=== PATIENT | female | born 1960 | race Caucasian/White ===

== ENCOUNTER 2017-02-02 09:33 | Inpatient (IN) | payer BC ==
[2017-02-02] MEDS ORDERED: Midazolam 1 MG/ML 2 ML SDV ONE (09:52)
[2017-02-02] MEDS ORDERED: Propofol 200 MG/20 ML SDV ONE ×2 (09:52→12:05)
[2017-02-02] MEDS ORDERED: fentaNYL 250 MCG/5 ML SDV ONE (09:53)
[2017-02-02] MEDS ORDERED: Lidocaine 1% 4 ML ONE (09:53)
[2017-02-02] MEDS ORDERED: Sodium Chloride 0.9% 10 ML Syringe FLUSH PRN (10:03)
[2017-02-02] MEDS ORDERED: Lidocaine 1%/Sod Bicarbonate in NS 8.4% 1 ML Syringe PRN (10:03)
--- NOTE | 2017-02-02 10:09 | PCM.PREANE ---
Preanesthetic Assessment - Anesthesia/Transfusion/Family Hx Anesthesia History: Prior Anesthesia Without Reaction Family History of Anesthesia Reaction: No Transfusion History: Prior Transfusion Without Reaction Intubation History: Unknown - Review of Systems General: Fatigue Pulmonary: No Symptoms, Shortness of Breath Cardiovascular: No Symptoms Gastrointestinal: No Symptoms Neurological: No Symptoms Other: Reports: Easy Bleeding, Easy Bruising - Physical Assessment NPO Status Date: 02/01/17 NPO Status Time: 23:30 Pulse: 77 O2 Sat by Pulse Oximetry: 98 Respiratory Rate: 16 Blood Pressure: 131/68 Temperature: 99.1 F Height: 5 ft 3 in Weight: 58.967 kg ASA Class: 3 Mental Status: Alert & Oriented x3 Airway Class: Mallampati = 2 Dentition: Reports: Dentures Thyro-Mental Finger Breadths: 3 Mouth Opening Finger Breadths: 3 ROM/Head Extension: Full Lungs: Clear to Auscultation Cardiovascular: Regular Rate, Regular Rhythm Other: [facility] valve - Allergies Allergies/Adverse Reactions: Allergies Allergy/AdvReac Type Severity Reaction Status Date / Time No Known Allergies Allergy Verified 05/19/16 11:32 PreAnesthesia Questionnaire Cardiovascular History: Reports: Heart Valve Replacement, Hypertension, SOB on Exertion Respiratory History: Reports: Pneumothorax, SOB Other Respiratory History: Secondary to chest compressions Musculoskeletal History: Reports: Osteoporosis, Other (See Below) Other Musculoskeletal History: left knee fx Psychiatric History: Reports: Anxiety, Depression Endocrine/Metabolic History: Reports: Hypothyroidism Hematologic History: Reports: Blood Transfusion(s) Oncologic (Cancer) History: Reports: Breast, Other (See Below) Other Oncologic History: throat - Past Surgical History Other HEENT Surgeries/Procedures: radical neck Cardiovascular Surgical History: Reports: Valve Replacement Female Surgical History: Reports: Section Endocrine Surgical History: Reports: Thyroidectomy Musculoskeletal Surgical History: Reports: Hip Replacement Oncologic Surgical History: Reports: Mastectomy, Other (See Below) Other Oncologic Surgeries/Procedures: Rad neck - SUBSTANCE USE Smoking Status *Q: Former Smoker Second Hand Smoke Exposure: No Days Per Week of Alcohol Use: 1 Number of Drinks Per Day: 2 Total Drinks Per Week: 2 - HOME MEDS Home Medications: Home Meds Warfarin [Coumadin] 1.5 mg PO ASDIRECTED 12/14/13 [History] Levothyroxine 75 mcg PO DAILY 07/25/14 [History] ALPRAZolam [Xanax] 0.5 mg PO Q12H PRN 08/14/14 [History] Aspirin [Children's Aspirin] 81 mg PO DAILY PRN 08/14/14 [History] Warfarin [Coumadin] 2.5 mg PO ASDIRECTED 05/19/16 [History] Calcium Carbonate/Vitamin D3 [Calcium Carbonate/Vitamin D 1250 MG-200 Unit] 1 tab PO DAILY 01/19/17 [History] HYDROmorphone [Dilaudid 1 MG/ML Soln] 6 mg PO Q2H PRN 01/19/17 [History] Lactulose 30 ml PO BID PRN MDD constipation 01/19/17 [History] Ondansetron [Ondansetron ODT] 8 mg SL Q8H PRN 01/19/17 [History] Prochlorperazine Maleate [Compazine] 10 mg PO Q4H PRN 01/19/17 [History] Tetracycline HCl 5 ml PO DAILY 01/19/17 [History] Zolpidem [Ambien] 0.5 tab PO ASDIRECTED PRN 01/19/17 [History] fentaNYL [Duragesic] 150 mcg TD Q72H 01/19/17 [History] - CURRENT (IN HOUSE) MEDS Current Meds: Current Medications Ampicillin Sodium/Sulbactam (Sodium 3 gm/ Sodium Chloride) 100 mls @ 200 mls/ hr IV ONETIME ONE Stop: 02/02/17 10:44 Lactated Ringer's (Ringers, Lactated) 1,000 mls @ 125 mls/hr IV ASDIRECTED [facility] Discontinued Medications Fentanyl (Sublimaze) Confirm Administered Dose 250 mcg .ROUTE .STK-MED ONE Stop: 02/02/17 09:54 Lidocaine HCl (Xylocaine-Mpf 1%) Confirm Administered Dose 4 mls @ as directed .ROUTE .STK-MED ONE Stop: 02/02/17 09:54 Midazolam HCl (Versed 1 Mg/Ml) Confirm Administered Dose 2 mg .ROUTE .STK-MED ONE Stop: 02/02/17 09:53 Propofol (Diprivan 20 Ml) Confirm Administered Dose 200 mg .ROUTE .STK-MED ONE Stop: 02/02/17 09:53
[2017-02-02] MEDS ORDERED: Ampicillin/Sulbactam Na 3 GM in Sodium Chloride 0.9% 100 ML IV ONE (10:15)
[2017-02-02] MEDS: Lactated Ringers 1,000 ML IV SCH ×3 (10:20→23:17)
[2017-02-02] MEDS ORDERED: fentaNYL 100 MCG/2 ML SDV IVPUSH PRN (11:30)
[2017-02-02] MEDS ORDERED: Lactated Ringers 1,000 ML ONE (12:26)
[2017-02-02] MEDS ORDERED: Ketamine 500 mg/10 ML MDV ONE (12:38)
[2017-02-02] MEDS ORDERED: Ondansetron 4 MG/2 ML SDV ONE (12:42)
[2017-02-02] MEDS ORDERED: fentaNYL 100 MCG/2 ML SDV ONE (12:45)
--- NOTE | 2017-02-02 12:56 | PCM.OPNOTE ---
- General Post-Op/Procedure Note Date of Surgery/Procedure: 02/02/17 Operative Procedure(s): laryngoscopy attempted balloon dilitation and laprotomy placement of gastric tube Pre Op Diagnosis: mass in neck with obstruction of esophagus Post-Op Diagnosis: Same Anesthesia Technique: General ET Tube Primary Surgeon: Renan Sharpe EBL in mLs: 5 Complications: None Condition: Good
[2017-02-02] MEDS ORDERED: HYDROmorphone 2 MG Tab PO PRN (13:02)
[2017-02-02] MEDS ORDERED: ALPRAZolam 0.5 MG Tab PO PRN (13:02)
[2017-02-02] MEDS ORDERED: Aspirin 81 MG Tab.Chew PO PRN (13:02)
[2017-02-02] MEDS ORDERED: Ondansetron 4 MG Tab.DIS PO PRN (13:02)
[2017-02-02] MEDS ORDERED: Ondansetron 4 MG/2 ML SDV IVPUSH PRN (13:05)
--- NOTE | 2017-02-02 13:10 | PCM.POSTAN ---
POST ANESTHESIA ASSESSMENT - MENTAL STATUS Mental Status: Alert - VITAL SIGNS Pulse Rate: 77 SaO2: 100 Resp Rate: 16 Blood Pressure: 173/81 Temperature: 97.2 F - RESPIRATORY Respiratory Status: Respiratory Rate WNL, Airway Patent, O2 Saturation Stable - CARDIOVASCULAR CV Status: Pulse Rate WNL, Elevated Blood Pressure - GASTROINTESTINAL GI Status: No Symptoms - POST OP HYDRATION Hydration Status: Adequate & Stable
[2017-02-02] MEDS: HYDROmorphone 0.5 MG/0.5 ML Syringe IVPUSH PRN ×2 (13:12→13:28)
[2017-02-02] MEDS: fentaNYL 100 MCG/2 ML SDV IVPUSH PRN ×3 (13:15→14:00)
[2017-02-02] MEDS: Acetaminophen/HYDROcodone 325-5 MG Tab GTUBE PRN ×2 (13:46→23:16)
[2017-02-02] MEDS ORDERED: fentaNYL 25 MCG/HR Transdermal Patch TRDERM SCH (15:00)
[2017-02-02] MEDS: Ampicillin/Sulbactam Na 1.5 GM in Sodium Chloride 0.9% 100 ML IV SCH ×2 (17:31→23:17)
[2017-02-02] MEDS: Warfarin 2.5 MG Tab PO SCH (17:50)
[2017-02-02] MEDS ORDERED: fentaNYL 100 MCG/HR Transdermal Patch TRDERM SCH (18:15)
[2017-02-02] MEDS: fentaNYL 25 MCG/HR Transdermal Patch TRDERM SCH (19:02)
[2017-02-02] MEDS: fentaNYL 100 MCG/HR Transdermal Patch TRDERM SCH (19:03)
[2017-02-02] MEDS ORDERED: ALPRAZolam 0.25 MG Tab PO ONE (23:06)
[2017-02-03] MEDS: Acetaminophen/HYDROcodone 325-5 MG Tab GTUBE PRN (06:19)
[2017-02-03] MEDS: Ampicillin/Sulbactam Na 1.5 GM in Sodium Chloride 0.9% 100 ML IV SCH ×4 (06:19→22:34)
[2017-02-03] MEDS ORDERED: Potassium Chloride 10% 20 MEQ/15 ML Soln 15 ML UD Cup PO SCH (08:30)
--- NOTE | 2017-02-03 08:51 | OR ---
DATE OF OPERATION: 02/02/2017 SURGEON: Renan Sharpe MD PREOPERATIVE DIAGNOSIS: Tumor mass. POSTOPERATIVE DIAGNOSIS: Tumor mass. OPERATION PERFORMED: Laryngoscopy, attempted dilatation and open placement of gastrostomy tube through laparotomy. ANESTHESIA: Done under IV sedation and then general anesthetic. ESTIMATED BLOOD LOSS: About 10 mL. FINDINGS: Tumor masses that had completely blocked the esophagus and did not allow passage of the scope beyond the upper larynx. 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 DESCRIPTION OF PROCEDURE: The patient was taken to the operating room, connected monitoring equipment, given IV sedation. SCDs were placed. Antibiotics were given. I placed in left lateral position, where a video Olympus gastroscope was placed in a posterior oropharynx and the tumor mass was encountered. It appeared there may be a channel and a small 32-Frisian balloon dilator was placed through this channel and expanded, but it only came out the previous established cutaneous tract, so this was abandoned. The patient was then given a general anesthetic and placed in a supine position. Incision was made in the upper midline, carried down by sharp dissection through the linea alba to the abdominal cavity. The stomach was identified and brought out through the incision and a 3-0 silk suture was placed as a pursestring. The stomach was opened and 16-Frisian feeding tube was inserted. The balloon was dilated and the pursestring suture of 3-0 silk was placed. Another row of 3-0 silk suture was then placed and then the catheter which had been previously threaded through a separate stab incision in the left lateral wall was secured to the peritoneum with interrupted 2-0 silk sutures. The balloon was then tightened up. The retaining ring placed down to secure the stomach to the abdominal wall. This completed the intraabdominal portion of the procedure. The tube was irrigated and found to function well, gastric contents returned. The fascia was then closed with running #1 PDS starting either in midline. Subcuticular tissue was brought together with 3-0 Vicryl suture and the skin with a running subdermal 4-0 Dexon suture. Dermabond was placed. Retaining ring was then sutured to the skin with 2-0 silk suture. The dressing was placed. The patient tolerated the procedure and sent to recovery room in a stable condition. MMODAL /[id number]
[2017-02-03] MEDS: HYDROmorphone 2 MG Tab GTUBE PRN ×6 (08:59→22:10)
[2017-02-03] MEDS: Potassium Chloride 10% 20 MEQ/15 ML Soln 15 ML UD Cup GTUBE SCH ×4 (09:00→20:09)
[2017-02-03] MEDS ORDERED: Potassium Chloride 10 MEQ Tab.ER GTUBE SCH (09:00)
[2017-02-03] MEDS: Levothyroxine 75 MCG Tab PO SCH (09:00)
[2017-02-03] MEDS: Lactulose Soln 10 GM/15 ML 30 ML UD Cup PO SCH ×2 (09:01→20:08)
[2017-02-03] MEDS: Lactated Ringers 1,000 ML IV SCH (09:30)
[2017-02-03] MEDS ORDERED: HYDROmorphone 2 MG Tab GTUBE ONE (10:00)
[2017-02-03] MEDS: ALPRAZolam 0.5 MG Tab PO SCH ×2 (10:49→11:43)
--- NOTE | 2017-02-03 12:49 | PCM.SURGPN ---
- General Info Date of Service: 02/03/17 POD#: 1 Functional Status: Reports: Pain Controlled - Review of Systems General: Reports: Weakness, Fatigue, Malaise HEENT: Reports: Sore Throat Pulmonary: Reports: No Symptoms Cardiovascular: Reports: No Symptoms Gastrointestinal: Reports: No Symptoms - Patient Data Vitals - Most Recent: Last Vital Signs Temp 99.7 F 02/03/17 09:16 Pulse 83 02/03/17 09:16 Resp 14 02/03/17 09:16 BP 163/80 H 02/03/17 09:16 Pulse Ox 92 L 02/03/17 09:16 Weight - Most Recent: 45.541 kg I&O - Last 24 Hours: Intake & Output 02/02/17 02/03/17 02/03/17 23:59 07:59 15:59 Intake Total 419 1345 Output Total 625 1275 Balance -206 70 Med Orders - Current: Current Medications Hydrocodone Bitart/Acetaminophen ([place] 325-5 Mg) 1 tab GTUBE Q6H PRN PRN Reason: Pain Last Admin: 02/03/17 06:19 Dose: 1 tab Alprazolam (Xanax) 0.5 mg PO TID PRN PRN Reason: Anxiety Aspirin (Aspirin) 81 mg PO DAILY PRN PRN Reason: Headache Fentanyl (Duragesic) 100 mcg TRDERM Q72H [facility] Last Admin: 02/02/17 19:03 Dose: 100 mcg Fentanyl (Duragesic) 25 mcg TRDERM Q72H [facility] Last Admin: 02/02/17 19:02 Dose: 25 mcg Hydromorphone HCl (Dilaudid) 6 mg GTUBE Q2H PRN PRN Reason: Pain Last Admin: 02/03/17 11:11 Dose: 6 mg Ampicillin Sodium/Sulbactam (Sodium 1.5 gm/ Sodium Chloride) 100 mls @ 200 mls/ hr IV Q6H [facility] Last Admin: 02/03/17 10:45 Dose: 200 mls/hr Lactulose (Cephulac) 20 gm PO BID [facility] Last Admin: 02/03/17 09:01 Dose: Not Given Levothyroxine Sodium (Levothyroxine) 75 mcg PO DAILY [facility] Last Admin: 02/03/17 09:00 Dose: 75 mcg Miscellaneous Information (Remove Patch) 1 ea TRDERM Q72H [facility] Ondansetron HCl (Zofran Odt) 8 mg PO Q8H PRN PRN Reason: Nausea/Vomiting Potassium Chloride (Potassium Chloride Solution) 10 meq GTUBE QID [facility] Last Admin: 02/03/17 12:34 Dose: 10 meq Warfarin Sodium (Coumadin) 2.5 mg PO SuMoWeFr@1800 [facility] Warfarin Sodium (Coumadin) 1.25 mg PO TuThSa@1800 [facility] Last Admin: 02/02/17 17:50 Dose: 1.25 mg Discontinued Medications Alprazolam (Xanax) 0.5 mg PO Q12H PRN PRN Reason: Anxiety Last Admin: 02/02/17 17:50 Dose: 0.5 mg Alprazolam (Xanax) 0.5 mg PO ONETIME ONE Stop: 02/02/17 23:07 Last Admin: 02/02/17 23:16 Dose: 0.5 mg Alprazolam (Xanax) 0.5 mg PO TID [facility] Last Admin: 02/03/17 11:43 Dose: Not Given Fentanyl (Sublimaze) Confirm Administered Dose 250 mcg .ROUTE .STK-MED ONE Stop: 02/02/17 09:54 Fentanyl (Sublimaze) 50 mcg IVPUSH Q5M PRN PRN Reason: Pain Stop: 02/02/17 11:31 Last Admin: 02/02/17 10:45 Dose: 50 mcg Fentanyl (Sublimaze) Confirm Administered Dose 100 mcg .ROUTE .STK-MED ONE Stop: 02/02/17 12:46 Fentanyl (Sublimaze) 50 mcg IVPUSH Q5M PRN PRN Reason: Pain Stop: 02/02/17 13:06 Last Admin: 02/02/17 14:00 Dose: 50 mcg Fentanyl (Duragesic) 25 mcg TRDERM Q72H [facility] Last Admin: 02/02/17 20:49 Dose: Not Given Fentanyl (Duragesic) 100 mcg TRDERM Q72H [facility] Hydromorphone HCl (Dilaudid) 0.5 mg IVPUSH Q15M PRN PRN Reason: severe pain Stop: 02/02/17 13:06 Last Admin: 02/02/17 13:28 Dose: 0.5 mg Hydromorphone HCl (Dilaudid) 6 mg PO Q2H PRN PRN Reason: Breakthrough Pain Last Admin: 02/02/17 15:47 Dose: 6 mg Ampicillin Sodium/Sulbactam (Sodium 3 gm/ Sodium Chloride) 100 mls @ 200 mls/ hr IV ONETIME ONE Stop: 02/02/17 10:44 Last Admin: 02/02/17 11:21 Dose: 200 mls/hr Lidocaine HCl (Xylocaine-Mpf 1%) Confirm Administered Dose 4 mls @ as directed .ROUTE .STK-MED ONE Stop: 02/02/17 09:54 Lactated Ringer's (Ringers, Lactated) 1,000 mls @ 125 mls/hr IV ASDIRECTED [facility] Stop: 02/02/17 23:00 Last Admin: 02/02/17 13:32 Dose: 125 mls/hr Lactated Ringer's (Ringers, Lactated) Confirm Administered Dose 1,000 mls @ as directed .ROUTE .STK-MED ONE Stop: 02/02/17 12:27 Lactated Ringer's (Ringers, Lactated) 1,000 mls @ 100 mls/hr IV ASDIRECTED [facility] Last Admin: 02/03/17 09:30 Dose: 100 mls/hr Ketamine HCl (Ketalar) Confirm Administered Dose 500 mg .ROUTE .STK-MED ONE Stop: 02/02/17 12:39 Lidocaine/Sodium Bicarbonate (Buffered Lidocaine 1% In Ns 8.4%) 0.25 ml .XX ONETIME PRN PRN Reason: Prior to IV Start Stop: 02/02/17 18:00 Last Admin: 02/02/17 10:44 Dose: 0.25 ml Midazolam HCl (Versed 1 Mg/Ml) Confirm Administered Dose 2 mg .ROUTE .STK-MED ONE Stop: 02/02/17 09:53 Miscellaneous Information (Remove Patch) 0 ea TRDERM Q72H [facility] Ondansetron HCl (Zofran) Confirm Administered Dose 4 mg .ROUTE .STK-MED ONE Stop: 02/02/17 12:43 Ondansetron HCl (Zofran) 4 mg IVPUSH ONETIME PRN PRN Reason: Nausea/Vomiting Stop: 02/02/17 18:00 Potassium Chloride (Potassium Chloride Solution) 10 meq PO TID [facility] Last Admin: 02/03/17 11:44 Dose: Not Given Potassium Chloride (Klor-Con 10) 10 meq GTUBE QID [facility] Propofol (Diprivan 20 Ml) Confirm Administered Dose 200 mg .ROUTE .STK-MED ONE Stop: 02/02/17 09:53 Propofol (Diprivan 20 Ml) Confirm Administered Dose 200 mg .ROUTE .STK-MED ONE Stop: 02/02/17 12:06 Sodium Chloride (Saline Flush) 10 ml FLUSH ASDIRECTED PRN PRN Reason: Keep Vein Open Stop: 02/02/17 18:00 - Exam Neck: Other (fistulae noted ) Lungs: Clear to Auscultation, Normal Respiratory Effort Cardiovascular: Regular Rate, Regular Rhythm - Problem List Review Problem List Initiated/Reviewed/Updated: Yes - My Orders Last 24 Hours: Active Orders 24 hr Category Date Time Status Patient Status [ADT] Routine ADT 02/02/17 13:01 Active Activity as Tolerated [RC] QSHIFT Care 02/02/17 12:58 Active Antiembolic Devices [RC] DAILY Care 02/02/17 12:59 Active Notify Provider Consults [RC] ASDIRECTED Care 02/02/17 18:47 Active Oxygen Therapy [RC] ASDIRECTED Care 02/02/17 13:05 Active Telemetry Monitoring [Cardiac Monitoring] [RC] . Care 02/02/17 13:15 Active DIRECTED Turn, Cough, Deep Breathe [RC] .PRN Care 02/02/17 12:58 Active Vital Signs [RC] 09,03,15,21 Care 02/02/17 18:50 Active Consult to [employer] [CONS] Routine Cons 02/02/17 12:57 Active Consult to Occupational Therapy [OT Evaluation and Cons 02/03/17 10:55 Active Treatment] [CONS] Routine Consult to Physical Therapy [PT Evaluation and Cons 02/03/17 10:55 Active Treatment] [CONS] Routine Consult to Physician [CONS] Routine Cons 02/02/17 18:47 Active NPO [Nothing Per Oral Diet] [DIET] Diet 02/02/17 Dinner Active Tube Feeding Adult Diet [DIET] Diet 02/03/17 Dinner Active BMP [BASIC METABOLIC PANEL,BMP] [CHEM] Routine Lab 02/04/17 05:11 Ordered CMP [COMPREHENSIVE METABOLIC PN,CMP] [CHEM] Routine Lab 02/03/17 12:36 Ordered INR,PT,PROTHROMBIN TIME [COAG] Routine Lab 02/04/17 06:00 Ordered ALPRAZolam [Xanax] Med 02/03/17 11:06 Active 0.5 mg PO TID PRN Acetaminophen/HYDROcodone [[place] 325-5 MG] Med 02/02/17 13:23 Active 1 tab GTUBE Q6H PRN Ampicillin/Sulbactam Na [Unasyn] 1.5 gm Med 02/02/17 17:30 Active Sodium Chloride 0.9% [Normal Saline] 100 ml IV Q6H Aspirin Med 02/02/17 13:02 Active 81 mg PO DAILY PRN HYDROmorphone [Dilaudid] Med 02/03/17 08:14 Active 6 mg GTUBE Q2H PRN Lactulose [Cephulac] Med 02/03/17 09:00 Active 20 gm PO BID Levothyroxine Med 02/03/17 09:00 Active 75 mcg PO DAILY Ondansetron [Zofran ODT] Med 02/02/17 13:02 Active 8 mg PO Q8H PRN Potassium Chloride [Potassium Chloride Solution] Med 02/03/17 09:00 Active 10 meq GTUBE QID Remove Patch Med 02/05/17 19:00 Active 1 ea TRDERM Q72H Warfarin [Coumadin] Med 02/02/17 18:00 Active 1.25 mg PO TuThSa@1800 Warfarin [Coumadin] Med 02/03/17 18:00 Active 2.5 mg PO SuMoWeFr@1800 fentaNYL [Duragesic] Med 02/02/17 19:00 Active 100 mcg TRDERM Q72H fentaNYL [Duragesic] Med 02/02/17 19:00 Active 25 mcg TRDERM Q72H SCD [Sequential Compression Device] [OM.PC] Routine Oth 02/02/17 12:59 Ordered Resuscitation Status Routine Resus Stat 02/02/17 18:46 Ordered Medication Orders Hydrocodone Bitart/Acetaminophen ([place] 325-5 Mg) 1 tab GTUBE Q6H PRN PRN Reason: Pain Last Admin: 02/03/17 06:19 Dose: 1 tab Admin: 02/02/17 23:16 Dose: 1 tab Admin: 02/02/17 13:46 Dose: 1 tab Alprazolam (Xanax) 0.5 mg PO TID PRN PRN Reason: Anxiety Aspirin (Aspirin) 81 mg PO DAILY PRN PRN Reason: Headache Fentanyl (Duragesic) 100 mcg TRDERM Q72H [facility] Last Admin: 02/02/17 19:03 Dose: 100 mcg Fentanyl (Duragesic) 25 mcg TRDERM Q72H [facility] Last Admin: 02/02/17 19:02 Dose: 25 mcg Hydromorphone HCl (Dilaudid) 6 mg GTUBE Q2H PRN PRN Reason: Pain Last Admin: 02/03/17 11:11 Dose: 6 mg Admin: 02/03/17 08:59 Dose: 6 mg Ampicillin Sodium/Sulbactam (Sodium 1.5 gm/ Sodium Chloride) 100 mls @ 200 mls/ hr IV Q6H [facility] Last Admin: 02/03/17 10:45 Dose: 200 mls/hr Infusion: 02/03/17 06:49 Dose: 200 mls/hr Admin: 02/03/17 06:19 Dose: 200 mls/hr Infusion: 02/02/17 23:47 Dose: 200 mls/hr Admin: 02/02/17 23:17 Dose: 200 mls/hr Infusion: 02/02/17 18:01 Dose: 200 mls/hr Admin: 02/02/17 17:31 Dose: 200 mls/hr Lactulose (Cephulac) 20 gm PO BID [facility] Last Admin: 02/03/17 09:01 Dose: Not Given Levothyroxine Sodium (Levothyroxine) 75 mcg PO DAILY [facility] Last Admin: 02/03/17 09:00 Dose: 75 mcg Miscellaneous Information (Remove Patch) 1 ea TRDERM Q72H [facility] Ondansetron HCl (Zofran Odt) 8 mg PO Q8H PRN PRN Reason: Nausea/Vomiting Potassium Chloride (Potassium Chloride Solution) 10 meq GTUBE QID [facility] Last Admin: 02/03/17 12:34 Dose: 10 meq Admin: 02/03/17 09:00 Dose: 10 meq Warfarin Sodium (Coumadin) 2.5 mg PO SuMoWeFr@1800 [facility] Warfarin Sodium (Coumadin) 1.25 mg PO TuThSa@1800 [facility] Last Admin: 02/02/17 17:50 Dose: 1.25 mg - Plan Plan (Free Text/Narrative):: pt alert but no yet willing to get up and into chair exame abdomen is somft lab K is low plan begin tube feeding per hogshead weigher, give K and start anticoagulation complete continue antibiotic , placed in Hospice PT to see
[2017-02-03] MEDS: Warfarin 2.5 MG Tab PO SCH (17:31)
[2017-02-03] MEDS: Enoxaparin 40 MG/0.4 ML Syringe SUBCUT SCH (18:52)
[2017-02-03] MEDS ORDERED: Ampicillin/Sulbactam Na 1.5 GM Vial ONE (21:56)
[2017-02-04] MEDS: HYDROmorphone 2 MG Tab GTUBE PRN ×7 (01:08→23:55)
[2017-02-04] MEDS: Ampicillin/Sulbactam Na 1.5 GM in Sodium Chloride 0.9% 100 ML IV SCH (05:40)
[2017-02-04] MEDS: ALPRAZolam 0.5 MG Tab PO PRN ×2 (05:53→15:48)
[2017-02-04] MEDS: Enoxaparin 40 MG/0.4 ML Syringe SUBCUT SCH ×2 (06:01→19:00)
--- NOTE | 2017-02-04 09:44 | PCM.SN ---
- Free Text/Narrative Note: Nursing questioned to give pain medications early this morning as patient requesting pain medications. She rec'd dose of dilaudid at 0800 and could next have dose at 1000. I ok'd dose to be given 10 minutes early. Briefly visited with patient this morning, states pain is "a little better than yesterday". She is resting comfortably in bed at this time. Nursing students and primary nurse in room doing assessments.
--- NOTE | 2017-02-04 10:14 | PCM.SURGPN ---
- General Info Date of Service: 02/04/17 POD#: 2 - Review of Systems General: Reports: No Symptoms Pulmonary: Reports: No Symptoms Gastrointestinal: Reports: Other (some cramps but having flatus ) - Patient Data Vitals - Most Recent: Last Vital Signs Temp 98.4 F 02/04/17 09:39 Pulse 94 02/04/17 09:39 Resp 12 02/04/17 09:39 BP 121/71 02/04/17 09:39 Pulse Ox 88 L 02/04/17 09:39 Weight - Most Recent: 46.992 kg I&O - Last 24 Hours: Intake & Output 02/03/17 02/04/17 02/04/17 23:59 07:59 15:59 Intake Total 765 100 Output Total 650 500 Balance 115 -400 Lab Results Last 24 Hrs: Laboratory Results - last 24 hr 02/03/17 02/04/17 02/04/17 Range/Units 13:00 05:40 05:40 PT 21.0 H (8.0-13.0) SECONDS INR 1.85 Sodium 143 142 (136-145) mEq/L Potassium 2.6 L 2.9 L (3.5-5.1) mEq/L Chloride 101 103 (98-107) mEq/L Carbon Dioxide 29 31 (21-32) mEq/L Anion Gap 15.6 H 10.9 (5-15) BUN 3 L 6 L (7-18) mg/dL Creatinine 0.6 0.6 (0.55-1.02) mg/dL Est Cr Clr Drug Dosing 74.37 76.74 mL/min Estimated GFR (MDRD) > 60 > 60 (>60) mL/min BUN/Creatinine Ratio 5.0 L 10.0 L (14-18) Glucose 71 L 120 H (74-106) mg/dL Calcium 8.7 8.3 L (8.5-10.1) mg/dL Total Bilirubin 1.0 (0.2-1.0) mg/dL AST 79 H (15-37) U/L ALT 22 (14-59) U/L Alkaline Phosphatase 238 H (46-116) U/L Total Protein 5.8 L (6.4-8.2) g/dl Albumin 2.2 L (3.4-5.0) g/dl Globulin 3.6 gm/dL Albumin/Globulin Ratio 0.6 L (1-2) Med Orders - Current: Current Medications Hydrocodone Bitart/Acetaminophen ([place] 325-5 Mg) 1 tab GTUBE Q6H PRN PRN Reason: Pain Last Admin: 02/03/17 06:19 Dose: 1 tab Alprazolam (Xanax) 0.5 mg PO TID PRN PRN Reason: Anxiety Last Admin: 02/04/17 05:53 Dose: 0.5 mg Aspirin (Aspirin) 81 mg PO DAILY PRN PRN Reason: Headache Enoxaparin Sodium (Lovenox) 40 mg SUBCUT Q12H [facility] Last Admin: 02/04/17 06:01 Dose: 40 mg Fentanyl (Duragesic) 100 mcg TRDERM Q72H [facility] Last Admin: 02/02/17 19:03 Dose: 100 mcg Fentanyl (Duragesic) 25 mcg TRDERM Q72H [facility] Last Admin: 02/02/17 19:02 Dose: 25 mcg Lactulose (Cephulac) 20 gm PO BID [facility] Last Admin: 02/03/17 20:08 Dose: 20 gm Levothyroxine Sodium (Levothyroxine) 75 mcg PO DAILY [facility] Last Admin: 02/03/17 09:00 Dose: 75 mcg Miscellaneous Information (Remove Patch) 1 ea TRDERM Q72H [facility] Ondansetron HCl (Zofran Odt) 8 mg PO Q8H PRN PRN Reason: Nausea/Vomiting Potassium Chloride (Potassium Chloride Solution) 10 meq GTUBE QID [facility] Last Admin: 02/03/17 20:09 Dose: 10 meq Senna (Senna) 8.6 mg PO BID [facility] Warfarin Sodium (Coumadin) 2.5 mg PO SuMoWeFr@1800 [facility] Last Admin: 02/03/17 17:31 Dose: 2.5 mg Warfarin Sodium (Coumadin) 1.25 mg PO TuThSa@1800 [facility] Last Admin: 02/02/17 17:50 Dose: 1.25 mg Discontinued Medications Alprazolam (Xanax) 0.5 mg PO Q12H PRN PRN Reason: Anxiety Last Admin: 02/02/17 17:50 Dose: 0.5 mg Alprazolam (Xanax) 0.5 mg PO ONETIME ONE Stop: 02/02/17 23:07 Last Admin: 02/02/17 23:16 Dose: 0.5 mg Alprazolam (Xanax) 0.5 mg PO TID [facility] Last Admin: 02/03/17 11:43 Dose: Not Given Ampicillin Sodium/Sulbactam Sodium (Unasyn) Confirm Administered Dose 1.5 gm .ROUTE .STK-MED ONE Stop: 02/03/17 21:57 Last Admin: 02/03/17 23:00 Dose: Not Given Fentanyl (Sublimaze) Confirm Administered Dose 250 mcg .ROUTE .STK-MED ONE Stop: 02/02/17 09:54 Fentanyl (Sublimaze) 50 mcg IVPUSH Q5M PRN PRN Reason: Pain Stop: 02/02/17 11:31 Last Admin: 02/02/17 10:45 Dose: 50 mcg Fentanyl (Sublimaze) Confirm Administered Dose 100 mcg .ROUTE .STK-MED ONE Stop: 02/02/17 12:46 Fentanyl (Sublimaze) 50 mcg IVPUSH Q5M PRN PRN Reason: Pain Stop: 02/02/17 13:06 Last Admin: 02/02/17 14:00 Dose: 50 mcg Fentanyl (Duragesic) 25 mcg TRDERM Q72H [facility] Last Admin: 02/02/17 20:49 Dose: Not Given Fentanyl (Duragesic) 100 mcg TRDERM Q72H [facility] Hydromorphone HCl (Dilaudid) 0.5 mg IVPUSH Q15M PRN PRN Reason: severe pain Stop: 02/02/17 13:06 Last Admin: 02/02/17 13:28 Dose: 0.5 mg Hydromorphone HCl (Dilaudid) 6 mg PO Q2H PRN PRN Reason: Breakthrough Pain Last Admin: 02/02/17 15:47 Dose: 6 mg Hydromorphone HCl (Dilaudid) 6 mg GTUBE Q2H PRN PRN Reason: Pain Last Admin: 02/04/17 07:58 Dose: 6 mg Hydromorphone HCl (Dilaudid) 8 mg GTUBE STAT ONE Stop: 02/03/17 10:01 Ampicillin Sodium/Sulbactam (Sodium 3 gm/ Sodium Chloride) 100 mls @ 200 mls/ hr IV ONETIME ONE Stop: 02/02/17 10:44 Last Admin: 02/02/17 11:21 Dose: 200 mls/hr Lidocaine HCl (Xylocaine-Mpf 1%) Confirm Administered Dose 4 mls @ as directed .ROUTE .STK-MED ONE Stop: 02/02/17 09:54 Lactated Ringer's (Ringers, Lactated) 1,000 mls @ 125 mls/hr IV ASDIRECTED [facility] Stop: 02/02/17 23:00 Last Admin: 02/02/17 13:32 Dose: 125 mls/hr Lactated Ringer's (Ringers, Lactated) Confirm Administered Dose 1,000 mls @ as directed .ROUTE .STK-MED ONE Stop: 02/02/17 12:27 Lactated Ringer's (Ringers, Lactated) 1,000 mls @ 100 mls/hr IV ASDIRECTED [facility] Last Admin: 02/03/17 09:30 Dose: 100 mls/hr Ampicillin Sodium/Sulbactam (Sodium 1.5 gm/ Sodium Chloride) 100 mls @ 200 mls/ hr IV Q6H [facility] Last Admin: 02/04/17 05:40 Dose: 200 mls/hr Ketamine HCl (Ketalar) Confirm Administered Dose 500 mg .ROUTE .STK-MED ONE Stop: 02/02/17 12:39 Lidocaine/Sodium Bicarbonate (Buffered Lidocaine 1% In Ns 8.4%) 0.25 ml .XX ONETIME PRN PRN Reason: Prior to IV Start Stop: 02/02/17 18:00 Last Admin: 02/02/17 10:44 Dose: 0.25 ml Midazolam HCl (Versed 1 Mg/Ml) Confirm Administered Dose 2 mg .ROUTE .STK-MED ONE Stop: 02/02/17 09:53 Miscellaneous Information (Remove Patch) 0 ea TRDERM Q72H [facility] Ondansetron HCl (Zofran) Confirm Administered Dose 4 mg .ROUTE .STK-MED ONE Stop: 02/02/17 12:43 Ondansetron HCl (Zofran) 4 mg IVPUSH ONETIME PRN PRN Reason: Nausea/Vomiting Stop: 02/02/17 18:00 Potassium Chloride (Potassium Chloride Solution) 10 meq PO TID [facility] Last Admin: 02/03/17 11:44 Dose: Not Given Potassium Chloride (Klor-Con 10) 10 meq GTUBE QID [facility] Propofol (Diprivan 20 Ml) Confirm Administered Dose 200 mg .ROUTE .STK-MED ONE Stop: 02/02/17 09:53 Propofol (Diprivan 20 Ml) Confirm Administered Dose 200 mg .ROUTE .STK-MED ONE Stop: 02/02/17 12:06 Sodium Chloride (Saline Flush) 10 ml FLUSH ASDIRECTED PRN PRN Reason: Keep Vein Open Stop: 02/02/17 18:00 - Exam Lungs: Clear to Auscultation, Normal Respiratory Effort GI/Abdominal Exam: Soft, Non-Tender, Distended - Problem List Review Problem List Initiated/Reviewed/Updated: Yes - My Orders Last 24 Hours: Active Orders 24 hr Category Date Time Status Consult to Occupational Therapy [OT Evaluation and Cons 02/03/17 10:55 Active Treatment] [CONS] Routine Consult to Physical Therapy [PT Evaluation and Cons 02/03/17 10:55 Active Treatment] [CONS] Routine Tube Feeding Adult Diet [DIET] Diet 02/03/17 Dinner Active INR,PT,PROTHROMBIN TIME [COAG] Routine Lab 02/05/17 07:00 Ordered ALPRAZolam [Xanax] Med 02/03/17 11:06 Active 0.5 mg PO TID PRN Enoxaparin [Lovenox] Med 02/03/17 19:00 Active 40 mg SUBCUT Q12H Remove Patch Med 02/05/17 19:00 Active 1 ea TRDERM Q72H Sennosides [Senna] Med 02/04/17 21:00 Active 8.6 mg PO BID Warfarin [Coumadin] Med 02/03/17 18:00 Active 2.5 mg PO SuMoWeFr@1800 Medication Orders Hydrocodone Bitart/Acetaminophen ([place] 325-5 Mg) 1 tab GTUBE Q6H PRN PRN Reason: Pain Last Admin: 02/03/17 06:19 Dose: 1 tab Admin: 02/02/17 23:16 Dose: 1 tab Admin: 02/02/17 13:46 Dose: 1 tab Alprazolam (Xanax) 0.5 mg PO TID PRN PRN Reason: Anxiety Last Admin: 02/04/17 05:53 Dose: 0.5 mg Aspirin (Aspirin) 81 mg PO DAILY PRN PRN Reason: Headache Enoxaparin Sodium (Lovenox) 40 mg SUBCUT Q12H [facility] Last Admin: 02/04/17 06:01 Dose: 40 mg Admin: 02/03/17 18:52 Dose: 40 mg Fentanyl (Duragesic) 100 mcg TRDERM Q72H [facility] Last Admin: 02/02/17 19:03 Dose: 100 mcg Fentanyl (Duragesic) 25 mcg TRDERM Q72H [facility] Last Admin: 02/02/17 19:02 Dose: 25 mcg Lactulose (Cephulac) 20 gm PO BID [facility] Last Admin: 02/03/17 20:08 Dose: 20 gm Admin: 02/03/17 09:01 Dose: Not Given Levothyroxine Sodium (Levothyroxine) 75 mcg PO DAILY [facility] Last Admin: 02/03/17 09:00 Dose: 75 mcg Miscellaneous Information (Remove Patch) 1 ea TRDERM Q72H [facility] Ondansetron HCl (Zofran Odt) 8 mg PO Q8H PRN PRN Reason: Nausea/Vomiting Potassium Chloride (Potassium Chloride Solution) 10 meq GTUBE QID [facility] Last Admin: 02/03/17 20:09 Dose: 10 meq Admin: 02/03/17 17:30 Dose: 10 meq Admin: 02/03/17 12:34 Dose: 10 meq Admin: 02/03/17 09:00 Dose: 10 meq Senna (Senna) 8.6 mg PO BID [facility] Warfarin Sodium (Coumadin) 2.5 mg PO SuMoWeFr@1800 [facility] Last Admin: 02/03/17 17:31 Dose: 2.5 mg Warfarin Sodium (Coumadin) 1.25 mg PO TuThSa@1800 [facility] Last Admin: 02/02/17 17:50 Dose: 1.25 mg - Plan Plan (Free Text/Narrative):: tolerating tube feeding continued antibiotics beyond post op period 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
[2017-02-04] MEDS ORDERED: HYDROmorphone 2 MG Tab GTUBE ONE (10:25)
[2017-02-04] MEDS ORDERED: Potassium Chloride 10 MEQ in Premix Bag 1 BAG IV ONE (10:30)
[2017-02-04] MEDS ORDERED: Sodium Chloride 0.9% 250 ML IV SCH (10:30)
[2017-02-04] MEDS: Sennosides 8.6 MG Tab PO SCH (10:39)
[2017-02-04] MEDS: Levothyroxine 75 MCG Tab PO SCH (10:40)
[2017-02-04] MEDS: Potassium Chloride 10% 20 MEQ/15 ML Soln 15 ML UD Cup GTUBE SCH ×3 (10:41→17:31)
[2017-02-04] MEDS: Lactulose Soln 10 GM/15 ML 30 ML UD Cup PO SCH (10:56)
--- NOTE | 2017-02-04 17:26 | PCM.SURGPN ---
- General Info Date of Service: 02/04/17 - Patient Data Vitals - Most Recent: Last Vital Signs Temp 99.3 F 02/04/17 15:01 Pulse 85 02/04/17 15:01 Resp 16 02/04/17 15:01 BP 152/89 H 02/04/17 15:01 Pulse Ox 96 02/04/17 15:01 Weight - Most Recent: 46.992 kg I&O - Last 24 Hours: Intake & Output 02/04/17 02/04/17 02/04/17 07:59 15:59 23:59 Intake Total 100 100 Output Total 500 500 Balance -400 -500 100 Lab Results Last 24 Hrs: Laboratory Results - last 24 hr 02/04/17 02/04/17 02/04/17 Range/Units 05:40 05:40 10:50 PT 21.0 H (8.0-13.0) SECONDS INR 1.85 Sodium 142 (136-145) mEq/L Potassium 2.9 L 2.9 L (3.5-5.1) mEq/L Chloride 103 (98-107) mEq/L Carbon Dioxide 31 (21-32) mEq/L Anion Gap 10.9 (5-15) BUN 6 L (7-18) mg/dL Creatinine 0.6 (0.55-1.02) mg/dL Est Cr Clr Drug Dosing 76.74 mL/min Estimated GFR (MDRD) > 60 (>60) mL/min BUN/Creatinine Ratio 10.0 L (14-18) Glucose 120 H (74-106) mg/dL Calcium 8.3 L (8.5-10.1) mg/dL Med Orders - Current: Current Medications Hydrocodone Bitart/Acetaminophen ([place] 325-5 Mg) 1 tab GTUBE Q6H PRN PRN Reason: Pain Last Admin: 02/03/17 06:19 Dose: 1 tab Alprazolam (Xanax) 0.5 mg PO TID PRN PRN Reason: Anxiety Last Admin: 02/04/17 15:48 Dose: 0.5 mg Aspirin (Aspirin) 81 mg PO DAILY PRN PRN Reason: Headache Enoxaparin Sodium (Lovenox) 40 mg SUBCUT Q12H [facility] Last Admin: 02/04/17 06:01 Dose: 40 mg Fentanyl (Duragesic) 100 mcg TRDERM Q72H [facility] Last Admin: 02/02/17 19:03 Dose: 100 mcg Fentanyl (Duragesic) 25 mcg TRDERM Q72H [facility] Last Admin: 02/02/17 19:02 Dose: 25 mcg Hydromorphone HCl (Dilaudid) 6 mg GTUBE Q2H PRN PRN Reason: Pain Last Admin: 02/04/17 14:10 Dose: 6 mg Lactulose (Cephulac) 20 gm PO BID [facility] Last Admin: 02/04/17 10:56 Dose: 20 gm Levothyroxine Sodium (Levothyroxine) 75 mcg PO DAILY [facility] Last Admin: 02/04/17 10:40 Dose: 75 mcg Miscellaneous Information (Remove Patch) 1 ea TRDERM Q72H [facility] Ondansetron HCl (Zofran Odt) 8 mg PO Q8H PRN PRN Reason: Nausea/Vomiting Potassium Chloride (Potassium Chloride Solution) 10 meq GTUBE QID [facility] Last Admin: 02/04/17 14:10 Dose: 10 meq Senna (Senna) 8.6 mg PO BID [facility] Last Admin: 02/04/17 10:39 Dose: 8.6 mg Warfarin Sodium (Coumadin) 2.5 mg PO SuMoWeFr@1800 [facility] Last Admin: 02/03/17 17:31 Dose: 2.5 mg Warfarin Sodium (Coumadin) 1.25 mg PO TuThSa@1800 [facility] Last Admin: 02/02/17 17:50 Dose: 1.25 mg Discontinued Medications Alprazolam (Xanax) 0.5 mg PO Q12H PRN PRN Reason: Anxiety Last Admin: 02/02/17 17:50 Dose: 0.5 mg Alprazolam (Xanax) 0.5 mg PO ONETIME ONE Stop: 02/02/17 23:07 Last Admin: 02/02/17 23:16 Dose: 0.5 mg Alprazolam (Xanax) 0.5 mg PO TID [facility] Last Admin: 02/03/17 11:43 Dose: Not Given Ampicillin Sodium/Sulbactam Sodium (Unasyn) Confirm Administered Dose 1.5 gm .ROUTE .STK-MED ONE Stop: 02/03/17 21:57 Last Admin: 02/03/17 23:00 Dose: Not Given Fentanyl (Sublimaze) Confirm Administered Dose 250 mcg .ROUTE .STK-MED ONE Stop: 02/02/17 09:54 Fentanyl (Sublimaze) 50 mcg IVPUSH Q5M PRN PRN Reason: Pain Stop: 02/02/17 11:31 Last Admin: 02/02/17 10:45 Dose: 50 mcg Fentanyl (Sublimaze) Confirm Administered Dose 100 mcg .ROUTE .STK-MED ONE Stop: 02/02/17 12:46 Fentanyl (Sublimaze) 50 mcg IVPUSH Q5M PRN PRN Reason: Pain Stop: 02/02/17 13:06 Last Admin: 02/02/17 14:00 Dose: 50 mcg Fentanyl (Duragesic) 25 mcg TRDERM Q72H [facility] Last Admin: 02/02/17 20:49 Dose: Not Given Fentanyl (Duragesic) 100 mcg TRDERM Q72H [facility] Hydromorphone HCl (Dilaudid) 0.5 mg IVPUSH Q15M PRN PRN Reason: severe pain Stop: 02/02/17 13:06 Last Admin: 02/02/17 13:28 Dose: 0.5 mg Hydromorphone HCl (Dilaudid) 6 mg PO Q2H PRN PRN Reason: Breakthrough Pain Last Admin: 02/02/17 15:47 Dose: 6 mg Hydromorphone HCl (Dilaudid) 6 mg GTUBE Q2H PRN PRN Reason: Pain Last Admin: 02/04/17 07:58 Dose: 6 mg Hydromorphone HCl (Dilaudid) 8 mg GTUBE STAT ONE Stop: 02/03/17 10:01 Last Admin: 02/04/17 10:36 Dose: Not Given Hydromorphone HCl (Dilaudid) 8 mg GTUBE STAT ONE Stop: 02/04/17 10:26 Last Admin: 02/04/17 10:39 Dose: 8 mg Ampicillin Sodium/Sulbactam (Sodium 3 gm/ Sodium Chloride) 100 mls @ 200 mls/ hr IV ONETIME ONE Stop: 02/02/17 10:44 Last Admin: 02/02/17 11:21 Dose: 200 mls/hr Lidocaine HCl (Xylocaine-Mpf 1%) Confirm Administered Dose 4 mls @ as directed .ROUTE .STK-MED ONE Stop: 02/02/17 09:54 Lactated Ringer's (Ringers, Lactated) 1,000 mls @ 125 mls/hr IV ASDIRECTED [facility] Stop: 02/02/17 23:00 Last Admin: 02/02/17 13:32 Dose: 125 mls/hr Lactated Ringer's (Ringers, Lactated) Confirm Administered Dose 1,000 mls @ as directed .ROUTE .STK-MED ONE Stop: 02/02/17 12:27 Lactated Ringer's (Ringers, Lactated) 1,000 mls @ 100 mls/hr IV ASDIRECTED [facility] Last Admin: 02/03/17 09:30 Dose: 100 mls/hr Ampicillin Sodium/Sulbactam (Sodium 1.5 gm/ Sodium Chloride) 100 mls @ 200 mls/ hr IV Q6H [facility] Last Admin: 02/04/17 05:40 Dose: 200 mls/hr Sodium Chloride (Normal Saline) 250 mls @ 50 mls/hr IV ASDIRECTED [facility] Stop: 02/04/17 15:00 Potassium Chloride 10 meq/ (Premix) 100 mls @ 50 mls/hr IV ONETIME ONE Stop: 02/04/17 12:29 Last Admin: 02/04/17 11:11 Dose: 50 mls/hr Ketamine HCl (Ketalar) Confirm Administered Dose 500 mg .ROUTE .STK-MED ONE Stop: 02/02/17 12:39 Lidocaine/Sodium Bicarbonate (Buffered Lidocaine 1% In Ns 8.4%) 0.25 ml .XX ONETIME PRN PRN Reason: Prior to IV Start Stop: 02/02/17 18:00 Last Admin: 02/02/17 10:44 Dose: 0.25 ml Midazolam HCl (Versed 1 Mg/Ml) Confirm Administered Dose 2 mg .ROUTE .STK-MED ONE Stop: 02/02/17 09:53 Miscellaneous Information (Remove Patch) 0 ea TRDERM Q72H [facility] Ondansetron HCl (Zofran) Confirm Administered Dose 4 mg .ROUTE .STK-MED ONE Stop: 02/02/17 12:43 Ondansetron HCl (Zofran) 4 mg IVPUSH ONETIME PRN PRN Reason: Nausea/Vomiting Stop: 02/02/17 18:00 Potassium Chloride (Potassium Chloride Solution) 10 meq PO TID [facility] Last Admin: 02/03/17 11:44 Dose: Not Given Potassium Chloride (Klor-Con 10) 10 meq GTUBE QID [facility] Propofol (Diprivan 20 Ml) Confirm Administered Dose 200 mg .ROUTE .STK-MED ONE Stop: 02/02/17 09:53 Propofol (Diprivan 20 Ml) Confirm Administered Dose 200 mg .ROUTE .STK-MED ONE Stop: 02/02/17 12:06 Senna (Senna) 8.6 mg PO BID [facility] Sodium Chloride (Saline Flush) 10 ml FLUSH ASDIRECTED PRN PRN Reason: Keep Vein Open Stop: 02/02/17 18:00 - Problem List Review Problem List Initiated/Reviewed/Updated: Yes - My Orders Last 24 Hours: Active Orders 24 hr Category Date Time Status INR,PT,PROTHROMBIN TIME [COAG] Routine Lab 02/05/17 07:00 Ordered POTASSIUM,K [CHEM] Routine Lab 02/05/17 07:00 Ordered Enoxaparin [Lovenox] Med 02/03/17 19:00 Active 40 mg SUBCUT Q12H HYDROmorphone [Dilaudid] Med 02/04/17 13:30 Active 6 mg GTUBE Q2H PRN Remove Patch Med 02/05/17 19:00 Active 1 ea TRDERM Q72H Sennosides [Senna] Med 02/04/17 10:30 Active 8.6 mg PO BID Warfarin [Coumadin] Med 02/03/17 18:00 Active 2.5 mg PO SuMoWeFr@1800 Medication Orders Hydrocodone Bitart/Acetaminophen ([place] 325-5 Mg) 1 tab GTUBE Q6H PRN PRN Reason: Pain Last Admin: 02/03/17 06:19 Dose: 1 tab Admin: 02/02/17 23:16 Dose: 1 tab Admin: 02/02/17 13:46 Dose: 1 tab Alprazolam (Xanax) 0.5 mg PO TID PRN PRN Reason: Anxiety Last Admin: 02/04/17 15:48 Dose: 0.5 mg Admin: 02/04/17 05:53 Dose: 0.5 mg Aspirin (Aspirin) 81 mg PO DAILY PRN PRN Reason: Headache Enoxaparin Sodium (Lovenox) 40 mg SUBCUT Q12H [facility] Last Admin: 02/04/17 06:01 Dose: 40 mg Admin: 02/03/17 18:52 Dose: 40 mg Fentanyl (Duragesic) 100 mcg TRDERM Q72H [facility] Last Admin: 02/02/17 19:03 Dose: 100 mcg Fentanyl (Duragesic) 25 mcg TRDERM Q72H [facility] Last Admin: 02/02/17 19:02 Dose: 25 mcg Hydromorphone HCl (Dilaudid) 6 mg GTUBE Q2H PRN PRN Reason: Pain Last Admin: 02/04/17 14:10 Dose: 6 mg Lactulose (Cephulac) 20 gm PO BID [facility] Last Admin: 02/04/17 10:56 Dose: 20 gm Admin: 02/03/17 20:08 Dose: 20 gm Admin: 02/03/17 09:01 Dose: Not Given Levothyroxine Sodium (Levothyroxine) 75 mcg PO DAILY [facility] Last Admin: 02/04/17 10:40 Dose: 75 mcg Admin: 02/03/17 09:00 Dose: 75 mcg Miscellaneous Information (Remove Patch) 1 ea TRDERM Q72H [facility] Ondansetron HCl (Zofran Odt) 8 mg PO Q8H PRN PRN Reason: Nausea/Vomiting Potassium Chloride (Potassium Chloride Solution) 10 meq GTUBE QID [facility] Last Admin: 02/04/17 14:10 Dose: 10 meq Admin: 02/04/17 10:41 Dose: 10 meq Admin: 02/03/17 20:09 Dose: 10 meq Admin: 02/03/17 17:30 Dose: 10 meq Admin: 02/03/17 12:34 Dose: 10 meq Admin: 02/03/17 09:00 Dose: 10 meq Senna (Senna) 8.6 mg PO BID [facility] Last Admin: 02/04/17 10:39 Dose: 8.6 mg Warfarin Sodium (Coumadin) 2.5 mg PO SuMoWeFr@1800 [facility] Last Admin: 02/03/17 17:31 Dose: 2.5 mg Warfarin Sodium (Coumadin) 1.25 mg PO TuThSa@1800 [facility] Last Admin: 02/02/17 17:50 Dose: 1.25 mg - Plan Plan (Free Text/Narrative):: pt will be covered on Wednesday by Dr. Rema CAVANAUGH
[2017-02-04] MEDS: Warfarin 2.5 MG Tab PO SCH (17:34)
[2017-02-04] MEDS ORDERED: Sennosides 8.6 MG Tab PO SCH (21:00)
[2017-02-05] MEDS: Lactulose Soln 10 GM/15 ML 30 ML UD Cup PO SCH ×3 (00:38→23:32)
[2017-02-05] MEDS: Potassium Chloride 10% 20 MEQ/15 ML Soln 15 ML UD Cup GTUBE SCH ×5 (00:38→20:03)
[2017-02-05] MEDS: Sennosides 8.6 MG Tab PO SCH ×4 (00:38→23:32)
[2017-02-05] MEDS: HYDROmorphone 2 MG Tab GTUBE PRN ×8 (03:25→23:42)
[2017-02-05] MEDS: Enoxaparin 40 MG/0.4 ML Syringe SUBCUT SCH ×2 (06:31→18:11)
[2017-02-05] MEDS ORDERED: Warfarin 2 MG Tab PO ONE (09:05)
[2017-02-05] MEDS: Levothyroxine 75 MCG Tab PO SCH (09:05)
--- NOTE | 2017-02-05 09:11 | PCM.SURGPN ---
- General Info Date of Service: 02/05/17 Functional Status: Reports: Pain Controlled (With active patient input regarding dosing.) - Review of Systems Gastrointestinal: Reports: Abdominal Pain (Incisional pain from the open gastrostomy much improved), Nausea (Occasionally with bolus can feeds.) - Patient Data Vitals - Most Recent: Last Vital Signs Temp 37.1 C 02/04/17 21:06 Pulse 119 H 02/04/17 22:27 Resp 20 02/04/17 21:06 BP 158/80 H 02/05/17 03:30 Pulse Ox 100 02/04/17 22:27 Weight - Most Recent: 44.588 kg I&O - Last 24 Hours: Intake & Output 02/04/17 02/05/17 02/05/17 22:59 06:59 14:59 Intake Total 1114 860 Output Total 30 Balance 1114 830 Lab Results Last 24 Hrs: Laboratory Results - last 24 hr 02/04/17 02/05/17 02/05/17 Range/Units 10:50 06:30 06:30 PT 14.0 H (8.0-13.0) SECONDS INR 1.27 Potassium 2.9 L 3.1 L (3.5-5.1) mEq/L Med Orders - Current: Current Medications Hydrocodone Bitart/Acetaminophen ([place] 325-5 Mg) 1 tab GTUBE Q6H PRN PRN Reason: Pain Last Admin: 02/03/17 06:19 Dose: 1 tab Alprazolam (Xanax) 0.5 mg PO TID PRN PRN Reason: Anxiety Last Admin: 02/04/17 15:48 Dose: 0.5 mg Aspirin (Aspirin) 81 mg PO DAILY PRN PRN Reason: Headache Enoxaparin Sodium (Lovenox) 40 mg SUBCUT Q12H [facility] Last Admin: 02/05/17 06:31 Dose: 40 mg Fentanyl (Duragesic) 100 mcg TRDERM Q72H [facility] Last Admin: 02/02/17 19:03 Dose: 100 mcg Fentanyl (Duragesic) 25 mcg TRDERM Q72H [facility] Last Admin: 02/02/17 19:02 Dose: 25 mcg Hydromorphone HCl (Dilaudid) 2 - 6 mg GTUBE Q2H PRN PRN Reason: Pain Last Admin: 02/05/17 07:09 Dose: 4 mg Lactulose (Cephulac) 20 gm PO BID [facility] Last Admin: 02/05/17 00:38 Dose: Not Given Levothyroxine Sodium (Levothyroxine) 75 mcg PO DAILY [facility] Last Admin: 02/04/17 10:40 Dose: 75 mcg Miscellaneous Information (Remove Patch) 1 ea TRDERM Q72H [facility] Ondansetron HCl (Zofran Odt) 8 mg PO Q8H PRN PRN Reason: Nausea/Vomiting Potassium Chloride (Potassium Chloride Solution) 10 meq GTUBE QID [facility] Last Admin: 02/05/17 00:38 Dose: Not Given Senna (Senna) 8.6 mg PO BID [facility] Last Admin: 02/05/17 00:38 Dose: Not Given Warfarin Sodium (Coumadin) 2.5 mg PO SuMoWeFr@1800 [facility] Last Admin: 02/03/17 17:31 Dose: 2.5 mg Warfarin Sodium (Coumadin) 1.25 mg PO TuThSa@1800 [facility] Last Admin: 02/04/17 17:34 Dose: 1.25 mg Discontinued Medications Alprazolam (Xanax) 0.5 mg PO Q12H PRN PRN Reason: Anxiety Last Admin: 02/02/17 17:50 Dose: 0.5 mg Alprazolam (Xanax) 0.5 mg PO ONETIME ONE Stop: 02/02/17 23:07 Last Admin: 02/02/17 23:16 Dose: 0.5 mg Alprazolam (Xanax) 0.5 mg PO TID [facility] Last Admin: 02/03/17 11:43 Dose: Not Given Ampicillin Sodium/Sulbactam Sodium (Unasyn) Confirm Administered Dose 1.5 gm .ROUTE .STK-MED ONE Stop: 02/03/17 21:57 Last Admin: 02/03/17 23:00 Dose: Not Given Fentanyl (Sublimaze) Confirm Administered Dose 250 mcg .ROUTE .STK-MED ONE Stop: 02/02/17 09:54 Fentanyl (Sublimaze) 50 mcg IVPUSH Q5M PRN PRN Reason: Pain Stop: 02/02/17 11:31 Last Admin: 02/02/17 10:45 Dose: 50 mcg Fentanyl (Sublimaze) Confirm Administered Dose 100 mcg .ROUTE .STK-MED ONE Stop: 02/02/17 12:46 Fentanyl (Sublimaze) 50 mcg IVPUSH Q5M PRN PRN Reason: Pain Stop: 02/02/17 13:06 Last Admin: 02/02/17 14:00 Dose: 50 mcg Fentanyl (Duragesic) 25 mcg TRDERM Q72H [facility] Last Admin: 02/02/17 20:49 Dose: Not Given Fentanyl (Duragesic) 100 mcg TRDERM Q72H [facility] Hydromorphone HCl (Dilaudid) 0.5 mg IVPUSH Q15M PRN PRN Reason: severe pain Stop: 02/02/17 13:06 Last Admin: 02/02/17 13:28 Dose: 0.5 mg Hydromorphone HCl (Dilaudid) 6 mg PO Q2H PRN PRN Reason: Breakthrough Pain Last Admin: 02/02/17 15:47 Dose: 6 mg Hydromorphone HCl (Dilaudid) 6 mg GTUBE Q2H PRN PRN Reason: Pain Last Admin: 02/04/17 07:58 Dose: 6 mg Hydromorphone HCl (Dilaudid) 8 mg GTUBE STAT ONE Stop: 02/03/17 10:01 Last Admin: 02/04/17 10:36 Dose: Not Given Hydromorphone HCl (Dilaudid) 8 mg GTUBE STAT ONE Stop: 02/04/17 10:26 Last Admin: 02/04/17 10:39 Dose: 8 mg Hydromorphone HCl (Dilaudid) 6 mg GTUBE Q2H PRN PRN Reason: Pain Last Admin: 02/04/17 17:31 Dose: 6 mg Ampicillin Sodium/Sulbactam (Sodium 3 gm/ Sodium Chloride) 100 mls @ 200 mls/ hr IV ONETIME ONE Stop: 02/02/17 10:44 Last Admin: 02/02/17 11:21 Dose: 200 mls/hr Lidocaine HCl (Xylocaine-Mpf 1%) Confirm Administered Dose 4 mls @ as directed .ROUTE .STK-MED ONE Stop: 02/02/17 09:54 Lactated Ringer's (Ringers, Lactated) 1,000 mls @ 125 mls/hr IV ASDIRECTED [facility] Stop: 02/02/17 23:00 Last Admin: 02/02/17 13:32 Dose: 125 mls/hr Lactated Ringer's (Ringers, Lactated) Confirm Administered Dose 1,000 mls @ as directed .ROUTE .STK-MED ONE Stop: 02/02/17 12:27 Lactated Ringer's (Ringers, Lactated) 1,000 mls @ 100 mls/hr IV ASDIRECTED [facility] Last Admin: 02/03/17 09:30 Dose: 100 mls/hr Ampicillin Sodium/Sulbactam (Sodium 1.5 gm/ Sodium Chloride) 100 mls @ 200 mls/ hr IV Q6H [facility] Last Admin: 02/04/17 05:40 Dose: 200 mls/hr Sodium Chloride (Normal Saline) 250 mls @ 50 mls/hr IV ASDIRECTED [facility] Stop: 02/04/17 15:00 Potassium Chloride 10 meq/ (Premix) 100 mls @ 50 mls/hr IV ONETIME ONE Stop: 02/04/17 12:29 Last Admin: 02/04/17 11:11 Dose: 50 mls/hr Ketamine HCl (Ketalar) Confirm Administered Dose 500 mg .ROUTE .STK-MED ONE Stop: 02/02/17 12:39 Lidocaine/Sodium Bicarbonate (Buffered Lidocaine 1% In Ns 8.4%) 0.25 ml .XX ONETIME PRN PRN Reason: Prior to IV Start Stop: 02/02/17 18:00 Last Admin: 02/02/17 10:44 Dose: 0.25 ml Midazolam HCl (Versed 1 Mg/Ml) Confirm Administered Dose 2 mg .ROUTE .STK-MED ONE Stop: 02/02/17 09:53 Miscellaneous Information (Remove Patch) 0 ea TRDERM Q72H [facility] Ondansetron HCl (Zofran) Confirm Administered Dose 4 mg .ROUTE .STK-MED ONE Stop: 02/02/17 12:43 Ondansetron HCl (Zofran) 4 mg IVPUSH ONETIME PRN PRN Reason: Nausea/Vomiting Stop: 02/02/17 18:00 Potassium Chloride (Potassium Chloride Solution) 10 meq PO TID [facility] Last Admin: 02/03/17 11:44 Dose: Not Given Potassium Chloride (Klor-Con 10) 10 meq GTUBE QID [facility] Propofol (Diprivan 20 Ml) Confirm Administered Dose 200 mg .ROUTE .STK-MED ONE Stop: 02/02/17 09:53 Propofol (Diprivan 20 Ml) Confirm Administered Dose 200 mg .ROUTE .STK-MED ONE Stop: 02/02/17 12:06 Senna (Senna) 8.6 mg PO BID [facility] Sodium Chloride (Saline Flush) 10 ml FLUSH ASDIRECTED PRN PRN Reason: Keep Vein Open Stop: 02/02/17 18:00 - Exam Wound/Incisions: Dressing Dry and Intact GI/Abdominal Exam: Soft, Non-Tender - Problem List Review Problem List Initiated/Reviewed/Updated: Yes - My Orders Last 24 Hours: Active Orders 24 hr Category Date Time Status MAGNESIUM [CHEM] Routine Lab 02/05/17 09:07 Ordered HYDROmorphone [Dilaudid] Med 02/04/17 23:43 Active 2 - 6 mg GTUBE Q2H PRN Remove Patch Med 02/05/17 19:00 Active 1 ea TRDERM Q72H [facility] [Senna] Med 02/04/17 10:30 Active 8.6 mg PO BID Warfarin [Coumadin] Med 02/05/17 09:05 Once 2 mg PO ONETIME ONE Medication Orders Hydrocodone Bitart/Acetaminophen ([place] 325-5 Mg) 1 tab GTUBE Q6H PRN PRN Reason: Pain Last Admin: 02/03/17 06:19 Dose: 1 tab Admin: 02/02/17 23:16 Dose: 1 tab Admin: 02/02/17 13:46 Dose: 1 tab Alprazolam (Xanax) 0.5 mg PO TID PRN PRN Reason: Anxiety Last Admin: 02/04/17 15:48 Dose: 0.5 mg Admin: 02/04/17 05:53 Dose: 0.5 mg Aspirin (Aspirin) 81 mg PO DAILY PRN PRN Reason: Headache Enoxaparin Sodium (Lovenox) 40 mg SUBCUT Q12H [facility] Last Admin: 02/05/17 06:31 Dose: 40 mg Admin: 02/04/17 19:00 Dose: 40 mg Admin: 02/04/17 06:01 Dose: 40 mg Admin: 02/03/17 18:52 Dose: 40 mg Fentanyl (Duragesic) 100 mcg TRDERM Q72H [facility] Last Admin: 02/02/17 19:03 Dose: 100 mcg Fentanyl (Duragesic) 25 mcg TRDERM Q72H [facility] Last Admin: 02/02/17 19:02 Dose: 25 mcg Hydromorphone HCl (Dilaudid) 2 - 6 mg GTUBE Q2H PRN PRN Reason: Pain Last Admin: 02/05/17 07:09 Dose: 4 mg Admin: 02/05/17 03:25 Dose: 4 mg Admin: 02/04/17 23:55 Dose: 2 mg Lactulose (Cephulac) 20 gm PO BID [facility] Last Admin: 02/05/17 00:38 Dose: Not Given Admin: 02/04/17 10:56 Dose: 20 gm Admin: 02/03/17 20:08 Dose: 20 gm Admin: 02/03/17 09:01 Dose: Not Given Levothyroxine Sodium (Levothyroxine) 75 mcg PO DAILY [facility] Last Admin: 02/04/17 10:40 Dose: 75 mcg Admin: 02/03/17 09:00 Dose: 75 mcg Miscellaneous Information (Remove Patch) 1 ea TRDERM Q72H [facility] Ondansetron HCl (Zofran Odt) 8 mg PO Q8H PRN PRN Reason: Nausea/Vomiting Potassium Chloride (Potassium Chloride Solution) 10 meq GTUBE QID [facility] Last Admin: 02/05/17 00:38 Dose: Not Given Admin: 02/04/17 17:31 Dose: 10 meq Admin: 02/04/17 14:10 Dose: 10 meq Admin: 02/04/17 10:41 Dose: 10 meq Admin: 02/03/17 20:09 Dose: 10 meq Admin: 02/03/17 17:30 Dose: 10 meq Admin: 02/03/17 12:34 Dose: 10 meq Admin: 02/03/17 09:00 Dose: 10 meq Senna (Senna) 8.6 mg PO BID [facility] Last Admin: 02/05/17 00:38 Dose: Not Given Admin: 02/04/17 10:39 Dose: 8.6 mg Warfarin Sodium (Coumadin) 2.5 mg PO SuMoWeFr@1800 [facility] Last Admin: 02/03/17 17:31 Dose: 2.5 mg Warfarin Sodium (Coumadin) 1.25 mg PO TuThSa@1800 [facility] Last Admin: 02/04/17 17:34 Dose: 1.25 mg Admin: 02/02/17 17:50 Dose: 1.25 mg - Assessment Assessment (Free Text/Narrative):: imp: Low potassium. Subtherapeutic INR. Nausea may be related to either the tonicity of the feeds, or the speed of infusion. The plan is to give her 250 mL over an hour. plan: Continue to replace potassium. I will give her an extra dose of Coumadin today. Aiming for an INR of 2. Plan on discharge with potassium of 4 and an INR of 2.
[2017-02-05] MEDS: Warfarin 2.5 MG Tab PO SCH (18:11)
[2017-02-05] MEDS: [UNRECOGNIZED DRUG - REMARK] TRDERM SCH (18:12)
[2017-02-05] MEDS: fentaNYL 25 MCG/HR Transdermal Patch TRDERM SCH (18:12)
[2017-02-05] MEDS: fentaNYL 100 MCG/HR Transdermal Patch TRDERM SCH (18:12)
[2017-02-05] MEDS: ALPRAZolam 0.5 MG Tab PO PRN (20:05)
[2017-02-05] MEDS ORDERED: Temazepam 15 MG Cap PO STA (23:33)
[2017-02-06] MEDS: HYDROmorphone 2 MG Tab GTUBE PRN ×10 (02:53→23:48)
[2017-02-06] MEDS: Enoxaparin 40 MG/0.4 ML Syringe SUBCUT SCH ×3 (05:55→19:17)
[2017-02-06] MEDS: Levothyroxine 75 MCG Tab PO SCH (08:06)
[2017-02-06] MEDS: Sennosides 8.6 MG Tab PO SCH ×2 (08:06→21:34)
[2017-02-06] MEDS: Lactulose Soln 10 GM/15 ML 30 ML UD Cup PO SCH ×2 (08:06→21:37)
[2017-02-06] MEDS: Potassium Chloride 10% 20 MEQ/15 ML Soln 15 ML UD Cup GTUBE SCH (08:06)
--- NOTE | 2017-02-06 09:11 | PCM.CONSN ---
- General Info Date of Service: 02/06/17 Subjective Update: Happy to hear that her K was normal. Functional Status: Reports: Pain Controlled, Tolerating Diet (tolerating feeds) - Patient Data Vitals - Most Recent: Last Vital Signs Temp 38.1 C 02/06/17 08:24 Pulse 99 02/06/17 08:24 Resp 16 02/06/17 08:24 BP 123/65 02/06/17 08:24 Pulse Ox 90 L 02/06/17 08:24 Weight - Most Recent: 44.588 kg I&O - Last 24 Hours: Intake & Output 02/05/17 02/06/17 02/06/17 22:59 06:59 14:59 Intake Total 1290 950 Balance 1290 950 Lab Results Last 24 Hours: Laboratory Results - last 24 hr 02/05/17 02/06/17 02/06/17 Range/Units 10:05 07:54 07:54 PT 12.4 (8.0-13.0) SECONDS INR 1.13 Sodium 136 (136-145) mEq/L Potassium 4.2 (3.5-5.1) mEq/L Chloride 102 (98-107) mEq/L Carbon Dioxide 26 (21-32) mEq/L Anion Gap 12.2 (5-15) BUN 11 (7-18) mg/dL Creatinine 0.6 (0.55-1.02) mg/dL Est Cr Clr Drug Dosing 72.82 mL/min Estimated GFR (MDRD) > 60 (>60) mL/min BUN/Creatinine Ratio 18.3 H (14-18) Glucose 115 H (74-106) mg/dL Calcium 9.4 (8.5-10.1) mg/dL Magnesium 1.4 L (1.8-2.4) mg/dl Med Orders - Current: Current Medications Acetaminophen (Tylenol) 650 mg GTUBE Q4H PRN PRN Reason: Fever Hydrocodone Bitart/Acetaminophen ([place] 325-5 Mg) 1 tab GTUBE Q6H PRN PRN Reason: Pain Last Admin: 02/03/17 06:19 Dose: 1 tab Alprazolam (Xanax) 0.5 mg PO TID PRN PRN Reason: Anxiety Last Admin: 02/05/17 20:05 Dose: 0.5 mg Aspirin (Aspirin) 81 mg PO DAILY PRN PRN Reason: Headache Enoxaparin Sodium (Lovenox) 40 mg SUBCUT Q12H [facility] Last Admin: 02/06/17 08:05 Dose: Not Given Fentanyl (Duragesic) 100 mcg TRDERM Q72H [facility] Last Admin: 02/05/17 18:12 Dose: 100 mcg Fentanyl (Duragesic) 25 mcg TRDERM Q72H [facility] Last Admin: 02/05/17 18:12 Dose: 25 mcg Hydromorphone HCl (Dilaudid) 2 - 6 mg GTUBE Q2H PRN PRN Reason: Pain Last Admin: 02/06/17 08:05 Dose: 5 mg Lactulose (Cephulac) 20 gm PO BID [facility] Last Admin: 02/06/17 08:06 Dose: Not Given Levothyroxine Sodium (Levothyroxine) 75 mcg PO DAILY [facility] Last Admin: 02/06/17 08:06 Dose: 75 mcg Magnesium Oxide (Magnesium Oxide) 400 mg PO BID [facility] Miscellaneous Information (Remove Patch) 1 ea TRDERM Q72H [facility] Last Admin: 02/05/17 18:12 Dose: 1 ea Ondansetron HCl (Zofran Odt) 8 mg PO Q8H PRN PRN Reason: Nausea/Vomiting Potassium Chloride (Klor-Con 10) 20 meq PO DAILY [facility] Senna (Senna) 8.6 mg PO BID [facility] Last Admin: 02/06/17 08:06 Dose: Not Given Temazepam (Restoril) 15 mg PO BEDTIME [facility] Warfarin Sodium (Coumadin) 2.5 mg PO SuMoWeFr@1800 [facility] Last Admin: 02/05/17 18:11 Dose: 2.5 mg Warfarin Sodium (Coumadin) 1.25 mg PO TuThSa@1800 [facility] Last Admin: 02/04/17 17:34 Dose: 1.25 mg Warfarin Sodium (Coumadin) 5 mg PO ONETIME ONE Stop: 02/06/17 09:02 Discontinued Medications Alprazolam (Xanax) 0.5 mg PO Q12H PRN PRN Reason: Anxiety Last Admin: 02/02/17 17:50 Dose: 0.5 mg Alprazolam (Xanax) 0.5 mg PO ONETIME ONE Stop: 02/02/17 23:07 Last Admin: 02/02/17 23:16 Dose: 0.5 mg Alprazolam (Xanax) 0.5 mg PO TID [facility] Last Admin: 02/03/17 11:43 Dose: Not Given Ampicillin Sodium/Sulbactam Sodium (Unasyn) Confirm Administered Dose 1.5 gm .ROUTE .STK-MED ONE Stop: 02/03/17 21:57 Last Admin: 02/03/17 23:00 Dose: Not Given Fentanyl (Sublimaze) Confirm Administered Dose 250 mcg .ROUTE .STK-MED ONE Stop: 02/02/17 09:54 Fentanyl (Sublimaze) 50 mcg IVPUSH Q5M PRN PRN Reason: Pain Stop: 02/02/17 11:31 Last Admin: 02/02/17 10:45 Dose: 50 mcg Fentanyl (Sublimaze) Confirm Administered Dose 100 mcg .ROUTE .STK-MED ONE Stop: 02/02/17 12:46 Fentanyl (Sublimaze) 50 mcg IVPUSH Q5M PRN PRN Reason: Pain Stop: 02/02/17 13:06 Last Admin: 02/02/17 14:00 Dose: 50 mcg Fentanyl (Duragesic) 25 mcg TRDERM Q72H [facility] Last Admin: 02/02/17 20:49 Dose: Not Given Fentanyl (Duragesic) 100 mcg TRDERM Q72H [facility] Hydromorphone HCl (Dilaudid) 0.5 mg IVPUSH Q15M PRN PRN Reason: severe pain Stop: 02/02/17 13:06 Last Admin: 02/02/17 13:28 Dose: 0.5 mg Hydromorphone HCl (Dilaudid) 6 mg PO Q2H PRN PRN Reason: Breakthrough Pain Last Admin: 02/02/17 15:47 Dose: 6 mg Hydromorphone HCl (Dilaudid) 6 mg GTUBE Q2H PRN PRN Reason: Pain Last Admin: 02/04/17 07:58 Dose: 6 mg Hydromorphone HCl (Dilaudid) 8 mg GTUBE STAT ONE Stop: 02/03/17 10:01 Last Admin: 02/04/17 10:36 Dose: Not Given Hydromorphone HCl (Dilaudid) 8 mg GTUBE STAT ONE Stop: 02/04/17 10:26 Last Admin: 02/04/17 10:39 Dose: 8 mg Hydromorphone HCl (Dilaudid) 6 mg GTUBE Q2H PRN PRN Reason: Pain Last Admin: 02/04/17 17:31 Dose: 6 mg Ampicillin Sodium/Sulbactam (Sodium 3 gm/ Sodium Chloride) 100 mls @ 200 mls/ hr IV ONETIME ONE Stop: 02/02/17 10:44 Last Admin: 02/02/17 11:21 Dose: 200 mls/hr Lidocaine HCl (Xylocaine-Mpf 1%) Confirm Administered Dose 4 mls @ as directed .ROUTE .STK-MED ONE Stop: 02/02/17 09:54 Lactated Ringer's (Ringers, Lactated) 1,000 mls @ 125 mls/hr IV ASDIRECTED [facility] Stop: 02/02/17 23:00 Last Admin: 02/02/17 13:32 Dose: 125 mls/hr Lactated Ringer's (Ringers, Lactated) Confirm Administered Dose 1,000 mls @ as directed .ROUTE .STK-MED ONE Stop: 02/02/17 12:27 Lactated Ringer's (Ringers, Lactated) 1,000 mls @ 100 mls/hr IV ASDIRECTED [facility] Last Admin: 02/03/17 09:30 Dose: 100 mls/hr Ampicillin Sodium/Sulbactam (Sodium 1.5 gm/ Sodium Chloride) 100 mls @ 200 mls/ hr IV Q6H [facility] Last Admin: 02/04/17 05:40 Dose: 200 mls/hr Sodium Chloride (Normal Saline) 250 mls @ 50 mls/hr IV ASDIRECTED [facility] Stop: 02/04/17 15:00 Potassium Chloride 10 meq/ (Premix) 100 mls @ 50 mls/hr IV ONETIME ONE Stop: 02/04/17 12:29 Last Admin: 02/04/17 11:11 Dose: 50 mls/hr Ketamine HCl (Ketalar) Confirm Administered Dose 500 mg .ROUTE .STK-MED ONE Stop: 02/02/17 12:39 Lidocaine/Sodium Bicarbonate (Buffered Lidocaine 1% In Ns 8.4%) 0.25 ml .XX ONETIME PRN PRN Reason: Prior to IV Start Stop: 02/02/17 18:00 Last Admin: 02/02/17 10:44 Dose: 0.25 ml Midazolam HCl (Versed 1 Mg/Ml) Confirm Administered Dose 2 mg .ROUTE .STK-MED ONE Stop: 02/02/17 09:53 Miscellaneous Information (Remove Patch) 0 ea TRDERM Q72H [facility] Ondansetron HCl (Zofran) Confirm Administered Dose 4 mg .ROUTE .STK-MED ONE Stop: 02/02/17 12:43 Ondansetron HCl (Zofran) 4 mg IVPUSH ONETIME PRN PRN Reason: Nausea/Vomiting Stop: 02/02/17 18:00 Potassium Chloride (Potassium Chloride Solution) 10 meq PO TID [facility] Last Admin: 02/03/17 11:44 Dose: Not Given Potassium Chloride (Klor-Con 10) 10 meq GTUBE QID [facility] Potassium Chloride (Potassium Chloride Solution) 10 meq GTUBE QID [facility] Last Admin: 02/05/17 09:13 Dose: 20 meq Potassium Chloride (Potassium Chloride Solution) 20 meq GTUBE QID [facility] Last Admin: 02/06/17 08:06 Dose: 20 meq Propofol (Diprivan 20 Ml) Confirm Administered Dose 200 mg .ROUTE .STK-MED ONE Stop: 02/02/17 09:53 Propofol (Diprivan 20 Ml) Confirm Administered Dose 200 mg .ROUTE .STK-MED ONE Stop: 02/02/17 12:06 Senna (Senna) 8.6 mg PO BID [facility] Sodium Chloride (Saline Flush) 10 ml FLUSH ASDIRECTED PRN PRN Reason: Keep Vein Open Stop: 02/02/17 18:00 Temazepam (Restoril) 15 mg PO ONETIME [facility] Stop: 02/05/17 23:34 Last Admin: 02/05/17 23:42 Dose: 15 mg Warfarin Sodium (Coumadin) 2 mg PO ONETIME ONE Stop: 02/05/17 09:06 Last Admin: 02/05/17 09:15 Dose: 2 mg - Exam General: Other (sleeping until I awakend her.) GI/Abdominal Exam: Other (dressing dry) Consult PN Assessment/Plan Procedures: Procedures ASSAY OF TROPONIN QUANT (05/19/16) BLOOD TRANSFUSION SERVICE (01/19/17) BLOOD TYPING SEROLOGIC ABO (01/19/17) BLOOD TYPING SEROLOGIC RH(D) (01/19/17) C-REACTIVE PROTEIN (07/25/14) CARDIOVASCULAR STRESS TEST (03/04/15) COMPATIBILITY TEST ANTIGLOB (01/19/17) COMPLETE CBC W/AUTO DIFF WBC (05/19/16) COMPREHEN METABOLIC PANEL (05/19/16) ELECTROCARDIOGRAM TRACING (05/19/16) EMERGENCY DEPT VISIT (05/19/16) EMERGENCY DEPT VISIT (07/25/14) EMERGENCY DEPT VISIT (12/14/13) HT MUSCLE IMAGE SPECT MULT (03/04/15) HYDRATE IV INFUSION ADD-ON (05/19/16) PROTHROMBIN TIME (05/19/16) RBC ANTIBODY SCREEN (01/19/17) ROUTINE VENIPUNCTURE (01/19/17) THER/PROPH/DIAG INJ IV PUSH (05/19/16) THER/PROPH/DIAG IV INF ADDON (07/25/14) THER/PROPH/DIAG IV INF INIT (07/25/14) TX/PRO/DX INJ NEW DRUG ADDON (07/25/14) TX/PRO/DX INJ SAME DRUG WOODS OVERSEER (05/19/16) URINALYSIS AUTO W/SCOPE (05/19/16) X-RAY EXAM HIP UNI 2-3 VIEWS (05/19/16) X-RAY EXAM OF SPINE 1 VIEW (05/19/16) Problem List Initiated/Reviewed/Updated: Yes My Orders Last 24 Hours: My Active Orders 02/05/17 Lunch Tube Feeding Adult Diet [DIET] 02/06/17 08:34 Acetaminophen [Tylenol] 650 mg GTUBE Q4H PRN 02/06/17 09:01 INR,PT,PROTHROMBIN TIME [COAG] Routine Warfarin [Coumadin] 5 mg PO ONETIME ONE 02/06/17 09:03 May Shower [RC] ASDIRECTED 02/06/17 09:15 Magnesium Oxide 400 mg PO BID 02/06/17 21:00 Temazepam [Restoril] 15 mg PO BEDTIME 02/07/17 09:00 Potassium Chloride [Klor-Con 10] 20 meq PO DAILY imp: INR still sub-therapeutic. Tmax 100.5 (? atelectasis). plan: 5 mg Coumadin supplement. OOB to chair. Shower today.
[2017-02-06] MEDS: Acetaminophen Soln 650 MG/20.3 ML UD Cup GTUBE PRN ×2 (09:24→21:34)
[2017-02-06] MEDS: Magnesium Oxide 400 MG Tab PO SCH ×2 (10:00→21:34)
[2017-02-06] MEDS ORDERED: Warfarin 5 MG Tab PO ONE (18:00)
[2017-02-06] MEDS: ALPRAZolam 0.5 MG Tab PO PRN (19:17)
[2017-02-06] MEDS: Temazepam 15 MG Cap PO SCH (21:33)
[2017-02-07] MEDS: HYDROmorphone 2 MG Tab GTUBE PRN ×9 (02:39→23:22)
[2017-02-07] MEDS: Enoxaparin 40 MG/0.4 ML Syringe SUBCUT SCH ×2 (06:25→18:01)
[2017-02-07] MEDS: Lactulose Soln 10 GM/15 ML 30 ML UD Cup PO SCH ×2 (09:07→20:13)
[2017-02-07] MEDS: Sennosides 8.6 MG Tab PO SCH ×2 (09:08→20:11)
[2017-02-07] MEDS: Levothyroxine 75 MCG Tab PO SCH (09:08)
[2017-02-07] MEDS: Magnesium Oxide 400 MG Tab PO SCH ×2 (09:08→20:11)
[2017-02-07] MEDS: Potassium Chloride 10 MEQ Tab.ER PO SCH (09:08)
--- NOTE | 2017-02-07 10:18 | PCM.SURGPN ---
- General Info Date of Service: 02/07/17 Functional Status: Reports: Pain Controlled, Tolerating Diet - Patient Data Vitals - Most Recent: Last Vital Signs Temp 36.9 C 02/07/17 05:16 Pulse 86 02/07/17 05:16 Resp 18 02/07/17 05:16 BP 98/62 02/07/17 05:16 Pulse Ox 93 L 02/07/17 05:16 Weight - Most Recent: 44.815 kg I&O - Last 24 Hours: Intake & Output 02/06/17 02/07/17 02/07/17 22:59 06:59 14:59 Intake Total 50 576 Balance 50 576 Lab Results Last 24 Hrs: Laboratory Results - last 24 hr 02/07/17 Range/Units 05:00 PT 15.1 H (8.0-13.0) SECONDS INR 1.36 Med Orders - Current: Current Medications Acetaminophen (Tylenol) 650 mg GTUBE Q4H PRN PRN Reason: Fever Last Admin: 02/06/17 21:34 Dose: 650 mg Hydrocodone Bitart/Acetaminophen (Bend 325-5 Mg) 1 tab GTUBE Q6H PRN PRN Reason: Pain Last Admin: 02/03/17 06:19 Dose: 1 tab Alprazolam (Xanax) 0.5 mg PO TID PRN PRN Reason: Anxiety Last Admin: 02/06/17 19:17 Dose: 0.5 mg Aspirin (Aspirin) 81 mg PO DAILY PRN PRN Reason: Headache Enoxaparin Sodium (Lovenox) 40 mg SUBCUT Q12H [facility] Last Admin: 02/07/17 06:25 Dose: 40 mg Fentanyl (Duragesic) 100 mcg TRDERM Q72H [facility] Last Admin: 02/05/17 18:12 Dose: 100 mcg Fentanyl (Duragesic) 25 mcg TRDERM Q72H [facility] Last Admin: 02/05/17 18:12 Dose: 25 mcg Hydromorphone HCl (Dilaudid) 2 - 6 mg GTUBE Q2H PRN PRN Reason: Pain Last Admin: 02/07/17 09:06 Dose: 4 mg Lactulose (Cephulac) 20 gm PO BID [facility] Last Admin: 02/07/17 09:07 Dose: Not Given Levothyroxine Sodium (Levothyroxine) 75 mcg PO DAILY [facility] Last Admin: 02/07/17 09:08 Dose: 75 mcg Magnesium Oxide (Magnesium Oxide) 400 mg PO BID [facility] Last Admin: 02/07/17 09:08 Dose: 400 mg Miscellaneous Information (Remove Patch) 1 ea TRDERM Q72H [facility] Last Admin: 02/05/17 18:12 Dose: 1 ea Ondansetron HCl (Zofran Odt) 8 mg PO Q8H PRN PRN Reason: Nausea/Vomiting Potassium Chloride (Klor-Con 10) 20 meq PO DAILY [facility] Last Admin: 02/07/17 09:08 Dose: 20 meq Senna (Senna) 8.6 mg PO BID [facility] Last Admin: 02/07/17 09:08 Dose: 8.6 mg Temazepam (Restoril) 15 mg PO BEDTIME [facility] Last Admin: 02/06/17 21:33 Dose: 15 mg Warfarin Sodium (Coumadin) 1.25 mg PO TuThSa@1800 [facility] Warfarin Sodium (Coumadin) 7.5 mg PO DAILY@1800 [facility] Stop: 02/07/17 18:01 Warfarin Sodium (Coumadin) 2.5 mg PO SuMoWeFr@1800 [facility] Discontinued Medications Alprazolam (Xanax) 0.5 mg PO Q12H PRN PRN Reason: Anxiety Last Admin: 02/02/17 17:50 Dose: 0.5 mg Alprazolam (Xanax) 0.5 mg PO ONETIME ONE Stop: 02/02/17 23:07 Last Admin: 02/02/17 23:16 Dose: 0.5 mg Alprazolam (Xanax) 0.5 mg PO TID [facility] Last Admin: 02/03/17 11:43 Dose: Not Given Ampicillin Sodium/Sulbactam Sodium (Unasyn) Confirm Administered Dose 1.5 gm .ROUTE .STK-MED ONE Stop: 02/03/17 21:57 Last Admin: 02/03/17 23:00 Dose: Not Given Fentanyl (Sublimaze) Confirm Administered Dose 250 mcg .ROUTE .STK-MED ONE Stop: 02/02/17 09:54 Fentanyl (Sublimaze) 50 mcg IVPUSH Q5M PRN PRN Reason: Pain Stop: 02/02/17 11:31 Last Admin: 02/02/17 10:45 Dose: 50 mcg Fentanyl (Sublimaze) Confirm Administered Dose 100 mcg .ROUTE .STK-MED ONE Stop: 02/02/17 12:46 Fentanyl (Sublimaze) 50 mcg IVPUSH Q5M PRN PRN Reason: Pain Stop: 02/02/17 13:06 Last Admin: 02/02/17 14:00 Dose: 50 mcg Fentanyl (Duragesic) 25 mcg TRDERM Q72H [facility] Last Admin: 02/02/17 20:49 Dose: Not Given Fentanyl (Duragesic) 100 mcg TRDERM Q72H [facility] Hydromorphone HCl (Dilaudid) 0.5 mg IVPUSH Q15M PRN PRN Reason: severe pain Stop: 02/02/17 13:06 Last Admin: 02/02/17 13:28 Dose: 0.5 mg Hydromorphone HCl (Dilaudid) 6 mg PO Q2H PRN PRN Reason: Breakthrough Pain Last Admin: 02/02/17 15:47 Dose: 6 mg Hydromorphone HCl (Dilaudid) 6 mg GTUBE Q2H PRN PRN Reason: Pain Last Admin: 02/04/17 07:58 Dose: 6 mg Hydromorphone HCl (Dilaudid) 8 mg GTUBE STAT ONE Stop: 02/03/17 10:01 Last Admin: 02/04/17 10:36 Dose: Not Given Hydromorphone HCl (Dilaudid) 8 mg GTUBE STAT ONE Stop: 02/04/17 10:26 Last Admin: 02/04/17 10:39 Dose: 8 mg Hydromorphone HCl (Dilaudid) 6 mg GTUBE Q2H PRN PRN Reason: Pain Last Admin: 02/04/17 17:31 Dose: 6 mg Ampicillin Sodium/Sulbactam (Sodium 3 gm/ Sodium Chloride) 100 mls @ 200 mls/ hr IV ONETIME ONE Stop: 02/02/17 10:44 Last Admin: 02/02/17 11:21 Dose: 200 mls/hr Lidocaine HCl (Xylocaine-Mpf 1%) Confirm Administered Dose 4 mls @ as directed .ROUTE .STK-MED ONE Stop: 02/02/17 09:54 Lactated Ringer's (Ringers, Lactated) 1,000 mls @ 125 mls/hr IV ASDIRECTED [facility] Stop: 02/02/17 23:00 Last Admin: 02/02/17 13:32 Dose: 125 mls/hr Lactated Ringer's (Ringers, Lactated) Confirm Administered Dose 1,000 mls @ as directed .ROUTE .STK-MED ONE Stop: 02/02/17 12:27 Lactated Ringer's (Ringers, Lactated) 1,000 mls @ 100 mls/hr IV ASDIRECTED [facility] Last Admin: 02/03/17 09:30 Dose: 100 mls/hr Ampicillin Sodium/Sulbactam (Sodium 1.5 gm/ Sodium Chloride) 100 mls @ 200 mls/ hr IV Q6H [facility] Last Admin: 02/04/17 05:40 Dose: 200 mls/hr Sodium Chloride (Normal Saline) 250 mls @ 50 mls/hr IV ASDIRECTED [facility] Stop: 02/04/17 15:00 Potassium Chloride 10 meq/ (Premix) 100 mls @ 50 mls/hr IV ONETIME ONE Stop: 02/04/17 12:29 Last Admin: 02/04/17 11:11 Dose: 50 mls/hr Ketamine HCl (Ketalar) Confirm Administered Dose 500 mg .ROUTE .STK-MED ONE Stop: 02/02/17 12:39 Lidocaine/Sodium Bicarbonate (Buffered Lidocaine 1% In Ns 8.4%) 0.25 ml .XX ONETIME PRN PRN Reason: Prior to IV Start Stop: 02/02/17 18:00 Last Admin: 02/02/17 10:44 Dose: 0.25 ml Midazolam HCl (Versed 1 Mg/Ml) Confirm Administered Dose 2 mg .ROUTE .STK-MED ONE Stop: 02/02/17 09:53 Miscellaneous Information (Remove Patch) 0 ea TRDERM Q72H [facility] Ondansetron HCl (Zofran) Confirm Administered Dose 4 mg .ROUTE .STK-MED ONE Stop: 02/02/17 12:43 Ondansetron HCl (Zofran) 4 mg IVPUSH ONETIME PRN PRN Reason: Nausea/Vomiting Stop: 02/02/17 18:00 Potassium Chloride (Potassium Chloride Solution) 10 meq PO TID [facility] Last Admin: 02/03/17 11:44 Dose: Not Given Potassium Chloride (Klor-Con 10) 10 meq GTUBE QID [facility] Potassium Chloride (Potassium Chloride Solution) 10 meq GTUBE QID [facility] Last Admin: 02/05/17 09:13 Dose: 20 meq Potassium Chloride (Potassium Chloride Solution) 20 meq GTUBE QID [facility] Last Admin: 02/06/17 08:06 Dose: 20 meq Propofol (Diprivan 20 Ml) Confirm Administered Dose 200 mg .ROUTE .STK-MED ONE Stop: 02/02/17 09:53 Propofol (Diprivan 20 Ml) Confirm Administered Dose 200 mg .ROUTE .STK-MED ONE Stop: 02/02/17 12:06 Senna (Senna) 8.6 mg PO BID [facility] Sodium Chloride (Saline Flush) 10 ml FLUSH ASDIRECTED PRN PRN Reason: Keep Vein Open Stop: 02/02/17 18:00 Temazepam (Restoril) 15 mg PO ONETIME STA Stop: 02/05/17 23:34 Last Admin: 02/05/17 23:42 Dose: 15 mg Warfarin Sodium (Coumadin) 2.5 mg PO SuMoWeFr@1800 [facility] Last Admin: 02/05/17 18:11 Dose: 2.5 mg Warfarin Sodium (Coumadin) 1.25 mg PO TuThSa@1800 [facility] Last Admin: 02/04/17 17:34 Dose: 1.25 mg Warfarin Sodium (Coumadin) 2 mg PO ONETIME ONE Stop: 02/05/17 09:06 Last Admin: 02/05/17 09:15 Dose: 2 mg Warfarin Sodium (Coumadin) 5 mg PO DAILY@1800 [facility] Stop: 02/06/17 18:01 Last Admin: 02/06/17 17:01 Dose: 5 mg - Exam Wound/Incisions: Dressing Dry and Intact - Problem List Review Problem List Initiated/Reviewed/Updated: Yes - My Orders Last 24 Hours: Active Orders 24 hr Category Date Time Status INR,PT,PROTHROMBIN TIME [COAG] Routine Lab 02/07/17 10:07 Ordered Potassium Chloride [Klor-Con 10] Med 02/07/17 09:00 Active 20 meq PO DAILY Temazepam [Restoril] Med 02/06/17 21:00 Active 15 mg PO BEDTIME Warfarin [Coumadin] Med 02/09/17 18:00 Active 1.25 mg PO TuThSa@1800 Warfarin [Coumadin] Med 02/08/17 18:00 Active 2.5 mg PO SuMoWeFr@1800 Warfarin [Coumadin] Med 02/07/17 18:00 Once 7.5 mg PO DAILY@1800 [facility] Medication Orders Acetaminophen (Tylenol) 650 mg GTUBE Q4H PRN PRN Reason: Fever Last Admin: 02/06/17 21:34 Dose: 650 mg Admin: 02/06/17 09:24 Dose: 650 mg Hydrocodone Bitart/Acetaminophen (Bend 325-5 Mg) 1 tab GTUBE Q6H PRN PRN Reason: Pain Last Admin: 02/03/17 06:19 Dose: 1 tab Admin: 02/02/17 23:16 Dose: 1 tab Admin: 02/02/17 13:46 Dose: 1 tab Alprazolam (Xanax) 0.5 mg PO TID PRN PRN Reason: Anxiety Last Admin: 02/06/17 19:17 Dose: 0.5 mg Admin: 02/05/17 20:05 Dose: 0.5 mg Admin: 02/04/17 15:48 Dose: 0.5 mg Admin: 02/04/17 05:53 Dose: 0.5 mg Aspirin (Aspirin) 81 mg PO DAILY PRN PRN Reason: Headache Enoxaparin Sodium (Lovenox) 40 mg SUBCUT Q12H [facility] Last Admin: 02/07/17 06:25 Dose: 40 mg Admin: 02/06/17 19:17 Dose: 40 mg Admin: 02/06/17 08:05 Dose: Admin: 02/06/17 05:55 Dose: 40 mg Admin: 02/05/17 18:11 Dose: 40 mg Admin: 02/05/17 06:31 Dose: 40 mg Admin: 02/04/17 19:00 Dose: 40 mg Admin: 02/04/17 06:01 Dose: 40 mg Admin: 02/03/17 18:52 Dose: 40 mg Fentanyl (Duragesic) 100 mcg TRDERM Q72H [facility] Last Admin: 02/05/17 18:12 Dose: 100 mcg Admin: 02/02/17 19:03 Dose: 100 mcg Fentanyl (Duragesic) 25 mcg TRDERM Q72H [facility] Last Admin: 02/05/17 18:12 Dose: 25 mcg Admin: 02/02/17 19:02 Dose: 25 mcg Hydromorphone HCl (Dilaudid) 2 - 6 mg GTUBE Q2H PRN PRN Reason: Pain Last Admin: 02/07/17 09:06 Dose: 4 mg Admin: 02/07/17 07:33 Dose: 4 mg Admin: 02/07/17 05:07 Dose: 4 mg Admin: 02/07/17 02:39 Dose: 4 mg Admin: 02/06/17 23:48 Dose: 4 mg Admin: 02/06/17 21:35 Dose: 4 mg Admin: 02/06/17 19:17 Dose: 4 mg Admin: 02/06/17 17:01 Dose: 4 mg Admin: 02/06/17 14:05 Dose: 4 mg Admin: 02/06/17 12:17 Dose: 4 mg Admin: 02/06/17 10:00 Dose: 4 mg Admin: 02/06/17 08:05 Dose: 5 mg Admin: 02/06/17 05:54 Dose: 5 mg Admin: 02/06/17 02:53 Dose: 4 mg Admin: 02/05/17 23:42 Dose: 4 mg Admin: 02/05/17 20:00 Dose: 3 mg Admin: 02/05/17 18:11 Dose: 4 mg Admin: 02/05/17 14:50 Dose: 4 mg Admin: 02/05/17 12:28 Dose: 4 mg Admin: 02/05/17 09:12 Dose: 4 mg Admin: 02/05/17 07:09 Dose: 4 mg Admin: 02/05/17 03:25 Dose: 4 mg Admin: 02/04/17 23:55 Dose: 2 mg Lactulose (Cephulac) 20 gm PO BID [facility] Last Admin: 02/07/17 09:07 Dose: Not Given Admin: 02/06/17 21:37 Dose: 20 gm Admin: 02/06/17 08:06 Dose: Not Given Admin: 02/05/17 23:32 Dose: Not Given Admin: 02/05/17 09:05 Dose: 20 gm Admin: 02/05/17 00:38 Dose: Not Given Admin: 02/04/17 10:56 Dose: 20 gm Admin: 02/03/17 20:08 Dose: 20 gm Admin: 02/03/17 09:01 Dose: Not Given Levothyroxine Sodium (Levothyroxine) 75 mcg PO DAILY [facility] Last Admin: 02/07/17 09:08 Dose: 75 mcg Admin: 02/06/17 08:06 Dose: 75 mcg Admin: 02/05/17 09:05 Dose: 75 mcg Admin: 02/04/17 10:40 Dose: 75 mcg Admin: 02/03/17 09:00 Dose: 75 mcg Magnesium Oxide (Magnesium Oxide) 400 mg PO BID [facility] Last Admin: 02/07/17 09:08 Dose: 400 mg Admin: 02/06/17 21:34 Dose: 400 mg Admin: 02/06/17 10:00 Dose: 400 mg Miscellaneous Information (Remove Patch) 1 ea TRDERM Q72H [facility] Last Admin: 02/05/17 18:12 Dose: 1 ea Ondansetron HCl (Zofran Odt) 8 mg PO Q8H PRN PRN Reason: Nausea/Vomiting Potassium Chloride (Klor-Con 10) 20 meq PO DAILY [facility] Last Admin: 02/07/17 09:08 Dose: 20 meq Senna (Senna) 8.6 mg PO BID [facility] Last Admin: 02/07/17 09:08 Dose: 8.6 mg Admin: 02/06/17 21:34 Dose: 8.6 mg Admin: 02/06/17 08:06 Dose: Not Given Admin: 02/05/17 23:32 Dose: Not Given Admin: 02/05/17 11:23 Dose: Not Given Admin: 02/05/17 00:38 Dose: Not Given Admin: 02/04/17 10:39 Dose: 8.6 mg Temazepam (Restoril) 15 mg PO BEDTIME [facility] Last Admin: 02/06/17 21:33 Dose: 15 mg Warfarin Sodium (Coumadin) 1.25 mg PO TuThSa@1800 [facility] Warfarin Sodium (Coumadin) 7.5 mg PO DAILY@1800 [facility] Stop: 02/07/17 18:01 Warfarin Sodium (Coumadin) 2.5 mg PO SuMoWeFr@1800 [facility] - Assessment Assessment (Free Text/Narrative):: INR increased from yesterday. Potassium is normal. - Plan Plan (Free Text/Narrative):: I'll give an additional dose of Coumadin and check magnesium and potassium level in the morning.
[2017-02-07] MEDS: ALPRAZolam 0.5 MG Tab PO PRN ×2 (12:36→21:32)
[2017-02-07] MEDS: Acetaminophen/HYDROcodone 325-5 MG Tab GTUBE PRN ×2 (12:37→19:47)
[2017-02-07] MEDS ORDERED: Warfarin 7.5 MG Tab PO ONE (18:00)
[2017-02-07] MEDS: Temazepam 15 MG Cap PO SCH (20:11)
[2017-02-08] MEDS: HYDROmorphone 2 MG Tab GTUBE PRN ×6 (02:39→18:27)
[2017-02-08] MEDS: Acetaminophen Soln 650 MG/20.3 ML UD Cup GTUBE PRN (02:40)
[2017-02-08] MEDS: Acetaminophen/HYDROcodone 325-5 MG Tab GTUBE PRN ×3 (06:41→18:30)
[2017-02-08] MEDS: Enoxaparin 40 MG/0.4 ML Syringe SUBCUT SCH ×2 (06:41→19:03)
[2017-02-08] MEDS: Potassium Chloride 10 MEQ Tab.ER PO SCH (08:00)
[2017-02-08] MEDS: Levothyroxine 75 MCG Tab PO SCH (08:00)
[2017-02-08] MEDS: Magnesium Oxide 400 MG Tab PO SCH ×2 (08:00→21:37)
[2017-02-08] MEDS: Sennosides 8.6 MG Tab PO SCH ×2 (08:00→21:37)
[2017-02-08] MEDS: Lactulose Soln 10 GM/15 ML 30 ML UD Cup PO SCH ×2 (08:00→22:42)
[2017-02-08] MEDS ORDERED: Warfarin 2.5 MG Tab PO ONE (08:38)
--- NOTE | 2017-02-08 08:43 | PCM.SURGPN ---
- General Info Date of Service: 02/08/17 Functional Status: Reports: Pain Controlled, Tolerating Diet, Ambulating (Short distances, fatigues early) - Patient Data Vitals - Most Recent: Last Vital Signs Temp 37.2 C 02/08/17 05:00 Pulse 99 02/08/17 02:32 Resp 18 02/08/17 02:32 BP 117/58 L 02/08/17 02:32 Pulse Ox 93 L 02/08/17 02:32 Weight - Most Recent: 44.225 kg I&O - Last 24 Hours: Intake & Output 02/07/17 02/08/17 02/08/17 22:59 06:59 14:59 Intake Total 1070 680 Balance 1070 680 Lab Results Last 24 Hrs: Laboratory Results - last 24 hr 02/07/17 02/08/17 02/08/17 Range/Units 10:20 05:38 05:38 PT 17.3 H 18.5 H (8.0-13.0) SECONDS INR 1.54 1.64 Sodium 133 L (136-145) mEq/L Potassium 4.1 (3.5-5.1) mEq/L Chloride 97 L (98-107) mEq/L Carbon Dioxide 25 (21-32) mEq/L Anion Gap 15.1 H (5-15) BUN 14 (7-18) mg/dL Creatinine 0.8 (0.55-1.02) mg/dL Est Cr Clr Drug Dosing 54.89 mL/min Estimated GFR (MDRD) > 60 (>60) mL/min BUN/Creatinine Ratio 17.5 (14-18) Glucose 117 H (74-106) mg/dL Calcium 9.3 (8.5-10.1) mg/dL Magnesium 1.8 (1.8-2.4) mg/dl Med Orders - Current: Current Medications Acetaminophen (Tylenol) 650 mg GTUBE Q4H PRN PRN Reason: Fever Last Admin: 02/08/17 02:40 Dose: 650 mg Hydrocodone Bitart/Acetaminophen (Downing 325-5 Mg) 1 tab GTUBE Q6H PRN PRN Reason: Pain Last Admin: 02/08/17 06:41 Dose: 1 tab Alprazolam (Xanax) 0.5 mg PO TID PRN PRN Reason: Anxiety Last Admin: 02/07/17 21:32 Dose: 0.5 mg Aspirin (Aspirin) 81 mg PO DAILY PRN PRN Reason: Headache Enoxaparin Sodium (Lovenox) 40 mg SUBCUT Q12H [facility] Last Admin: 02/08/17 06:41 Dose: 40 mg Fentanyl (Duragesic) 100 mcg TRDERM Q72H [facility] Last Admin: 02/05/17 18:12 Dose: 100 mcg Fentanyl (Duragesic) 25 mcg TRDERM Q72H [facility] Last Admin: 02/05/17 18:12 Dose: 25 mcg Hydromorphone HCl (Dilaudid) 2 - 6 mg GTUBE Q2H PRN PRN Reason: Pain Last Admin: 02/08/17 07:53 Dose: 3 mg Lactulose (Cephulac) 20 gm PO BID [facility] Last Admin: 02/08/17 08:00 Dose: Not Given Levothyroxine Sodium (Levothyroxine) 75 mcg PO DAILY [facility] Last Admin: 02/08/17 08:00 Dose: 75 mcg Magnesium Oxide (Magnesium Oxide) 400 mg PO BID [facility] Last Admin: 02/08/17 08:00 Dose: 400 mg Miscellaneous Information (Remove Patch) 1 ea TRDERM Q72H [facility] Last Admin: 02/05/17 18:12 Dose: 1 ea Ondansetron HCl (Zofran Odt) 8 mg PO Q8H PRN PRN Reason: Nausea/Vomiting Potassium Chloride (Klor-Con 10) 20 meq PO DAILY [facility] Last Admin: 02/08/17 08:00 Dose: 20 meq Senna (Senna) 8.6 mg PO BID [facility] Last Admin: 02/08/17 08:00 Dose: Not Given Temazepam (Restoril) 15 mg PO BEDTIME [facility] Last Admin: 02/07/17 20:11 Dose: 15 mg Warfarin Sodium (Coumadin) 1.25 mg PO TuThSa@1800 [facility] Warfarin Sodium (Coumadin) 2.5 mg PO SuMoWeFr@1800 [facility] Discontinued Medications Alprazolam (Xanax) 0.5 mg PO Q12H PRN PRN Reason: Anxiety Last Admin: 02/02/17 17:50 Dose: 0.5 mg Alprazolam (Xanax) 0.5 mg PO ONETIME ONE Stop: 02/02/17 23:07 Last Admin: 02/02/17 23:16 Dose: 0.5 mg Alprazolam (Xanax) 0.5 mg PO TID [facility] Last Admin: 02/03/17 11:43 Dose: Not Given Ampicillin Sodium/Sulbactam Sodium (Unasyn) Confirm Administered Dose 1.5 gm .ROUTE .STK-MED ONE Stop: 02/03/17 21:57 Last Admin: 02/03/17 23:00 Dose: Not Given Fentanyl (Sublimaze) Confirm Administered Dose 250 mcg .ROUTE .STK-MED ONE Stop: 02/02/17 09:54 Fentanyl (Sublimaze) 50 mcg IVPUSH Q5M PRN PRN Reason: Pain Stop: 02/02/17 11:31 Last Admin: 02/02/17 10:45 Dose: 50 mcg Fentanyl (Sublimaze) Confirm Administered Dose 100 mcg .ROUTE .STK-MED ONE Stop: 02/02/17 12:46 Fentanyl (Sublimaze) 50 mcg IVPUSH Q5M PRN PRN Reason: Pain Stop: 02/02/17 13:06 Last Admin: 02/02/17 14:00 Dose: 50 mcg Fentanyl (Duragesic) 25 mcg TRDERM Q72H [facility] Last Admin: 02/02/17 20:49 Dose: Not Given Fentanyl (Duragesic) 100 mcg TRDERM Q72H [facility] Hydromorphone HCl (Dilaudid) 0.5 mg IVPUSH Q15M PRN PRN Reason: severe pain Stop: 02/02/17 13:06 Last Admin: 02/02/17 13:28 Dose: 0.5 mg Hydromorphone HCl (Dilaudid) 6 mg PO Q2H PRN PRN Reason: Breakthrough Pain Last Admin: 02/02/17 15:47 Dose: 6 mg Hydromorphone HCl (Dilaudid) 6 mg GTUBE Q2H PRN PRN Reason: Pain Last Admin: 02/04/17 07:58 Dose: 6 mg Hydromorphone HCl (Dilaudid) 8 mg GTUBE STAT ONE Stop: 02/03/17 10:01 Last Admin: 02/04/17 10:36 Dose: Not Given Hydromorphone HCl (Dilaudid) 8 mg GTUBE STAT ONE Stop: 02/04/17 10:26 Last Admin: 02/04/17 10:39 Dose: 8 mg Hydromorphone HCl (Dilaudid) 6 mg GTUBE Q2H PRN PRN Reason: Pain Last Admin: 02/04/17 17:31 Dose: 6 mg Ampicillin Sodium/Sulbactam (Sodium 3 gm/ Sodium Chloride) 100 mls @ 200 mls/ hr IV ONETIME ONE Stop: 02/02/17 10:44 Last Admin: 02/02/17 11:21 Dose: 200 mls/hr Lidocaine HCl (Xylocaine-Mpf 1%) Confirm Administered Dose 4 mls @ as directed .ROUTE .STK-MED ONE Stop: 02/02/17 09:54 Lactated Ringer's (Ringers, Lactated) 1,000 mls @ 125 mls/hr IV ASDIRECTED [facility] Stop: 02/02/17 23:00 Last Admin: 02/02/17 13:32 Dose: 125 mls/hr Lactated Ringer's (Ringers, Lactated) Confirm Administered Dose 1,000 mls @ as directed .ROUTE .STK-MED ONE Stop: 02/02/17 12:27 Lactated Ringer's (Ringers, Lactated) 1,000 mls @ 100 mls/hr IV ASDIRECTED [facility] Last Admin: 02/03/17 09:30 Dose: 100 mls/hr Ampicillin Sodium/Sulbactam (Sodium 1.5 gm/ Sodium Chloride) 100 mls @ 200 mls/ hr IV Q6H [facility] Last Admin: 02/04/17 05:40 Dose: 200 mls/hr Sodium Chloride (Normal Saline) 250 mls @ 50 mls/hr IV ASDIRECTED [facility] Stop: 02/04/17 15:00 Potassium Chloride 10 meq/ (Premix) 100 mls @ 50 mls/hr IV ONETIME ONE Stop: 02/04/17 12:29 Last Admin: 02/04/17 11:11 Dose: 50 mls/hr Ketamine HCl (Ketalar) Confirm Administered Dose 500 mg .ROUTE .STK-MED ONE Stop: 02/02/17 12:39 Lidocaine/Sodium Bicarbonate (Buffered Lidocaine 1% In Ns 8.4%) 0.25 ml .XX ONETIME PRN PRN Reason: Prior to IV Start Stop: 02/02/17 18:00 Last Admin: 02/02/17 10:44 Dose: 0.25 ml Midazolam HCl (Versed 1 Mg/Ml) Confirm Administered Dose 2 mg .ROUTE .STK-MED ONE Stop: 02/02/17 09:53 Miscellaneous Information (Remove Patch) 0 ea TRDERM Q72H [facility] Ondansetron HCl (Zofran) Confirm Administered Dose 4 mg .ROUTE .STK-MED ONE Stop: 02/02/17 12:43 Ondansetron HCl (Zofran) 4 mg IVPUSH ONETIME PRN PRN Reason: Nausea/Vomiting Stop: 02/02/17 18:00 Potassium Chloride (Potassium Chloride Solution) 10 meq PO TID [facility] Last Admin: 02/03/17 11:44 Dose: Not Given Potassium Chloride (Klor-Con 10) 10 meq GTUBE QID [facility] Potassium Chloride (Potassium Chloride Solution) 10 meq GTUBE QID [facility] Last Admin: 02/05/17 09:13 Dose: 20 meq Potassium Chloride (Potassium Chloride Solution) 20 meq GTUBE QID [facility] Last Admin: 02/06/17 08:06 Dose: 20 meq Propofol (Diprivan 20 Ml) Confirm Administered Dose 200 mg .ROUTE .STK-MED ONE Stop: 02/02/17 09:53 Propofol (Diprivan 20 Ml) Confirm Administered Dose 200 mg .ROUTE .STK-MED ONE Stop: 02/02/17 12:06 Senna (Senna) 8.6 mg PO BID [facility] Sodium Chloride (Saline Flush) 10 ml FLUSH ASDIRECTED PRN PRN Reason: Keep Vein Open Stop: 02/02/17 18:00 Temazepam (Restoril) 15 mg PO ONETIME STA Stop: 02/05/17 23:34 Last Admin: 02/05/17 23:42 Dose: 15 mg Warfarin Sodium (Coumadin) 2.5 mg PO SuMoWeFr@1800 [facility] Last Admin: 02/05/17 18:11 Dose: 2.5 mg Warfarin Sodium (Coumadin) 1.25 mg PO TuThSa@1800 [facility] Last Admin: 02/04/17 17:34 Dose: 1.25 mg Warfarin Sodium (Coumadin) 2 mg PO ONETIME ONE Stop: 02/05/17 09:06 Last Admin: 02/05/17 09:15 Dose: 2 mg Warfarin Sodium (Coumadin) 5 mg PO DAILY@1800 ONE Stop: 02/06/17 18:01 Last Admin: 02/06/17 17:01 Dose: 5 mg Warfarin Sodium (Coumadin) 7.5 mg PO DAILY@1800 ONE Stop: 02/07/17 18:01 Last Admin: 02/07/17 17:54 Dose: 7.5 mg - Exam Wound/Incisions: Healing Well, Other (No erythema or tenderness or ecchymosis at the incision site and staple lines) GI/Abdominal Exam: Soft, Non-Tender - Problem List Review Problem List Initiated/Reviewed/Updated: Yes - My Orders Last 24 Hours: Active Orders 24 hr Category Date Time Status Chest 2V [CR] Routine Exams 02/08/17 08:37 Ordered INR,PT,PROTHROMBIN TIME [COAG] Routine Lab 02/08/17 12:00 Ordered Potassium Chloride [Klor-Con 10] Med 02/07/17 09:00 Active 20 meq PO DAILY Warfarin [Coumadin] Med 02/09/17 18:00 Active 1.25 mg PO TuThSa@1800 Warfarin [Coumadin] Med 02/08/17 08:38 Once 2.5 mg PO ONETIME ONE Warfarin [Coumadin] Med 02/08/17 18:00 Active 2.5 mg PO SuMoWeFr@1800 Medication Orders Acetaminophen (Tylenol) 650 mg GTUBE Q4H PRN PRN Reason: Fever Last Admin: 02/08/17 02:40 Dose: 650 mg Admin: 02/06/17 21:34 Dose: 650 mg Admin: 02/06/17 09:24 Dose: 650 mg Hydrocodone Bitart/Acetaminophen ([place]ing 325-5 Mg) 1 tab GTUBE Q6H PRN PRN Reason: Pain Last Admin: 02/08/17 06:41 Dose: 1 tab Admin: 02/07/17 19:47 Dose: 1 tab Admin: 02/07/17 12:37 Dose: 1 tab Admin: 02/03/17 06:19 Dose: 1 tab Admin: 02/02/17 23:16 Dose: 1 tab Admin: 02/02/17 13:46 Dose: 1 tab Alprazolam (Xanax) 0.5 mg PO TID PRN PRN Reason: Anxiety Last Admin: 02/07/17 21:32 Dose: 0.5 mg Admin: 02/07/17 12:36 Dose: 0.5 mg Admin: 02/06/17 19:17 Dose: 0.5 mg Admin: 02/05/17 20:05 Dose: 0.5 mg Admin: 02/04/17 15:48 Dose: 0.5 mg Admin: 02/04/17 05:53 Dose: 0.5 mg Aspirin (Aspirin) 81 mg PO DAILY PRN PRN Reason: Headache Enoxaparin Sodium (Lovenox) 40 mg SUBCUT Q12H [facility] Last Admin: 02/08/17 06:41 Dose: 40 mg Admin: 02/07/17 18:01 Dose: 40 mg Admin: 02/07/17 06:25 Dose: 40 mg Admin: 02/06/17 19:17 Dose: 40 mg Admin: 02/06/17 08:05 Dose: Admin: 02/06/17 05:55 Dose: 40 mg Admin: 02/05/17 18:11 Dose: 40 mg Admin: 02/05/17 06:31 Dose: 40 mg Admin: 02/04/17 19:00 Dose: 40 mg Admin: 02/04/17 06:01 Dose: 40 mg Admin: 02/03/17 18:52 Dose: 40 mg Fentanyl (Duragesic) 100 mcg TRDERM Q72H [facility] Last Admin: 02/05/17 18:12 Dose: 100 mcg Admin: 02/02/17 19:03 Dose: 100 mcg Fentanyl (Duragesic) 25 mcg TRDERM Q72H [facility] Last Admin: 02/05/17 18:12 Dose: 25 mcg Admin: 02/02/17 19:02 Dose: 25 mcg Hydromorphone HCl (Dilaudid) 2 - 6 mg GTUBE Q2H PRN PRN Reason: Pain Last Admin: 02/08/17 07:53 Dose: 3 mg Admin: 02/08/17 05:15 Dose: 1 mg Admin: 02/08/17 05:08 Dose: 4 mg Admin: 02/08/17 02:39 Dose: 4 mg Admin: 02/07/17 23:22 Dose: 4 mg Admin: 02/07/17 20:17 Dose: 3 mg Admin: 02/07/17 17:53 Dose: 4 mg Admin: 02/07/17 15:05 Dose: 4 mg Admin: 02/07/17 11:13 Dose: 4 mg Admin: 02/07/17 09:06 Dose: 4 mg Admin: 02/07/17 07:33 Dose: 4 mg Admin: 02/07/17 05:07 Dose: 4 mg Admin: 02/07/17 02:39 Dose: 4 mg Admin: 02/06/17 23:48 Dose: 4 mg Admin: 02/06/17 21:35 Dose: 4 mg Admin: 02/06/17 19:17 Dose: 4 mg Admin: 02/06/17 17:01 Dose: 4 mg Admin: 02/06/17 14:05 Dose: 4 mg Admin: 02/06/17 12:17 Dose: 4 mg Admin: 02/06/17 10:00 Dose: 4 mg Admin: 02/06/17 08:05 Dose: 5 mg Admin: 02/06/17 05:54 Dose: 5 mg Admin: 02/06/17 02:53 Dose: 4 mg Admin: 02/05/17 23:42 Dose: 4 mg Admin: 02/05/17 20:00 Dose: 3 mg Admin: 02/05/17 18:11 Dose: 4 mg Admin: 02/05/17 14:50 Dose: 4 mg Admin: 02/05/17 12:28 Dose: 4 mg Admin: 02/05/17 09:12 Dose: 4 mg Admin: 02/05/17 07:09 Dose: 4 mg Admin: 02/05/17 03:25 Dose: 4 mg Admin: 02/04/17 23:55 Dose: 2 mg Lactulose (Cephulac) 20 gm PO BID [facility] Last Admin: 02/08/17 08:00 Dose: Not Given Admin: 02/07/17 20:13 Dose: Not Given Admin: 02/07/17 09:07 Dose: Not Given Admin: 02/06/17 21:37 Dose: 20 gm Admin: 02/06/17 08:06 Dose: Not Given Admin: 02/05/17 23:32 Dose: Not Given Admin: 02/05/17 09:05 Dose: 20 gm Admin: 02/05/17 00:38 Dose: Not Given Admin: 02/04/17 10:56 Dose: 20 gm Admin: 02/03/17 20:08 Dose: 20 gm Admin: 02/03/17 09:01 Dose: Not Given Levothyroxine Sodium (Levothyroxine) 75 mcg PO DAILY [facility] Last Admin: 02/08/17 08:00 Dose: 75 mcg Admin: 02/07/17 09:08 Dose: 75 mcg Admin: 02/06/17 08:06 Dose: 75 mcg Admin: 02/05/17 09:05 Dose: 75 mcg Admin: 02/04/17 10:40 Dose: 75 mcg Admin: 02/03/17 09:00 Dose: 75 mcg Magnesium Oxide (Magnesium Oxide) 400 mg PO BID [facility] Last Admin: 02/08/17 08:00 Dose: 400 mg Admin: 02/07/17 20:11 Dose: 400 mg Admin: 02/07/17 09:08 Dose: 400 mg Admin: 02/06/17 21:34 Dose: 400 mg Admin: 02/06/17 10:00 Dose: 400 mg Miscellaneous Information (Remove Patch) 1 ea TRDERM Q72H [facility] Last Admin: 02/05/17 18:12 Dose: 1 ea Ondansetron HCl (Zofran Odt) 8 mg PO Q8H PRN PRN Reason: Nausea/Vomiting Potassium Chloride (Klor-Con 10) 20 meq PO DAILY [facility] Last Admin: 02/08/17 08:00 Dose: 20 meq Admin: 02/07/17 09:08 Dose: 20 meq Senna (Senna) 8.6 mg PO BID [facility] Last Admin: 02/08/17 08:00 Dose: Not Given Admin: 02/07/17 20:11 Dose: Not Given Admin: 02/07/17 09:08 Dose: 8.6 mg Admin: 02/06/17 21:34 Dose: 8.6 mg Admin: 02/06/17 08:06 Dose: Not Given Admin: 02/05/17 23:32 Dose: Not Given Admin: 02/05/17 11:23 Dose: Not Given Admin: 02/05/17 00:38 Dose: Not Given Admin: 02/04/17 10:39 Dose: 8.6 mg Temazepam (Restoril) 15 mg PO BEDTIME [facility] Last Admin: 02/07/17 20:11 Dose: 15 mg Admin: 02/06/17 21:33 Dose: 15 mg Warfarin Sodium (Coumadin) 1.25 mg PO TuThSa@1800 [facility] Warfarin Sodium (Coumadin) 2.5 mg PO SuMoWeFr@1800 [facility] - Assessment Assessment (Free Text/Narrative):: imp. Potassium is normal. INR is greater than 1.5 which is a minimal acceptable therapeutic level for a mechanical aortic valve. MAXIMUM TEMPERATURE of 102. I suspect this is related to atelectasis in combination with Dilaudid and pain. She doesn't have course rhonchi on auscultation. She doesn't have productive sputum through the trach site. The temperature goes up quickly and then subsides. Probable atelectatic temperature elevations. She certainly has the clinical set up for a pneumonia. The surgery site and abdomen are benign. plan: Extra dose of Coumadin. Chest x-ray. Respiratory for pulmonary toilet. Discharge placement in progress.
--- NOTE | 2017-02-08 09:05 | CR ---
Chest: 2 views of the chest are obtained. Comparison: Previous chest x-ray of 08/14/14. Heart size and mediastinum are within normal limits. 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 Previous vertebroplasty is noted within the upper lumbar spine. Mild scoliosis is noted. Lungs are clear with no acute infiltrates. 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 Surgical clips are seen within the left axillary region. Impression: 1. Incidental findings as described above. Nothing acute is appreciated on 2 view chest x-ray. Diagnostic code #2
[2017-02-08] MEDS ORDERED: Warfarin 2.5 MG Tab PO SCH (18:00)
[2017-02-08] MEDS: fentaNYL 100 MCG/HR Transdermal Patch TRDERM SCH (18:28)
[2017-02-08] MEDS: fentaNYL 25 MCG/HR Transdermal Patch TRDERM SCH (18:28)
[2017-02-08] MEDS: [UNRECOGNIZED DRUG - REMARK] TRDERM SCH ×2 (18:30→19:30)
[2017-02-08] MEDS: Temazepam 15 MG Cap PO SCH (21:37)
[2017-02-08] MEDS: ALPRAZolam 0.5 MG Tab PO PRN (21:37)
[2017-02-09] MEDS: HYDROmorphone 2 MG Tab GTUBE PRN ×7 (00:24→23:39)
--- NOTE | 2017-02-09 08:03 | PCM.SURGPN ---
- General Info Functional Status: Reports: Pain Controlled, Tolerating Diet - Patient Data Vitals - Most Recent: Last Vital Signs Temp 38.1 C 02/09/17 04:11 Pulse 105 H 02/09/17 04:12 Resp 14 02/09/17 04:11 BP 96/57 L 02/09/17 04:11 Pulse Ox 93 L 02/09/17 04:12 Weight - Most Recent: 43.998 kg I&O - Last 24 Hours: Intake & Output 02/08/17 02/09/17 02/09/17 22:59 06:59 14:59 Intake Total 300 Output Total 650 575 Balance -350 -575 Lab Results Last 24 Hrs: Laboratory Results - last 24 hr 02/08/17 02/08/17 02/08/17 Range/Units 12:00 14:00 15:35 WBC 6.53 (3.98-10.04) K/mm3 RBC 2.72 L (3.98-5.22) M/mm3 Hgb 7.6 L (11.2-15.7) gm/L Hct 23.3 L (34.1-44.9) % MCV 85.7 (79.4-94.8) fl MCH 27.9 (25.6-32.2) pg MCHC 32.6 (32.2-35.5) g/dl RDW Std Deviation 47.7 H (36.4-46.3) fL Plt Count 106 L (182-369) K/mm3 MPV 10.7 (9.4-12.3) fl Neut % (Auto) 68.5 (34.0-71.1) % Lymph % (Auto) 10.1 L (19.3-51.7) % [place] % (Auto) 11.6 (4.7-12.5) % Eos % (Auto) 0.9 (0.7-5.8) Baso % (Auto) 0.6 (0.1-1.2) % Neut # (Auto) 4.47 (1.56-6.13) K/mm3 Lymph # (Auto) 0.66 L (1.18-3.74) K/mm3 [place] # (Auto) 0.76 H (0.24-0.36) K/mm3 Eos # (Auto) 0.06 (0.04-0.36) K/mm3 Baso # (Auto) 0.04 (0.01-0.08) K/mm3 Manual Slide Review Abnormal smear PT 24.8 H (8.0-13.0) SECONDS INR 2.17 Urine Color Yellow (Yellow) Urine Appearance Slt cloudy H (Clear) Urine pH 7.5 (5.0-8.0) Ur Specific Call 1.020 (1.005-1.030) Urine Protein 2+ H (Negative) Urine Glucose (UA) Negative (Negative) Urine Ketones Negative (Negative) Urine Occult Blood Negative (Negative) Urine Nitrite Positive H (Negative) Urine Bilirubin Negative (Negative) Urine Urobilinogen 1.0 (0.2-1.0) Ur Leukocyte Esterase Trace H (Negative) Urine RBC 0-5 (0-5) /hpf Urine WBC 10-20 H (0-5) /hpf Ur Epithelial Cells 0-5 (0-5) /hpf Urine Bacteria Many H (FEW) /hpf Urine Mucus Few (FEW) /hpf Kartik Results Last 24 Hrs: Microbiology 02/08/17 15:35 Urine Culture - Preliminary Urine, Clean Catch Gram Negative Rods Med Orders - Current: Current Medications Acetaminophen (Tylenol) 650 mg GTUBE Q4H PRN PRN Reason: Fever Last Admin: 02/08/17 02:40 Dose: 650 mg Hydrocodone Bitart/Acetaminophen (Harleigh 325-5 Mg) 1 tab GTUBE Q6H PRN PRN Reason: Pain Last Admin: 02/08/17 18:30 Dose: 1 tab Alprazolam (Xanax) 0.5 mg PO TID PRN PRN Reason: Anxiety Last Admin: 02/08/17 21:37 Dose: 0.5 mg Aspirin (Aspirin) 81 mg PO DAILY PRN PRN Reason: Headache Enoxaparin Sodium (Lovenox) 40 mg SUBCUT Q12H [facility] Last Admin: 02/08/17 19:03 Dose: Not Given Fentanyl (Duragesic) 100 mcg TRDERM Q72H [facility] Last Admin: 02/08/17 18:28 Dose: 100 mcg Fentanyl (Duragesic) 25 mcg TRDERM Q72H [facility] Last Admin: 02/08/17 18:28 Dose: 25 mcg Hydromorphone HCl (Dilaudid) 2 - 6 mg GTUBE Q2H PRN PRN Reason: Pain Last Admin: 02/09/17 06:16 Dose: 4 mg Lactulose (Cephulac) 20 gm PO BID [facility] Last Admin: 02/08/17 22:42 Dose: Not Given Levothyroxine Sodium (Levothyroxine) 75 mcg PO DAILY [facility] Last Admin: 02/08/17 08:00 Dose: 75 mcg Magnesium Oxide (Magnesium Oxide) 400 mg PO BID [facility] Last Admin: 02/08/17 21:37 Dose: 400 mg Miscellaneous Information (Remove Patch) 1 ea TRDERM Q72H [facility] Last Admin: 02/08/17 19:30 Dose: 1 ea Ondansetron HCl (Zofran Odt) 8 mg PO Q8H PRN PRN Reason: Nausea/Vomiting Potassium Chloride (Klor-Con 10) 20 meq PO DAILY [facility] Last Admin: 02/08/17 08:00 Dose: 20 meq Senna (Senna) 8.6 mg PO BID [facility] Last Admin: 02/08/17 21:37 Dose: 8.6 mg Temazepam (Restoril) 15 mg PO BEDTIME [facility] Last Admin: 02/08/17 21:37 Dose: 15 mg Warfarin Sodium (Coumadin) 1.25 mg PO TuThSa@1800 [facility] Warfarin Sodium (Coumadin) 2.5 mg PO SuMoWeFr@1800 [facility] Last Admin: 02/08/17 19:02 Dose: Not Given Discontinued Medications Alprazolam (Xanax) 0.5 mg PO Q12H PRN PRN Reason: Anxiety Last Admin: 02/02/17 17:50 Dose: 0.5 mg Alprazolam (Xanax) 0.5 mg PO ONETIME ONE Stop: 02/02/17 23:07 Last Admin: 02/02/17 23:16 Dose: 0.5 mg Alprazolam (Xanax) 0.5 mg PO TID [facility] Last Admin: 02/03/17 11:43 Dose: Not Given Ampicillin Sodium/Sulbactam Sodium (Unasyn) Confirm Administered Dose 1.5 gm .ROUTE .STK-MED ONE Stop: 02/03/17 21:57 Last Admin: 02/03/17 23:00 Dose: Not Given Fentanyl (Sublimaze) Confirm Administered Dose 250 mcg .ROUTE .STK-MED ONE Stop: 02/02/17 09:54 Fentanyl (Sublimaze) 50 mcg IVPUSH Q5M PRN PRN Reason: Pain Stop: 02/02/17 11:31 Last Admin: 02/02/17 10:45 Dose: 50 mcg Fentanyl (Sublimaze) Confirm Administered Dose 100 mcg .ROUTE .STK-MED ONE Stop: 02/02/17 12:46 Fentanyl (Sublimaze) 50 mcg IVPUSH Q5M PRN PRN Reason: Pain Stop: 02/02/17 13:06 Last Admin: 02/02/17 14:00 Dose: 50 mcg Fentanyl (Duragesic) 25 mcg TRDERM Q72H [facility] Last Admin: 02/02/17 20:49 Dose: Not Given Fentanyl (Duragesic) 100 mcg TRDERM Q72H [facility] Hydromorphone HCl (Dilaudid) 0.5 mg IVPUSH Q15M PRN PRN Reason: severe pain Stop: 02/02/17 13:06 Last Admin: 02/02/17 13:28 Dose: 0.5 mg Hydromorphone HCl (Dilaudid) 6 mg PO Q2H PRN PRN Reason: Breakthrough Pain Last Admin: 02/02/17 15:47 Dose: 6 mg Hydromorphone HCl (Dilaudid) 6 mg GTUBE Q2H PRN PRN Reason: Pain Last Admin: 02/04/17 07:58 Dose: 6 mg Hydromorphone HCl (Dilaudid) 8 mg GTUBE STAT ONE Stop: 02/03/17 10:01 Last Admin: 02/04/17 10:36 Dose: Not Given Hydromorphone HCl (Dilaudid) 8 mg GTUBE STAT ONE Stop: 02/04/17 10:26 Last Admin: 02/04/17 10:39 Dose: 8 mg Hydromorphone HCl (Dilaudid) 6 mg GTUBE Q2H PRN PRN Reason: Pain Last Admin: 02/04/17 17:31 Dose: 6 mg Ampicillin Sodium/Sulbactam (Sodium 3 gm/ Sodium Chloride) 100 mls @ 200 mls/ hr IV ONETIME ONE Stop: 02/02/17 10:44 Last Admin: 02/02/17 11:21 Dose: 200 mls/hr Lidocaine HCl (Xylocaine-Mpf 1%) Confirm Administered Dose 4 mls @ as directed .ROUTE .STK-MED ONE Stop: 02/02/17 09:54 Lactated Ringer's (Ringers, Lactated) 1,000 mls @ 125 mls/hr IV ASDIRECTED [facility] Stop: 02/02/17 23:00 Last Admin: 02/02/17 13:32 Dose: 125 mls/hr Lactated Ringer's (Ringers, Lactated) Confirm Administered Dose 1,000 mls @ as directed .ROUTE .STK-MED ONE Stop: 02/02/17 12:27 Lactated Ringer's (Ringers, Lactated) 1,000 mls @ 100 mls/hr IV ASDIRECTED [facility] Last Admin: 02/03/17 09:30 Dose: 100 mls/hr Ampicillin Sodium/Sulbactam (Sodium 1.5 gm/ Sodium Chloride) 100 mls @ 200 mls/ hr IV Q6H [facility] Last Admin: 02/04/17 05:40 Dose: 200 mls/hr Sodium Chloride (Normal Saline) 250 mls @ 50 mls/hr IV ASDIRECTED [facility] Stop: 02/04/17 15:00 Potassium Chloride 10 meq/ (Premix) 100 mls @ 50 mls/hr IV ONETIME ONE Stop: 02/04/17 12:29 Last Admin: 02/04/17 11:11 Dose: 50 mls/hr Ketamine HCl (Ketalar) Confirm Administered Dose 500 mg .ROUTE .STK-MED ONE Stop: 02/02/17 12:39 Lidocaine/Sodium Bicarbonate (Buffered Lidocaine 1% In Ns 8.4%) 0.25 ml .XX ONETIME PRN PRN Reason: Prior to IV Start Stop: 02/02/17 18:00 Last Admin: 02/02/17 10:44 Dose: 0.25 ml Midazolam HCl (Versed 1 Mg/Ml) Confirm Administered Dose 2 mg .ROUTE .STK-MED ONE Stop: 02/02/17 09:53 Miscellaneous Information (Remove Patch) 0 ea TRDERM Q72H [facility] Ondansetron HCl (Zofran) Confirm Administered Dose 4 mg .ROUTE .STK-MED ONE Stop: 02/02/17 12:43 Ondansetron HCl (Zofran) 4 mg IVPUSH ONETIME PRN PRN Reason: Nausea/Vomiting Stop: 02/02/17 18:00 Potassium Chloride (Potassium Chloride Solution) 10 meq PO TID [facility] Last Admin: 02/03/17 11:44 Dose: Not Given Potassium Chloride (Klor-Con 10) 10 meq GTUBE QID [facility] Potassium Chloride (Potassium Chloride Solution) 10 meq GTUBE QID [facility] Last Admin: 02/05/17 09:13 Dose: 20 meq Potassium Chloride (Potassium Chloride Solution) 20 meq GTUBE QID [facility] Last Admin: 02/06/17 08:06 Dose: 20 meq Propofol (Diprivan 20 Ml) Confirm Administered Dose 200 mg .ROUTE .STK-MED ONE Stop: 02/02/17 09:53 Propofol (Diprivan 20 Ml) Confirm Administered Dose 200 mg .ROUTE .STK-MED ONE Stop: 02/02/17 12:06 Senna (Senna) 8.6 mg PO BID [facility] Sodium Chloride (Saline Flush) 10 ml FLUSH ASDIRECTED PRN PRN Reason: Keep Vein Open Stop: 02/02/17 18:00 Temazepam (Restoril) 15 mg PO ONETIME [facility] Stop: 02/05/17 23:34 Last Admin: 02/05/17 23:42 Dose: 15 mg Warfarin Sodium (Coumadin) 2.5 mg PO SuMoWeFr@1800 [facility] Last Admin: 02/05/17 18:11 Dose: 2.5 mg Warfarin Sodium (Coumadin) 1.25 mg PO TuThSa@1800 [facility] Last Admin: 02/04/17 17:34 Dose: 1.25 mg Warfarin Sodium (Coumadin) 2 mg PO ONETIME ONE Stop: 02/05/17 09:06 Last Admin: 02/05/17 09:15 Dose: 2 mg Warfarin Sodium (Coumadin) 5 mg PO DAILY@1800 [facility] Stop: 02/06/17 18:01 Last Admin: 02/06/17 17:01 Dose: 5 mg Warfarin Sodium (Coumadin) 7.5 mg PO DAILY@1800 [facility] Stop: 02/07/17 18:01 Last Admin: 02/07/17 17:54 Dose: 7.5 mg Warfarin Sodium (Coumadin) 2.5 mg PO ONETIME ONE Stop: 02/08/17 08:39 Last Admin: 02/08/17 10:09 Dose: 2.5 mg - Problem List Review Problem List Initiated/Reviewed/Updated: Yes - My Orders Last 24 Hours: Active Orders 24 hr Category Date Time Status Enteral Feedings [RC] 08,12,16,20 Care 02/09/17 02:57 Active CULTURE BLOOD [BC] Stat Lab 02/08/17 14:00 Received CULTURE BLOOD [BC] Stat Lab 02/08/17 14:20 Received CULTURE URINE [RM] Routine Lab 02/08/17 15:35 Results Warfarin [Coumadin] Med 02/09/17 18:00 Active 1.25 mg PO TuThSa@1800 Warfarin [Coumadin] Med 02/08/17 18:00 Active 2.5 mg PO SuMoWeFr@1800 Blood Culture x2 Reflex Set [OM.PC] Stat Oth 02/08/17 13:38 Ordered Medication Orders Acetaminophen (Tylenol) 650 mg GTUBE Q4H PRN PRN Reason: Fever Last Admin: 02/08/17 02:40 Dose: 650 mg Admin: 02/06/17 21:34 Dose: 650 mg Admin: 02/06/17 09:24 Dose: 650 mg Hydrocodone Bitart/Acetaminophen ([place] 325-5 Mg) 1 tab GTUBE Q6H PRN PRN Reason: Pain Last Admin: 02/08/17 18:30 Dose: 1 tab Admin: 02/08/17 12:45 Dose: 1 tab Admin: 02/08/17 06:41 Dose: 1 tab Admin: 02/07/17 19:47 Dose: 1 tab Admin: 02/07/17 12:37 Dose: 1 tab Admin: 02/03/17 06:19 Dose: 1 tab Admin: 02/02/17 23:16 Dose: 1 tab Admin: 02/02/17 13:46 Dose: 1 tab Alprazolam (Xanax) 0.5 mg PO TID PRN PRN Reason: Anxiety Last Admin: 02/08/17 21:37 Dose: 0.5 mg Admin: 02/07/17 21:32 Dose: 0.5 mg Admin: 02/07/17 12:36 Dose: 0.5 mg Admin: 02/06/17 19:17 Dose: 0.5 mg Admin: 02/05/17 20:05 Dose: 0.5 mg Admin: 02/04/17 15:48 Dose: 0.5 mg Admin: 02/04/17 05:53 Dose: 0.5 mg Aspirin (Aspirin) 81 mg PO DAILY PRN PRN Reason: Headache Enoxaparin Sodium (Lovenox) 40 mg SUBCUT Q12H [facility] Last Admin: 02/08/17 19:03 Dose: Admin: 02/08/17 06:41 Dose: 40 mg Admin: 02/07/17 18:01 Dose: 40 mg Admin: 02/07/17 06:25 Dose: 40 mg Admin: 02/06/17 19:17 Dose: 40 mg Admin: 02/06/17 08:05 Dose: Admin: 02/06/17 05:55 Dose: 40 mg Admin: 02/05/17 18:11 Dose: 40 mg Admin: 02/05/17 06:31 Dose: 40 mg Admin: 02/04/17 19:00 Dose: 40 mg Admin: 02/04/17 06:01 Dose: 40 mg Admin: 02/03/17 18:52 Dose: 40 mg Fentanyl (Duragesic) 100 mcg TRDERM Q72H [facility] Last Admin: 02/08/17 18:28 Dose: 100 mcg Admin: 02/05/17 18:12 Dose: 100 mcg Admin: 02/02/17 19:03 Dose: 100 mcg Fentanyl (Duragesic) 25 mcg TRDERM Q72H [facility] Last Admin: 02/08/17 18:28 Dose: 25 mcg Admin: 02/05/17 18:12 Dose: 25 mcg Admin: 02/02/17 19:02 Dose: 25 mcg Hydromorphone HCl (Dilaudid) 2 - 6 mg GTUBE Q2H PRN PRN Reason: Pain Last Admin: 02/09/17 06:16 Dose: 4 mg Admin: 02/09/17 00:24 Dose: 6 mg Admin: 02/08/17 18:27 Dose: 2 mg Admin: 02/08/17 15:21 Dose: 2 mg Admin: 02/08/17 07:53 Dose: 3 mg Admin: 02/08/17 05:15 Dose: 1 mg Admin: 02/08/17 05:08 Dose: 4 mg Admin: 02/08/17 02:39 Dose: 4 mg Admin: 02/07/17 23:22 Dose: 4 mg Admin: 02/07/17 20:17 Dose: 3 mg Admin: 02/07/17 17:53 Dose: 4 mg Admin: 02/07/17 15:05 Dose: 4 mg Admin: 02/07/17 11:13 Dose: 4 mg Admin: 02/07/17 09:06 Dose: 4 mg Admin: 02/07/17 07:33 Dose: 4 mg Admin: 02/07/17 05:07 Dose: 4 mg Admin: 02/07/17 02:39 Dose: 4 mg Admin: 02/06/17 23:48 Dose: 4 mg Admin: 02/06/17 21:35 Dose: 4 mg Admin: 02/06/17 19:17 Dose: 4 mg Admin: 02/06/17 17:01 Dose: 4 mg Admin: 02/06/17 14:05 Dose: 4 mg Admin: 02/06/17 12:17 Dose: 4 mg Admin: 02/06/17 10:00 Dose: 4 mg Admin: 02/06/17 08:05 Dose: 5 mg Admin: 02/06/17 05:54 Dose: 5 mg Admin: 02/06/17 02:53 Dose: 4 mg Admin: 02/05/17 23:42 Dose: 4 mg Admin: 02/05/17 20:00 Dose: 3 mg Admin: 02/05/17 18:11 Dose: 4 mg Admin: 02/05/17 14:50 Dose: 4 mg Admin: 02/05/17 12:28 Dose: 4 mg Admin: 02/05/17 09:12 Dose: 4 mg Admin: 02/05/17 07:09 Dose: 4 mg Admin: 02/05/17 03:25 Dose: 4 mg Admin: 02/04/17 23:55 Dose: 2 mg Lactulose (Cephulac) 20 gm PO BID [facility] Last Admin: 02/08/17 22:42 Dose: Not Given Admin: 02/08/17 08:00 Dose: Not Given Admin: 02/07/17 20:13 Dose: Not Given Admin: 02/07/17 09:07 Dose: Not Given Admin: 02/06/17 21:37 Dose: 20 gm Admin: 02/06/17 08:06 Dose: Not Given Admin: 02/05/17 23:32 Dose: Not Given Admin: 02/05/17 09:05 Dose: 20 gm Admin: 02/05/17 00:38 Dose: Not Given Admin: 02/04/17 10:56 Dose: 20 gm Admin: 02/03/17 20:08 Dose: 20 gm Admin: 02/03/17 09:01 Dose: Not Given Levothyroxine Sodium (Levothyroxine) 75 mcg PO DAILY [facility] Last Admin: 02/08/17 08:00 Dose: 75 mcg Admin: 02/07/17 09:08 Dose: 75 mcg Admin: 02/06/17 08:06 Dose: 75 mcg Admin: 02/05/17 09:05 Dose: 75 mcg Admin: 02/04/17 10:40 Dose: 75 mcg Admin: 02/03/17 09:00 Dose: 75 mcg Magnesium Oxide (Magnesium Oxide) 400 mg PO BID [facility] Last Admin: 02/08/17 21:37 Dose: 400 mg Admin: 02/08/17 08:00 Dose: 400 mg Admin: 02/07/17 20:11 Dose: 400 mg Admin: 02/07/17 09:08 Dose: 400 mg Admin: 02/06/17 21:34 Dose: 400 mg Admin: 02/06/17 10:00 Dose: 400 mg Miscellaneous Information (Remove Patch) 1 ea TRDERM Q72H [facility] Last Admin: 02/08/17 19:30 Dose: 1 ea Admin: 02/08/17 18:30 Dose: 1 ea Admin: 02/05/17 18:12 Dose: 1 ea Ondansetron HCl (Zofran Odt) 8 mg PO Q8H PRN PRN Reason: Nausea/Vomiting Potassium Chloride (Klor-Con 10) 20 meq PO DAILY [facility] Last Admin: 02/08/17 08:00 Dose: 20 meq Admin: 02/07/17 09:08 Dose: 20 meq Senna (Senna) 8.6 mg PO BID [facility] Last Admin: 02/08/17 21:37 Dose: 8.6 mg Admin: 02/08/17 08:00 Dose: Not Given Admin: 02/07/17 20:11 Dose: Not Given Admin: 02/07/17 09:08 Dose: 8.6 mg Admin: 02/06/17 21:34 Dose: 8.6 mg Admin: 02/06/17 08:06 Dose: Not Given Admin: 02/05/17 23:32 Dose: Not Given Admin: 02/05/17 11:23 Dose: Not Given Admin: 02/05/17 00:38 Dose: Not Given Admin: 02/04/17 10:39 Dose: 8.6 mg Temazepam (Restoril) 15 mg PO BEDTIME [facility] Last Admin: 02/08/17 21:37 Dose: 15 mg Admin: 02/07/17 20:11 Dose: 15 mg Admin: 02/06/17 21:33 Dose: 15 mg Warfarin Sodium (Coumadin) 1.25 mg PO TuThSa@1800 [facility] Warfarin Sodium (Coumadin) 2.5 mg PO SuMoWeFr@1800 [facility] Last Admin: 02/08/17 19:02 Dose: - Assessment Assessment (Free Text/Narrative):: Awaiting discharge. - Plan Plan (Free Text/Narrative):: Signing off. Discussed with Dr. Sharpe.
[2017-02-09] MEDS: Potassium Chloride 10 MEQ Tab.ER PO SCH (09:19)
[2017-02-09] MEDS: Levothyroxine 75 MCG Tab PO SCH (09:19)
[2017-02-09] MEDS: ALPRAZolam 0.5 MG Tab PO PRN ×2 (09:19→17:25)
[2017-02-09] MEDS: Magnesium Oxide 400 MG Tab PO SCH ×2 (09:19→20:49)
[2017-02-09] MEDS: Lactulose Soln 10 GM/15 ML 30 ML UD Cup PO SCH ×2 (09:20→20:48)
[2017-02-09] MEDS: Sennosides 8.6 MG Tab PO SCH ×2 (09:20→20:49)
[2017-02-09] MEDS ORDERED: Amoxicillin 400 MG/5 ML Susp 100 ML Bottle NGTUBE SCH (14:30)
[2017-02-09] MEDS: Enoxaparin 40 MG/0.4 ML Syringe SUBCUT SCH (14:55)
--- NOTE | 2017-02-09 15:00 | PCM.SURGPN ---
- General Info Date of Service: 02/09/17 Functional Status: Reports: Pain Controlled - Review of Systems General: Reports: Weakness, Fatigue, Malaise HEENT: Reports: Other (fistule in the note in the neck no change) Pulmonary: Reports: No Symptoms Cardiovascular: Reports: No Symptoms Gastrointestinal: Reports: No Symptoms Genitourinary: Reports: No Symptoms - Patient Data Vitals - Most Recent: Last Vital Signs Temp 100.2 F 02/09/17 11:51 Pulse 90 02/09/17 11:51 Resp 18 02/09/17 11:51 BP 117/54 L 02/09/17 11:51 Pulse Ox 90 L 02/09/17 11:51 Weight - Most Recent: 43.998 kg I&O - Last 24 Hours: Intake & Output 02/08/17 02/09/17 02/09/17 23:59 07:59 15:59 Intake Total 300 900 Output Total 650 575 Balance -350 -575 900 Lab Results Last 24 Hrs: Laboratory Results - last 24 hr 02/08/17 02/09/17 02/09/17 Range/Units 15:35 11:34 12:37 PT 23.6 H (8.0-13.0) SECONDS INR 2.07 Urine Color Yellow (Yellow) Urine Appearance Slt cloudy H (Clear) Urine pH 7.5 (5.0-8.0) Ur Specific [place] 1.020 (1.005-1.030) Urine Protein 2+ H (Negative) Urine Glucose (UA) Negative (Negative) Urine Ketones Negative (Negative) Urine Occult Blood Negative (Negative) Urine Nitrite Positive H (Negative) Urine Bilirubin Negative (Negative) Urine Urobilinogen 1.0 (0.2-1.0) Ur Leukocyte Esterase Trace H (Negative) Urine RBC 0-5 (0-5) /hpf Urine WBC 10-20 H (0-5) /hpf Ur Epithelial Cells 0-5 (0-5) /hpf Urine Bacteria Many H (FEW) /hpf Urine Mucus Few (FEW) /hpf Blood Type O NEGATIVE Gel Antibody Screen Negative Crossmatch See Detail Kartik Results Last 24 Hrs: Microbiology 02/08/17 14:20 Aerobic Blood Culture - Preliminary Blood - Venous - Lab Draw NO GROWTH AFTER 1 DAY Anaerobic Blood Culture - Preliminary NO GROWTH AFTER 1 DAY 02/08/17 14:00 Aerobic Blood Culture - Preliminary Blood - Venous NO GROWTH AFTER 1 DAY Anaerobic Blood Culture - Preliminary NO GROWTH AFTER 1 DAY 02/08/17 15:35 Urine Culture - Preliminary Urine, Clean Catch Gram Negative Rods Med Orders - Current: Current Medications Acetaminophen (Tylenol) 650 mg GTUBE Q4H PRN PRN Reason: Fever Last Admin: 02/08/17 02:40 Dose: 650 mg Hydrocodone Bitart/Acetaminophen (Babcock 325-5 Mg) 1 tab GTUBE Q6H PRN PRN Reason: Pain Last Admin: 02/08/17 18:30 Dose: 1 tab Alprazolam (Xanax) 0.5 mg PO TID PRN PRN Reason: Anxiety Last Admin: 02/09/17 09:19 Dose: 0.5 mg Amoxicillin (Amoxil 400 Mg/5 Ml Susp) 250 mg NGTUBE Q8H [facility] Aspirin (Aspirin) 81 mg PO DAILY PRN PRN Reason: Headache Fentanyl (Duragesic) 100 mcg TRDERM Q72H [facility] Last Admin: 02/08/17 18:28 Dose: 100 mcg Fentanyl (Duragesic) 25 mcg TRDERM Q72H [facility] Last Admin: 02/08/17 18:28 Dose: 25 mcg Hydromorphone HCl (Dilaudid) 2 - 6 mg GTUBE Q2H PRN PRN Reason: Pain Last Admin: 02/09/17 09:19 Dose: 4 mg Lactulose (Cephulac) 20 gm PO BID [facility] Last Admin: 02/09/17 09:20 Dose: Not Given Levothyroxine Sodium (Levothyroxine) 75 mcg PO DAILY [facility] Last Admin: 02/09/17 09:19 Dose: 75 mcg Magnesium Oxide (Magnesium Oxide) 400 mg PO BID [facility] Last Admin: 02/09/17 09:19 Dose: 400 mg Miscellaneous Information (Remove Patch) 1 ea TRDERM Q72H [facility] Last Admin: 02/08/17 19:30 Dose: 1 ea Ondansetron HCl (Zofran Odt) 8 mg PO Q8H PRN PRN Reason: Nausea/Vomiting Potassium Chloride (Klor-Con 10) 20 meq PO DAILY [facility] Last Admin: 02/09/17 09:19 Dose: 20 meq Senna (Senna) 8.6 mg PO BID [facility] Last Admin: 02/09/17 09:20 Dose: Not Given Warfarin Sodium (Coumadin) 2.5 mg PO DAILY@1800 [facility] Discontinued Medications Alprazolam (Xanax) 0.5 mg PO Q12H PRN PRN Reason: Anxiety Last Admin: 02/02/17 17:50 Dose: 0.5 mg Alprazolam (Xanax) 0.5 mg PO ONETIME ONE Stop: 02/02/17 23:07 Last Admin: 02/02/17 23:16 Dose: 0.5 mg Alprazolam (Xanax) 0.5 mg PO TID [facility] Last Admin: 02/03/17 11:43 Dose: Not Given Amoxicillin (Amoxil 400 Mg/5 Ml Susp) 0 mg NGTUBE Q8H [facility] Ampicillin Sodium/Sulbactam Sodium (Unasyn) Confirm Administered Dose 1.5 gm .ROUTE .STK-MED ONE Stop: 02/03/17 21:57 Last Admin: 02/03/17 23:00 Dose: Not Given Enoxaparin Sodium (Lovenox) 40 mg SUBCUT Q12H [facility] Last Admin: 02/08/17 19:03 Dose: Not Given Fentanyl (Sublimaze) Confirm Administered Dose 250 mcg .ROUTE .STK-MED ONE Stop: 02/02/17 09:54 Fentanyl (Sublimaze) 50 mcg IVPUSH Q5M PRN PRN Reason: Pain Stop: 02/02/17 11:31 Last Admin: 02/02/17 10:45 Dose: 50 mcg Fentanyl (Sublimaze) Confirm Administered Dose 100 mcg .ROUTE .STK-MED ONE Stop: 02/02/17 12:46 Fentanyl (Sublimaze) 50 mcg IVPUSH Q5M PRN PRN Reason: Pain Stop: 02/02/17 13:06 Last Admin: 02/02/17 14:00 Dose: 50 mcg Fentanyl (Duragesic) 25 mcg TRDERM Q72H [facility] Last Admin: 02/02/17 20:49 Dose: Not Given Fentanyl (Duragesic) 100 mcg TRDERM Q72H [place] Hydromorphone HCl (Dilaudid) 0.5 mg IVPUSH Q15M PRN PRN Reason: severe pain Stop: 02/02/17 13:06 Last Admin: 02/02/17 13:28 Dose: 0.5 mg Hydromorphone HCl (Dilaudid) 6 mg PO Q2H PRN PRN Reason: Breakthrough Pain Last Admin: 02/02/17 15:47 Dose: 6 mg Hydromorphone HCl (Dilaudid) 6 mg GTUBE Q2H PRN PRN Reason: Pain Last Admin: 02/04/17 07:58 Dose: 6 mg Hydromorphone HCl (Dilaudid) 8 mg GTUBE STAT ONE Stop: 02/03/17 10:01 Last Admin: 02/04/17 10:36 Dose: Not Given Hydromorphone HCl (Dilaudid) 8 mg GTUBE STAT ONE Stop: 02/04/17 10:26 Last Admin: 02/04/17 10:39 Dose: 8 mg Hydromorphone HCl (Dilaudid) 6 mg GTUBE Q2H PRN PRN Reason: Pain Last Admin: 02/04/17 17:31 Dose: 6 mg Ampicillin Sodium/Sulbactam (Sodium 3 gm/ Sodium Chloride) 100 mls @ 200 mls/ hr IV ONETIME ONE Stop: 02/02/17 10:44 Last Admin: 02/02/17 11:21 Dose: 200 mls/hr Lidocaine HCl (Xylocaine-Mpf 1%) Confirm Administered Dose 4 mls @ as directed .ROUTE .[facility] ONE Stop: 02/02/17 09:54 Lactated Ringer's (Ringers, Lactated) 1,000 mls @ 125 mls/hr IV ASDIRECTED [facility] Stop: 02/02/17 23:00 Last Admin: 02/02/17 13:32 Dose: 125 mls/hr Lactated Ringer's (Ringers, Lactated) Confirm Administered Dose 1,000 mls @ as directed .ROUTE .STK-MED ONE Stop: 02/02/17 12:27 Lactated Ringer's (Ringers, Lactated) 1,000 mls @ 100 mls/hr IV ASDIRECTED [facility] Last Admin: 02/03/17 09:30 Dose: 100 mls/hr Ampicillin Sodium/Sulbactam (Sodium 1.5 gm/ Sodium Chloride) 100 mls @ 200 mls/ hr IV Q6H [facility] Last Admin: 02/04/17 05:40 Dose: 200 mls/hr Sodium Chloride (Normal Saline) 250 mls @ 50 mls/hr IV ASDIRECTED [facility] Stop: 02/04/17 15:00 Potassium Chloride 10 meq/ (Premix) 100 mls @ 50 mls/hr IV ONETIME ONE Stop: 02/04/17 12:29 Last Admin: 02/04/17 11:11 Dose: 50 mls/hr Ketamine HCl (Ketalar) Confirm Administered Dose 500 mg .ROUTE .STK-MED ONE Stop: 02/02/17 12:39 Lidocaine/Sodium Bicarbonate (Buffered Lidocaine 1% In Ns 8.4%) 0.25 ml .XX ONETIME PRN PRN Reason: Prior to IV Start Stop: 02/02/17 18:00 Last Admin: 02/02/17 10:44 Dose: 0.25 ml Midazolam HCl (Versed 1 Mg/Ml) Confirm Administered Dose 2 mg .ROUTE .STK-MED ONE Stop: 02/02/17 09:53 Miscellaneous Information (Remove Patch) 0 ea TRDERM Q72H [facility] Ondansetron HCl (Zofran) Confirm Administered Dose 4 mg .ROUTE .STK-MED ONE Stop: 02/02/17 12:43 Ondansetron HCl (Zofran) 4 mg IVPUSH ONETIME PRN PRN Reason: Nausea/Vomiting Stop: 02/02/17 18:00 Potassium Chloride (Potassium Chloride Solution) 10 meq PO TID [facility] Last Admin: 02/03/17 11:44 Dose: Not Given Potassium Chloride (Klor-Con 10) 10 meq GTUBE QID [facility] Potassium Chloride (Potassium Chloride Solution) 10 meq GTUBE QID [facility] Last Admin: 02/05/17 09:13 Dose: 20 meq Potassium Chloride (Potassium Chloride Solution) 20 meq GTUBE QID [facility] Last Admin: 02/06/17 08:06 Dose: 20 meq Propofol (Diprivan 20 Ml) Confirm Administered Dose 200 mg .ROUTE .STK-MED ONE Stop: 02/02/17 09:53 Propofol (Diprivan 20 Ml) Confirm Administered Dose 200 mg .ROUTE .STK-MED ONE Stop: 02/02/17 12:06 Senna (Senna) 8.6 mg PO BID [facility] Sodium Chloride (Saline Flush) 10 ml FLUSH ASDIRECTED PRN PRN Reason: Keep Vein Open Stop: 02/02/17 18:00 Temazepam (Restoril) 15 mg PO BEDTIME [facility] Last Admin: 02/08/17 21:37 Dose: 15 mg Temazepam (Restoril) 15 mg PO ONETIME STA Stop: 02/05/17 23:34 Last Admin: 02/05/17 23:42 Dose: 15 mg Warfarin Sodium (Coumadin) 2.5 mg PO SuMoWeFr@1800 [place] Last Admin: 02/05/17 18:11 Dose: 2.5 mg Warfarin Sodium (Coumadin) 1.25 mg PO TuThSa@1800 [place] Last Admin: 02/04/17 17:34 Dose: 1.25 mg Warfarin Sodium (Coumadin) 2 mg PO ONETIME ONE Stop: 02/05/17 09:06 Last Admin: 02/05/17 09:15 Dose: 2 mg Warfarin Sodium (Coumadin) 5 mg PO DAILY@1800 ONE Stop: 02/06/17 18:01 Last Admin: 02/06/17 17:01 Dose: 5 mg Warfarin Sodium (Coumadin) 1.25 mg PO TuThSa@1800 [place] Warfarin Sodium (Coumadin) 7.5 mg PO DAILY@1800 ONE Stop: 02/07/17 18:01 Last Admin: 02/07/17 17:54 Dose: 7.5 mg Warfarin Sodium (Coumadin) 2.5 mg PO SuMoWeFr@1800 [place] Last Admin: 02/08/17 19:02 Dose: Not Given Warfarin Sodium (Coumadin) 2.5 mg PO ONETIME ONE Stop: 02/08/17 08:39 Last Admin: 02/08/17 10:09 Dose: 2.5 mg - Exam Wound/Incisions: Healing Well Lungs: Clear to Auscultation, Normal Respiratory Effort Cardiovascular: Regular Rate, Regular Rhythm GI/Abdominal Exam: Soft, Non-Tender - Problem List Review Problem List Initiated/Reviewed/Updated: Yes - My Orders Last 24 Hours: Active Orders 24 hr Category Date Time Status Enteral Feedings [RC] 08,12,16,20 Care 02/09/17 02:57 Active CBC WITH AUTO DIFF [HEME] Routine Lab 02/10/17 07:00 Ordered CULTURE BLOOD [BC] Stat Lab 02/08/17 14:00 Results CULTURE BLOOD [BC] Stat Lab 02/08/17 14:20 Results CULTURE URINE [RM] Routine Lab 02/08/17 15:35 Results INR,PT,PROTHROMBIN TIME [COAG] Routine Lab 02/10/17 07:00 Ordered PACKED CELLS [RED BLOOD CELLS LP] [BBK] Routine Lab 02/09/17 12:37 Results TYPE AND SCREEN [BBK] Routine Lab 02/09/17 12:37 Results Amoxicillin [Amoxil 400 MG/5 ML Susp] Med 02/09/17 15:30 Active 250 mg NGTUBE Q8H Warfarin [Coumadin] Med 02/09/17 18:00 Active 2.5 mg PO DAILY@1800 Blood Transfusion Reflex Orders [OM.PC] Routine Oth 02/09/17 12:10 Ordered Transfuse RBC [Transfuse Red Blood Cells] [COMM] Stat Oth 02/09/17 12:08 Ordered Medication Orders Acetaminophen (Tylenol) 650 mg GTUBE Q4H PRN PRN Reason: Fever Last Admin: 02/08/17 02:40 Dose: 650 mg Admin: 02/06/17 21:34 Dose: 650 mg Admin: 02/06/17 09:24 Dose: 650 mg Hydrocodone Bitart/Acetaminophen ([place]abc[place] 325-5 Mg) 1 tab GTUBE Q6H PRN PRN Reason: Pain Last Admin: 02/08/17 18:30 Dose: 1 tab Admin: 02/08/17 12:45 Dose: 1 tab Admin: 02/08/17 06:41 Dose: 1 tab Admin: 02/07/17 19:47 Dose: 1 tab Admin: 02/07/17 12:37 Dose: 1 tab Admin: 02/03/17 06:19 Dose: 1 tab Admin: 02/02/17 23:16 Dose: 1 tab Admin: 02/02/17 13:46 Dose: 1 tab Alprazolam (Xanax) 0.5 mg PO TID PRN PRN Reason: Anxiety Last Admin: 02/09/17 09:19 Dose: 0.5 mg Admin: 02/08/17 21:37 Dose: 0.5 mg Admin: 02/07/17 21:32 Dose: 0.5 mg Admin: 02/07/17 12:36 Dose: 0.5 mg Admin: 02/06/17 19:17 Dose: 0.5 mg Admin: 02/05/17 20:05 Dose: 0.5 mg Admin: 02/04/17 15:48 Dose: 0.5 mg Admin: 02/04/17 05:53 Dose: 0.5 mg Amoxicillin (Amoxil 400 Mg/5 Ml Susp) 250 mg NGTUBE Q8H [facility] Aspirin (Aspirin) 81 mg PO DAILY PRN PRN Reason: Headache Fentanyl (Duragesic) 100 mcg TRDERM Q72H [facility] Last Admin: 02/08/17 18:28 Dose: 100 mcg Admin: 02/05/17 18:12 Dose: 100 mcg Admin: 02/02/17 19:03 Dose: 100 mcg Fentanyl (Duragesic) 25 mcg TRDERM Q72H [facility] Last Admin: 02/08/17 18:28 Dose: 25 mcg Admin: 02/05/17 18:12 Dose: 25 mcg Admin: 02/02/17 19:02 Dose: 25 mcg Hydromorphone HCl (Dilaudid) 2 - 6 mg GTUBE Q2H PRN PRN Reason: Pain Last Admin: 02/09/17 09:19 Dose: 4 mg Admin: 02/09/17 06:16 Dose: 4 mg Admin: 02/09/17 00:24 Dose: 6 mg Admin: 02/08/17 18:27 Dose: 2 mg Admin: 02/08/17 15:21 Dose: 2 mg Admin: 02/08/17 07:53 Dose: 3 mg Admin: 02/08/17 05:15 Dose: 1 mg Admin: 02/08/17 05:08 Dose: 4 mg Admin: 02/08/17 02:39 Dose: 4 mg Admin: 02/07/17 23:22 Dose: 4 mg Admin: 02/07/17 20:17 Dose: 3 mg Admin: 02/07/17 17:53 Dose: 4 mg Admin: 02/07/17 15:05 Dose: 4 mg Admin: 02/07/17 11:13 Dose: 4 mg Admin: 02/07/17 09:06 Dose: 4 mg Admin: 02/07/17 07:33 Dose: 4 mg Admin: 02/07/17 05:07 Dose: 4 mg Admin: 02/07/17 02:39 Dose: 4 mg Admin: 02/06/17 23:48 Dose: 4 mg Admin: 02/06/17 21:35 Dose: 4 mg Admin: 02/06/17 19:17 Dose: 4 mg Admin: 02/06/17 17:01 Dose: 4 mg Admin: 02/06/17 14:05 Dose: 4 mg Admin: 02/06/17 12:17 Dose: 4 mg Admin: 02/06/17 10:00 Dose: 4 mg Admin: 02/06/17 08:05 Dose: 5 mg Admin: 02/06/17 05:54 Dose: 5 mg Admin: 02/06/17 02:53 Dose: 4 mg Admin: 02/05/17 23:42 Dose: 4 mg Admin: 02/05/17 20:00 Dose: 3 mg Admin: 02/05/17 18:11 Dose: 4 mg Admin: 02/05/17 14:50 Dose: 4 mg Admin: 02/05/17 12:28 Dose: 4 mg Admin: 02/05/17 09:12 Dose: 4 mg Admin: 02/05/17 07:09 Dose: 4 mg Admin: 02/05/17 03:25 Dose: 4 mg Admin: 02/04/17 23:55 Dose: 2 mg Lactulose (Cephulac) 20 gm PO BID [facility] Last Admin: 02/09/17 09:20 Dose: Not Given Admin: 02/08/17 22:42 Dose: Not Given Admin: 02/08/17 08:00 Dose: Not Given Admin: 02/07/17 20:13 Dose: Not Given Admin: 02/07/17 09:07 Dose: Not Given Admin: 02/06/17 21:37 Dose: 20 gm Admin: 02/06/17 08:06 Dose: Not Given Admin: 02/05/17 23:32 Dose: Not Given Admin: 02/05/17 09:05 Dose: 20 gm Admin: 02/05/17 00:38 Dose: Not Given Admin: 02/04/17 10:56 Dose: 20 gm Admin: 02/03/17 20:08 Dose: 20 gm Admin: 02/03/17 09:01 Dose: Not Given Levothyroxine Sodium (Levothyroxine) 75 mcg PO DAILY [facility] Last Admin: 02/09/17 09:19 Dose: 75 mcg Admin: 02/08/17 08:00 Dose: 75 mcg Admin: 02/07/17 09:08 Dose: 75 mcg Admin: 02/06/17 08:06 Dose: 75 mcg Admin: 02/05/17 09:05 Dose: 75 mcg Admin: 02/04/17 10:40 Dose: 75 mcg Admin: 02/03/17 09:00 Dose: 75 mcg Magnesium Oxide (Magnesium Oxide) 400 mg PO BID [facility] Last Admin: 02/09/17 09:19 Dose: 400 mg Admin: 02/08/17 21:37 Dose: 400 mg Admin: 02/08/17 08:00 Dose: 400 mg Admin: 02/07/17 20:11 Dose: 400 mg Admin: 02/07/17 09:08 Dose: 400 mg Admin: 02/06/17 21:34 Dose: 400 mg Admin: 02/06/17 10:00 Dose: 400 mg Miscellaneous Information (Remove Patch) 1 ea TRDERM Q72H [facility] Last Admin: 02/08/17 19:30 Dose: 1 ea Admin: 02/08/17 18:30 Dose: 1 ea Admin: 02/05/17 18:12 Dose: 1 ea Ondansetron HCl (Zofran Odt) 8 mg PO Q8H PRN PRN Reason: Nausea/Vomiting Potassium Chloride (Klor-Con 10) 20 meq PO DAILY [facility] Last Admin: 02/09/17 09:19 Dose: 20 meq Admin: 02/08/17 08:00 Dose: 20 meq Admin: 02/07/17 09:08 Dose: 20 meq Senna (Senna) 8.6 mg PO BID [facility] Last Admin: 02/09/17 09:20 Dose: Not Given Admin: 02/08/17 21:37 Dose: 8.6 mg Admin: 02/08/17 08:00 Dose: Not Given Admin: 02/07/17 20:11 Dose: Not Given Admin: 02/07/17 09:08 Dose: 8.6 mg Admin: 02/06/17 21:34 Dose: 8.6 mg Admin: 02/06/17 08:06 Dose: Not Given Admin: 02/05/17 23:32 Dose: Not Given Admin: 02/05/17 11:23 Dose: Not Given Admin: 02/05/17 00:38 Dose: Not Given Admin: 02/04/17 10:39 Dose: 8.6 mg Warfarin Sodium (Coumadin) 2.5 mg PO DAILY@1800 [facility] - Plan Plan (Free Text/Narrative):: lab noted INR is 2.1, WBC is normal HB is 7.6 UA shows E. Coli greater than 100,000 Ass UTI likely a manifestation of her her poor immune system due to metastaic breast cancer and Head and neck cancer. discussed case with Oncology and pt is consider terminal. Her performance status is too poor to receive any radiation of chemotherapy and is is consider candidate for hospice. However the pt has resisted this. I am with nursing staff have had a long discussion with in the room with the and patient about her terminal condition and have advised a no code status. The patient has accepted this recommendation. We have ask that they allow a visit with a ssis architect as a first step in preparation for her and she has accepted this. Will proceed to treat her low Hb with blood transfusion to improve her well being and her UTI with antibiotics and stop the lovenox seen that her INR is above 2 JMB
[2017-02-09] MEDS: Sodium Chloride 0.9% 250 ML IV SCH (15:41)
[2017-02-09] MEDS: Acetaminophen Soln 650 MG/20.3 ML UD Cup GTUBE PRN (15:59)
[2017-02-09] MEDS: Amoxicillin 400 MG/5 ML Susp 100 ML Bottle NGTUBE SCH ×2 (16:04→23:14)
[2017-02-09] MEDS ORDERED: Warfarin 2.5 MG Tab PO SCH ×2 (18:00)
[2017-02-10] MEDS: ALPRAZolam 0.5 MG Tab PO PRN ×3 (00:01→16:58)
--- NOTE | 2017-02-10 00:03 | PCM.SN ---
- Free Text/Narrative Note: Nursing approach me to assist with an IV start. Attempted two separate 20 gauge catheters in right AC and arm utilizing standard aseptic technique with no success. HARVESTER OPERATOR attempted 3 starts prior with no success. Advised nursing to contact anesthesiology, as the blood they are attempting to start is time sensitive and anesthesiology may be required to start IV utilizing ultrasound.
--- NOTE | 2017-02-10 00:25 | PCM.SN ---
- Free Text/Narrative Note: 02/10/17 [id number] IV started 20 guage right hand times 2 attempts. Secured. Flushes easily. [place]
[2017-02-10] MEDS: Acetaminophen Soln 650 MG/20.3 ML UD Cup GTUBE PRN (01:21)
[2017-02-10] MEDS: Sodium Chloride 0.9% 250 ML IV SCH (01:29)
[2017-02-10] MEDS: HYDROmorphone 2 MG Tab GTUBE PRN ×8 (04:13→21:26)
[2017-02-10] MEDS: Amoxicillin 400 MG/5 ML Susp 100 ML Bottle NGTUBE SCH (06:41)
[2017-02-10] MEDS: Magnesium Oxide 400 MG Tab PO SCH ×2 (08:51→21:06)
[2017-02-10] MEDS: Potassium Chloride 10 MEQ Tab.ER PO SCH (08:51)
[2017-02-10] MEDS: Levothyroxine 75 MCG Tab PO SCH (08:52)
[2017-02-10] MEDS: Lactulose Soln 10 GM/15 ML 30 ML UD Cup PO SCH ×2 (10:28→21:06)
[2017-02-10] MEDS: Sennosides 8.6 MG Tab PO SCH ×2 (10:28→21:07)
--- NOTE | 2017-02-10 14:26 | PCM.SURGPN ---
- General Info Date of Service: 02/10/17 - Review of Systems General: Reports: No Symptoms HEENT: Reports: Other (fistulae stable ) Cardiovascular: Reports: No Symptoms Gastrointestinal: Reports: No Symptoms - Patient Data Vitals - Most Recent: Last Vital Signs Temp 98.4 F 02/10/17 08:13 Pulse 86 02/10/17 08:13 Resp 19 02/10/17 08:13 BP 110/60 02/10/17 08:13 Pulse Ox 92 L 02/10/17 08:13 Weight - Most Recent: 43.998 kg I&O - Last 24 Hours: Intake & Output 02/09/17 02/10/17 02/10/17 23:59 07:59 15:59 Intake Total 1070 510 820 Output Total 100 700 Balance 970 -190 820 Lab Results Last 24 Hrs: Laboratory Results - last 24 hr 02/09/17 02/10/17 02/10/17 Range/Units 12:37 06:30 06:30 WBC 8.55 (3.98-10.04) K/mm3 RBC 3.35 L (3.98-5.22) M/mm3 Hgb 9.6 L (11.2-15.7) gm/L Hct 28.6 L (34.1-44.9) % MCV 85.4 (79.4-94.8) fl MCH 28.7 (25.6-32.2) pg MCHC 33.6 (32.2-35.5) g/dl RDW Std Deviation 48.1 H (36.4-46.3) fL Plt Count 96 L (182-369) K/mm3 MPV 10.3 (9.4-12.3) fl Neut % (Auto) 61.8 (34.0-71.1) % Lymph % (Auto) 9.0 L (19.3-51.7) % [place] % (Auto) 13.5 H (4.7-12.5) % Eos % (Auto) 1.4 (0.7-5.8) Baso % (Auto) 0.6 (0.1-1.2) % Neut # (Auto) 5.29 (1.56-6.13) K/mm3 Lymph # (Auto) 0.77 L (1.18-3.74) K/mm3 [place] # (Auto) 1.15 H (0.24-0.36) K/mm3 Eos # (Auto) 0.12 (0.04-0.36) K/mm3 Baso # (Auto) 0.05 (0.01-0.08) K/mm3 Manual Slide Review Abnormal smear PT 42.3 H (8.0-13.0) SECONDS INR 3.58 Blood Type O NEGATIVE Gel Antibody Screen Negative Crossmatch See Detail Kartik Results Last 24 Hrs: Microbiology 02/08/17 14:00 Aerobic Blood Culture - Preliminary Blood - Venous NO GROWTH AFTER 2 DAYS Anaerobic Blood Culture - Preliminary NO GROWTH AFTER 2 DAYS 02/08/17 15:35 Urine Culture - Final Urine, Clean Catch Escherichia Coli 02/08/17 14:20 Aerobic Blood Culture - Preliminary Blood - Venous - Lab Draw NO GROWTH AFTER 1 DAY Anaerobic Blood Culture - Preliminary NO GROWTH AFTER 1 DAY Med Orders - Current: Current Medications Acetaminophen (Tylenol) 650 mg GTUBE Q4H PRN PRN Reason: Fever Last Admin: 02/10/17 01:21 Dose: 650 mg Hydrocodone Bitart/Acetaminophen ([place] 325-5 Mg) 1 tab GTUBE Q6H PRN PRN Reason: Pain Last Admin: 02/08/17 18:30 Dose: 1 tab Alprazolam (Xanax) 0.5 mg PO TID PRN PRN Reason: Anxiety Last Admin: 02/10/17 08:52 Dose: 0.5 mg Aspirin (Aspirin) 81 mg PO DAILY PRN PRN Reason: Headache Cephalexin (Keflex 250 Mg/5 Ml Susp) 250 mg PO Q6H [facility] Fentanyl (Duragesic) 100 mcg TRDERM Q72H [facility] Last Admin: 02/08/17 18:28 Dose: 100 mcg Fentanyl (Duragesic) 25 mcg TRDERM Q72H [facility] Last Admin: 02/08/17 18:28 Dose: 25 mcg Hydromorphone HCl (Dilaudid) 2 - 6 mg GTUBE Q2H PRN PRN Reason: Pain Last Admin: 02/10/17 12:29 Dose: 4 mg Sodium Chloride (Normal Saline) 250 mls @ 50 mls/hr IV ASDIRECTED [facility] Last Admin: 02/10/17 01:29 Dose: 50 mls/hr Lactulose (Cephulac) 20 gm PO BID [facility] Last Admin: 02/10/17 10:28 Dose: Not Given Levothyroxine Sodium (Levothyroxine) 75 mcg PO DAILY [facility] Last Admin: 02/10/17 08:52 Dose: 75 mcg Magnesium Oxide (Magnesium Oxide) 400 mg PO BID [facility] Last Admin: 02/10/17 08:51 Dose: 400 mg Miscellaneous Information (Remove Patch) 1 ea TRDERM Q72H [facility] Last Admin: 02/08/17 19:30 Dose: 1 ea Ondansetron HCl (Zofran Odt) 8 mg PO Q8H PRN PRN Reason: Nausea/Vomiting Potassium Chloride (Klor-Con 10) 20 meq PO DAILY [facility] Last Admin: 02/10/17 08:51 Dose: 20 meq Senna (Senna) 8.6 mg PO BID [facility] Last Admin: 02/10/17 10:28 Dose: Not Given Discontinued Medications Alprazolam (Xanax) 0.5 mg PO Q12H PRN PRN Reason: Anxiety Last Admin: 02/02/17 17:50 Dose: 0.5 mg Alprazolam (Xanax) 0.5 mg PO ONETIME ONE Stop: 02/02/17 23:07 Last Admin: 02/02/17 23:16 Dose: 0.5 mg Alprazolam (Xanax) 0.5 mg PO TID [facility] Last Admin: 02/03/17 11:43 Dose: Not Given Amoxicillin (Amoxil 400 Mg/5 Ml Susp) 0 mg NGTUBE Q8H [facility] Last Admin: 02/09/17 14:58 Dose: Not Given Amoxicillin (Amoxil 400 Mg/5 Ml Susp) 250 mg NGTUBE Q8H [facility] Last Admin: 02/10/17 06:41 Dose: 3.125 ml Ampicillin Sodium/Sulbactam Sodium (Unasyn) Confirm Administered Dose 1.5 gm .ROUTE .STK-MED ONE Stop: 02/03/17 21:57 Last Admin: 02/03/17 23:00 Dose: Not Given Enoxaparin Sodium (Lovenox) 40 mg SUBCUT Q12H [facility] Last Admin: 02/09/17 14:55 Dose: Not Given Fentanyl (Sublimaze) Confirm Administered Dose 250 mcg .ROUTE .STK-MED ONE Stop: 02/02/17 09:54 Fentanyl (Sublimaze) 50 mcg IVPUSH Q5M PRN PRN Reason: Pain Stop: 02/02/17 11:31 Last Admin: 02/02/17 10:45 Dose: 50 mcg Fentanyl (Sublimaze) Confirm Administered Dose 100 mcg .ROUTE .STK-MED ONE Stop: 02/02/17 12:46 Fentanyl (Sublimaze) 50 mcg IVPUSH Q5M PRN PRN Reason: Pain Stop: 02/02/17 13:06 Last Admin: 02/02/17 14:00 Dose: 50 mcg Fentanyl (Duragesic) 25 mcg TRDERM Q72H [place] Last Admin: 02/02/17 20:49 Dose: Not Given Fentanyl (Duragesic) 100 mcg TRDERM Q72H [place] Hydromorphone HCl (Dilaudid) 0.5 mg IVPUSH Q15M PRN PRN Reason: severe pain Stop: 02/02/17 13:06 Last Admin: 02/02/17 13:28 Dose: 0.5 mg Hydromorphone HCl (Dilaudid) 6 mg PO Q2H PRN PRN Reason: Breakthrough Pain Last Admin: 02/02/17 15:47 Dose: 6 mg Hydromorphone HCl (Dilaudid) 6 mg GTUBE Q2H PRN PRN Reason: Pain Last Admin: 02/04/17 07:58 Dose: 6 mg Hydromorphone HCl (Dilaudid) 8 mg GTUBE STAT ONE Stop: 02/03/17 10:01 Last Admin: 02/04/17 10:36 Dose: Not Given Hydromorphone HCl (Dilaudid) 8 mg GTUBE STAT ONE Stop: 02/04/17 10:26 Last Admin: 02/04/17 10:39 Dose: 8 mg Hydromorphone HCl (Dilaudid) 6 mg GTUBE Q2H PRN PRN Reason: Pain Last Admin: 02/04/17 17:31 Dose: 6 mg Ampicillin Sodium/Sulbactam (Sodium 3 gm/ Sodium Chloride) 100 mls @ 200 mls/ hr IV ONETIME ONE Stop: 02/02/17 10:44 Last Admin: 02/02/17 11:21 Dose: 200 mls/hr Lidocaine HCl (Xylocaine-Mpf 1%) Confirm Administered Dose 4 mls @ as directed .ROUTE .STK-MED ONE Stop: 02/02/17 09:54 Lactated Ringer's (Ringers, Lactated) 1,000 mls @ 125 mls/hr IV ASDIRECTED [facility] Stop: 02/02/17 23:00 Last Admin: 02/02/17 13:32 Dose: 125 mls/hr Lactated Ringer's (Ringers, Lactated) Confirm Administered Dose 1,000 mls @ as directed .ROUTE .[facility] ONE Stop: 02/02/17 12:27 Lactated Ringer's (Ringers, Lactated) 1,000 mls @ 100 mls/hr IV ASDIRECTED [facility] Last Admin: 02/03/17 09:30 Dose: 100 mls/hr Ampicillin Sodium/Sulbactam (Sodium 1.5 gm/ Sodium Chloride) 100 mls @ 200 mls/ hr IV Q6H [facility] Last Admin: 02/04/17 05:40 Dose: 200 mls/hr Sodium Chloride (Normal Saline) 250 mls @ 50 mls/hr IV ASDIRECTED [facility] Stop: 02/04/17 15:00 Potassium Chloride 10 meq/ (Premix) 100 mls @ 50 mls/hr IV ONETIME ONE Stop: 02/04/17 12:29 Last Admin: 02/04/17 11:11 Dose: 50 mls/hr Ketamine HCl (Ketalar) Confirm Administered Dose 500 mg .ROUTE .[facility] ONE Stop: 02/02/17 12:39 Lidocaine/Sodium Bicarbonate (Buffered Lidocaine 1% In Ns 8.4%) 0.25 ml .XX ONETIME PRN PRN Reason: Prior to IV Start Stop: 02/02/17 18:00 Last Admin: 02/02/17 10:44 Dose: 0.25 ml Midazolam HCl (Versed 1 Mg/Ml) Confirm Administered Dose 2 mg .ROUTE .[facility] ONE Stop: 02/02/17 09:53 Miscellaneous Information (Remove Patch) 0 ea TRDERM Q72H [facility] Ondansetron HCl (Zofran) Confirm Administered Dose 4 mg .ROUTE .STK-MED ONE Stop: 02/02/17 12:43 Ondansetron HCl (Zofran) 4 mg IVPUSH ONETIME PRN PRN Reason: Nausea/Vomiting Stop: 02/02/17 18:00 Potassium Chloride (Potassium Chloride Solution) 10 meq PO TID [facility] Last Admin: 02/03/17 11:44 Dose: Not Given Potassium Chloride (Klor-Con 10) 10 meq GTUBE QID [facility] Potassium Chloride (Potassium Chloride Solution) 10 meq GTUBE QID [facility] Last Admin: 02/05/17 09:13 Dose: 20 meq Potassium Chloride (Potassium Chloride Solution) 20 meq GTUBE QID [facility] Last Admin: 02/06/17 08:06 Dose: 20 meq Propofol (Diprivan 20 Ml) Confirm Administered Dose 200 mg .ROUTE .STK-MED ONE Stop: 02/02/17 09:53 Propofol (Diprivan 20 Ml) Confirm Administered Dose 200 mg .ROUTE .STK-MED ONE Stop: 02/02/17 12:06 Senna (Senna) 8.6 mg PO BID [facility] Sodium Chloride (Saline Flush) 10 ml FLUSH ASDIRECTED PRN PRN Reason: Keep Vein Open Stop: 02/02/17 18:00 Temazepam (Restoril) 15 mg PO BEDTIME [facility] Last Admin: 02/08/17 21:37 Dose: 15 mg Temazepam (Restoril) 15 mg PO ONETIME STA Stop: 02/05/17 23:34 Last Admin: 02/05/17 23:42 Dose: 15 mg Warfarin Sodium (Coumadin) 2.5 mg PO SuMoWeFr@1800 [facility] Last Admin: 02/05/17 18:11 Dose: 2.5 mg Warfarin Sodium (Coumadin) 1.25 mg PO TuThSa@1800 [facility] Last Admin: 02/04/17 17:34 Dose: 1.25 mg Warfarin Sodium (Coumadin) 2 mg PO ONETIME ONE Stop: 02/05/17 09:06 Last Admin: 02/05/17 09:15 Dose: 2 mg Warfarin Sodium (Coumadin) 5 mg PO DAILY@1800 ONE Stop: 02/06/17 18:01 Last Admin: 02/06/17 17:01 Dose: 5 mg Warfarin Sodium (Coumadin) 1.25 mg PO TuThSa@1800 [facility] Warfarin Sodium (Coumadin) 7.5 mg PO DAILY@1800 ONE Stop: 02/07/17 18:01 Last Admin: 02/07/17 17:54 Dose: 7.5 mg Warfarin Sodium (Coumadin) 2.5 mg PO SuMoWeFr@1800 [facility] Last Admin: 02/08/17 19:02 Dose: Not Given Warfarin Sodium (Coumadin) 2.5 mg PO ONETIME ONE Stop: 02/08/17 08:39 Last Admin: 02/08/17 10:09 Dose: 2.5 mg Warfarin Sodium (Coumadin) 2.5 mg PO DAILY@1800 [place] Last Admin: 02/09/17 17:25 Dose: 2.5 mg - Exam Wound/Incisions: Healing Well General: Mild Distress, Lethargic Lungs: Clear to Auscultation, Normal Respiratory Effort Cardiovascular: Regular Rate, Regular Rhythm GI/Abdominal Exam: Normal Bowel Sounds, Soft, Non-Tender, No Organomegaly, No Distention, No Abnormal Bruit, No Mass, Pelvis Stable - Problem List Review Problem List Initiated/Reviewed/Updated: Yes - My Orders Last 24 Hours: Active Orders 24 hr Category Date Time Status INR,PT,PROTHROMBIN TIME [COAG] Routine Lab 02/11/17 07:00 Ordered Cephalexin [Keflex 250 MG/5 ML Susp] Med 02/10/17 14:00 Active 250 mg PO Q6H Sodium Chloride 0.9% [Normal Saline] 250 ml Med 02/09/17 15:00 Active IV ASDIRECTED Resuscitation Status Routine Resus Stat 02/09/17 16:55 Ordered Medication Orders Acetaminophen (Tylenol) 650 mg GTUBE Q4H PRN PRN Reason: Fever Last Admin: 02/10/17 01:21 Dose: 650 mg Admin: 02/09/17 15:59 Dose: 650 mg Admin: 02/08/17 02:40 Dose: 650 mg Admin: 02/06/17 21:34 Dose: 650 mg Admin: 02/06/17 09:24 Dose: 650 mg Hydrocodone Bitart/Acetaminophen ([place] 325-5 Mg) 1 tab GTUBE Q6H PRN PRN Reason: Pain Last Admin: 02/08/17 18:30 Dose: 1 tab Admin: 02/08/17 12:45 Dose: 1 tab Admin: 02/08/17 06:41 Dose: 1 tab Admin: 02/07/17 19:47 Dose: 1 tab Admin: 02/07/17 12:37 Dose: 1 tab Admin: 02/03/17 06:19 Dose: 1 tab Admin: 02/02/17 23:16 Dose: 1 tab Admin: 02/02/17 13:46 Dose: 1 tab Alprazolam (Xanax) 0.5 mg PO TID PRN PRN Reason: Anxiety Last Admin: 02/10/17 08:52 Dose: 0.5 mg Admin: 02/10/17 00:01 Dose: 0.5 mg Admin: 02/09/17 17:25 Dose: 0.5 mg Admin: 02/09/17 09:19 Dose: 0.5 mg Admin: 02/08/17 21:37 Dose: 0.5 mg Admin: 02/07/17 21:32 Dose: 0.5 mg Admin: 02/07/17 12:36 Dose: 0.5 mg Admin: 02/06/17 19:17 Dose: 0.5 mg Admin: 02/05/17 20:05 Dose: 0.5 mg Admin: 02/04/17 15:48 Dose: 0.5 mg Admin: 02/04/17 05:53 Dose: 0.5 mg Aspirin (Aspirin) 81 mg PO DAILY PRN PRN Reason: Headache Cephalexin (Keflex 250 Mg/5 Ml Susp) 250 mg PO Q6H [facility] Fentanyl (Duragesic) 100 mcg TRDERM Q72H [facility] Last Admin: 02/08/17 18:28 Dose: 100 mcg Admin: 02/05/17 18:12 Dose: 100 mcg Admin: 02/02/17 19:03 Dose: 100 mcg Fentanyl (Duragesic) 25 mcg TRDERM Q72H [facility] Last Admin: 02/08/17 18:28 Dose: 25 mcg Admin: 02/05/17 18:12 Dose: 25 mcg Admin: 02/02/17 19:02 Dose: 25 mcg Hydromorphone HCl (Dilaudid) 2 - 6 mg GTUBE Q2H PRN PRN Reason: Pain Last Admin: 02/10/17 12:29 Dose: 4 mg Admin: 02/10/17 10:27 Dose: 2 mg Admin: 02/10/17 08:52 Dose: 4 mg Admin: 02/10/17 04:13 Dose: 4 mg Admin: 02/09/17 23:39 Dose: 4 mg Admin: 02/09/17 20:49 Dose: 4 mg Admin: 02/09/17 17:24 Dose: 4 mg Admin: 02/09/17 15:11 Dose: 4 mg Admin: 02/09/17 09:19 Dose: 4 mg Admin: 02/09/17 06:16 Dose: 4 mg Admin: 02/09/17 00:24 Dose: 6 mg Admin: 02/08/17 18:27 Dose: 2 mg Admin: 02/08/17 15:21 Dose: 2 mg Admin: 02/08/17 07:53 Dose: 3 mg Admin: 02/08/17 05:15 Dose: 1 mg Admin: 02/08/17 05:08 Dose: 4 mg Admin: 02/08/17 02:39 Dose: 4 mg Admin: 02/07/17 23:22 Dose: 4 mg Admin: 02/07/17 20:17 Dose: 3 mg Admin: 02/07/17 17:53 Dose: 4 mg Admin: 02/07/17 15:05 Dose: 4 mg Admin: 02/07/17 11:13 Dose: 4 mg Admin: 02/07/17 09:06 Dose: 4 mg Admin: 02/07/17 07:33 Dose: 4 mg Admin: 02/07/17 05:07 Dose: 4 mg Admin: 02/07/17 02:39 Dose: 4 mg Admin: 02/06/17 23:48 Dose: 4 mg Admin: 02/06/17 21:35 Dose: 4 mg Admin: 02/06/17 19:17 Dose: 4 mg Admin: 02/06/17 17:01 Dose: 4 mg Admin: 02/06/17 14:05 Dose: 4 mg Admin: 02/06/17 12:17 Dose: 4 mg Admin: 02/06/17 10:00 Dose: 4 mg Admin: 02/06/17 08:05 Dose: 5 mg Admin: 02/06/17 05:54 Dose: 5 mg Admin: 02/06/17 02:53 Dose: 4 mg Admin: 02/05/17 23:42 Dose: 4 mg Admin: 02/05/17 20:00 Dose: 3 mg Admin: 02/05/17 18:11 Dose: 4 mg Admin: 02/05/17 14:50 Dose: 4 mg Admin: 02/05/17 12:28 Dose: 4 mg Admin: 02/05/17 09:12 Dose: 4 mg Admin: 02/05/17 07:09 Dose: 4 mg Admin: 02/05/17 03:25 Dose: 4 mg Admin: 02/04/17 23:55 Dose: 2 mg Sodium Chloride (Normal Saline) 250 mls @ 50 mls/hr IV ASDIRECTED [facility] Last Admin: 02/10/17 01:29 Dose: 50 mls/hr Infusion: 02/09/17 20:41 Dose: 50 mls/hr Admin: 02/09/17 15:41 Dose: 50 mls/hr Lactulose (Cephulac) 20 gm PO BID [facility] Last Admin: 02/10/17 10:28 Dose: Not Given Admin: 02/09/17 20:48 Dose: Not Given Admin: 02/09/17 09:20 Dose: Not Given Admin: 02/08/17 22:42 Dose: Not Given Admin: 02/08/17 08:00 Dose: Not Given Admin: 02/07/17 20:13 Dose: Not Given Admin: 02/07/17 09:07 Dose: Not Given Admin: 02/06/17 21:37 Dose: 20 gm Admin: 02/06/17 08:06 Dose: Not Given Admin: 02/05/17 23:32 Dose: Not Given Admin: 02/05/17 09:05 Dose: 20 gm Admin: 02/05/17 00:38 Dose: Not Given Admin: 02/04/17 10:56 Dose: 20 gm Admin: 02/03/17 20:08 Dose: 20 gm Admin: 02/03/17 09:01 Dose: Not Given Levothyroxine Sodium (Levothyroxine) 75 mcg PO DAILY [facility] Last Admin: 02/10/17 08:52 Dose: 75 mcg Admin: 02/09/17 09:19 Dose: 75 mcg Admin: 02/08/17 08:00 Dose: 75 mcg Admin: 02/07/17 09:08 Dose: 75 mcg Admin: 02/06/17 08:06 Dose: 75 mcg Admin: 02/05/17 09:05 Dose: 75 mcg Admin: 02/04/17 10:40 Dose: 75 mcg Admin: 02/03/17 09:00 Dose: 75 mcg Magnesium Oxide (Magnesium Oxide) 400 mg PO BID [facility] Last Admin: 02/10/17 08:51 Dose: 400 mg Admin: 02/09/17 20:49 Dose: 400 mg Admin: 02/09/17 09:19 Dose: 400 mg Admin: 02/08/17 21:37 Dose: 400 mg Admin: 02/08/17 08:00 Dose: 400 mg Admin: 02/07/17 20:11 Dose: 400 mg Admin: 02/07/17 09:08 Dose: 400 mg Admin: 02/06/17 21:34 Dose: 400 mg Admin: 02/06/17 10:00 Dose: 400 mg Miscellaneous Information (Remove Patch) 1 ea TRDERM Q72H [facility] Last Admin: 02/08/17 19:30 Dose: 1 ea Admin: 02/08/17 18:30 Dose: 1 ea Admin: 02/05/17 18:12 Dose: 1 ea Ondansetron HCl (Zofran Odt) 8 mg PO Q8H PRN PRN Reason: Nausea/Vomiting Potassium Chloride (Klor-Con 10) 20 meq PO DAILY [facility] Last Admin: 02/10/17 08:51 Dose: 20 meq Admin: 02/09/17 09:19 Dose: 20 meq Admin: 02/08/17 08:00 Dose: 20 meq Admin: 02/07/17 09:08 Dose: 20 meq Senna (Senna) 8.6 mg PO BID [facility] Last Admin: 02/10/17 10:28 Dose: Not Given Admin: 02/09/17 20:49 Dose: 8.6 mg Admin: 02/09/17 09:20 Dose: Not Given Admin: 02/08/17 21:37 Dose: 8.6 mg Admin: 02/08/17 08:00 Dose: Not Given Admin: 02/07/17 20:11 Dose: Not Given Admin: 02/07/17 09:08 Dose: 8.6 mg Admin: 02/06/17 21:34 Dose: 8.6 mg Admin: 02/06/17 08:06 Dose: Not Given Admin: 02/05/17 23:32 Dose: Not Given Admin: 02/05/17 11:23 Dose: Not Given Admin: 02/05/17 00:38 Dose: Not Given Admin: 02/04/17 10:39 Dose: 8.6 mg - Plan Plan (Free Text/Narrative):: pt stable UTI sensitivities noted and changed the antibiotics, her INR is up and the Coumadin stopped Family will be here tomorrow to help with care, at present [place] has not wanted to take the pt plan continue with care with the noted changes in medications
[2017-02-10] MEDS: Cephalexin 250 MG/5 ML Susp 100 ML Bottle PO SCH ×2 (14:28→21:06)
[2017-02-10] MEDS: Acetaminophen/HYDROcodone 325-5 MG Tab GTUBE PRN (15:57)
[2017-02-11] MEDS: HYDROmorphone 2 MG Tab GTUBE PRN ×9 (01:43→22:34)
[2017-02-11] MEDS: Cephalexin 250 MG/5 ML Susp 100 ML Bottle PO SCH ×4 (01:44→20:14)
[2017-02-11] MEDS: Acetaminophen/HYDROcodone 325-5 MG Tab GTUBE PRN ×2 (03:20→14:57)
[2017-02-11] MEDS: ALPRAZolam 0.5 MG Tab PO PRN (03:20)
[2017-02-11] MEDS: Magnesium Oxide 400 MG Tab PO SCH ×2 (08:01→20:15)
[2017-02-11] MEDS: Sennosides 8.6 MG Tab PO SCH ×3 (08:01→20:16)
[2017-02-11] MEDS: Potassium Chloride 10 MEQ Tab.ER PO SCH (08:01)
[2017-02-11] MEDS: Lactulose Soln 10 GM/15 ML 30 ML UD Cup PO SCH ×3 (08:01→20:15)
[2017-02-11] MEDS: Levothyroxine 75 MCG Tab PO SCH (08:01)
--- NOTE | 2017-02-11 10:28 | PCM.SURGPN ---
- General Info Date of Service: 02/11/17 Functional Status: Reports: Pain Controlled - Review of Systems General: Reports: Weakness, Fatigue, Malaise Pulmonary: Reports: No Symptoms Cardiovascular: Reports: No Symptoms - Patient Data Vitals - Most Recent: Last Vital Signs Temp 100.9 F H 02/11/17 03:19 Pulse 94 02/11/17 03:19 Resp 18 02/11/17 03:19 BP 122/63 02/11/17 03:19 Pulse Ox 90 L 02/11/17 03:19 Weight - Most Recent: 44.77 kg I&O - Last 24 Hours: Intake & Output 02/10/17 02/11/17 02/11/17 23:59 07:59 15:59 Intake Total 950 0 Output Total 450 600 Balance 500 -600 Lab Results Last 24 Hrs: Laboratory Results - last 24 hr 02/11/17 02/11/17 Range/Units 05:50 05:50 PT 23.8 H (8.0-13.0) SECONDS INR 2.08 Sodium 137 (136-145) mEq/L Potassium 4.2 (3.5-5.1) mEq/L Chloride 100 (98-107) mEq/L Carbon Dioxide 24 (21-32) mEq/L Anion Gap 17.2 H (5-15) Kartik Results Last 24 Hrs: Microbiology 02/08/17 14:20 Aerobic Blood Culture - Preliminary Blood - Venous - Lab Draw NO GROWTH AFTER 2 DAYS Anaerobic Blood Culture - Preliminary NO GROWTH AFTER 2 DAYS 02/08/17 14:00 Aerobic Blood Culture - Preliminary Blood - Venous NO GROWTH AFTER 2 DAYS Anaerobic Blood Culture - Preliminary NO GROWTH AFTER 2 DAYS 02/08/17 15:35 Urine Culture - Final Urine, Clean Catch Escherichia Coli Med Orders - Current: Current Medications Hydrocodone Bitart/Acetaminophen ([place] 325-5 Mg) 1 tab GTUBE Q6H PRN PRN Reason: Pain Last Admin: 02/11/17 03:20 Dose: 1 tab Alprazolam (Xanax) 0.5 mg PO TID PRN PRN Reason: Anxiety Last Admin: 02/11/17 03:20 Dose: 0.5 mg Cephalexin (Keflex 250 Mg/5 Ml Susp) 250 mg PO Q6H [facility] Last Admin: 02/11/17 08:02 Dose: 250 mg Fentanyl (Duragesic) 100 mcg TRDERM Q72H [facility] Last Admin: 02/08/17 18:28 Dose: 100 mcg Fentanyl (Duragesic) 25 mcg TRDERM Q72H [facility] Last Admin: 02/08/17 18:28 Dose: 25 mcg Hydromorphone HCl (Dilaudid) 2 - 6 mg GTUBE Q2H PRN PRN Reason: Pain Last Admin: 02/11/17 08:02 Dose: 6 mg Sodium Chloride (Normal Saline) 250 mls @ 50 mls/hr IV ASDIRECTED [facility] Last Admin: 02/10/17 01:29 Dose: 50 mls/hr Lactulose (Cephulac) 20 gm PO BID [facility] Last Admin: 02/11/17 10:02 Dose: Not Given Levothyroxine Sodium (Levothyroxine) 75 mcg PO DAILY [facility] Last Admin: 02/11/17 08:01 Dose: 75 mcg Lorazepam (Ativan) 0.25 mg IVPUSH ONETIME ONE Stop: 02/11/17 09:56 Magnesium Oxide (Magnesium Oxide) 400 mg PO BID [facility] Last Admin: 02/11/17 08:01 Dose: 400 mg Miscellaneous Information (Remove Patch) 1 ea TRDERM Q72H [facility] Last Admin: 02/08/17 19:30 Dose: 1 ea Potassium Chloride (Klor-Con 10) 20 meq PO DAILY [facility] Last Admin: 02/11/17 08:01 Dose: 20 meq Senna (Senna) 8.6 mg PO BID [facility] Last Admin: 02/11/17 10:03 Dose: Not Given Warfarin Sodium (Coumadin) 1.25 mg PO DAILY@1800 [facility] Discontinued Medications Acetaminophen (Tylenol) 650 mg GTUBE Q4H PRN PRN Reason: Fever Last Admin: 02/10/17 01:21 Dose: 650 mg Alprazolam (Xanax) 0.5 mg PO Q12H PRN PRN Reason: Anxiety Last Admin: 02/02/17 17:50 Dose: 0.5 mg Alprazolam (Xanax) 0.5 mg PO ONETIME ONE Stop: 02/02/17 23:07 Last Admin: 02/02/17 23:16 Dose: 0.5 mg Alprazolam (Xanax) 0.5 mg PO TID [facility] Last Admin: 02/03/17 11:43 Dose: Not Given Amoxicillin (Amoxil 400 Mg/5 Ml Susp) 0 mg NGTUBE Q8H [facility] Last Admin: 02/09/17 14:58 Dose: Not Given Amoxicillin (Amoxil 400 Mg/5 Ml Susp) 250 mg NGTUBE Q8H [facility] Last Admin: 02/10/17 06:41 Dose: 3.125 ml Ampicillin Sodium/Sulbactam Sodium (Unasyn) Confirm Administered Dose 1.5 gm .ROUTE .STK-MED ONE Stop: 02/03/17 21:57 Last Admin: 02/03/17 23:00 Dose: Not Given Aspirin (Aspirin) 81 mg PO DAILY PRN PRN Reason: Headache Enoxaparin Sodium (Lovenox) 40 mg SUBCUT Q12H [facility] Last Admin: 02/09/17 14:55 Dose: Not Given Fentanyl (Sublimaze) Confirm Administered Dose 250 mcg .ROUTE .STK-MED ONE Stop: 02/02/17 09:54 Fentanyl (Sublimaze) 50 mcg IVPUSH Q5M PRN PRN Reason: Pain Stop: 02/02/17 11:31 Last Admin: 02/02/17 10:45 Dose: 50 mcg Fentanyl (Sublimaze) Confirm Administered Dose 100 mcg .ROUTE .STK-MED ONE Stop: 02/02/17 12:46 Fentanyl (Sublimaze) 50 mcg IVPUSH Q5M PRN PRN Reason: Pain Stop: 02/02/17 13:06 Last Admin: 02/02/17 14:00 Dose: 50 mcg Fentanyl (Duragesic) 25 mcg TRDERM Q72H [facility] Last Admin: 02/02/17 20:49 Dose: Not Given Fentanyl (Duragesic) 100 mcg TRDERM Q72H [facility] Hydromorphone HCl (Dilaudid) 0.5 mg IVPUSH Q15M PRN PRN Reason: severe pain Stop: 02/02/17 13:06 Last Admin: 02/02/17 13:28 Dose: 0.5 mg Hydromorphone HCl (Dilaudid) 6 mg PO Q2H PRN PRN Reason: Breakthrough Pain Last Admin: 02/02/17 15:47 Dose: 6 mg Hydromorphone HCl (Dilaudid) 6 mg GTUBE Q2H PRN PRN Reason: Pain Last Admin: 02/04/17 07:58 Dose: 6 mg Hydromorphone HCl (Dilaudid) 8 mg GTUBE STAT ONE Stop: 02/03/17 10:01 Last Admin: 02/04/17 10:36 Dose: Not Given Hydromorphone HCl (Dilaudid) 8 mg GTUBE STAT ONE Stop: 02/04/17 10:26 Last Admin: 02/04/17 10:39 Dose: 8 mg Hydromorphone HCl (Dilaudid) 6 mg GTUBE Q2H PRN PRN Reason: Pain Last Admin: 02/04/17 17:31 Dose: 6 mg Ampicillin Sodium/Sulbactam (Sodium 3 gm/ Sodium Chloride) 100 mls @ 200 mls/ hr IV ONETIME ONE Stop: 02/02/17 10:44 Last Admin: 02/02/17 11:21 Dose: 200 mls/hr Lidocaine HCl (Xylocaine-Mpf 1%) Confirm Administered Dose 4 mls @ as directed .ROUTE .[facility] ONE Stop: 02/02/17 09:54 Lactated Ringer's (Ringers, Lactated) 1,000 mls @ 125 mls/hr IV ASDIRECTED [facility] Stop: 02/02/17 23:00 Last Admin: 02/02/17 13:32 Dose: 125 mls/hr Lactated Ringer's (Ringers, Lactated) Confirm Administered Dose 1,000 mls @ as directed .ROUTE .[facility] ONE Stop: 02/02/17 12:27 Lactated Ringer's (Ringers, Lactated) 1,000 mls @ 100 mls/hr IV ASDIRECTED [facility] Last Admin: 02/03/17 09:30 Dose: 100 mls/hr Ampicillin Sodium/Sulbactam (Sodium 1.5 gm/ Sodium Chloride) 100 mls @ 200 mls/ hr IV Q6H [facility] Last Admin: 02/04/17 05:40 Dose: 200 mls/hr Sodium Chloride (Normal Saline) 250 mls @ 50 mls/hr IV ASDIRECTED [facility] Stop: 02/04/17 15:00 Potassium Chloride 10 meq/ (Premix) 100 mls @ 50 mls/hr IV ONETIME ONE Stop: 02/04/17 12:29 Last Admin: 02/04/17 11:11 Dose: 50 mls/hr Ketamine HCl (Ketalar) Confirm Administered Dose 500 mg .ROUTE .STK-MED ONE Stop: 02/02/17 12:39 Lidocaine/Sodium Bicarbonate (Buffered Lidocaine 1% In Ns 8.4%) 0.25 ml .XX ONETIME PRN PRN Reason: Prior to IV Start Stop: 02/02/17 18:00 Last Admin: 02/02/17 10:44 Dose: 0.25 ml Midazolam HCl (Versed 1 Mg/Ml) Confirm Administered Dose 2 mg .ROUTE .STK-MED ONE Stop: 02/02/17 09:53 Miscellaneous Information (Remove Patch) 0 ea TRDERM Q72H [facility] Ondansetron HCl (Zofran) Confirm Administered Dose 4 mg .ROUTE .STK-MED ONE Stop: 02/02/17 12:43 Ondansetron HCl (Zofran) 4 mg IVPUSH ONETIME PRN PRN Reason: Nausea/Vomiting Stop: 02/02/17 18:00 Ondansetron HCl (Zofran Odt) 8 mg PO Q8H PRN PRN Reason: Nausea/Vomiting Potassium Chloride (Potassium Chloride Solution) 10 meq PO TID [facility] Last Admin: 02/03/17 11:44 Dose: Not Given Potassium Chloride (Klor-Con 10) 10 meq GTUBE QID [facility] Potassium Chloride (Potassium Chloride Solution) 10 meq GTUBE QID [facility] Last Admin: 02/05/17 09:13 Dose: 20 meq Potassium Chloride (Potassium Chloride Solution) 20 meq GTUBE QID [facility] Last Admin: 02/06/17 08:06 Dose: 20 meq Propofol (Diprivan 20 Ml) Confirm Administered Dose 200 mg .ROUTE .STK-MED ONE Stop: 02/02/17 09:53 Propofol (Diprivan 20 Ml) Confirm Administered Dose 200 mg .ROUTE .STK-MED ONE Stop: 02/02/17 12:06 Senna (Senna) 8.6 mg PO BID [facility] Sodium Chloride (Saline Flush) 10 ml FLUSH ASDIRECTED PRN PRN Reason: Keep Vein Open Stop: 02/02/17 18:00 Temazepam (Restoril) 15 mg PO BEDTIME [facility] Last Admin: 02/08/17 21:37 Dose: 15 mg Temazepam (Restoril) 15 mg PO ONETIME STA Stop: 02/05/17 23:34 Last Admin: 02/05/17 23:42 Dose: 15 mg Warfarin Sodium (Coumadin) 2.5 mg PO SuMoWeFr@1800 [facility] Last Admin: 02/05/17 18:11 Dose: 2.5 mg Warfarin Sodium (Coumadin) 1.25 mg PO TuThSa@1800 [facility] Last Admin: 02/04/17 17:34 Dose: 1.25 mg Warfarin Sodium (Coumadin) 2 mg PO ONETIME ONE Stop: 02/05/17 09:06 Last Admin: 02/05/17 09:15 Dose: 2 mg Warfarin Sodium (Coumadin) 5 mg PO DAILY@1800 ONE Stop: 02/06/17 18:01 Last Admin: 02/06/17 17:01 Dose: 5 mg Warfarin Sodium (Coumadin) 1.25 mg PO TuThSa@1800 [facility] Warfarin Sodium (Coumadin) 7.5 mg PO DAILY@1800 ONE Stop: 02/07/17 18:01 Last Admin: 02/07/17 17:54 Dose: 7.5 mg Warfarin Sodium (Coumadin) 2.5 mg PO SuMoWeFr@1800 [facility] Last Admin: 02/08/17 19:02 Dose: Not Given Warfarin Sodium (Coumadin) 2.5 mg PO ONETIME ONE Stop: 02/08/17 08:39 Last Admin: 02/08/17 10:09 Dose: 2.5 mg Warfarin Sodium (Coumadin) 2.5 mg PO DAILY@1800 [facility] Last Admin: 02/09/17 17:25 Dose: 2.5 mg - Exam GI/Abdominal Exam: Other (gastric tube pluged ) - Problem List Review Problem List Initiated/Reviewed/Updated: Yes - My Orders Last 24 Hours: Active Orders 24 hr Category Date Time Status INR,PT,PROTHROMBIN TIME [COAG] Routine Lab 02/11/17 10:25 Ordered Cephalexin [Keflex 250 MG/5 ML Susp] Med 02/10/17 14:00 Active 250 mg PO Q6H LORazepam [Ativan] Med 02/11/17 09:55 Once 0.25 mg IVPUSH ONETIME ONE Warfarin [Coumadin] Med 02/11/17 10:30 Ordered 1.25 mg PO DAILY@1800 Medication Orders Hydrocodone Bitart/Acetaminophen ([place] 325-5 Mg) 1 tab GTUBE Q6H PRN PRN Reason: Pain Last Admin: 02/11/17 03:20 Dose: 1 tab Admin: 02/10/17 15:57 Dose: 1 tab Admin: 02/08/17 18:30 Dose: 1 tab Admin: 02/08/17 12:45 Dose: 1 tab Admin: 02/08/17 06:41 Dose: 1 tab Admin: 02/07/17 19:47 Dose: 1 tab Admin: 02/07/17 12:37 Dose: 1 tab Admin: 02/03/17 06:19 Dose: 1 tab Admin: 02/02/17 23:16 Dose: 1 tab Admin: 02/02/17 13:46 Dose: 1 tab Alprazolam (Xanax) 0.5 mg PO TID PRN PRN Reason: Anxiety Last Admin: 02/11/17 03:20 Dose: 0.5 mg Admin: 02/10/17 16:58 Dose: 0.5 mg Admin: 02/10/17 08:52 Dose: 0.5 mg Admin: 02/10/17 00:01 Dose: 0.5 mg Admin: 02/09/17 17:25 Dose: 0.5 mg Admin: 02/09/17 09:19 Dose: 0.5 mg Admin: 02/08/17 21:37 Dose: 0.5 mg Admin: 02/07/17 21:32 Dose: 0.5 mg Admin: 02/07/17 12:36 Dose: 0.5 mg Admin: 02/06/17 19:17 Dose: 0.5 mg Admin: 02/05/17 20:05 Dose: 0.5 mg Admin: 02/04/17 15:48 Dose: 0.5 mg Admin: 02/04/17 05:53 Dose: 0.5 mg Cephalexin (Keflex 250 Mg/5 Ml Susp) 250 mg PO Q6H [facility] Last Admin: 02/11/17 08:02 Dose: 250 mg Admin: 02/11/17 01:44 Dose: 250 mg Admin: 02/10/17 21:06 Dose: 250 mg Admin: 02/10/17 14:28 Dose: 250 mg Fentanyl (Duragesic) 100 mcg TRDERM Q72H [facility] Last Admin: 02/08/17 18:28 Dose: 100 mcg Admin: 02/05/17 18:12 Dose: 100 mcg Admin: 02/02/17 19:03 Dose: 100 mcg Fentanyl (Duragesic) 25 mcg TRDERM Q72H [facility] Last Admin: 02/08/17 18:28 Dose: 25 mcg Admin: 02/05/17 18:12 Dose: 25 mcg Admin: 02/02/17 19:02 Dose: 25 mcg Hydromorphone HCl (Dilaudid) 2 - 6 mg GTUBE Q2H PRN PRN Reason: Pain Last Admin: 02/11/17 08:02 Dose: 6 mg Admin: 02/11/17 06:01 Dose: 2 mg Admin: 02/11/17 04:56 Dose: 4 mg Admin: 02/11/17 01:43 Dose: 4 mg Admin: 02/10/17 21:26 Dose: 4 mg Admin: 02/10/17 19:01 Dose: 6 mg Admin: 02/10/17 16:58 Dose: 6 mg Admin: 02/10/17 14:27 Dose: 4 mg Admin: 02/10/17 12:29 Dose: 4 mg Admin: 02/10/17 10:27 Dose: 2 mg Admin: 02/10/17 08:52 Dose: 4 mg Admin: 02/10/17 04:13 Dose: 4 mg Admin: 02/09/17 23:39 Dose: 4 mg Admin: 02/09/17 20:49 Dose: 4 mg Admin: 02/09/17 17:24 Dose: 4 mg Admin: 02/09/17 15:11 Dose: 4 mg Admin: 02/09/17 09:19 Dose: 4 mg Admin: 02/09/17 06:16 Dose: 4 mg Admin: 02/09/17 00:24 Dose: 6 mg Admin: 02/08/17 18:27 Dose: 2 mg Admin: 02/08/17 15:21 Dose: 2 mg Admin: 02/08/17 07:53 Dose: 3 mg Admin: 02/08/17 05:15 Dose: 1 mg Admin: 02/08/17 05:08 Dose: 4 mg Admin: 02/08/17 02:39 Dose: 4 mg Admin: 02/07/17 23:22 Dose: 4 mg Admin: 02/07/17 20:17 Dose: 3 mg Admin: 02/07/17 17:53 Dose: 4 mg Admin: 02/07/17 15:05 Dose: 4 mg Admin: 02/07/17 11:13 Dose: 4 mg Admin: 02/07/17 09:06 Dose: 4 mg Admin: 02/07/17 07:33 Dose: 4 mg Admin: 02/07/17 05:07 Dose: 4 mg Admin: 02/07/17 02:39 Dose: 4 mg Admin: 02/06/17 23:48 Dose: 4 mg Admin: 02/06/17 21:35 Dose: 4 mg Admin: 02/06/17 19:17 Dose: 4 mg Admin: 02/06/17 17:01 Dose: 4 mg Admin: 02/06/17 14:05 Dose: 4 mg Admin: 02/06/17 12:17 Dose: 4 mg Admin: 02/06/17 10:00 Dose: 4 mg Admin: 02/06/17 08:05 Dose: 5 mg Admin: 02/06/17 05:54 Dose: 5 mg Admin: 02/06/17 02:53 Dose: 4 mg Admin: 02/05/17 23:42 Dose: 4 mg Admin: 02/05/17 20:00 Dose: 3 mg Admin: 02/05/17 18:11 Dose: 4 mg Admin: 02/05/17 14:50 Dose: 4 mg Admin: 02/05/17 12:28 Dose: 4 mg Admin: 02/05/17 09:12 Dose: 4 mg Admin: 02/05/17 07:09 Dose: 4 mg Admin: 02/05/17 03:25 Dose: 4 mg Admin: 02/04/17 23:55 Dose: 2 mg Sodium Chloride (Normal Saline) 250 mls @ 50 mls/hr IV ASDIRECTED [facility] Last Admin: 02/10/17 01:29 Dose: 50 mls/hr Infusion: 02/09/17 20:41 Dose: 50 mls/hr Admin: 02/09/17 15:41 Dose: 50 mls/hr Lactulose (Cephulac) 20 gm PO BID [facility] Last Admin: 02/11/17 10:02 Dose: Not Given Admin: 02/10/17 21:06 Dose: Not Given Admin: 02/10/17 10:28 Dose: Not Given Admin: 02/09/17 20:48 Dose: Not Given Admin: 02/09/17 09:20 Dose: Not Given Admin: 02/08/17 22:42 Dose: Not Given Admin: 02/08/17 08:00 Dose: Not Given Admin: 02/07/17 20:13 Dose: Not Given Admin: 02/07/17 09:07 Dose: Not Given Admin: 02/06/17 21:37 Dose: 20 gm Admin: 02/06/17 08:06 Dose: Not Given Admin: 02/05/17 23:32 Dose: Not Given Admin: 02/05/17 09:05 Dose: 20 gm Admin: 02/05/17 00:38 Dose: Not Given Admin: 02/04/17 10:56 Dose: 20 gm Admin: 02/03/17 20:08 Dose: 20 gm Admin: 02/03/17 09:01 Dose: Not Given Levothyroxine Sodium (Levothyroxine) 75 mcg PO DAILY [facility] Last Admin: 02/11/17 08:01 Dose: 75 mcg Admin: 02/10/17 08:52 Dose: 75 mcg Admin: 02/09/17 09:19 Dose: 75 mcg Admin: 02/08/17 08:00 Dose: 75 mcg Admin: 02/07/17 09:08 Dose: 75 mcg Admin: 02/06/17 08:06 Dose: 75 mcg Admin: 02/05/17 09:05 Dose: 75 mcg Admin: 02/04/17 10:40 Dose: 75 mcg Admin: 02/03/17 09:00 Dose: 75 mcg Lorazepam (Ativan) 0.25 mg IVPUSH ONETIME ONE Stop: 02/11/17 09:56 Magnesium Oxide (Magnesium Oxide) 400 mg PO BID [facility] Last Admin: 02/11/17 08:01 Dose: 400 mg Admin: 02/10/17 21:06 Dose: 400 mg Admin: 02/10/17 08:51 Dose: 400 mg Admin: 02/09/17 20:49 Dose: 400 mg Admin: 02/09/17 09:19 Dose: 400 mg Admin: 02/08/17 21:37 Dose: 400 mg Admin: 02/08/17 08:00 Dose: 400 mg Admin: 02/07/17 20:11 Dose: 400 mg Admin: 02/07/17 09:08 Dose: 400 mg Admin: 02/06/17 21:34 Dose: 400 mg Admin: 02/06/17 10:00 Dose: 400 mg Miscellaneous Information (Remove Patch) 1 ea TRDERM Q72H [facility] Last Admin: 02/08/17 19:30 Dose: 1 ea Admin: 02/08/17 18:30 Dose: 1 ea Admin: 02/05/17 18:12 Dose: 1 ea Potassium Chloride (Klor-Con 10) 20 meq PO DAILY [facility] Last Admin: 02/11/17 08:01 Dose: 20 meq Admin: 02/10/17 08:51 Dose: 20 meq Admin: 02/09/17 09:19 Dose: 20 meq Admin: 02/08/17 08:00 Dose: 20 meq Admin: 02/07/17 09:08 Dose: 20 meq Senna (Senna) 8.6 mg PO BID [facility] Last Admin: 02/11/17 10:03 Dose: Not Given Admin: 02/10/17 21:07 Dose: 8.6 mg Admin: 02/10/17 10:28 Dose: Not Given Admin: 02/09/17 20:49 Dose: 8.6 mg Admin: 02/09/17 09:20 Dose: Not Given Admin: 02/08/17 21:37 Dose: 8.6 mg Admin: 02/08/17 08:00 Dose: Not Given Admin: 02/07/17 20:11 Dose: Not Given Admin: 02/07/17 09:08 Dose: 8.6 mg Admin: 02/06/17 21:34 Dose: 8.6 mg Admin: 02/06/17 08:06 Dose: Not Given Admin: 02/05/17 23:32 Dose: Not Given Admin: 02/05/17 11:23 Dose: Not Given Admin: 02/05/17 00:38 Dose: Not Given Admin: 02/04/17 10:39 Dose: 8.6 mg Warfarin Sodium (Coumadin) 1.25 mg PO DAILY@1800 [facility] - Plan Plan (Free Text/Narrative):: G. tube plugged replace with similar G tube INR noted and Coumadin restarted pt stable . wt increasing slowly
[2017-02-11] MEDS ORDERED: LORazepam 2 MG/ML MDV IVPUSH ONE (10:30)
[2017-02-11] MEDS ORDERED: Warfarin 2.5 MG Tab PO SCH (18:00)
[2017-02-11] MEDS: fentaNYL 25 MCG/HR Transdermal Patch TRDERM SCH (20:46)
[2017-02-11] MEDS: fentaNYL 100 MCG/HR Transdermal Patch TRDERM SCH (20:47)
[2017-02-11] MEDS: [UNRECOGNIZED DRUG - REMARK] TRDERM SCH (20:47)
[2017-02-12] MEDS: HYDROmorphone 2 MG Tab GTUBE PRN ×5 (00:43→15:49)
[2017-02-12] MEDS: Cephalexin 250 MG/5 ML Susp 100 ML Bottle PO SCH ×3 (01:52→13:29)
[2017-02-12] MEDS: Lactulose Soln 10 GM/15 ML 30 ML UD Cup PO SCH (08:55)
[2017-02-12] MEDS: Levothyroxine 75 MCG Tab PO SCH (08:57)
[2017-02-12] MEDS: Potassium Chloride 10 MEQ Tab.ER PO SCH (08:57)
[2017-02-12] MEDS: Magnesium Oxide 400 MG Tab PO SCH (08:57)
[2017-02-12] MEDS: Sennosides 8.6 MG Tab PO SCH (08:57)
[2017-02-12 09:27] VITALS: BP 100/55
--- NOTE | 2017-02-12 14:38 | PCM.SURGPN ---
- General Info Date of Service: 02/12/17 - Patient Data Vitals - Most Recent: Last Vital Signs Temp 98.4 F 02/12/17 09:25 Pulse 79 02/12/17 09:25 Resp 16 02/12/17 09:25 BP 100/55 L 02/12/17 09:25 Pulse Ox 92 L 02/12/17 09:25 Weight - Most Recent: 44.77 kg I&O - Last 24 Hours: Intake & Output 02/11/17 02/12/17 02/12/17 23:59 07:59 15:59 Intake Total 950 0 510 Output Total 300 650 Balance 650 -650 510 Kartik Results Last 24 Hrs: Microbiology 02/08/17 14:20 Aerobic Blood Culture - Preliminary Blood - Venous - Lab Draw NO GROWTH AFTER 4 DAYS Anaerobic Blood Culture - Preliminary NO GROWTH AFTER 4 DAYS 02/08/17 14:00 Aerobic Blood Culture - Preliminary Blood - Venous NO GROWTH AFTER 4 DAYS Anaerobic Blood Culture - Preliminary NO GROWTH AFTER 4 DAYS Med Orders - Current: Current Medications Hydrocodone Bitart/Acetaminophen ([place] 325-5 Mg) 1 tab GTUBE Q6H PRN PRN Reason: Pain Last Admin: 02/11/17 14:57 Dose: 1 tab Alprazolam (Xanax) 0.5 mg PO TID PRN PRN Reason: Anxiety Last Admin: 02/11/17 03:20 Dose: 0.5 mg Cephalexin (Keflex 250 Mg/5 Ml Susp) 250 mg PO Q6H [facility] Last Admin: 02/12/17 13:29 Dose: 250 mg Fentanyl (Duragesic) 100 mcg TRDERM Q72H [facility] Last Admin: 02/11/17 20:47 Dose: 100 mcg Fentanyl (Duragesic) 25 mcg TRDERM Q72H [facility] Last Admin: 02/11/17 20:46 Dose: 25 mcg Hydromorphone HCl (Dilaudid) 2 - 6 mg GTUBE Q2H PRN PRN Reason: Pain Last Admin: 02/12/17 12:13 Dose: 2 mg Sodium Chloride (Normal Saline) 250 mls @ 50 mls/hr IV ASDIRECTED [facility] Last Admin: 02/10/17 01:29 Dose: 50 mls/hr Lactulose (Cephulac) 20 gm PO BID [facility] Last Admin: 02/12/17 08:55 Dose: Not Given Levothyroxine Sodium (Levothyroxine) 75 mcg PO DAILY [facility] Last Admin: 02/12/17 08:57 Dose: 75 mcg Magnesium Oxide (Magnesium Oxide) 400 mg PO BID [facility] Last Admin: 02/12/17 08:57 Dose: 400 mg Miscellaneous Information (Remove Patch) 1 ea TRDERM Q72H [facility] Last Admin: 02/11/17 20:47 Dose: 1 ea Potassium Chloride (Klor-Con 10) 20 meq PO DAILY [facility] Last Admin: 02/12/17 08:57 Dose: 20 meq Senna (Senna) 8.6 mg PO BID [facility] Last Admin: 02/12/17 08:57 Dose: 8.6 mg Warfarin Sodium (Coumadin) 1.25 mg PO DAILY@1800 [facility] Last Admin: 02/11/17 17:20 Dose: 1.25 mg Discontinued Medications Acetaminophen (Tylenol) 650 mg GTUBE Q4H PRN PRN Reason: Fever Last Admin: 02/10/17 01:21 Dose: 650 mg Alprazolam (Xanax) 0.5 mg PO Q12H PRN PRN Reason: Anxiety Last Admin: 02/02/17 17:50 Dose: 0.5 mg Alprazolam (Xanax) 0.5 mg PO ONETIME ONE Stop: 02/02/17 23:07 Last Admin: 02/02/17 23:16 Dose: 0.5 mg Alprazolam (Xanax) 0.5 mg PO TID [facility] Last Admin: 02/03/17 11:43 Dose: Not Given Amoxicillin (Amoxil 400 Mg/5 Ml Susp) 0 mg NGTUBE Q8H [facility] Last Admin: 02/09/17 14:58 Dose: Not Given Amoxicillin (Amoxil 400 Mg/5 Ml Susp) 250 mg NGTUBE Q8H [facility] Last Admin: 02/10/17 06:41 Dose: 3.125 ml Ampicillin Sodium/Sulbactam Sodium (Unasyn) Confirm Administered Dose 1.5 gm .ROUTE .STK-MED ONE Stop: 02/03/17 21:57 Last Admin: 02/03/17 23:00 Dose: Not Given Aspirin (Aspirin) 81 mg PO DAILY PRN PRN Reason: Headache Enoxaparin Sodium (Lovenox) 40 mg SUBCUT Q12H [facility] Last Admin: 02/09/17 14:55 Dose: Not Given Fentanyl (Sublimaze) Confirm Administered Dose 250 mcg .ROUTE .STK-MED ONE Stop: 02/02/17 09:54 Fentanyl (Sublimaze) 50 mcg IVPUSH Q5M PRN PRN Reason: Pain Stop: 02/02/17 11:31 Last Admin: 02/02/17 10:45 Dose: 50 mcg Fentanyl (Sublimaze) Confirm Administered Dose 100 mcg .ROUTE .STK-MED ONE Stop: 02/02/17 12:46 Fentanyl (Sublimaze) 50 mcg IVPUSH Q5M PRN PRN Reason: Pain Stop: 02/02/17 13:06 Last Admin: 02/02/17 14:00 Dose: 50 mcg Fentanyl (Duragesic) 25 mcg TRDERM Q72H [facility] Last Admin: 02/02/17 20:49 Dose: Not Given Fentanyl (Duragesic) 100 mcg TRDERM Q72H [facility] Hydromorphone HCl (Dilaudid) 0.5 mg IVPUSH Q15M PRN PRN Reason: severe pain Stop: 02/02/17 13:06 Last Admin: 02/02/17 13:28 Dose: 0.5 mg Hydromorphone HCl (Dilaudid) 6 mg PO Q2H PRN PRN Reason: Breakthrough Pain Last Admin: 02/02/17 15:47 Dose: 6 mg Hydromorphone HCl (Dilaudid) 6 mg GTUBE Q2H PRN PRN Reason: Pain Last Admin: 02/04/17 07:58 Dose: 6 mg Hydromorphone HCl (Dilaudid) 8 mg GTUBE STAT ONE Stop: 02/03/17 10:01 Last Admin: 02/04/17 10:36 Dose: Not Given Hydromorphone HCl (Dilaudid) 8 mg GTUBE STAT ONE Stop: 02/04/17 10:26 Last Admin: 02/04/17 10:39 Dose: 8 mg Hydromorphone HCl (Dilaudid) 6 mg GTUBE Q2H PRN PRN Reason: Pain Last Admin: 02/04/17 17:31 Dose: 6 mg Ampicillin Sodium/Sulbactam (Sodium 3 gm/ Sodium Chloride) 100 mls @ 200 mls/ hr IV ONETIME ONE Stop: 02/02/17 10:44 Last Admin: 02/02/17 11:21 Dose: 200 mls/hr Lidocaine HCl (Xylocaine-Mpf 1%) Confirm Administered Dose 4 mls @ as directed .ROUTE .STK-MED ONE Stop: 02/02/17 09:54 Lactated Ringer's (Ringers, Lactated) 1,000 mls @ 125 mls/hr IV ASDIRECTED [facility] Stop: 02/02/17 23:00 Last Admin: 02/02/17 13:32 Dose: 125 mls/hr Lactated Ringer's (Ringers, Lactated) Confirm Administered Dose 1,000 mls @ as directed .ROUTE .STK-MED ONE Stop: 02/02/17 12:27 Lactated Ringer's (Ringers, Lactated) 1,000 mls @ 100 mls/hr IV ASDIRECTED [facility] Last Admin: 02/03/17 09:30 Dose: 100 mls/hr Ampicillin Sodium/Sulbactam (Sodium 1.5 gm/ Sodium Chloride) 100 mls @ 200 mls/ hr IV Q6H [facility] Last Admin: 02/04/17 05:40 Dose: 200 mls/hr Sodium Chloride (Normal Saline) 250 mls @ 50 mls/hr IV ASDIRECTED [facility] Stop: 02/04/17 15:00 Potassium Chloride 10 meq/ (Premix) 100 mls @ 50 mls/hr IV ONETIME ONE Stop: 02/04/17 12:29 Last Admin: 02/04/17 11:11 Dose: 50 mls/hr Ketamine HCl (Ketalar) Confirm Administered Dose 500 mg .ROUTE .STK-[facility] ONE Stop: 02/02/17 12:39 Lidocaine/Sodium Bicarbonate (Buffered Lidocaine 1% In Ns 8.4%) 0.25 ml .XX ONETIME PRN PRN Reason: Prior to IV Start Stop: 02/02/17 18:00 Last Admin: 02/02/17 10:44 Dose: 0.25 ml Lorazepam (Ativan) 0.25 mg IVPUSH ONETIME ONE Stop: 02/11/17 10:31 Last Admin: 02/11/17 10:03 Dose: 0.25 mg Midazolam HCl (Versed 1 Mg/Ml) Confirm Administered Dose 2 mg .ROUTE .STK-MED ONE Stop: 02/02/17 09:53 Miscellaneous Information (Remove Patch) 0 ea TRDERM Q72H [facility] Ondansetron HCl (Zofran) Confirm Administered Dose 4 mg .ROUTE .STK-MED ONE Stop: 02/02/17 12:43 Ondansetron HCl (Zofran) 4 mg IVPUSH ONETIME PRN PRN Reason: Nausea/Vomiting Stop: 02/02/17 18:00 Ondansetron HCl (Zofran Odt) 8 mg PO Q8H PRN PRN Reason: Nausea/Vomiting Potassium Chloride (Potassium Chloride Solution) 10 meq PO TID [facility] Last Admin: 02/03/17 11:44 Dose: Not Given Potassium Chloride (Klor-Con 10) 10 meq GTUBE QID [facility] Potassium Chloride (Potassium Chloride Solution) 10 meq GTUBE QID [facility] Last Admin: 02/05/17 09:13 Dose: 20 meq Potassium Chloride (Potassium Chloride Solution) 20 meq GTUBE QID [facility] Last Admin: 02/06/17 08:06 Dose: 20 meq Propofol (Diprivan 20 Ml) Confirm Administered Dose 200 mg .ROUTE .STK-MED ONE Stop: 02/02/17 09:53 Propofol (Diprivan 20 Ml) Confirm Administered Dose 200 mg .ROUTE .STK-MED ONE Stop: 02/02/17 12:06 Senna (Senna) 8.6 mg PO BID [facility] Sodium Chloride (Saline Flush) 10 ml FLUSH ASDIRECTED PRN PRN Reason: Keep Vein Open Stop: 02/02/17 18:00 Temazepam (Restoril) 15 mg PO BEDTIME [facility] Last Admin: 02/08/17 21:37 Dose: 15 mg Temazepam (Restoril) 15 mg PO ONETIME STA Stop: 02/05/17 23:34 Last Admin: 02/05/17 23:42 Dose: 15 mg Warfarin Sodium (Coumadin) 2.5 mg PO SuMoWeFr@1800 [facility] Last Admin: 02/05/17 18:11 Dose: 2.5 mg Warfarin Sodium (Coumadin) 1.25 mg PO TuThSa@1800 [facility] Last Admin: 02/04/17 17:34 Dose: 1.25 mg Warfarin Sodium (Coumadin) 2 mg PO ONETIME ONE Stop: 02/05/17 09:06 Last Admin: 02/05/17 09:15 Dose: 2 mg Warfarin Sodium (Coumadin) 5 mg PO DAILY@1800 ONE Stop: 02/06/17 18:01 Last Admin: 02/06/17 17:01 Dose: 5 mg Warfarin Sodium (Coumadin) 1.25 mg PO TuThSa@1800 [facility] Warfarin Sodium (Coumadin) 7.5 mg PO DAILY@1800 ONE Stop: 02/07/17 18:01 Last Admin: 02/07/17 17:54 Dose: 7.5 mg Warfarin Sodium (Coumadin) 2.5 mg PO SuMoWeFr@1800 [facility] Last Admin: 02/08/17 19:02 Dose: Not Given Warfarin Sodium (Coumadin) 2.5 mg PO ONETIME ONE Stop: 02/08/17 08:39 Last Admin: 02/08/17 10:09 Dose: 2.5 mg Warfarin Sodium (Coumadin) 2.5 mg PO DAILY@1800 [facility] Last Admin: 02/09/17 17:25 Dose: 2.5 mg - Problem List Review Problem List Initiated/Reviewed/Updated: Yes - My Orders Last 24 Hours: Active Orders 24 hr Category Date Time Status Admission Status [Patient Status] [ADT] Routine ADT 02/11/17 18:36 Active Warfarin [Coumadin] Med 02/11/17 18:00 Active 1.25 mg PO DAILY@1800 Medication Orders Hydrocodone Bitart/Acetaminophen ([place] 325-5 Mg) 1 tab GTUBE Q6H PRN PRN Reason: Pain Last Admin: 02/11/17 14:57 Dose: 1 tab Admin: 02/11/17 03:20 Dose: 1 tab Admin: 02/10/17 15:57 Dose: 1 tab Admin: 02/08/17 18:30 Dose: 1 tab Admin: 02/08/17 12:45 Dose: 1 tab Admin: 02/08/17 06:41 Dose: 1 tab Admin: 02/07/17 19:47 Dose: 1 tab Admin: 02/07/17 12:37 Dose: 1 tab Admin: 02/03/17 06:19 Dose: 1 tab Admin: 02/02/17 23:16 Dose: 1 tab Admin: 02/02/17 13:46 Dose: 1 tab Alprazolam (Xanax) 0.5 mg PO TID PRN PRN Reason: Anxiety Last Admin: 02/11/17 03:20 Dose: 0.5 mg Admin: 02/10/17 16:58 Dose: 0.5 mg Admin: 02/10/17 08:52 Dose: 0.5 mg Admin: 02/10/17 00:01 Dose: 0.5 mg Admin: 02/09/17 17:25 Dose: 0.5 mg Admin: 02/09/17 09:19 Dose: 0.5 mg Admin: 02/08/17 21:37 Dose: 0.5 mg Admin: 02/07/17 21:32 Dose: 0.5 mg Admin: 02/07/17 12:36 Dose: 0.5 mg Admin: 02/06/17 19:17 Dose: 0.5 mg Admin: 02/05/17 20:05 Dose: 0.5 mg Admin: 02/04/17 15:48 Dose: 0.5 mg Admin: 02/04/17 05:53 Dose: 0.5 mg Cephalexin (Keflex 250 Mg/5 Ml Susp) 250 mg PO Q6H [facility] Last Admin: 02/12/17 13:29 Dose: 250 mg Admin: 02/12/17 08:57 Dose: 250 mg Admin: 02/12/17 01:52 Dose: 250 mg Admin: 02/11/17 20:14 Dose: 250 mg Admin: 02/11/17 14:59 Dose: 250 mg Admin: 02/11/17 08:02 Dose: 250 mg Admin: 02/11/17 01:44 Dose: 250 mg Admin: 02/10/17 21:06 Dose: 250 mg Admin: 02/10/17 14:28 Dose: 250 mg Fentanyl (Duragesic) 100 mcg TRDERM Q72H [facility] Last Admin: 02/11/17 20:47 Dose: 100 mcg Admin: 02/08/17 18:28 Dose: 100 mcg Admin: 02/05/17 18:12 Dose: 100 mcg Admin: 02/02/17 19:03 Dose: 100 mcg Fentanyl (Duragesic) 25 mcg TRDERM Q72H [facility] Last Admin: 02/11/17 20:46 Dose: 25 mcg Admin: 02/08/17 18:28 Dose: 25 mcg Admin: 02/05/17 18:12 Dose: 25 mcg Admin: 02/02/17 19:02 Dose: 25 mcg Hydromorphone HCl (Dilaudid) 2 - 6 mg GTUBE Q2H PRN PRN Reason: Pain Last Admin: 02/12/17 12:13 Dose: 2 mg Admin: 02/12/17 08:56 Dose: 4 mg Admin: 02/12/17 05:55 Dose: 6 mg Admin: 02/12/17 00:43 Dose: 6 mg Admin: 02/11/17 22:34 Dose: 6 mg Admin: 02/11/17 20:16 Dose: 4 mg Admin: 02/11/17 17:19 Dose: 4 mg Admin: 02/11/17 14:58 Dose: 4 mg Admin: 02/11/17 12:43 Dose: 6 mg Admin: 02/11/17 08:02 Dose: 6 mg Admin: 02/11/17 06:01 Dose: 2 mg Admin: 02/11/17 04:56 Dose: 4 mg Admin: 02/11/17 01:43 Dose: 4 mg Admin: 02/10/17 21:26 Dose: 4 mg Admin: 02/10/17 19:01 Dose: 6 mg Admin: 02/10/17 16:58 Dose: 6 mg Admin: 02/10/17 14:27 Dose: 4 mg Admin: 02/10/17 12:29 Dose: 4 mg Admin: 02/10/17 10:27 Dose: 2 mg Admin: 02/10/17 08:52 Dose: 4 mg Admin: 02/10/17 04:13 Dose: 4 mg Admin: 02/09/17 23:39 Dose: 4 mg Admin: 02/09/17 20:49 Dose: 4 mg Admin: 02/09/17 17:24 Dose: 4 mg Admin: 02/09/17 15:11 Dose: 4 mg Admin: 02/09/17 09:19 Dose: 4 mg Admin: 02/09/17 06:16 Dose: 4 mg Admin: 02/09/17 00:24 Dose: 6 mg Admin: 02/08/17 18:27 Dose: 2 mg Admin: 02/08/17 15:21 Dose: 2 mg Admin: 02/08/17 07:53 Dose: 3 mg Admin: 02/08/17 05:15 Dose: 1 mg Admin: 02/08/17 05:08 Dose: 4 mg Admin: 02/08/17 02:39 Dose: 4 mg Admin: 02/07/17 23:22 Dose: 4 mg Admin: 02/07/17 20:17 Dose: 3 mg Admin: 02/07/17 17:53 Dose: 4 mg Admin: 02/07/17 15:05 Dose: 4 mg Admin: 02/07/17 11:13 Dose: 4 mg Admin: 02/07/17 09:06 Dose: 4 mg Admin: 02/07/17 07:33 Dose: 4 mg Admin: 02/07/17 05:07 Dose: 4 mg Admin: 02/07/17 02:39 Dose: 4 mg Admin: 02/06/17 23:48 Dose: 4 mg Admin: 02/06/17 21:35 Dose: 4 mg Admin: 02/06/17 19:17 Dose: 4 mg Admin: 02/06/17 17:01 Dose: 4 mg Admin: 02/06/17 14:05 Dose: 4 mg Admin: 02/06/17 12:17 Dose: 4 mg Admin: 02/06/17 10:00 Dose: 4 mg Admin: 02/06/17 08:05 Dose: 5 mg Admin: 02/06/17 05:54 Dose: 5 mg Admin: 02/06/17 02:53 Dose: 4 mg Admin: 02/05/17 23:42 Dose: 4 mg Admin: 02/05/17 20:00 Dose: 3 mg Admin: 02/05/17 18:11 Dose: 4 mg Admin: 02/05/17 14:50 Dose: 4 mg Admin: 02/05/17 12:28 Dose: 4 mg Admin: 02/05/17 09:12 Dose: 4 mg Admin: 02/05/17 07:09 Dose: 4 mg Admin: 02/05/17 03:25 Dose: 4 mg Admin: 02/04/17 23:55 Dose: 2 mg Sodium Chloride (Normal Saline) 250 mls @ 50 mls/hr IV ASDIRECTED [facility] Last Admin: 02/10/17 01:29 Dose: 50 mls/hr Infusion: 02/09/17 20:41 Dose: 50 mls/hr Admin: 02/09/17 15:41 Dose: 50 mls/hr Lactulose (Cephulac) 20 gm PO BID [facility] Last Admin: 02/12/17 08:55 Dose: Not Given Admin: 02/11/17 20:15 Dose: Not Given Admin: 02/11/17 10:02 Dose: Not Given Admin: 02/10/17 21:06 Dose: Not Given Admin: 02/10/17 10:28 Dose: Not Given Admin: 02/09/17 20:48 Dose: Not Given Admin: 02/09/17 09:20 Dose: Not Given Admin: 02/08/17 22:42 Dose: Not Given Admin: 02/08/17 08:00 Dose: Not Given Admin: 02/07/17 20:13 Dose: Not Given Admin: 02/07/17 09:07 Dose: Not Given Admin: 02/06/17 21:37 Dose: 20 gm Admin: 02/06/17 08:06 Dose: Not Given Admin: 02/05/17 23:32 Dose: Not Given Admin: 02/05/17 09:05 Dose: 20 gm Admin: 02/05/17 00:38 Dose: Not Given Admin: 02/04/17 10:56 Dose: 20 gm Admin: 02/03/17 20:08 Dose: 20 gm Admin: 02/03/17 09:01 Dose: Not Given Levothyroxine Sodium (Levothyroxine) 75 mcg PO DAILY [facility] Last Admin: 02/12/17 08:57 Dose: 75 mcg Admin: 02/11/17 08:01 Dose: 75 mcg Admin: 02/10/17 08:52 Dose: 75 mcg Admin: 02/09/17 09:19 Dose: 75 mcg Admin: 02/08/17 08:00 Dose: 75 mcg Admin: 02/07/17 09:08 Dose: 75 mcg Admin: 02/06/17 08:06 Dose: 75 mcg Admin: 02/05/17 09:05 Dose: 75 mcg Admin: 02/04/17 10:40 Dose: 75 mcg Admin: 02/03/17 09:00 Dose: 75 mcg Magnesium Oxide (Magnesium Oxide) 400 mg PO BID [facility] Last Admin: 02/12/17 08:57 Dose: 400 mg Admin: 02/11/17 20:15 Dose: 400 mg Admin: 02/11/17 08:01 Dose: 400 mg Admin: 02/10/17 21:06 Dose: 400 mg Admin: 02/10/17 08:51 Dose: 400 mg Admin: 02/09/17 20:49 Dose: 400 mg Admin: 02/09/17 09:19 Dose: 400 mg Admin: 02/08/17 21:37 Dose: 400 mg Admin: 02/08/17 08:00 Dose: 400 mg Admin: 02/07/17 20:11 Dose: 400 mg Admin: 02/07/17 09:08 Dose: 400 mg Admin: 02/06/17 21:34 Dose: 400 mg Admin: 02/06/17 10:00 Dose: 400 mg Miscellaneous Information (Remove Patch) 1 ea TRDERM Q72H [facility] Last Admin: 02/11/17 20:47 Dose: 1 ea Admin: 02/08/17 19:30 Dose: 1 ea Admin: 02/08/17 18:30 Dose: 1 ea Admin: 02/05/17 18:12 Dose: 1 ea Potassium Chloride (Klor-Con 10) 20 meq PO DAILY [facility] Last Admin: 02/12/17 08:57 Dose: 20 meq Admin: 02/11/17 08:01 Dose: 20 meq Admin: 02/10/17 08:51 Dose: 20 meq Admin: 02/09/17 09:19 Dose: 20 meq Admin: 02/08/17 08:00 Dose: 20 meq Admin: 02/07/17 09:08 Dose: 20 meq Senna (Senna) 8.6 mg PO BID [facility] Last Admin: 02/12/17 08:57 Dose: 8.6 mg Admin: 02/11/17 20:16 Dose: Not Given Admin: 02/11/17 10:03 Dose: Not Given Admin: 02/10/17 21:07 Dose: 8.6 mg Admin: 02/10/17 10:28 Dose: Not Given Admin: 02/09/17 20:49 Dose: 8.6 mg Admin: 02/09/17 09:20 Dose: Not Given Admin: 02/08/17 21:37 Dose: 8.6 mg Admin: 02/08/17 08:00 Dose: Not Given Admin: 02/07/17 20:11 Dose: Not Given Admin: 02/07/17 09:08 Dose: 8.6 mg Admin: 02/06/17 21:34 Dose: 8.6 mg Admin: 02/06/17 08:06 Dose: Not Given Admin: 02/05/17 23:32 Dose: Not Given Admin: 02/05/17 11:23 Dose: Not Given Admin: 02/05/17 00:38 Dose: Not Given Admin: 02/04/17 10:39 Dose: 8.6 mg Warfarin Sodium (Coumadin) 1.25 mg PO DAILY@1800 [facility] Last Admin: 02/11/17 17:20 Dose: 1.25 mg - Plan Plan (Free Text/Narrative):: discharge dictated l;MAO
--- NOTE | 2017-02-15 08:25 | DISCH ---
ADMISSION DATE: 02/02/2017 DISCHARGE DATE: 02/12/2017 HISTORY OF PRESENT ILLNESS: This is a 56-year-old who was referred to me from Oncology for placement of a feeding tube. 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 She has also had a diagnosis of left breast cancer with bilateral mastectomies with recurrence and evidence of disease in the spine leading to chronic pain. She also had an aortic valve done 9 years ago, a [employer] mechanical valve, is on anticoagulation. The patient's particular problem is inability to manage her pain because of being unable to swallow. PHYSICAL EXAMINATION: GENERAL: Examination on the time of admission showed the patient in some chronic pain. EYES: Unremarkable. NECK: Stiff and tender and indurated. There was a fistulous tract from spit coming out just under the floor of the mouth. Tracheostomy was in place and verbalization was done with the help of her . LUNGS: Clear. HEART: Heart tones regular rate. Heart valve was functioning well. ABDOMEN: Soft. EXTREMITIES: Upper and lower extremity shows evidence of weight loss, but she moved all 4, and no sensorineural deficit. HOSPITAL COURSE: The patient was brought to the outpatient setting where upper GI endoscopy was performed, but unable to find a passageway into the stomach. General anesthetic was given and laparotomy was performed and a feeding gastrostomy tube was placed. The patient's postoperative course was that of significant pain, which was understandable. She was treated with IV pain medication. Her potassium did fall in the low range of 2.6 and she was treated with potassium. Tube feedings were started immediately postop and 24 hours later, she was started on Coumadin and was given full anticoagulation with Lovenox for bridging until her INR came up to the 2 range, which was well until she was anticoagulated and the Lovenox was stopped though. She was started on Jevity tube feeding of Jevity 1.5, 250 mL, 4 times a day with a 60 mL flush before and after and a 200 mL flush b.i.d. of water. Family was instructed in this. The patient's regular medications were thus continued and physical therapy was given now and able to walk. Arrangements were made for placement in a usp, but the nursing homes were either full or resistant to the idea and family was instructed for taking home and management in home. The patient was discussed hospice, but declined. Her prognosis was considered poor during this hospitalization. During this time, she did spike a fever, was worked up with a chest x-ray and blood cultures and urine cultures. Urine was positive and she was started on treatment and her temperature came down. She had E. coli sensitive to Keflex. The fistulous tract did have an odor and she was able to maintain her oral secretions in this way. Tracheostomy functioned properly and she maintained her sats in the 92 range on room air. Vital signs remained stable. She reached maximal hospital benefit. 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 She had low potassium which was corrected. A heart valve with anticoagulation and bridging was performed and a fistulous tract from her tumor in the neck area and chronic pain from her back. Feeding is via Jevity as described above. Appointments will be with me. Followup medications per medication slip and this was going on. She is on chronic Dilaudid and anticoagulation and potassium, Keflex for her urinary tract, Xanax for anxiety, and Synthroid for her hypothyroid state. CONDITION ON DISCHARGE: Stable FOLLOW-UP: I will see her back and check her INR, CBC, her potassium, and CMP in 1 week. OTHER DIAGNOSES: Consist of obstructed esophagus secondary to recurrent head and neck cancer, permanent tracheostomy tube in place, gastrostomy tube, inability to work and only ambulates with difficulty. FINAL DIAGNOSIS: 1. 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 DISCHARGE MEDICATIONS: DIET: ACTIVITY: MMODAL /[id number]
== END 2017-02-12 16:35 | disposition home or self-care (01) | DRG 222 ==
LOC: JD.MS 09:33
PROVIDERS: ADMIT Surgery; ATTEND Surgery
PROC: 0D717ZZ Dilation of Upper Esophagus, Via Natural or Artificial Opening (ICD-10-PCS; principal; 2017-02-02)
PROC: 0DH60UZ Insertion of Feeding Device into Stomach, Open Approach (ICD-10-PCS; 2017-02-02)
PROC: 3E0G76Z Introduction of Nutritional Substance into Upper GI, Via Natural or Artificial Opening (ICD-10-PCS; 2017-02-02)
DX: K22.2 Esophageal obstruction (principal); R13.10 Dysphagia, unspecified; C32.9 Malignant neoplasm of larynx, unspecified; Z85.3 Personal history of malignant neoplasm of breast; C79.51 Secondary malignant neoplasm of bone; G89.3 Neoplasm related pain (acute) (chronic); Z95.2 Presence of prosthetic heart valve; I10 Essential (primary) hypertension; Z86.73 Personal history of transient ischemic attack (TIA), and cerebral infarction without residual deficits; Z96.641 Presence of right artificial hip joint; Z79.01 Long term (current) use of anticoagulants; Z79.82 Long term (current) use of aspirin; Z79.899 Other long term (current) drug therapy; Z87.891 Personal history of nicotine dependence
CPT/HCPCS: 00840; 36415; 36430; 71020; 71020-26; 80048; 80051; 80053; 81001; 83735; 84132; 85025; 85610; 86850; 86900; 86901; 86922; 87040; 87086; 87088; 87186; 97110-GO; 97110-GP; 97116-GP; 97162-GP; 97167-GO; 97530-GP; A9270-GY; J0295; J1170; J1650; J2060; J2250; J2405; J2704; J3010; J3480; J7030; J7050; J7120; P9016

== ENCOUNTER 2017-02-15 21:59 | Inpatient (IN) | payer BC ==
[2017-02-15] MEDS ORDERED: Sodium Chloride 0.9% 10 ML Syringe FLUSH PRN (22:35)
[2017-02-15] MEDS ORDERED: Sodium Chloride 0.9% 1,000 ML IV SCH (22:45)
[2017-02-15] MEDS ORDERED: HYDROmorphone 0.5 MG/0.5 ML Syringe IVPUSH ONE (23:01)
[2017-02-16] MEDS ORDERED: Piperacillin/Tazobactam 4.5 GM in Sodium Chloride 0.9% 100 ML IV ONE (00:13)
--- NOTE | 2017-02-16 00:14 | EDM.PDOC ---
ED HPI GENERAL MEDICAL PROBLEM - General Chief Complaint: Fever Stated Complaint: FEVER, PAIN ASSOCIATED WITH CANCER Time Seen by Provider: 02/15/17 22:22 Source of Information: Reports: Patient, Family, Old Records, RN Notes Reviewed - History of Present Illness INITIAL COMMENTS - FREE TEXT/NARRATIVE: 56-year-old female has been brought by family for evaluation of fever that first began 2 days ago. She spiked up to 102 range last evening that did improve somewhat after Tylenol and then did spike recurrent fever again this evening up into the 101-102 range. Her history is complicated in that she does have known history of metastatic breast cancer to her spineand R hip. She did have bilateral mastectomy about 2 years ago. She also does have history of throat cancer first diagnosed about 10 years ago. She was found to have recurrent throat cancer about 6 months ago treated with radiation. She also does have history of a [place] mechanical heart valve on anticoagulation. She had been developing increasing throat discomfort and difficulty swallowing leading to hospital admission about 2 weeks ago to have a feeding tube placed. With endoscopy there was inability to find a passageway into the stomach, with laparotomy gastrostomy tube was placed, tube feedings were started. She was just discharged home from the hospital about 4 days ago. She had developed a UTI while in the hospital was discharged home on oral cephalexin antibiotic. She does have occasional cough. She does have chronic neck and throat discomfort. 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 She does have a lot of continued back discomfort. Family has been giving some oral liquid Dilaud through the feeding tube for pain but having some difficulty keeping up with her level of discomfort. She's had some nausea but no recent vomiting. She denies chest pain or feeling short of breath at this time. Treatments GAMING DEPARTMENT HEAD: Reports: Other (see below) Other Treatments GAMING DEPARTMENT HEAD: Dilaudid Generalized Pain Score (Numeric/FACES): 8 - Related Data Allergies Allergy/AdvReac Type Severity Reaction Status Date / Time No Known Allergies Allergy Verified 02/15/17 23:20 Home Meds: Home Meds Levothyroxine 75 mcg PO DAILY 07/25/14 [History] ALPRAZolam [Xanax] 0.5 mg PO Q12H PRN 08/14/14 [History] Aspirin [Children's Aspirin] 81 mg PO DAILY PRN 08/14/14 [History] Warfarin [Coumadin] 2.5 mg PO SUMOWEFR 05/19/16 [History] HYDROmorphone [Dilaudid 1 MG/ML Soln] 6 mg PO Q2H PRN 01/19/17 [History] Zolpidem [Ambien] 0.5 tab PO ASDIRECTED PRN 01/19/17 [History] fentaNYL [Duragesic] 125 mcg TD Q72H 01/19/17 [History] Warfarin [Coumadin] 1.25 mg PO TUTHSA 02/02/17 [History] Cephalexin [Keflex 250 MG/5 ML Susp] 5 ml PO Q6H 02/15/17 [History] Past Medical History Cardiovascular History: Reports: Heart Valve Replacement, Hypertension, SOB on Exertion Respiratory History: Reports: Pneumothorax, SOB Other Respiratory History: Secondary to chest compressions Gastrointestinal History: Reports: Other (See Below) Other Gastrointestinal History: Feeding tube placed 13 days ago NURSE FIRST AID History: Reports: Musculoskeletal History: Reports: Osteoporosis, Other (See Below) Other Musculoskeletal History: left knee fx Psychiatric History: Reports: Anxiety, Depression Endocrine/Metabolic History: Reports: Hypothyroidism Hematologic History: Reports: Blood Transfusion(s) Oncologic (Cancer) History: Reports: Breast, Other (See Below) Other Oncologic History: throat Bones - Past Surgical History Other HEENT Surgeries/Procedures: radical neck Cardiovascular Surgical History: Reports: Valve Replacement Female Surgical History: Reports: Section, Mastectomy Endocrine Surgical History: Reports: Thyroidectomy Musculoskeletal Surgical History: Reports: Hip Replacement Oncologic Surgical History: Reports: Mastectomy, Other (See Below) Other Oncologic Surgeries/Procedures: Rad neck Social & Family History - Family History Family Medical History: Noncontributory - Tobacco Use Smoking Status *Q: Never Smoker Years of Tobacco use: 30 Used Tobacco, but Quit: Yes Month Tobacco Last Used: 05/2006 Second Hand Smoke Exposure: No - Caffeine Use Caffeine Use: Reports: None Other Caffeine Use: 1 per/day - Alcohol Use Days Per Week of Alcohol Use: 1 Number of Drinks Per Day: 2 Total Drinks Per Week: 2 - Recreational Drug Use Recreational Drug Use: No ED ROS GENERAL - Review of Systems Review Of Systems: See Below Constitutional: Reports: Fever, Chills Respiratory: Reports: Cough. Denies: Shortness of Breath, Pleuritic Chest Pain Cardiovascular: Reports: Lightheadedness. Denies: Chest Pain GI/Abdominal: Reports: Abdominal Pain (There has been some localized abdominal discomfort around the feeding tube area), Nausea. Denies: Diarrhea, Vomiting Musculoskeletal: Reports: Back Pain (Severe, chronic) Skin: Denies: Rash Neurological: Reports: Dizziness, Weakness (Generalized) ED EXAM, SEPSIS - Physical Exam Exam: See Below General Appearance: Alert, Moderate Distress Eye Exam: Bilateral Eye: PERRL Throat/Mouth: Normal Inspection Neck: Other (There is a lot of erythema inflammation and scarring of her anterior neck. There is a small fistula anterior neck with purulent drainage) Respiratory/Chest: No Respiratory Distress, Lungs Clear. No: Rales, Rhonchi, Wheezing Cardiovascular: Regular Rate, Rhythm GI/Abdominal Exam: Soft, Tender (Mild mid abdominal tenderness, feeding tube present left abdomen, no drainage at this time) Back: No: CVA Tenderness (L), CVA Tenderness (R) Extremities: No: Pedal Edema, Leg Pain, Increased Warmth, Redness Neurological: Alert, No Motor/Sensory Deficits, Other (Patient does respond to questions, communicates with her mouth, unable to verbalize) Skin: Warm, Dry, Normal Color Course - Vital Signs Last Recorded V/S: Last Vital Signs Temp 101 F H 02/15/17 22:11 Pulse 99 02/15/17 22:11 Resp 16 02/15/17 22:11 BP 138/71 02/15/17 22:11 Pulse Ox 96 02/15/17 22:11 - Orders/Labs/Meds Orders: Active Orders 24 hr Category Date Time Status Chest 1V Frontal [CR] Stat Exams 02/15/17 22:36 Taken CULTURE BLOOD [BC] Stat Lab 02/15/17 22:50 Received CULTURE BLOOD [BC] Stat Lab 02/15/17 23:10 Received CULTURE URINE [RM] Stat Lab 02/16/17 01:38 Ordered CULTURE WOUND [RM] Stat Lab 02/15/17 23:15 Received Levofloxacin/Dextrose 5%-Water [Levaquin in D5W 750 MG/ Med 02/16/17 01:20 Active 150 ML] 750 mg Premix Bag 1 bag IV ONETIME Sodium Chloride 0.9% [Normal Saline] 1,000 ml Med 02/16/17 01:30 Active IV ASDIRECTED Sodium Chloride 0.9% [Normal Saline] 1,000 ml Med 02/15/17 22:45 Active IV ONETIME Sodium Chloride 0.9% [Saline Flush] Med 02/15/17 22:35 Active 10 ml FLUSH ASDIRECTED PRN Peripheral IV Insertion Adult [OM.PC] Stat Oth 02/15/17 22:36 Ordered Medication Orders Sodium Chloride (Normal Saline) 1,000 mls @ 999 mls/hr IV ONETIME MINERVA Last Admin: 02/15/17 23:13 Dose: 999 mls/hr Levofloxacin/Dextrose 750 mg/ (Premix) 150 mls @ 100 mls/hr IV ONETIME ONE Stop: 02/16/17 02:49 Last Admin: 02/16/17 01:29 Dose: 100 mls/hr Sodium Chloride (Normal Saline) 1,000 mls @ 50 mls/hr IV ASDIRECTED MINERVA Last Admin: 02/16/17 01:29 Dose: 50 mls/hr Sodium Chloride (Saline Flush) 10 ml FLUSH ASDIRECTED PRN PRN Reason: Keep Vein Open Last Admin: 02/15/17 23:14 Dose: 10 ml Labs: Laboratory Tests 02/15/17 02/15/17 02/15/17 Range/Units 23:10 23:10 23:10 WBC 13.63 H (3.98-10.04) K/mm3 RBC 3.43 L (3.98-5.22) M/mm3 Hgb 9.9 L (11.2-15.7) gm/L Hct 30.1 L (34.1-44.9) % MCV 87.8 (79.4-94.8) fl MCH 28.9 (25.6-32.2) pg MCHC 32.9 (32.2-35.5) g/dl RDW Std Deviation 51.4 H (36.4-46.3) fL Plt Count 110 L (182-369) K/mm3 MPV 10.1 (9.4-12.3) fl Neut % (Auto) 61.1 (34.0-71.1) % Lymph % (Auto) 12.6 L (19.3-51.7) % [place] % (Auto) 9.6 (4.7-12.5) % Eos % (Auto) 1.3 (0.7-5.8) Baso % (Auto) 0.9 (0.1-1.2) % Neut # (Auto) 8.32 H (1.56-6.13) K/mm3 Lymph # (Auto) 1.72 (1.18-3.74) K/mm3 [place] # (Auto) 1.31 H (0.24-0.36) K/mm3 Eos # (Auto) 0.18 (0.04-0.36) K/mm3 Baso # (Auto) 0.12 H (0.01-0.08) K/mm3 Manual Slide Review Abnormal smear PT (8.0-13.0) SECONDS INR Sodium 137 (136-145) mEq/L Potassium 3.9 (3.5-5.1) mEq/L Chloride 97 L (98-107) mEq/L Carbon Dioxide 28 (21-32) mEq/L Anion Gap 15.9 H (5-15) BUN 18 (7-18) mg/dL Creatinine 0.7 (0.55-1.02) mg/dL Est Cr Clr Drug Dosing 62.22 mL/min Estimated GFR (MDRD) > 60 (>60) mL/min BUN/Creatinine Ratio 25.7 H (14-18) Glucose 97 (74-106) mg/dL Lactic Acid (0.4-2.0) mmol/L Calcium 10.4 H (8.5-10.1) mg/dL Total Bilirubin 0.7 (0.2-1.0) mg/dL AST 110 H (15-37) U/L ALT 54 (14-59) U/L Alkaline Phosphatase 304 H (46-116) U/L C-Reactive Protein 18.3 H* (<1.0) mg/dL Total Protein 7.4 (6.4-8.2) g/dl Albumin 2.1 L (3.4-5.0) g/dl Globulin 5.3 gm/dL Albumin/Globulin Ratio 0.4 L (1-2) Urine Color (Yellow) Urine Appearance (Clear) Urine pH (5.0-8.0) Ur Specific [place] (1.005-1.030) Urine Protein (Negative) Urine Glucose (UA) (Negative) Urine Ketones (Negative) Urine Occult Blood (Negative) Urine Nitrite (Negative) Urine Bilirubin (Negative) Urine Urobilinogen (0.2-1.0) Ur Leukocyte Esterase (Negative) Urine RBC (0-5) /hpf Urine WBC (0-5) /hpf Ur Epithelial Cells (0-5) /hpf Amorphous Sediment (NOT SEEN) /hpf Urine Bacteria (FEW) /hpf Urine Mucus (FEW) /hpf 02/15/17 02/15/17 02/16/17 Range/Units 23:10 23:10 00:23 WBC (3.98-10.04) K/mm3 RBC (3.98-5.22) M/mm3 Hgb (11.2-15.7) gm/L Hct (34.1-44.9) % MCV (79.4-94.8) fl MCH (25.6-32.2) pg MCHC (32.2-35.5) g/dl RDW Std Deviation (36.4-46.3) fL Plt Count (182-369) K/mm3 MPV (9.4-12.3) fl Neut % (Auto) (34.0-71.1) % Lymph % (Auto) (19.3-51.7) % [place] % (Auto) (4.7-12.5) % Eos % (Auto) (0.7-5.8) Baso % (Auto) (0.1-1.2) % Neut # (Auto) (1.56-6.13) K/mm3 Lymph # (Auto) (1.18-3.74) K/mm3 [place] # (Auto) (0.24-0.36) K/mm3 Eos # (Auto) (0.04-0.36) K/mm3 Baso # (Auto) (0.01-0.08) K/mm3 Manual Slide Review PT 12.6 (8.0-13.0) SECONDS INR 1.15 Sodium (136-145) mEq/L Potassium (3.5-5.1) mEq/L Chloride (98-107) mEq/L Carbon Dioxide (21-32) mEq/L Anion Gap (5-15) BUN (7-18) mg/dL Creatinine (0.55-1.02) mg/dL Est Cr Clr Drug Dosing mL/min Estimated GFR (MDRD) (>60) mL/min BUN/Creatinine Ratio (14-18) Glucose (74-106) mg/dL Lactic Acid 2.4 H (0.4-2.0) mmol/L Calcium (8.5-10.1) mg/dL Total Bilirubin (0.2-1.0) mg/dL AST (15-37) U/L ALT (14-59) U/L Alkaline Phosphatase (46-116) U/L C-Reactive Protein (<1.0) mg/dL Total Protein (6.4-8.2) g/dl Albumin (3.4-5.0) g/dl Globulin gm/dL Albumin/Globulin Ratio (1-2) Urine Color Yellow (Yellow) Urine Appearance Clear (Clear) Urine pH 7.0 (5.0-8.0) Ur Specific [place] 1.020 (1.005-1.030) Urine Protein 1+ H (Negative) Urine Glucose (UA) Negative (Negative) Urine Ketones Negative (Negative) Urine Occult Blood Negative (Negative) Urine Nitrite Negative (Negative) Urine Bilirubin Negative (Negative) Urine Urobilinogen 2.0 H (0.2-1.0) Ur Leukocyte Esterase 1+ H (Negative) Urine RBC 0-5 (0-5) /hpf Urine WBC 5-10 H (0-5) /hpf Ur Epithelial Cells 0-5 (0-5) /hpf Amorphous Sediment Moderate H (NOT SEEN) /hpf Urine Bacteria Few (FEW) /hpf Urine Mucus Not seen (FEW) /hpf Meds: Medications Generic Name Dose Route Start Last Admin Trade Name Freq PRN Reason Stop Dose Admin Sodium Chloride 1,000 mls @ 999 mls/hr 02/15/17 22:45 02/15/17 23:13 Normal Saline IV 999 mls/hr ONETIME MINERVA Administration Levofloxacin/Dextrose 750 mg/ 150 mls @ 100 mls/hr 02/16/17 01:20 02/16/17 01 :29 Premix IV 02/16/17 02:49 100 mls/hr ONETIME ONE Administration Sodium Chloride 1,000 mls @ 50 mls/hr 02/16/17 01:30 02/16/17 01:29 Normal Saline IV 50 mls/hr ASDIRECTED MINERVA Administration Sodium Chloride 10 ml 02/15/17 22:35 02/15/17 23:14 Saline Flush FLUSH 10 ml ASDIRECTED PRN Administration Keep Vein Open Discontinued Medications Generic Name Dose Route Start Last Admin Trade Name Sandi PRN Reason Stop Dose Admin Hydromorphone HCl 0.5 mg 02/15/17 23:01 02/15/17 23:15 Dilaudid IVPUSH 02/15/17 23:02 0.5 mg ONETIME ONE Administration Hydromorphone HCl 0.5 mg 02/16/17 00:29 02/16/17 00:35 Dilaudid IVPUSH 02/16/17 00:30 0.5 mg ONETIME ONE Administration Hydromorphone HCl 0.5 mg 02/16/17 01:31 02/16/17 01:34 Dilaudid IVPUSH 02/16/17 01:32 0.5 mg ONETIME ONE Administration Piperacillin Sod/Tazobactam 100 mls @ 200 mls/hr 02/16/17 00:13 02/16/17 00: 25 Sod 4.5 gm/ Sodium Chloride IV 02/16/17 00:42 200 mls/hr ONETIME ONE Administration - Re-Assessments/Exams Free Text/Narrative Re-Assessment/Exam: 02/16/17 00:05. I was notified that patient did meet criteria for septic alert based on fever, recent surgical procedure. Blood cultures 2 were obtained with initial labwork. Lactic acid has come back at 2.4. She has received a 1 L normal saline bolus. UA still pending at this time. She has been hydrated we are going to go ahead and do a catheter urine. Zosyn 4.5 g has been ordered to get an initial antibiotic going. I do not see obvious infiltrate on her chest x- ray. We have given Dilaudid IV for pain and that did give her good relief initially although now her pain is coming back. Will continue to titrate IV dilaudid for pain. 02/16/17 00:33. Cath Ua does show evidence for continued UTI, will add IV Levaquin. Departure - Departure Time of Disposition: 00:45 Disposition: Admitted As Inpatient 65 Clinical Impression: Metastatic breast cancer Sepsis Qualifiers: Sepsis type: sepsis due to unspecified organism Qualified Code(s): A41.9 - Sepsis, unspecified organism UTI (urinary tract infection) Qualifiers: Urinary tract infection type: site unspecified Hematuria presence: without hematuria Qualified Code(s): N39.0 - Urinary tract infection, site not specified - Discharge Information ED Communication - Discussed Case With (1) Discussed Case With (1): Admitting Provider (Dr Diaz, decision to admit at about 00:45.) - My Orders Last 24 Hours: My Active Orders 02/15/17 22:35 Sodium Chloride 0.9% [Saline Flush] 10 ml FLUSH ASDIRECTED PRN 02/15/17 22:36 Chest 1V Frontal [CR] Stat Peripheral IV Insertion Adult [OM.PC] Stat 02/15/17 22:45 Sodium Chloride 0.9% [Normal Saline] 1,000 ml IV ONETIME 02/15/17 22:50 CULTURE BLOOD [BC] Stat 02/15/17 23:10 CULTURE BLOOD [BC] Stat 02/15/17 23:15 CULTURE WOUND [RM] Stat 02/16/17 01:20 Levofloxacin/Dextrose 5%-Water [Levaquin in D5W 750 MG/150 ML] 750 mg Premix Bag 1 bag IV ONETIME 02/16/17 01:30 Sodium Chloride 0.9% [Normal Saline] 1,000 ml IV ASDIRECTED 02/16/17 01:38 CULTURE URINE [RM] Stat - Assessment/Plan Last 24 Hours: My Active Orders 02/15/17 22:35 Sodium Chloride 0.9% [Saline Flush] 10 ml FLUSH ASDIRECTED PRN 02/15/17 22:36 Chest 1V Frontal [CR] Stat Peripheral IV Insertion Adult [OM.PC] Stat 02/15/17 22:45 Sodium Chloride 0.9% [Normal Saline] 1,000 ml IV ONETIME 02/15/17 22:50 CULTURE BLOOD [BC] Stat 02/15/17 23:10 CULTURE BLOOD [BC] Stat 02/15/17 23:15 CULTURE WOUND [RM] Stat 02/16/17 01:20 Levofloxacin/Dextrose 5%-Water [Levaquin in D5W 750 MG/150 ML] 750 mg Premix Bag 1 bag IV ONETIME 02/16/17 01:30 Sodium Chloride 0.9% [Normal Saline] 1,000 ml IV ASDIRECTED 02/16/17 01:38 CULTURE URINE [RM] Stat
[2017-02-16] MEDS ORDERED: HYDROmorphone 0.5 MG/0.5 ML Syringe IVPUSH ONE ×2 (00:29→01:31)
[2017-02-16] MEDS ORDERED: Levofloxacin/Dextrose 5%-Water 750 MG in Premix Bag 1 BAG IV ONE (01:20)
[2017-02-16] MEDS: Sodium Chloride 0.9% 1,000 ML IV SCH ×2 (01:29→22:50)
[2017-02-16] MEDS ORDERED: Ondansetron 4 MG/2 ML SDV IVPUSH PRN (02:51)
[2017-02-16] MEDS ORDERED: traZODone 50 MG Tab GTUBE ONE (03:00)
[2017-02-16] MEDS: HYDROmorphone 0.5 MG/0.5 ML Syringe IVPUSH PRN ×6 (03:02→15:45)
[2017-02-16] MEDS ORDERED: Temazepam 15 MG Cap PO ONE (03:25)
--- NOTE | 2017-02-16 07:06 | CR ---
Chest: Frontal view of the chest was obtained. Comparison: Previous chest x-ray of 02/08/17. Heart size is normal. Mild tortuosity of the thoracic aorta is seen. Surgical clips are seen within the left axillary region. Previous vertebroplasty is noted within the upper lumbar spine. Lungs are clear with no acute infiltrates. Central lung markings are slightly increased which appear to be chronic. Impression: 1. Stable findings as described above. Nothing acute is appreciated. Diagnostic code #2
[2017-02-16] MEDS ORDERED: Zolpidem 10 MG Tab PO PRN (09:25)
[2017-02-16] MEDS ORDERED: Aspirin 81 MG Tab.Chew PO PRN (09:25)
[2017-02-16] MEDS ORDERED: Piperacillin/Tazobactam 4.5 GM in Sodium Chloride 0.9% 100 ML IV SCH (09:30)
[2017-02-16] MEDS: fentaNYL 100 MCG/HR Transdermal Patch TRDERM SCH (10:18)
[2017-02-16] MEDS: fentaNYL 25 MCG/HR Transdermal Patch TRDERM SCH (10:19)
[2017-02-16] MEDS: Piperacillin/Tazobactam 4.5 GM in Sodium Chloride 0.9% 100 ML IV SCH ×2 (11:16→20:51)
--- NOTE | 2017-02-16 12:21 | PCM.HP ---
H&P History of Present Illness - General Date of Service: 02/16/17 Admit Problem/Dx: Admission Diagnosis/Problem Admission Diagnosis/Problem Sepsis Source of Information: Patient, Provider History Limitations: Reports: No Limitations - History of Present Illness Initial Comments - Free Text/Narative: 56 year old male with a recent hospitalization, the patient has a history of a necrotic tumor mass. A gastrotomy tube was placed, a 10 day hospitalization occurred. Drainage was noted on presentation to the ED of purulent material from the fistula located in her anterior neck region. She was discharged on Keflex, the family had frequent contact with the hospital staff on how to care for her feeding tube. It is reported by her family that she was febrile, and did not respond to antipyretic therapy. In the ED, she has received Levoquin, and Zosyn; cultures are pending. The code status has been changed to DNR/DNI. Onset of Symptoms: Reports: Gradual Symptom Onset Date: 02/13/17 Duration of Symptoms: Reports: Day(s):, Getting Worse Location: Reports: Other (febrile) Improves with: Reports: Medication Worsens with: Reports: None Associated Symptoms: Reports: Cough, Fever/Chills, Loss of Appetite, Weakness Generalized Pain Score (Numeric/FACES): 8 - Related Data Allergies/Adverse Reactions: Allergies Allergy/AdvReac Type Severity Reaction Status Date / Time No Known Allergies Allergy Verified 02/15/17 23:20 Home Medications: Home Meds Levothyroxine 75 mcg PO DAILY 07/25/14 [History] ALPRAZolam [Xanax] 0.5 mg PO Q12H PRN 08/14/14 [History] Aspirin [Children's Aspirin] 81 mg PO DAILY PRN 08/14/14 [History] Warfarin [Coumadin] 2.5 mg PO SUMOWEFR 05/19/16 [History] HYDROmorphone [Dilaudid 1 MG/ML Soln] 6 mg PO Q2H PRN 01/19/17 [History] Zolpidem [Ambien] 0.5 tab PO ASDIRECTED PRN 01/19/17 [History] fentaNYL [Duragesic] 125 mcg TD Q72H 01/19/17 [History] Warfarin [Coumadin] 1.25 mg PO TUTHSA 02/02/17 [History] Cephalexin [Keflex 250 MG/5 ML Susp] 5 ml PO Q6H 02/15/17 [History] Past Medical History Cardiovascular History: Reports: Heart Valve Replacement, Hypertension, SOB on Exertion Respiratory History: Reports: Pneumothorax, SOB Other Respiratory History: Secondary to chest compressions Gastrointestinal History: Reports: Other (See Below) Other Gastrointestinal History: Feeding tube placed 13 days ago [employer]MENT [employer]ING [employer]IAN History: Reports: Musculoskeletal History: Reports: Osteoporosis, Other (See Below) Other Musculoskeletal History: left knee fx Psychiatric History: Reports: Anxiety, Depression Endocrine/Metabolic History: Reports: Hypothyroidism Hematologic History: Reports: Blood Transfusion(s) Oncologic (Cancer) History: Reports: Breast, Other (See Below) Other Oncologic History: throat Bones - Past Surgical History Other HEENT Surgeries/Procedures: radical neck Cardiovascular Surgical History: Reports: Valve Replacement Female Surgical History: Reports: Section, Mastectomy Endocrine Surgical History: Reports: Thyroidectomy Musculoskeletal Surgical History: Reports: Hip Replacement Oncologic Surgical History: Reports: Mastectomy, Other (See Below) Other Oncologic Surgeries/Procedures: Rad neck Social & Family History - Family History Family Medical History: Noncontributory - Tobacco Use Smoking Status *Q: Never Smoker Years of Tobacco use: 30 Used Tobacco, but Quit: Yes Month Tobacco Last Used: 05/2006 Second Hand Smoke Exposure: No - Caffeine Use Caffeine Use: Reports: None Other Caffeine Use: 1 per/day - Alcohol Use Days Per Week of Alcohol Use: 1 Number of Drinks Per Day: 2 Total Drinks Per Week: 2 - Recreational Drug Use Recreational Drug Use: No H&P Review of Systems - Review of Systems: Review Of Systems: See Below General: Reports: Malaise, Weakness, Fatigue HEENT: Reports: No Symptoms Pulmonary: Reports: No Symptoms Cardiovascular: Reports: Lightheadedness Gastrointestinal: Reports: Abdominal Pain, Nausea Musculoskeletal: Reports: Neck Pain Skin: Reports: No Symptoms Psychiatric: Reports: No Symptoms Neurological: Reports: No Symptoms Hematologic/Lymphatic: Reports: No Symptoms Immunologic: Reports: No Symptoms Exam - Exam Exam: See Below - Vital Signs Vital Signs: Last Vital Signs Temp 36.7 C 02/16/17 07:21 Pulse 79 02/16/17 07:21 Resp 19 02/16/17 07:21 BP 106/71 02/16/17 07:21 Pulse Ox 95 02/16/17 07:21 Weight: 44.815 kg - Exam Quality Assessment: DVT Prophylaxis General: Alert, Oriented HEENT: EOMI, Nares Patent, Normal Nasal Septum, Pupils Equal, Pupils Reactive Neck: Supple, Trachea Midline Lungs: Clear to Auscultation Cardiovascular: Regular Rate, Regular Rhythm GI/Abdominal Exam: Normal Bowel Sounds, Soft, Non-Tender, No Organomegaly, No Distention (Female) Exam: Deferred Rectal (Female) Exam: Deferred Back Exam: Normal Inspection Extremities: Normal Inspection Skin: Warm, Dry, Other (no current drainage from fistula) Neurological: Cranial Nerves Intact Neuro Extensive - Mental Status: Alert, Oriented x3 Neuro Extensive - Motor, Sensory, Reflexes: CN II-XII Intact Psychiatric: Alert, Normal Affect, Normal Mood - Patient Data Result Diagrams: 02/16/17 15:00 02/15/17 23:10 *Q Meaningful Use (ADM) - VTE *Q VTE Criteria *Q: - Stroke *Q Stroke Criteria *Q: - AMI *Q AMI Criteria *Q: - Problem List (1) Metastatic breast cancer SNOMED Code(s): 700624170 ICD Code: C50.919 - MALIGNANT NEOPLASM OF UNSP SITE OF UNSPECIFIED FEMALE BREAST Status: Acute Current Visit: Yes (2) Hypothyroid SNOMED Code(s): 87356643 ICD Code: E03.9 - HYPOTHYROIDISM, UNSPECIFIED Status: Acute Current Visit : Yes (3) Neck irradiation SNOMED Code(s): 034153494 ICD Code: BTL7953 - Status: Acute Current Visit: Yes (4) Metastatic breast cancer SNOMED Code(s): 446808783 ICD Code: C50.919 - MALIGNANT NEOPLASM OF UNSP SITE OF UNSPECIFIED FEMALE BREAST Status: Acute Current Visit: Yes (5) UTI (urinary tract infection) SNOMED Code(s): 08614258 ICD Code: N39.0 - URINARY TRACT INFECTION, SITE NOT SPECIFIED Status: Acute Current Visit: Yes Qualifiers: Urinary tract infection type: site unspecified Hematuria presence: without hematuria Qualified Code(s): N39.0 - Urinary tract infection, site not specified (6) Anxiety SNOMED Code(s): 82543876 ICD Code: F41.9 - ANXIETY DISORDER, UNSPECIFIED Status: Acute Current Visit: No (7) Volume depletion SNOMED Code(s): 06521314 ICD Code: E86.9 - VOLUME DEPLETION, UNSPECIFIED Status: Acute Current Visit: No Problem List Initiated/Reviewed/Updated: Yes Orders Last 24hrs: Active Orders 24 hr Category Date Time Status Patient Status [ADT] Routine ADT 02/16/17 01:39 Active Up With Assistance [RC] ASDIRECTED Care 02/16/17 02:50 Active Consult to Floor And Wall Applier Liquid [CONS] Routine Cons 02/16/17 09:36 Active Tube Feeding Adult Diet [DIET] Diet 02/16/17 Breakfast Active CBC WITH AUTO DIFF [HEME] Routine Lab 02/16/17 13:00 Ordered CRP [C-REACTIVE PROTEIN] [CHEM] Routine Lab 02/16/17 13:00 Ordered LACTIC ACID [CHEM] Routine Lab 02/16/17 13:00 Ordered MG [MAGNESIUM] [CHEM] Routine Lab 02/16/17 13:00 Ordered VANCOMYCIN TROUGH [CHEM] Timed Lab 02/18/17 10:00 Ordered ALPRAZolam [Xanax] Med 02/16/17 09:25 Active 0.5 mg PO Q12H PRN Acetaminophen [Tylenol Solution] Med 02/16/17 09:32 Active 650 mg PO Q6H PRN Aspirin Med 02/16/17 09:25 Active 81 mg PO DAILY PRN HYDROmorphone [Dilaudid] Med 02/16/17 02:43 Active 0.5 mg IVPUSH Q1H PRN HYDROmorphone [Dilaudid] Med 02/16/17 09:25 Active 6 mg PO Q2H PRN Levothyroxine Med 02/17/17 09:00 Active 75 mcg PO DAILY Ondansetron [Zofran] Med 02/16/17 02:51 Active 4 mg IVPUSH Q8H PRN Piperacillin/Tazobactam [Zosyn] 4.5 gm Med 02/16/17 11:00 Active Sodium Chloride 0.9% [Normal Saline] 100 ml IV Q8H Remove Patch Med 02/19/17 09:30 Active 0 ea TRDERM Q72H Vancomycin Pharmacy to Dose [Pharmacy to Dose - Med 02/16/17 09:30 Active Vancomycin] 1 dose .XX ASDIRECTED Vancomycin [Vancocin] 1 gm Med 02/16/17 10:30 Active Sodium Chloride 0.9% [Normal Saline] 250 ml IV Q24H Zolpidem [Ambien] Med 02/16/17 09:25 Active 5 mg PO BEDTIME PRN fentaNYL [Duragesic] Med 02/16/17 09:30 Active 100 mcg TRDERM Q72H fentaNYL [Duragesic] Med 02/16/17 09:30 Active 25 mcg TRDERM Q72H Code Status [Resuscitation Status] Routine Resus Stat 02/16/17 02:45 Ordered Medication Orders Acetaminophen (Tylenol Solution) 650 mg PO Q6H PRN PRN Reason: Fever Alprazolam (Xanax) 0.5 mg PO Q12H PRN PRN Reason: Anxiety Aspirin (Aspirin) 81 mg PO DAILY PRN PRN Reason: Headache Fentanyl (Duragesic) 100 mcg TRDERM Q72H [facility] Last Admin: 02/16/17 10:18 Dose: 100 mcg Fentanyl (Duragesic) 25 mcg TRDERM Q72H [facility] Last Admin: 02/16/17 10:19 Dose: 25 mcg Hydromorphone HCl (Dilaudid) 0.5 mg IVPUSH Q1H PRN PRN Reason: Pain Last Admin: 02/16/17 09:52 Dose: 0.5 mg Admin: 02/16/17 08:14 Dose: 0.5 mg Admin: 02/16/17 06:50 Dose: 0.5 mg Admin: 02/16/17 05:03 Dose: 0.5 mg Admin: 02/16/17 03:02 Dose: 0.5 mg Hydromorphone HCl (Dilaudid) 6 mg PO Q2H PRN PRN Reason: Breakthrough Pain Sodium Chloride (Normal Saline) 1,000 mls @ 50 mls/hr IV ASDIRECTED [facility] Last Admin: 02/16/17 01:29 Dose: 50 mls/hr Vancomycin HCl 1 gm/ Sodium (Chloride) 250 mls @ 250 mls/hr IV Q24H [facility] Last Admin: 02/16/17 09:56 Dose: 250 mls/hr Piperacillin Sod/Tazobactam (Sod 4.5 gm/ Sodium Chloride) 100 mls @ 25 mls/hr IV Q8H [facility] Last Admin: 02/16/17 11:16 Dose: 25 mls/hr Levothyroxine Sodium (Levothyroxine) 75 mcg PO DAILY [facility] Miscellaneous Information (Remove Patch) 0 ea TRDERM Q72H [facility] Ondansetron HCl (Zofran) 4 mg IVPUSH Q8H PRN PRN Reason: Nausea Sodium Chloride (Saline Flush) 10 ml FLUSH ASDIRECTED PRN PRN Reason: Keep Vein Open Last Admin: 02/15/17 23:14 Dose: 10 ml Vancomycin HCl (Pharmacy To Dose - Vancomycin) 1 dose .XX ASDIRECTED [facility] Zolpidem Tartrate (Ambien) 5 mg PO BEDTIME PRN PRN Reason: Sleep Assessment/Plan Comment:: Impression: History of metastatic breast cancer Soft tissue infection, recent prolong hospitalization s/p gastrostomy tube Necrotic tumor mass, documented fistula; S/P radiation History of mechanical valve on coumadin Plan: BC, pending Continue IV ATB, will start Vancomycin Adjust pain meds, would benefit from a long acting narcotic; requires a extraordinary amount of short acting narcotic. Keep INR therapeutic Code status changed to DNR/DNI DVT/GI prophylaxis
[2017-02-16] MEDS ORDERED: Acetaminophen 325 MG Tab PO PRN (12:33)
[2017-02-16] MEDS: Acetaminophen Soln 650 MG/20.3 ML UD Cup PO PRN ×2 (13:14→22:51)
[2017-02-16] MEDS: HYDROmorphone 2 MG Tab PO PRN ×2 (13:15→17:15)
[2017-02-16] MEDS: ALPRAZolam 0.5 MG Tab PO PRN (22:51)
[2017-02-17] MEDS: Piperacillin/Tazobactam 4.5 GM in Sodium Chloride 0.9% 100 ML IV SCH ×3 (04:03→18:01)
[2017-02-17] MEDS: HYDROmorphone 0.5 MG/0.5 ML Syringe IVPUSH PRN ×4 (04:28→16:03)
[2017-02-17] MEDS: Acetaminophen Soln 650 MG/20.3 ML UD Cup PO PRN (08:26)
[2017-02-17] MEDS: Levothyroxine 75 MCG Tab PO SCH (08:27)
[2017-02-17] MEDS: Sennosides 8.6 MG Tab PO SCH (08:27)
[2017-02-17] MEDS ORDERED: Magnesium Sulfate/Water 2 GM in Premix Bag 1 BAG IV ONE (10:00)
--- NOTE | 2017-02-17 11:52 | PCM.PN ---
- General Info Date of Service: 02/17/17 Functional Status: Reports: Pain Controlled, Tolerating Diet (decreased TF to q8H) - Review of Systems General: Reports: No Symptoms HEENT: Reports: No Symptoms Pulmonary: Reports: No Symptoms Cardiovascular: Reports: No Symptoms Gastrointestinal: Reports: No Symptoms Genitourinary: Reports: No Symptoms Musculoskeletal: Reports: No Symptoms Skin: Reports: No Symptoms Neurological: Reports: No Symptoms Psychiatric: Reports: No Symptoms - Patient Data Vitals - Most Recent: Last Vital Signs Temp 36.7 C 02/17/17 09:52 Pulse 90 02/17/17 08:14 Resp 18 02/17/17 08:14 BP 117/52 L 02/17/17 08:14 Pulse Ox 93 L 02/17/17 08:14 Weight - Most Recent: 45.087 kg I&O - Last 24 Hours: Intake & Output 02/16/17 02/17/17 02/17/17 22:59 06:59 14:59 Intake Total 2235 Output Total 700 950 Balance -700 1285 Lab Results Last 24 Hours: Laboratory Results - last 24 hr 02/16/17 02/16/17 02/16/17 Range/Units 15:00 15:00 15:00 WBC 13.38 H (3.98-10.04) K/mm3 RBC 3.13 L (3.98-5.22) M/mm3 Hgb 9.0 L (11.2-15.7) gm/L Hct 27.5 L (34.1-44.9) % MCV 87.9 (79.4-94.8) fl MCH 28.8 (25.6-32.2) pg MCHC 32.7 (32.2-35.5) g/dl RDW Std Deviation 50.4 H (36.4-46.3) fL Plt Count 102 L (182-369) K/mm3 MPV 10.4 (9.4-12.3) fl Neut % (Auto) 63.8 (34.0-71.1) % Lymph % (Auto) 7.5 L (19.3-51.7) % [place] % (Auto) 11.2 (4.7-12.5) % Eos % (Auto) 1.5 (0.7-5.8) Baso % (Auto) 0.6 (0.1-1.2) % Neut # (Auto) 8.54 H (1.56-6.13) K/mm3 Lymph # (Auto) 1.00 L (1.18-3.74) K/mm3 [place] # (Auto) 1.50 H (0.24-0.36) K/mm3 Eos # (Auto) 0.20 (0.04-0.36) K/mm3 Baso # (Auto) 0.08 (0.01-0.08) K/mm3 Manual Slide Review Abnormal smear Lactic Acid 2.6 H (0.4-2.0) mmol/L Magnesium 1.8 (1.8-2.4) mg/dl C-Reactive Protein 16.3 H* (<1.0) mg/dL Med Orders - Current: Current Medications Acetaminophen (Tylenol Solution) 650 mg PO Q6H PRN PRN Reason: Fever Acetaminophen (Tylenol) 650 mg PO Q4H PRN PRN Reason: Headache/Pain Last Admin: 02/17/17 08:26 Dose: 650 mg Alprazolam (Xanax) 0.5 mg PO Q12H PRN PRN Reason: Anxiety Last Admin: 02/16/17 22:51 Dose: 0.5 mg Aspirin (Aspirin) 81 mg PO DAILY PRN PRN Reason: Headache Fentanyl (Duragesic) 100 mcg TRDERM Q72H [facility] Last Admin: 02/16/17 10:18 Dose: 100 mcg Fentanyl (Duragesic) 25 mcg TRDERM Q72H [facility] Last Admin: 02/16/17 10:19 Dose: 25 mcg Hydromorphone HCl (Dilaudid) 0.5 mg IVPUSH Q1H PRN PRN Reason: Pain Last Admin: 02/17/17 08:38 Dose: 0.5 mg Hydromorphone HCl (Dilaudid) 6 mg PO Q2H PRN PRN Reason: Breakthrough Pain Last Admin: 02/16/17 17:15 Dose: 4 mg Sodium Chloride (Normal Saline) 1,000 mls @ 50 mls/hr IV ASDIRECTED [facility] Last Admin: 02/16/17 22:50 Dose: 50 mls/hr Vancomycin HCl 1 gm/ Sodium (Chloride) 250 mls @ 250 mls/hr IV Q24H [facility] Last Admin: 02/17/17 09:47 Dose: 250 mls/hr Piperacillin Sod/Tazobactam (Sod 4.5 gm/ Sodium Chloride) 100 mls @ 25 mls/hr IV Q8H [facility] Last Admin: 02/17/17 04:03 Dose: 25 mls/hr Magnesium Sulfate 2 gm/ Premix 50 mls @ 25 mls/hr IV ONETIME ONE Stop: 02/17/17 11:59 Last Admin: 02/17/17 10:47 Dose: 25 mls/hr Levothyroxine Sodium (Levothyroxine) 75 mcg PO DAILY [facility] Last Admin: 02/17/17 08:27 Dose: 75 mcg Miscellaneous Information (Remove Patch) 0 ea TRDERM Q72H [facility] Ondansetron HCl (Zofran) 4 mg IVPUSH Q8H PRN PRN Reason: Nausea Last Admin: 02/17/17 09:49 Dose: 4 mg Senna (Senna) 8.6 mg PO DAILY [facility] Last Admin: 02/17/17 08:27 Dose: 8.6 mg Sodium Chloride (Saline Flush) 10 ml FLUSH ASDIRECTED PRN PRN Reason: Keep Vein Open Last Admin: 02/15/17 23:14 Dose: 10 ml Vancomycin HCl (Pharmacy To Dose - Vancomycin) 1 dose .XX ASDIRECTED [facility] Zolpidem Tartrate (Ambien) 5 mg PO BEDTIME PRN PRN Reason: Sleep Discontinued Medications Acetaminophen (Tylenol) 650 mg PO Q4H PRN PRN Reason: Headache/Pain Hydromorphone HCl (Dilaudid) 0.5 mg IVPUSH ONETIME ONE Stop: 02/15/17 23:02 Last Admin: 02/15/17 23:15 Dose: 0.5 mg Hydromorphone HCl (Dilaudid) 0.5 mg IVPUSH ONETIME ONE Stop: 02/16/17 00:30 Last Admin: 02/16/17 00:35 Dose: 0.5 mg Hydromorphone HCl (Dilaudid) 0.5 mg IVPUSH ONETIME ONE Stop: 02/16/17 01:32 Last Admin: 02/16/17 01:34 Dose: 0.5 mg Sodium Chloride (Normal Saline) 1,000 mls @ 999 mls/hr IV ONETIME [facility] Last Admin: 02/15/17 23:13 Dose: 999 mls/hr Piperacillin Sod/Tazobactam (Sod 4.5 gm/ Sodium Chloride) 100 mls @ 200 mls/hr IV ONETIME ONE Stop: 02/16/17 00:42 Last Admin: 02/16/17 00:25 Dose: 200 mls/hr Levofloxacin/Dextrose 750 mg/ (Premix) 150 mls @ 100 mls/hr IV ONETIME ONE Stop: 02/16/17 02:49 Last Admin: 02/16/17 01:29 Dose: 100 mls/hr Piperacillin Sod/Tazobactam (Sod 4.5 gm/ Sodium Chloride) 100 mls @ 25 mls/hr IV Q8H [facility] Last Admin: 02/16/17 20:05 Dose: Not Given Temazepam (Restoril) 15 mg PO ONETIME ONE Stop: 02/16/17 03:26 Last Admin: 02/16/17 03:45 Dose: 15 mg Trazodone HCl (Trazodone) 50 mg GTUBE ONETIME ONE Stop: 02/16/17 03:01 Last Admin: 02/16/17 03:36 Dose: Not Given Zolpidem Tartrate (Ambien) 5 mg PO BEDTIME PRN PRN Reason: Sleep Last Admin: 02/16/17 20:50 Dose: 5 mg - Exam Quality Assessment: DVT Prophylaxis General: Alert, Oriented, Cooperative, No Acute Distress HEENT: Pupils Equal, Pupils Reactive, EOMI Neck: Supple, Trachea Midline Lungs: Normal Respiratory Effort Cardiovascular: Regular Rate, Regular Rhythm GI/Abdominal Exam: Normal Bowel Sounds, Soft, Non-Tender, No Organomegaly, No Distention (Female) Exam: Deferred Back Exam: Normal Inspection Extremities: Normal Inspection Skin: Warm Neurological: No New Focal Deficit Psy/Mental Status: Alert, Normal Affect, Normal Mood - Problem List & Annotations (1) Metastatic breast cancer SNOMED Code(s): 588243009 Code(s): C50.919 - MALIGNANT NEOPLASM OF UNSP SITE OF UNSPECIFIED FEMALE BREAST Status: Acute Current Visit: Yes (2) Hypothyroid SNOMED Code(s): 13067812 Code(s): E03.9 - HYPOTHYROIDISM, UNSPECIFIED Status: Acute Current Visit : Yes (3) Neck irradiation SNOMED Code(s): 050993067 Code(s): DNA8903 - Status: Acute Current Visit: Yes (4) Metastatic breast cancer SNOMED Code(s): 076330535 Code(s): C50.919 - MALIGNANT NEOPLASM OF UNSP SITE OF UNSPECIFIED FEMALE BREAST Status: Acute Current Visit: Yes (5) UTI (urinary tract infection) SNOMED Code(s): 15041048 Code(s): N39.0 - URINARY TRACT INFECTION, SITE NOT SPECIFIED Status: Acute Current Visit: Yes Qualifiers: Urinary tract infection type: site unspecified Hematuria presence: without hematuria Qualified Code(s): N39.0 - Urinary tract infection, site not specified (6) Anxiety SNOMED Code(s): 58535673 Code(s): F41.9 - ANXIETY DISORDER, UNSPECIFIED Status: Acute Current Visit: No (7) Volume depletion SNOMED Code(s): 04827739 Code(s): E86.9 - VOLUME DEPLETION, UNSPECIFIED Status: Acute Current Visit: No - Problem List Review Problem List Initiated/Reviewed/Updated: Yes - My Orders Last 24 Hours: My Active Orders 02/16/17 11:00 Piperacillin/Tazobactam [Zosyn] 4.5 gm Sodium Chloride 0.9% [Normal Saline] 100 ml IV Q8H 02/16/17 12:34 Consult to Spiritual Care [CONS] Routine 02/16/17 12:46 Acetaminophen [Tylenol] 650 mg PO Q4H PRN 02/16/17 13:23 PT Evaluation and Treatment [CONS] Routine 02/17/17 09:00 Levothyroxine 75 mcg PO DAILY Sennosides [Senna] 8.6 mg PO DAILY 02/17/17 09:59 Zolpidem [Ambien] 5 mg PO BEDTIME PRN 02/17/17 10:00 Magnesium Sulfate/Water [Magnesium Sulfate 2 GM in Water 50 ML] 2 gm Premix Bag 1 bag IV ONETIME 02/17/17 11:48 Patient Status [ADT] Routine 02/18/17 10:00 VANCOMYCIN TROUGH [CHEM] Timed 02/19/17 09:30 Remove Patch 0 ea TRDERM Q72H - Plan Plan:: Impression: History of metastatic breast cancer Soft tissue infection, recent prolong hospitalization s/p gastrostomy tube Necrotic tumor mass, documented fistula; S/P radiation; wound Cx pending History of mechanical valve on coumadin AUTI, Ur Cx pending. Plan: Continue IV ATB, will start Vancomycin Adjust ATB after sensitivity Decrease TF Q 8H Flavored ice chips Code status changed to hospice Adjust pain meds, would benefit from a long acting narcotic; requires a extraordinary amount of short acting narcotic. Keep INR therapeutic Code status changed to DNR/DNI DVT/GI prophylaxis
[2017-02-17] MEDS: Sodium Chloride 0.9% 1,000 ML IV SCH (17:32)
[2017-02-17] MEDS ORDERED: Warfarin 2.5 MG Tab PO SCH (18:00)
[2017-02-17] MEDS: ALPRAZolam 0.5 MG Tab PO PRN (18:01)
[2017-02-17] MEDS: Acetaminophen Susp 325 MG/10.15 ML UD Cup PO PRN (18:39)
[2017-02-17] MEDS: Zolpidem 5 MG Tab PO PRN (21:56)
[2017-02-18] MEDS: HYDROmorphone 0.5 MG/0.5 ML Syringe IVPUSH PRN ×5 (00:27→23:07)
[2017-02-18] MEDS: Piperacillin/Tazobactam 4.5 GM in Sodium Chloride 0.9% 100 ML IV SCH ×2 (03:01→12:19)
[2017-02-18] MEDS: Acetaminophen Soln 650 MG/20.3 ML UD Cup PO PRN (04:45)
[2017-02-18] MEDS: Levothyroxine 75 MCG Tab PO SCH (08:06)
[2017-02-18] MEDS: Sennosides 8.6 MG Tab PO SCH (08:06)
[2017-02-18] MEDS: Acetaminophen Susp 325 MG/10.15 ML UD Cup PO PRN (12:00)
[2017-02-18] MEDS ORDERED: Piperacillin/Tazobactam 4.5 GM in Sodium Chloride 0.9% 100 ML IV SCH (13:00)
[2017-02-18] MEDS: Potassium Chloride 10% 20 MEQ/15 ML Soln 30 ML UD Cup PEGTUBE SCH ×2 (13:51→23:10)
[2017-02-18] MEDS ORDERED: Sodium Chloride 0.9% 250 ML IV SCH (15:00)
[2017-02-18] MEDS: ALPRAZolam 0.5 MG Tab PO PRN (15:54)
--- NOTE | 2017-02-18 17:17 | PCM.PN ---
- General Info Date of Service: 02/18/17 Functional Status: Reports: Pain Controlled, Tolerating Diet - Review of Systems General: Reports: Weakness HEENT: Reports: No Symptoms Pulmonary: Reports: No Symptoms Cardiovascular: Reports: No Symptoms Gastrointestinal: Reports: No Symptoms Genitourinary: Reports: No Symptoms Musculoskeletal: Reports: No Symptoms Skin: Reports: No Symptoms Neurological: Reports: No Symptoms Psychiatric: Reports: No Symptoms - Patient Data Vitals - Most Recent: Last Vital Signs Temp 37.1 C 02/18/17 15:49 Pulse 77 02/18/17 15:49 Resp 20 02/18/17 15:49 BP 155/96 H 02/18/17 15:49 Pulse Ox 97 02/17/17 21:16 Weight - Most Recent: 45.087 kg I&O - Last 24 Hours: Intake & Output 02/18/17 02/18/17 02/18/17 06:59 14:59 22:59 Intake Total 2176 0 Balance 2176 0 Lab Results Last 24 Hours: Laboratory Results - last 24 hr 02/18/17 02/18/17 02/18/17 Range/Units 05:15 05:15 10:11 WBC 11.59 H (3.98-10.04) K/mm3 RBC 2.83 L (3.98-5.22) M/mm3 Hgb 8.2 L (11.2-15.7) gm/L Hct 25.1 L (34.1-44.9) % MCV 88.7 (79.4-94.8) fl MCH 29.0 (25.6-32.2) pg MCHC 32.7 (32.2-35.5) g/dl RDW Std Deviation 50.4 H (36.4-46.3) fL Plt Count 103 L (182-369) K/mm3 MPV 10.5 (9.4-12.3) fl Neut % (Auto) 78.7 H (34.0-71.1) % Lymph % (Auto) 9.8 L (19.3-51.7) % [place] % (Auto) 9.2 (4.7-12.5) % Eos % (Auto) 1.7 (0.7-5.8) Baso % (Auto) 0.6 (0.1-1.2) % Neut # (Auto) 9.11 H (1.56-6.13) K/mm3 Lymph # (Auto) 1.14 L (1.18-3.74) K/mm3 [place] # (Auto) 1.07 H (0.24-0.36) K/mm3 Eos # (Auto) 0.20 (0.04-0.36) K/mm3 Baso # (Auto) 0.07 (0.01-0.08) K/mm3 Manual Slide Review Abnormal smear Sodium 146 H (136-145) mEq/L Potassium 2.6 L (3.5-5.1) mEq/L Chloride 110 H (98-107) mEq/L Carbon Dioxide 25 (21-32) mEq/L Anion Gap 13.6 (5-15) BUN 11 (7-18) mg/dL Creatinine 0.7 (0.55-1.02) mg/dL Est Cr Clr Drug Dosing 63.11 mL/min Estimated GFR (MDRD) > 60 (>60) mL/min BUN/Creatinine Ratio 15.7 (14-18) Glucose 113 H (74-106) mg/dL Calcium 9.2 (8.5-10.1) mg/dL Magnesium 2.0 (1.8-2.4) mg/dl C-Reactive Protein 16.1 H* (<1.0) mg/dL Vancomycin Trough 7.2 L (10.0-20.0) Blood Type Gel Antibody Screen Crossmatch 02/18/17 Range/Units 10:11 WBC (3.98-10.04) K/mm3 RBC (3.98-5.22) M/mm3 Hgb (11.2-15.7) gm/L Hct (34.1-44.9) % MCV (79.4-94.8) fl MCH (25.6-32.2) pg MCHC (32.2-35.5) g/dl RDW Std Deviation (36.4-46.3) fL Plt Count (182-369) K/mm3 MPV (9.4-12.3) fl Neut % (Auto) (34.0-71.1) % Lymph % (Auto) (19.3-51.7) % [place] % (Auto) (4.7-12.5) % Eos % (Auto) (0.7-5.8) Baso % (Auto) (0.1-1.2) % Neut # (Auto) (1.56-6.13) K/mm3 Lymph # (Auto) (1.18-3.74) K/mm3 [place] # (Auto) (0.24-0.36) K/mm3 Eos # (Auto) (0.04-0.36) K/mm3 Baso # (Auto) (0.01-0.08) K/mm3 Manual Slide Review Sodium (136-145) mEq/L Potassium (3.5-5.1) mEq/L Chloride (98-107) mEq/L Carbon Dioxide (21-32) mEq/L Anion Gap (5-15) BUN (7-18) mg/dL Creatinine (0.55-1.02) mg/dL Est Cr Clr Drug Dosing mL/min Estimated GFR (MDRD) (>60) mL/min BUN/Creatinine Ratio (14-18) Glucose (74-106) mg/dL Calcium (8.5-10.1) mg/dL Magnesium (1.8-2.4) mg/dl C-Reactive Protein (<1.0) mg/dL Vancomycin Trough (10.0-20.0) Blood Type O NEGATIVE Gel Antibody Screen Negative Crossmatch See Detail Kartik Results Last 24 Hours: Microbiology 02/18/17 14:20 Stool Occult Blood (KARTIK) - Final Stool / Feces Med Orders - Current: Current Medications Acetaminophen (Tylenol Solution) 650 mg PO Q6H PRN PRN Reason: Fever Last Admin: 02/18/17 12:00 Dose: 650 mg Acetaminophen (Tylenol) 650 mg PO Q4H PRN PRN Reason: Headache/Pain Last Admin: 02/18/17 04:45 Dose: 650 mg Alprazolam (Xanax) 0.5 mg PO Q12H PRN PRN Reason: Anxiety Last Admin: 02/18/17 15:54 Dose: 0.5 mg Aspirin (Aspirin) 81 mg PO DAILY PRN PRN Reason: Headache Fentanyl (Duragesic) 100 mcg TRDERM Q72H [place] Last Admin: 02/16/17 10:18 Dose: 100 mcg Fentanyl (Duragesic) 25 mcg TRDERM Q72H [place] Last Admin: 02/16/17 10:19 Dose: 25 mcg Hydromorphone HCl (Dilaudid) 0.5 mg IVPUSH Q1H PRN PRN Reason: Pain Last Admin: 02/18/17 03:02 Dose: 0.5 mg Hydromorphone HCl (Dilaudid) 6 mg PO Q2H PRN PRN Reason: Breakthrough Pain Last Admin: 02/16/17 17:15 Dose: 4 mg Sodium Chloride (Normal Saline) 1,000 mls @ 50 mls/hr IV ASDIRECTED [facility] Last Admin: 02/17/17 17:32 Dose: 50 mls/hr Vancomycin HCl 0.75 gm/ Sodium (Chloride) 250 mls @ 250 mls/hr IV Q12H [facility] Stop: 02/19/17 08:00 Last Admin: 02/18/17 12:39 Dose: 250 mls/hr Levofloxacin/Dextrose 750 mg/ (Premix) 150 mls @ 100 mls/hr IV Q24H [facility] Sodium Chloride (Normal Saline) 250 mls @ 100 mls/hr IV ASDIRECTED [facility] Levothyroxine Sodium (Levothyroxine) 75 mcg PO DAILY [facility] Last Admin: 02/18/17 08:06 Dose: 75 mcg Miscellaneous Information (Remove Patch) 0 ea TRDERM Q72H [facility] Ondansetron HCl (Zofran) 4 mg IVPUSH Q8H PRN PRN Reason: Nausea Last Admin: 02/17/17 09:49 Dose: 4 mg Potassium Chloride (Potassium Chloride) 40 meq PEGTUBE BID [facility] Last Admin: 02/18/17 13:51 Dose: 40 meq Senna (Senna) 8.6 mg PO DAILY [facility] Last Admin: 02/18/17 08:06 Dose: Not Given Sodium Chloride (Saline Flush) 10 ml FLUSH ASDIRECTED PRN PRN Reason: Keep Vein Open Last Admin: 02/15/17 23:14 Dose: 10 ml Vancomycin HCl (Pharmacy To Dose - Vancomycin) 1 dose .XX ASDIRECTED [facility] Warfarin Sodium (Coumadin) 1.25 mg PO TuThSa@1800 [facility] Warfarin Sodium (Coumadin) 2.5 mg PO SuMoWeFr@1800 [facility] Last Admin: 02/17/17 17:57 Dose: 2.5 mg Zolpidem Tartrate (Ambien) 5 mg PO BEDTIME PRN PRN Reason: Sleep Last Admin: 02/17/17 21:56 Dose: 5 mg Discontinued Medications Acetaminophen (Tylenol) 650 mg PO Q4H PRN PRN Reason: Headache/Pain Hydromorphone HCl (Dilaudid) 0.5 mg IVPUSH ONETIME ONE Stop: 02/15/17 23:02 Last Admin: 02/15/17 23:15 Dose: 0.5 mg Hydromorphone HCl (Dilaudid) 0.5 mg IVPUSH ONETIME ONE Stop: 02/16/17 00:30 Last Admin: 02/16/17 00:35 Dose: 0.5 mg Hydromorphone HCl (Dilaudid) 0.5 mg IVPUSH ONETIME ONE Stop: 02/16/17 01:32 Last Admin: 02/16/17 01:34 Dose: 0.5 mg Sodium Chloride (Normal Saline) 1,000 mls @ 999 mls/hr IV ONETIME [facility] Last Admin: 02/15/17 23:13 Dose: 999 mls/hr Piperacillin Sod/Tazobactam (Sod 4.5 gm/ Sodium Chloride) 100 mls @ 200 mls/hr IV ONETIME ONE Stop: 02/16/17 00:42 Last Admin: 02/16/17 00:25 Dose: 200 mls/hr Levofloxacin/Dextrose 750 mg/ (Premix) 150 mls @ 100 mls/hr IV ONETIME ONE Stop: 02/16/17 02:49 Last Admin: 02/16/17 01:29 Dose: 100 mls/hr Piperacillin Sod/Tazobactam (Sod 4.5 gm/ Sodium Chloride) 100 mls @ 25 mls/hr IV Q8H [facility] Last Admin: 02/16/17 20:05 Dose: Not Given Vancomycin HCl 1 gm/ Sodium (Chloride) 250 mls @ 250 mls/hr IV Q24H [facility] Last Admin: 02/18/17 12:18 Dose: Not Given Piperacillin Sod/Tazobactam (Sod 4.5 gm/ Sodium Chloride) 100 mls @ 25 mls/hr IV Q8H [facility] Last Admin: 02/18/17 12:19 Dose: Not Given Magnesium Sulfate 2 gm/ Premix 50 mls @ 25 mls/hr IV ONETIME ONE Stop: 02/17/17 11:59 Last Admin: 10/18/17 10:47 Dose: 25 mls/hr Piperacillin Sod/Tazobactam (Sod 4.5 gm/ Sodium Chloride) 100 mls @ 25 mls/hr IV Q8H [place] Last Admin: 02/18/17 14:42 Dose: Not Given Temazepam (Restoril) 15 mg PO ONETIME ONE Stop: 02/16/17 03:26 Last Admin: 02/16/17 03:45 Dose: 15 mg Trazodone HCl (Trazodone) 50 mg GTUBE ONETIME ONE Stop: 02/16/17 03:01 Last Admin: 02/16/17 03:36 Dose: Not Given Zolpidem Tartrate (Ambien) 5 mg PO BEDTIME PRN PRN Reason: Sleep Last Admin: 02/16/17 20:50 Dose: 5 mg - Exam Quality Assessment: DVT Prophylaxis General: Alert, Oriented, Cooperative, No Acute Distress HEENT: Pupils Equal, Pupils Reactive, EOMI Neck: Supple, Trachea Midline Lungs: Normal Respiratory Effort, Rhonchi Cardiovascular: Regular Rate GI/Abdominal Exam: Normal Bowel Sounds, Soft, Non-Tender, No Organomegaly, No Distention (Female) Exam: Deferred Back Exam: Normal Inspection Extremities: Normal Inspection Skin: Warm Neurological: No New Focal Deficit Psy/Mental Status: Alert, Normal Affect, Normal Mood - Problem List & Annotations (1) Metastatic breast cancer SNOMED Code(s): 772808954 Code(s): C50.919 - MALIGNANT NEOPLASM OF UNSP SITE OF UNSPECIFIED FEMALE BREAST Status: Acute Current Visit: Yes (2) Hypothyroid SNOMED Code(s): 10192589 Code(s): E03.9 - HYPOTHYROIDISM, UNSPECIFIED Status: Acute Current Visit : Yes (3) Neck irradiation SNOMED Code(s): 622607134 Code(s): TSZ6524 - Status: Acute Current Visit: Yes (4) Metastatic breast cancer SNOMED Code(s): 955996317 Code(s): C50.919 - MALIGNANT NEOPLASM OF UNSP SITE OF UNSPECIFIED FEMALE BREAST Status: Acute Current Visit: Yes (5) UTI (urinary tract infection) SNOMED Code(s): 77375999 Code(s): N39.0 - URINARY TRACT INFECTION, SITE NOT SPECIFIED Status: Acute Current Visit: Yes Qualifiers: Urinary tract infection type: site unspecified Hematuria presence: without hematuria Qualified Code(s): N39.0 - Urinary tract infection, site not specified (6) Anxiety SNOMED Code(s): 24056076 Code(s): F41.9 - ANXIETY DISORDER, UNSPECIFIED Status: Acute Current Visit: No (7) Volume depletion SNOMED Code(s): 71247910 Code(s): E86.9 - VOLUME DEPLETION, UNSPECIFIED Status: Acute Current Visit: No - Problem List Review Problem List Initiated/Reviewed/Updated: Yes - My Orders Last 24 Hours: My Active Orders 02/17/17 18:00 Warfarin [Coumadin] 2.5 mg PO SuMoWeFr@1800 02/18/17 10:11 PACKED CELLS [RED BLOOD CELLS LP] [BBK] Routine TYPE AND SCREEN [BBK] Routine 02/18/17 12:00 Vancomycin 0.75 gm Sodium Chloride 0.9% [Normal Saline] 250 ml IV Q12H 02/18/17 13:45 Potassium Chloride 40 meq PEGTUBE BID 02/18/17 14:10 Transfuse PRBC [Transfuse Red Blood Cells] [COMM] Routine 02/18/17 15:00 Sodium Chloride 0.9% [Normal Saline] 250 ml IV ASDIRECTED 02/18/17 18:00 Warfarin [Coumadin] 1.25 mg PO TuThSa@1800 02/19/17 05:00 BMP [BASIC METABOLIC PANEL,BMP] [CHEM] DAILY CBC WITH AUTO DIFF [HEME] DAILY CRP [C-REACTIVE PROTEIN] [CHEM] DAILY MG [MAGNESIUM] [CHEM] DAILY 02/19/17 09:00 Levofloxacin/Dextrose 5%-Water [Levaquin in D5W 750 MG/150 ML] 750 mg Premix Bag 1 bag IV Q24H 02/19/17 09:30 Remove Patch 0 ea TRDERM Q72H 02/20/17 05:00 BMP [BASIC METABOLIC PANEL,BMP] [CHEM] DAILY CBC WITH AUTO DIFF [HEME] DAILY CRP [C-REACTIVE PROTEIN] [CHEM] DAILY MG [MAGNESIUM] [CHEM] DAILY - Plan Plan:: Impression: History of metastatic breast cancer Soft tissue infection, recent prolong hospitalization s/p gastrostomy tube Necrotic tumor mass, documented fistula; S/P radiation; wound Cx: Staph aureus , enterococcus, sensitive to Levoquin History of mechanical valve on coumadin AUTI, Ur Cx: E Coli, sensitive to Levoquin. Anemia, unspecified Plan: 2U PRBCs Replace electrolytes Continue IV ATB, stop Vancomycin after today; continue Levoquin Decrease TF Q 8H Flavored ice chips Code status changed to hospice, start at DC Adjust pain meds, would benefit from a long acting narcotic; requires a extraordinary amount of short acting narcotic. Keep INR therapeutic Code status changed to DNR/DNI DVT/GI prophylaxis DC 02/19/17
[2017-02-18] MEDS: Sodium Chloride 0.9% 1,000 ML IV SCH (17:38)
[2017-02-18] MEDS ORDERED: Warfarin 2.5 MG Tab PO SCH (18:00)
[2017-02-18] MEDS: Zolpidem 5 MG Tab PO PRN (23:07)
[2017-02-19] MEDS: HYDROmorphone 0.5 MG/0.5 ML Syringe IVPUSH PRN ×5 (01:06→08:39)
[2017-02-19 03:11] VITALS: BP 172/82
[2017-02-19] MEDS: Levothyroxine 75 MCG Tab PO SCH (08:45)
[2017-02-19] MEDS: Potassium Chloride 10% 20 MEQ/15 ML Soln 30 ML UD Cup PEGTUBE SCH (08:45)
[2017-02-19] MEDS: fentaNYL 25 MCG/HR Transdermal Patch TRDERM SCH (08:45)
[2017-02-19] MEDS: fentaNYL 100 MCG/HR Transdermal Patch TRDERM SCH (08:46)
[2017-02-19] MEDS ORDERED: Levofloxacin/Dextrose 5%-Water 750 MG in Premix Bag 1 BAG IV SCH (09:00)
[2017-02-19] MEDS: Sennosides 8.6 MG Tab PO SCH (09:03)
[2017-02-19] MEDS ORDERED: Magnesium Sulfate/Water 2 GM in Premix Bag 1 BAG IV ONE (09:40)
[2017-02-19] MEDS ORDERED: Acetaminophen Soln 650 MG/20.3 ML UD Cup PO PRN (09:47)
--- NOTE | 2017-02-19 16:40 | PCM.DCSUM1 ---
Discharge Summary - Hospital Course Free Text/Narrative:: 56 year old female discharged last 02/12/17 presented after having a fever for 24-48 hours [employer]. She was treated for a UTI as well as soft tissue infection, neck (fistula). After a wound cx/urine cx, she was maintained on Levoquin; coumadin was held briefly. She will be transitioned to Hospice Care after several appoints arranged pre DC, including ENT. Coumadin will be resumed for her mechanical valve, INR checks have been scheduled. Primary Dx AUTI Neck, cellulitis Breast cancer with mets Activity As tolerated Diet Usual diet Prescriptions MgO 400 mg BID Levoquin 500 mg daily for 7 days Labs/Diagnostic 02/22---CBC, BMP, INR 03/01---INR Appointments ENT-02/23 PCP/GenSurg-02/22 Hospice care to start on Wed, 02/24. - Discharge Data Discharge Date: 02/19/17 Discharge Disposition: Home, Self-Care 01 Condition: Good - Discharge Diagnosis/Problem(s) (1) Metastatic breast cancer SNOMED Code(s): 160631791 ICD Code: C50.919 - MALIGNANT NEOPLASM OF UNSP SITE OF UNSPECIFIED FEMALE BREAST Status: Acute Current Visit: Yes (2) Hypothyroid SNOMED Code(s): 26861136 ICD Code: E03.9 - HYPOTHYROIDISM, UNSPECIFIED Status: Acute Current Visit : Yes (3) Neck irradiation SNOMED Code(s): 837772601 ICD Code: YHX1030 - Status: Acute Current Visit: Yes (4) Metastatic breast cancer SNOMED Code(s): 804882811 ICD Code: C50.919 - MALIGNANT NEOPLASM OF UNSP SITE OF UNSPECIFIED FEMALE BREAST Status: Acute Current Visit: Yes (5) UTI (urinary tract infection) SNOMED Code(s): 13950471 ICD Code: N39.0 - URINARY TRACT INFECTION, SITE NOT SPECIFIED Status: Acute Current Visit: Yes Qualifiers: Urinary tract infection type: site unspecified Hematuria presence: without hematuria Qualified Code(s): N39.0 - Urinary tract infection, site not specified (6) Anxiety SNOMED Code(s): 42407755 ICD Code: F41.9 - ANXIETY DISORDER, UNSPECIFIED Status: Acute Current Visit: No (7) Volume depletion SNOMED Code(s): 01451319 ICD Code: E86.9 - VOLUME DEPLETION, UNSPECIFIED Status: Acute Current Visit: No - Patient Summary/Data Consults: Consultations 02/16/17 09:36 Consult to Tank Pumper [CONS] Routine 02/16/17 12:34 Consult to Spiritual Care [CONS] Routine 02/16/17 13:23 PT Evaluation and Treatment [CONS] Routine - Patient Instructions Diet: Usual Diet as Tolerated Activity: As Tolerated Driving: Do Not Drive Showering/Bathing: May Shower Notify Provider of: Fever, Nausea and/or Vomiting - Discharge Plan Prescriptions/Med Rec: Levofloxacin [Levaquin] 500 mg PO Q24H #7 tablet Magnesium Oxide [Magnesium] 400 mg PO BID #30 tablet Home Medications: Home Meds Levothyroxine 75 mcg PO DAILY 07/25/14 [History] ALPRAZolam [Xanax] 0.5 mg PO Q12H PRN 08/14/14 [History] Aspirin [Children's Aspirin] 81 mg PO DAILY PRN 08/14/14 [History] Warfarin [Coumadin] 2.5 mg PO SUMOWEFR 05/19/16 [History] HYDROmorphone [Dilaudid 1 MG/ML Soln] 6 mg PO Q2H PRN 01/19/17 [History] Zolpidem [Ambien] 0.5 tab PO ASDIRECTED PRN 01/19/17 [History] fentaNYL [Duragesic] 125 mcg TD Q72H 01/19/17 [History] Warfarin [Coumadin] 1.25 mg PO TUTHSA 02/02/17 [History] Levofloxacin [Levaquin] 500 mg PO Q24H #7 tablet 02/19/17 [Rx] Magnesium Oxide [Magnesium] 400 mg PO BID #30 tablet 02/19/17 [Rx] Patient Handouts: PEG Tube Home Guide, [id number], Sepsis, Adult, Care of a Feeding Tube, [id number], Urinary Tract Infection, Adult Forms: ED Department Discharge Referrals: Damaris Chandler MD [Physician] - 02/22/17 9:00 am (Please follow up with Dr. Chandler on at 0900.) Renan Sharpe MD [Primary Care Provider] - 02/22/17 1:00 pm (Please follow up with Dr. Sharpe on at 1300.) Ayaan Freed MD [Ordering Only Provider] - 02/23/17 11:15 am (Please follow up with Dr. Freed on Wednesday at 1115am. Please come 30 minutes prior to the appointment & bring insurance cards & photo ID.) - Discharge Summary/Plan Comment DC Time >30 min.: No - General Info Date of Service: 02/16/17 Functional Status: Reports: Pain Controlled, Tolerating Diet, Ambulating ( minimal), Urinating - Review of Systems General: Reports: Weakness HEENT: Reports: No Symptoms Pulmonary: Reports: No Symptoms Cardiovascular: Reports: No Symptoms Gastrointestinal: Reports: No Symptoms Genitourinary: Reports: No Symptoms Musculoskeletal: Reports: No Symptoms Skin: Reports: No Symptoms Neurological: Reports: No Symptoms Psychiatric: Reports: No Symptoms - Patient Data Vitals - Most Recent: Last Vital Signs Temp 37.2 C 02/19/17 02:11 Pulse 65 02/19/17 02:11 Resp 14 02/19/17 02:11 BP 172/82 H 02/19/17 02:11 Pulse Ox 94 L 02/19/17 02:11 Weight - Most Recent: 46.266 kg I&O - Last 24 hours: Intake & Output 02/19/17 02/19/17 02/19/17 06:59 14:59 22:59 Intake Total 741 Balance 741 Lab Results - Last 24 hrs: Laboratory Results - last 24 hr 02/18/17 02/19/17 02/19/17 Range/Units 10:11 06:35 06:35 WBC 15.81 H (3.98-10.04) K/mm3 RBC 3.96 L (3.98-5.22) M/mm3 Hgb 11.4 (11.2-15.7) gm/L Hct 34.4 (34.1-44.9) % MCV 86.9 (79.4-94.8) fl MCH 28.8 (25.6-32.2) pg MCHC 33.1 (32.2-35.5) g/dl RDW Std Deviation 51.4 H (36.4-46.3) fL Plt Count 114 L (182-369) K/mm3 MPV 10.7 (9.4-12.3) fl Neut % (Auto) 59.0 (34.0-71.1) % Lymph % (Auto) 11.8 L (19.3-51.7) % [place] % (Auto) 9.4 (4.7-12.5) % Eos % (Auto) 1.1 (0.7-5.8) Baso % (Auto) 0.9 (0.1-1.2) % Neut # (Auto) 9.33 H (1.56-6.13) K/mm3 Lymph # (Auto) 1.86 (1.18-3.74) K/mm3 [place] # (Auto) 1.49 H (0.24-0.36) K/mm3 Eos # (Auto) 0.17 (0.04-0.36) K/mm3 Baso # (Auto) 0.14 H (0.01-0.08) K/mm3 Manual Slide Review Abnormal smear PT (8.0-13.0) SECONDS INR Sodium 146 H (136-145) mEq/L Potassium 3.9 (3.5-5.1) mEq/L Chloride 111 H (98-107) mEq/L Carbon Dioxide 23 (21-32) mEq/L Anion Gap 15.9 H (5-15) BUN 9 (7-18) mg/dL Creatinine 0.6 (0.55-1.02) mg/dL Est Cr Clr Drug Dosing 75.56 mL/min Estimated GFR (MDRD) > 60 (>60) mL/min BUN/Creatinine Ratio 15.0 (14-18) Glucose 88 (74-106) mg/dL Calcium 9.3 (8.5-10.1) mg/dL Magnesium 1.8 (1.8-2.4) mg/dl C-Reactive Protein 13.5 H* (<1.0) mg/dL Blood Type O NEGATIVE Gel Antibody Screen Negative Crossmatch See Detail 02/19/17 Range/Units 06:35 WBC (3.98-10.04) K/mm3 RBC (3.98-5.22) M/mm3 Hgb (11.2-15.7) gm/L Hct (34.1-44.9) % MCV (79.4-94.8) fl MCH (25.6-32.2) pg MCHC (32.2-35.5) g/dl RDW Std Deviation (36.4-46.3) fL Plt Count (182-369) K/mm3 MPV (9.4-12.3) fl Neut % (Auto) (34.0-71.1) % Lymph % (Auto) (19.3-51.7) % [place] % (Auto) (4.7-12.5) % Eos % (Auto) (0.7-5.8) Baso % (Auto) (0.1-1.2) % Neut # (Auto) (1.56-6.13) K/mm3 Lymph # (Auto) (1.18-3.74) K/mm3 [place] # (Auto) (0.24-0.36) K/mm3 Eos # (Auto) (0.04-0.36) K/mm3 Baso # (Auto) (0.01-0.08) K/mm3 Manual Slide Review PT 21.0 H (8.0-13.0) SECONDS INR 1.85 Sodium (136-145) mEq/L Potassium (3.5-5.1) mEq/L Chloride (98-107) mEq/L Carbon Dioxide (21-32) mEq/L Anion Gap (5-15) BUN (7-18) mg/dL Creatinine (0.55-1.02) mg/dL Est Cr Clr Drug Dosing mL/min Estimated GFR (MDRD) (>60) mL/min BUN/Creatinine Ratio (14-18) Glucose (74-106) mg/dL Calcium (8.5-10.1) mg/dL Magnesium (1.8-2.4) mg/dl C-Reactive Protein (<1.0) mg/dL Blood Type Gel Antibody Screen Crossmatch [facility] Results - Last 24 hrs: Microbiology 02/18/17 14:20 Stool Occult Blood (HOANG) - Final Stool / Feces Med Orders - Current: Current Medications Acetaminophen (Tylenol) 650 mg PO Q4H PRN PRN Reason: Headache/Pain Last Admin: 02/18/17 04:45 Dose: 650 mg Acetaminophen (Tylenol) 650 mg PO Q6H PRN PRN Reason: Fever Alprazolam (Xanax) 0.5 mg PO Q12H PRN PRN Reason: Anxiety Last Admin: 02/18/17 15:54 Dose: 0.5 mg Aspirin (Aspirin) 81 mg PO DAILY PRN PRN Reason: Headache Fentanyl (Duragesic) 100 mcg TRDERM Q72H [facility] Last Admin: 02/19/17 08:46 Dose: 100 mcg Fentanyl (Duragesic) 25 mcg TRDERM Q72H [facility] Last Admin: 02/19/17 08:45 Dose: 25 mcg Hydromorphone HCl (Dilaudid) 0.5 mg IVPUSH Q1H PRN PRN Reason: Pain Last Admin: 02/19/17 08:39 Dose: 0.5 mg Hydromorphone HCl (Dilaudid) 6 mg PO Q2H PRN PRN Reason: Breakthrough Pain Last Admin: 02/16/17 17:15 Dose: 4 mg Sodium Chloride (Normal Saline) 1,000 mls @ 50 mls/hr IV ASDIRECTED [facility] Last Admin: 02/18/17 17:38 Dose: 50 mls/hr Levofloxacin/Dextrose 750 mg/ (Premix) 150 mls @ 100 mls/hr IV Q24H [facility] Last Admin: 02/19/17 08:23 Dose: 100 mls/hr Sodium Chloride (Normal Saline) 250 mls @ 100 mls/hr IV ASDIRECTED [facility] Levothyroxine Sodium (Levothyroxine) 75 mcg PO DAILY [facility] Last Admin: 02/19/17 08:45 Dose: 75 mcg Miscellaneous Information (Remove Patch) 0 ea TRDERM Q72H [facility] Last Admin: 02/19/17 08:46 Dose: 1 ea Ondansetron HCl (Zofran) 4 mg IVPUSH Q8H PRN PRN Reason: Nausea Last Admin: 02/17/17 09:49 Dose: 4 mg Potassium Chloride (Potassium Chloride) 40 meq PEGTUBE BID [facility] Last Admin: 02/19/17 08:45 Dose: 40 meq Senna (Senna) 8.6 mg PO DAILY [facility] Last Admin: 02/19/17 09:03 Dose: Not Given Sodium Chloride (Saline Flush) 10 ml FLUSH ASDIRECTED PRN PRN Reason: Keep Vein Open Last Admin: 02/15/17 23:14 Dose: 10 ml Warfarin Sodium (Coumadin) 1.25 mg PO TuThSa@1800 [facility] Last Admin: 02/18/17 17:20 Dose: 1.25 mg Warfarin Sodium (Coumadin) 2.5 mg PO SuMoWeFr@1800 [facility] Last Admin: 02/17/17 17:57 Dose: 2.5 mg Zolpidem Tartrate (Ambien) 5 mg PO BEDTIME PRN PRN Reason: Sleep Last Admin: 02/18/17 23:07 Dose: 5 mg Discontinued Medications Acetaminophen (Tylenol Solution) 650 mg PO Q6H PRN PRN Reason: Fever Last Admin: 02/18/17 12:00 Dose: 650 mg Acetaminophen (Tylenol) 650 mg PO Q4H PRN PRN Reason: Headache/Pain Hydromorphone HCl (Dilaudid) 0.5 mg IVPUSH ONETIME ONE Stop: 02/15/17 23:02 Last Admin: 02/15/17 23:15 Dose: 0.5 mg Hydromorphone HCl (Dilaudid) 0.5 mg IVPUSH ONETIME ONE Stop: 02/16/17 00:30 Last Admin: 02/16/17 00:35 Dose: 0.5 mg Hydromorphone HCl (Dilaudid) 0.5 mg IVPUSH ONETIME ONE Stop: 02/16/17 01:32 Last Admin: 02/16/17 01:34 Dose: 0.5 mg Sodium Chloride (Normal Saline) 1,000 mls @ 999 mls/hr IV ONETIME [facility] Last Admin: 02/15/17 23:13 Dose: 999 mls/hr Piperacillin Sod/Tazobactam (Sod 4.5 gm/ Sodium Chloride) 100 mls @ 200 mls/hr IV ONETIME ONE Stop: 02/16/17 00:42 Last Admin: 02/16/17 00:25 Dose: 200 mls/hr Levofloxacin/Dextrose 750 mg/ (Premix) 150 mls @ 100 mls/hr IV ONETIME ONE Stop: 02/16/17 02:49 Last Admin: 02/16/17 01:29 Dose: 100 mls/hr Piperacillin Sod/Tazobactam (Sod 4.5 gm/ Sodium Chloride) 100 mls @ 25 mls/hr IV Q8H [facility] Last Admin: 02/16/17 20:05 Dose: Not Given Vancomycin HCl 1 gm/ Sodium (Chloride) 250 mls @ 250 mls/hr IV Q24H [facility] Last Admin: 02/18/17 12:18 Dose: Not Given Piperacillin Sod/Tazobactam (Sod 4.5 gm/ Sodium Chloride) 100 mls @ 25 mls/hr IV Q8H [facility] Last Admin: 02/18/17 12:19 Dose: Not Given Magnesium Sulfate 2 gm/ Premix 50 mls @ 25 mls/hr IV ONETIME ONE Stop: 02/17/17 11:59 Last Admin: 02/17/17 10:47 Dose: 25 mls/hr Vancomycin HCl 0.75 gm/ Sodium (Chloride) 250 mls @ 250 mls/hr IV Q12H [facility] Stop: 02/19/17 08:00 Last Admin: 02/19/17 00:45 Dose: 250 mls/hr Piperacillin Sod/Tazobactam (Sod 4.5 gm/ Sodium Chloride) 100 mls @ 25 mls/hr IV Q8H [facility] Last Admin: 02/18/17 14:42 Dose: Not Given Magnesium Sulfate 2 gm/ Premix 50 mls @ 25 mls/hr IV ONETIME ONE Stop: 02/19/17 11:39 Last Admin: 02/19/17 10:26 Dose: 25 mls/hr Temazepam (Restoril) 15 mg PO ONETIME ONE Stop: 02/16/17 03:26 Last Admin: 02/16/17 03:45 Dose: 15 mg Trazodone HCl (Trazodone) 50 mg GTUBE ONETIME ONE Stop: 02/16/17 03:01 Last Admin: 02/16/17 03:36 Dose: Not Given Vancomycin HCl (Pharmacy To Dose - Vancomycin) 1 dose .XX ASDIRECTED [facility] Zolpidem Tartrate (Ambien) 5 mg PO BEDTIME PRN PRN Reason: Sleep Last Admin: 02/16/17 20:50 Dose: 5 mg - Exam Quality Assessment: Reports: DVT Prophylaxis General: Reports: Alert, Oriented, Cooperative, No Acute Distress HEENT: Reports: Pupils Equal, Pupils Reactive Neck: Reports: Supple, Trachea Midline, No JVD Lungs: Reports: Normal Respiratory Effort Cardiovascular: Reports: Regular Rate, Regular Rhythm GI/Abdominal Exam: Normal Bowel Sounds, Soft, Non-Tender, No Organomegaly, No Distention (Female) Exam: Deferred Rectal (Female) Exam: Deferred Back Exam: Reports: Normal Inspection Extremities: Normal Inspection Skin: Reports: Warm Neurological: Reports: No New Focal Deficit Psy/Mental Status: Reports: Alert *Q Meaningful Use (DIS) - VTE *Q VTE Criteria *Q: - Stroke *Q Stroke Criteria *Q: - AMI *Q AMI Criteria *Q:
== END 2017-02-19 13:00 | disposition home or self-care (01) | DRG 720 ==
LOC: JD.ED 21:59 → JD.MS 02-16 01:23
PROVIDERS: ADMIT Internal Medicine Cardiovascular Disease; ATTEND Internal Medicine Cardiovascular Disease
PROC: 30233N1 Transfusion of Nonautologous Red Blood Cells into Peripheral Vein, Percutaneous Approach (ICD-10-PCS; principal; 2017-02-18)
DX: A41.9 Sepsis, unspecified organism (principal); N39.0 Urinary tract infection, site not specified; B96.20 Unspecified Escherichia coli [E. coli] as the cause of diseases classified elsewhere; E86.9 Volume depletion, unspecified; L03.221 Cellulitis of neck; B95.2 Enterococcus as the cause of diseases classified elsewhere; B95.61 Methicillin susceptible Staphylococcus aureus infection as the cause of diseases classified elsewhere; Z85.3 Personal history of malignant neoplasm of breast; C79.51 Secondary malignant neoplasm of bone; C14.0 Malignant neoplasm of pharynx, unspecified; I10 Essential (primary) hypertension; M81.0 Age-related osteoporosis without current pathological fracture; E03.9 Hypothyroidism, unspecified; F32.9 Major depressive disorder, single episode, unspecified; F41.9 Anxiety disorder, unspecified; Z87.891 Personal history of nicotine dependence; Z95.2 Presence of prosthetic heart valve; Z79.01 Long term (current) use of anticoagulants; Z79.82 Long term (current) use of aspirin; Z79.899 Other long term (current) drug therapy; Z93.1 Gastrostomy status; Z66 Do not resuscitate; D64.9 Anemia, unspecified
CPT/HCPCS: 36415; 36430; 71010; 71010-26; 80048; 80053; 80202; 81001; 82272; 83605; 83735; 85025; 85610; 86140; 86850; 86900; 86901; 86922; 87040; 87070; 87077; 87086; 87088; 87186; 96361; 96365; 96375; 96376; 97110-GP; 97116-GP; 97162-GP; 99285; 99285-25; A9270-GY; J1170; J1956; J2405; J2543; J3370; J3475; J7030; J7040; J7050; P9016; P9612

== ENCOUNTER 2017-03-01 11:46 | Observation (INO) | payer BC ==
--- NOTE | 2017-03-01 12:34 | EDM.PDOC ---
ED HPI GENERAL MEDICAL PROBLEM - General Chief Complaint: Fever Stated Complaint: FEVER WITH BONE CANCER Time Seen by Provider: 03/01/17 12:20 Source of Information: Reports: Patient, Family (Daughter and spouse.) History Limitations: Reports: Physical Impairment (Patient does not speak she mouth words as she has had a total laryngectomy. If you watch her lips closely you can understand most of what she is saying.) - History of Present Illness INITIAL COMMENTS - FREE TEXT/NARRATIVE: 56-year-old female presents to the ED because of a fever appreciated at home over the weekend. Temperature reported to be as high as 103.6. Associated intermittent chills. No nausea vomiting. No real increase in cough or sputum production. No patient chokes easily when she tries to drink fluids per ora comes out her tracheostomy tube. 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 Subsequent she developed bilateral breast cancer in 2014 and had bilateral mastectomy which is now proven to be metastatic to almost all of her bones. She's had fusi temperature reported to be as high as 103.6. on of her mid back because of invasion of cancer in her bones as well as a right hip fracture which is pathological. Prone to urinary tract infections due to poor oral intake. She is fed primarily through a G-tube left upper quadrant of the abdomen. So far there is no cancer spread to the liver that they can identify. Weight is very low at 91 pounds. She receives 200 mg mils of water supplement twice daily as well as the Jevity as well as some fluids orally. Takes popsicles etc. Of note patient is on Coumadin because of aortic valve replacement therapy. Coumadin was INR was 3.2 apparently on Wednesday and they were advised to reduce it to half dose on Wednesday and no dose today. She was due to have it checked tomorrow currently pain is being controlled with fentanyl patch 125 g per hour. Dilaudid 1 mg per 1 mils solution prn via G-tube for breakthrough pain which she uses almost every 6 hours. Apparently when she left hospital last time she was looking at hospice but apparently hospice care has not been involved at this time Onset: Sudden Onset Date: 02/26/17 (Intermittent fever and chills for 3 days) Duration: Day(s): Location: Reports: Generalized Quality: Reports: Other Severity: Moderate (Diffuse pain from bone metastatic disease.) Improves with: Reports: None Worsens with: Reports: Movement Context: Denies: Activity, Exercise, Lifting, Sick Contact, Trauma, Other Associated Symptoms: Reports: Cough, Fever/Chills, Loss of Appetite, Malaise, Shortness of Breath, Weakness. Denies: No Other Symptoms, Confusion, Chest Pain , Diaphoresis, Headaches, Rash, Seizure, Syncope Treatments VICE PRESIDENT FIXED INCOME: Reports: Acetaminophen Throat Pain Score (Numeric/FACES): 7 Generalized Pain Score (Numeric/FACES): 7 - Related Data Allergies Allergy/AdvReac Type Severity Reaction Status Date / Time No Known Allergies Allergy Verified 03/01/17 12:08 Home Meds: Home Meds Levothyroxine 75 mcg PO DAILY 07/25/14 [History] ALPRAZolam [Xanax] 0.5 - 1 mg PO Q12H PRN 08/14/14 [History] Warfarin [Coumadin] 2.5 mg PO SUMOWEFR 05/19/16 [History] HYDROmorphone [Dilaudid 1 MG/ML Soln] 6 mg PO Q2H PRN 01/19/17 [History] Zolpidem [Ambien] 5 - 10 mg PO ASDIRECTED PRN 01/19/17 [History] fentaNYL [Duragesic] 125 mcg TD Q72H 01/19/17 [History] Warfarin [Coumadin] 1.25 mg PO TUTHSA 02/02/17 [History] Acetaminophen [Tylenol Solution] 325 - 650 mg PO Q6H PRN 03/01/17 [History] Lactose-Reduced Food/Fiber [Jevity 1.5 Slava Liquid] 316 ml FTUBE TID 03/01/17 [ History] Past Medical History Cardiovascular History: Reports: Heart Valve Replacement, Hypertension, SOB on Exertion Respiratory History: Reports: Pneumothorax, SOB Other Respiratory History: Secondary to chest compressions Gastrointestinal History: Reports: Other (See Below) Other Gastrointestinal History: Feeding tube placed 13 days ago 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: Musculoskeletal History: Reports: Osteoporosis, Other (See Below) Other Musculoskeletal History: left knee fx Psychiatric History: Reports: Anxiety, Depression Endocrine/Metabolic History: Reports: Hypothyroidism Hematologic History: Reports: Blood Transfusion(s) Oncologic (Cancer) History: Reports: Breast, Other (See Below) Other Oncologic History: throat Bones - Past Surgical History Other HEENT Surgeries/Procedures: radical neck Cardiovascular Surgical History: Reports: Valve Replacement Female Surgical History: Reports: Section, Mastectomy Endocrine Surgical History: Reports: Thyroidectomy Musculoskeletal Surgical History: Reports: Hip Replacement Oncologic Surgical History: Reports: Mastectomy, Other (See Below) Other Oncologic Surgeries/Procedures: Rad neck Social & Family History - Family History Family Medical History: Noncontributory - Tobacco Use Smoking Status *Q: Never Smoker Years of Tobacco use: 30 Used Tobacco, but Quit: Yes Month Tobacco Last Used: 05/2006 Second Hand Smoke Exposure: No - Caffeine Use Caffeine Use: Reports: None Other Caffeine Use: 1 per/day - Alcohol Use Days Per Week of Alcohol Use: 1 Number of Drinks Per Day: 2 Total Drinks Per Week: 2 - Recreational Drug Use Recreational Drug Use: No - Living Situation & Occupation Living situation: Reports: Occupation: Disabled ED ROS GENERAL - Review of Systems Review Of Systems: See Below Constitutional: Reports: Fever, Chills, Malaise, Decreased Appetite, Weight Loss HEENT: Reports: Other (Sore throat) Respiratory: Reports: Shortness of Breath, Cough, Other (Has a chronic tracheostomy wound which appears to eroded into the esophagus as when she drinks water will come out the tracheostomy site.). Denies: Wheezing, Pleuritic Chest Pain, Sputum, Hemoptysis Cardiovascular: Reports: Dyspnea on Exertion, Lightheadedness. Denies: Chest Pain, Blood Pressure Problem, Claudication, Edema, Orthopnea, Palpitations Endocrine: Reports: Fatigue GI/Abdominal: Reports: Constipation, Other (Feeding gastrostomy tube left upper quadrant abdomen). Denies: Abdominal Pain : Denies: Dysuria, Frequency, Urgency, Other Musculoskeletal: Reports: Neck Pain, Shoulder Pain, Back Pain, Other ( Generalized pain from bone metastatic disease involving ribs pelvis femurs humeri and vertebral.) Skin: Reports: Bruising (Bruises fairly easily because of being on Coumadin.) Neurological: Reports: No Symptoms Psychiatric: Reports: Depression Hematologic/Lymphatic: Reports: No Symptoms Immunologic: Reports: No Symptoms ED EXAM, SEPSIS - Physical Exam Exam: See Below Exam Limited By: Other (Patient is nonverbal due to having a tracheostomy and a previous total laryngectomy. I can understand her as she speaks with lip slowly. He can glean about 80% of the information she wishes to provide) General Appearance: Alert, WD/WN, Cachetic (Very cachectic in appearance with all bones easily visible. Color is actually fairly good. She has required numerous blood transfusions because of bone marrow replacement with cancer cells.) Eye Exam: Bilateral Eye: Normal Inspection (Not pallid.) Ears: Other (Right the ear canal is about 90% occluded with wax. The left is normal) Throat/Mouth: Normal Oropharynx, Other (The entire floor of her mouth is indurated and firm to touch. It is also mildly tender. It is pushing the floor of the mouth superiorly particularly on the right side. The posterior oropharynx did not show any active signs of infection.) Head: Atraumatic, Normocephalic Neck: Other (Has had a laryngectomy with a tracheostomy that is open without tracheostomy tube.) Respiratory/Chest: Other (Patient is had bilateral mastectomy. She has a well- healed midline sternotomy incision from previous aortic valve replacement therapy.) Cardiovascular: Normal Peripheral Pulses, Regular Rate, Rhythm, No Edema, No Gallop, Systolic Murmur, Other (Grade 1/6. She has had previous aortic valve replacement surgery with a audible click) Peripheral Pulses: 1+: Posterior Tibial (L), Posterior Tibial (R), Dorsalis Pedis (L), Dorsalis Pedis (R) GI/Abdominal Exam: Other (The abdominal wall is firm to palpation. Gastric feeding tube left upper quadrant of the abdomen. No obvious organomegaly or masses are palpable.) Back: Vertebral Tenderness, Other (With kyphoplasty's at 3 levels.) Extremities: Other (Usually able to walk at home often with assistance of a walker. She reports she hardly uses the walker. She does have a total right hip replacement.). No: Normal Range of Motion Neurological: Alert, Oriented, CN II-XII Intact, Normal Cognition Skin: Warm, Dry, Intact, Normal Color, No Rash EKG INTERPRETATION EKG Date: 03/01/17 Time: 13:40 Rhythm: NSR Rate (Beats/Min): 83 [place]: LAD-Left [place] Deviation (Mild left axis deviation of -4.) P-Wave: Present QRS: Other (Left ventricular hypertrophy pattern. Q-wave in V2 alone which is nonspecific.) ST-T: Other (Diffuse early repolarization pattern.) QT: Prolonged (Mildly prolonged.) EKG Interpretation Comments: Abnormal ECG. Course - Vital Signs Last Recorded V/S: Last Vital Signs Temp 36.9 C 03/02/17 04:14 Pulse 91 03/02/17 04:14 Resp 24 H 03/02/17 04:14 BP 129/62 03/02/17 04:14 Pulse Ox 92 L 03/02/17 04:14 - Orders/Labs/Meds Orders: Active Orders 24 hr Category Date Time Status Insert Roper Catheter [Insert Urinary Catheter] [OM.PC] Care 03/01/17 14:10 Ordered Stat Tube Feeding Adult Diet [DIET] Diet 03/01/17 Dinner Active CULTURE BLOOD [BC] Stat Lab 03/01/17 13:10 Received CULTURE BLOOD [BC] Stat Lab 03/01/17 13:28 Received Blood Culture x2 Reflex Set [OM.PC] Stat Oth 03/01/17 12:44 Ordered Medication Orders Acetaminophen (Tylenol Solution) 325 - 650 mg PO Q4H PRN PRN Reason: Pain/Fever Acetaminophen (Tylenol) 650 mg PO Q4H PRN PRN Reason: Pain (Mild 1-3)/fever Albuterol/Ipratropium (Duoneb 3.0-0.5 Mg/3 Ml) 3 ml NEB Q4H PRN PRN Reason: Shortness Of Breath/wheezing Alprazolam (Xanax) 0.5 - 1 mg PO Q12H PRN PRN Reason: Anxiety Last Admin: 03/02/17 05:24 Dose: 0.5 mg Admin: 03/01/17 18:03 Dose: 0.5 mg Bisacodyl (Dulcolax) 5 mg PO DAILY PRN PRN Reason: Constipation Docusate Sodium (Colace) 100 mg PO BID PRN PRN Reason: Constipation Famotidine (Pepcid) 20 mg IVPUSH BID [facility] Fentanyl (Duragesic) 100 mcg TRDERM Q72H [place] Last Admin: 03/01/17 19:45 Dose: 100 mcg Fentanyl (Duragesic) 50 mcg TRDERM Q72H [place] Last Admin: 03/01/17 19:45 Dose: 50 mcg Hydralazine HCl (Apresoline) 20 mg IVPUSH Q4H PRN PRN Reason: Hypertension Hydromorphone HCl (Dilaudid) 6 mg PO Q2H PRN PRN Reason: Breakthrough Pain Last Admin: 03/02/17 03:56 Dose: 5 mg Admin: 03/01/17 23:36 Dose: 3 mg Admin: 03/01/17 19:45 Dose: 2 mg Admin: 03/01/17 18:02 Dose: 4 mg Promethazine HCl 12.5 mg/ (Sodium Chloride) 50.5 mls @ 100 mls/hr IV Q6H PRN PRN Reason: Nausea/Vomiting Sodium Chloride (Normal Saline) 1,000 mls @ 125 mls/hr IV ASDIRECTED [facility] Last Admin: 03/02/17 01:20 Dose: 125 mls/hr Infusion: 03/02/17 01:20 Dose: 125 mls/hr Admin: 03/01/17 17:54 Dose: 125 mls/hr Levofloxacin/Dextrose 500 mg/ (Premix) 100 mls @ 100 mls/hr IV Q24H [facility] Piperacillin Sod/Tazobactam (Sod 4.5 gm/ Sodium Chloride) 100 mls @ 25 mls/hr IV Q8H [facility] Last Admin: 03/02/17 01:18 Dose: 25 mls/hr Levothyroxine Sodium (Levothyroxine) 75 mcg PO DAILY [facility] Lorazepam (Ativan) 1 mg IV Q6H PRN PRN Reason: Anxiety Lorazepam (Ativan) 2 mg IVPUSH Q4H PRN PRN Reason: Seizures Magnesium Sulfate (Pharmacy To Dose - Magnesium Replacement) 0 dose .XX ASDIRECTED PRN PRN Reason: RX TO WATCH MAG LEVELS Metoprolol Tartrate (Lopressor) 5 mg IVPUSH Q4H PRN PRN Reason: Tachycardia Miscellaneous Information (Remove Patch) 1 ea TRDERM Q72H [facility] Ondansetron HCl (Zofran) 4 mg IV Q6H PRN PRN Reason: Nausea/Vomiting Jevity 1.5 Slava (Liquid 316 Ml) 0 each GTUBE TID [facility] Polyethylene Glycol (Miralax) 17 gm PO DAILY PRN PRN Reason: Constipation Potassium Chloride (Pharmacy To Dose - Potassium Replacement) 0 dose .XX ASDIRECTED PRN PRN Reason: RX TO WATCH K LEVELS Senna/Docusate Sodium (Senna Plus) 1 tab PO BID PRN PRN Reason: Constipation Warfarin Sodium (Coumadin) 1.25 mg PO [email or web address] [facility] Warfarin Sodium (Coumadin) 2.5 mg PO [email or web address] [facility] Zolpidem Tartrate (Ambien) 5 - 10 mg PO ASDIRECTED PRN PRN Reason: Sleep Last Admin: 03/01/17 21:08 Dose: 10 mg Labs: Laboratory Tests 03/01/17 03/01/17 03/01/17 Range/Units 13:01 13:01 13:01 WBC 9.81 (3.98-10.04) K/mm3 RBC 3.75 L (3.98-5.22) M/mm3 Hgb 10.8 L (11.2-15.7) gm/L Hct 33.5 L (34.1-44.9) % MCV 89.3 (79.4-94.8) fl MCH 28.8 (25.6-32.2) pg MCHC 32.2 (32.2-35.5) g/dl RDW Std Deviation 53.0 H (36.4-46.3) fL Plt Count 83 L (182-369) K/mm3 MPV 11.2 (9.4-12.3) fl Neutrophils % (Manual) 58 (40-60) % Band Neutrophils % 1 (0-10) % Lymphocytes % (Manual) 32 (20-40) % Atypical Lymphs % 0 % Monocytes % (Manual) 5 (2-10) % Eosinophils % (Manual) 3 (0.7-5.8) % Basophils % (Manual) 1 (0.1-1.2) Platelet Estimate Decreased Plt Morphology Comment Normal Anisocytosis 2+ moderate RBC Morph Comment Not Reportable ESR (0-20) mm/hr PT 21.4 H (8.0-13.0) SECONDS INR 1.89 Sodium 142 (136-145) mEq/L Potassium 3.3 L (3.5-5.1) mEq/L Chloride 99 (98-107) mEq/L Carbon Dioxide 31 (21-32) mEq/L Anion Gap 15.3 H (5-15) BUN 17 (7-18) mg/dL Creatinine 0.7 (0.55-1.02) mg/dL Est Cr Clr Drug Dosing 61.59 mL/min Estimated GFR (MDRD) > 60 (>60) mL/min BUN/Creatinine Ratio 24.3 H (14-18) Glucose 82 (74-106) mg/dL Lactic Acid (0.4-2.0) mmol/L Calcium 10.3 H (8.5-10.1) mg/dL Magnesium (1.8-2.4) mg/dl Total Bilirubin 1.0 (0.2-1.0) mg/dL AST 102 H (15-37) U/L ALT 22 (14-59) U/L Alkaline Phosphatase 222 H (46-116) U/L C-Reactive Protein 35.3 H* (<1.0) mg/dL Total Protein 6.9 (6.4-8.2) g/dl Albumin 2.0 L (3.4-5.0) g/dl Globulin 4.9 gm/dL Albumin/Globulin Ratio 0.4 L (1-2) TSH 3rd Generation 1.098 (0.358-3.74) uIU/mL Urine Color (Yellow) Urine Appearance (Clear) Urine pH (5.0-8.0) Ur Specific [place] (1.005-1.030) Urine Protein (Negative) Urine Glucose (UA) (Negative) Urine Ketones (Negative) Urine Occult Blood (Negative) Urine Nitrite (Negative) Urine Bilirubin (Negative) Urine Urobilinogen (0.2-1.0) Ur Leukocyte Esterase (Negative) Urine RBC (0-5) /hpf Urine WBC (0-5) /hpf Ur Epithelial Cells (0-5) /hpf Urine Bacteria (FEW) /hpf Urine Mucus (FEW) /hpf 03/01/17 03/01/17 03/01/17 Range/Units 13:01 13:01 13:10 WBC (3.98-10.04) K/mm3 RBC (3.98-5.22) M/mm3 Hgb (11.2-15.7) gm/L Hct (34.1-44.9) % MCV (79.4-94.8) fl MCH (25.6-32.2) pg MCHC (32.2-35.5) g/dl RDW Std Deviation (36.4-46.3) fL Plt Count (182-369) K/mm3 MPV (9.4-12.3) fl Neutrophils % (Manual) (40-60) % Band Neutrophils % (0-10) % Lymphocytes % (Manual) (20-40) % Atypical Lymphs % % Monocytes % (Manual) (2-10) % Eosinophils % (Manual) (0.7-5.8) % Basophils % (Manual) (0.1-1.2) Platelet Estimate Plt Morphology Comment Anisocytosis RBC Morph Comment ESR > 120 H (0-20) mm/hr PT (8.0-13.0) SECONDS INR Sodium (136-145) mEq/L Potassium (3.5-5.1) mEq/L Chloride (98-107) mEq/L Carbon Dioxide (21-32) mEq/L Anion Gap (5-15) BUN (7-18) mg/dL Creatinine (0.55-1.02) mg/dL Est Cr Clr Drug Dosing mL/min Estimated GFR (MDRD) (>60) mL/min BUN/Creatinine Ratio (14-18) Glucose (74-106) mg/dL Lactic Acid 1.7 (0.4-2.0) mmol/L Calcium (8.5-10.1) mg/dL Magnesium 2.0 (1.8-2.4) mg/dl Total Bilirubin (0.2-1.0) mg/dL AST (15-37) U/L ALT (14-59) U/L Alkaline Phosphatase (46-116) U/L C-Reactive Protein (<1.0) mg/dL Total Protein (6.4-8.2) g/dl Albumin (3.4-5.0) g/dl Globulin gm/dL Albumin/Globulin Ratio (1-2) TSH 3rd Generation (0.358-3.74) uIU/mL Urine Color (Yellow) Urine Appearance (Clear) Urine pH (5.0-8.0) Ur Specific [place] (1.005-1.030) Urine Protein (Negative) Urine Glucose (UA) (Negative) Urine Ketones (Negative) Urine Occult Blood (Negative) Urine Nitrite (Negative) Urine Bilirubin (Negative) Urine Urobilinogen (0.2-1.0) Ur Leukocyte Esterase (Negative) Urine RBC (0-5) /hpf Urine WBC (0-5) /hpf Ur Epithelial Cells (0-5) /hpf Urine Bacteria (FEW) /hpf Urine Mucus (FEW) /hpf 10/30/17 Range/Units 14:15 WBC (3.98-10.04) K/mm3 RBC (3.98-5.22) M/mm3 Hgb (11.2-15.7) gm/L Hct (34.1-44.9) % MCV (79.4-94.8) fl MCH (25.6-32.2) pg MCHC (32.2-35.5) g/dl RDW Std Deviation (36.4-46.3) fL Plt Count (182-369) K/mm3 MPV (9.4-12.3) fl Neutrophils % (Manual) (40-60) % Band Neutrophils % (0-10) % Lymphocytes % (Manual) (20-40) % Atypical Lymphs % % Monocytes % (Manual) (2-10) % Eosinophils % (Manual) (0.7-5.8) % Basophils % (Manual) (0.1-1.2) Platelet Estimate Plt Morphology Comment Anisocytosis RBC Morph Comment ESR (0-20) mm/hr PT (8.0-13.0) SECONDS INR Sodium (136-145) mEq/L Potassium (3.5-5.1) mEq/L Chloride (98-107) mEq/L Carbon Dioxide (21-32) mEq/L Anion Gap (5-15) BUN (7-18) mg/dL Creatinine (0.55-1.02) mg/dL Est Cr Clr Drug Dosing mL/min Estimated GFR (MDRD) (>60) mL/min BUN/Creatinine Ratio (14-18) Glucose (74-106) mg/dL Lactic Acid (0.4-2.0) mmol/L Calcium (8.5-10.1) mg/dL Magnesium (1.8-2.4) mg/dl Total Bilirubin (0.2-1.0) mg/dL AST (15-37) U/L ALT (14-59) U/L Alkaline Phosphatase (46-116) U/L C-Reactive Protein (<1.0) mg/dL Total Protein (6.4-8.2) g/dl Albumin (3.4-5.0) g/dl Globulin gm/dL Albumin/Globulin Ratio (1-2) TSH 3rd Generation (0.358-3.74) uIU/mL Urine Color Yellow (Yellow) Urine Appearance Clear (Clear) Urine pH 7.0 (5.0-8.0) Ur Specific [place] 1.015 (1.005-1.030) Urine Protein 1+ H (Negative) Urine Glucose (UA) Negative (Negative) Urine Ketones Negative (Negative) Urine Occult Blood Negative (Negative) Urine Nitrite Negative (Negative) Urine Bilirubin Negative (Negative) Urine Urobilinogen 0.2 (0.2-1.0) Ur Leukocyte Esterase Negative (Negative) Urine RBC 0-5 (0-5) /hpf Urine WBC 0-5 (0-5) /hpf Ur Epithelial Cells 0-5 (0-5) /hpf Urine Bacteria Few (FEW) /hpf Urine Mucus Not seen (FEW) /hpf Meds: Medications Generic Name Dose Route Start Last Admin Trade Name Freq PRN Reason Stop Dose Admin Acetaminophen 325 - 650 mg 03/01/17 15:53 Tylenol Solution PO Q4H PRN Pain/Fever Acetaminophen 650 mg 03/01/17 16:33 Tylenol PO Q4H PRN Pain (Mild 1-3)/fever Albuterol/Ipratropium 3 ml 03/01/17 16:33 Duoneb 3.0-0.5 Mg/3 Ml NEB Q4H PRN Shortness Of Breath/wheezing Alprazolam 0.5 - 1 mg 03/01/17 15:53 03/02/17 05:24 Xanax PO 0.5 mg Q12H PRN Administration Anxiety Bisacodyl 5 mg 03/01/17 16:33 Dulcolax PO DAILY PRN Constipation Docusate Sodium 100 mg 03/01/17 16:33 Colace PO BID PRN Constipation Famotidine 20 mg 03/02/17 09:00 Pepcid IVPUSH BID [facility] Fentanyl 100 mcg 03/01/17 18:00 03/01/17 19:45 Duragesic TRDERM 100 mcg Q72H [place] Administration Fentanyl 50 mcg 03/01/17 17:58 03/01/17 19:45 Duragesic TRDERM 50 mcg Q72H [place] Administration Hydralazine HCl 20 mg 03/01/17 20:56 Apresoline IVPUSH Q4H PRN Hypertension Hydromorphone HCl 6 mg 03/01/17 15:53 03/02/17 03:56 Dilaudid PO 5 mg Q2H PRN Administration Breakthrough Pain Promethazine HCl 12.5 mg/ 50.5 mls @ 100 mls/hr 03/01/17 16:33 Sodium Chloride IV Q6H PRN Nausea/Vomiting Sodium Chloride 1,000 mls @ 125 mls/hr 03/01/17 16:45 03/02/17 01:20 Normal Saline IV 125 mls/hr ASDIRECTED [facility] Administration Levofloxacin/Dextrose 500 mg/ 100 mls @ 100 mls/hr 03/02/17 17:00 Premix IV Q24H [facility] Piperacillin Sod/Tazobactam 100 mls @ 25 mls/hr 03/02/17 01:00 03/02/17 01:18 Sod 4.5 gm/ Sodium Chloride IV 25 mls/hr Q8H [facility] Administration Levothyroxine Sodium 75 mcg 03/02/17 09:00 Levothyroxine PO DAILY [facility] Lorazepam 1 mg 03/01/17 16:33 Ativan IV Q6H PRN Anxiety Lorazepam 2 mg 03/01/17 20:56 Ativan IVPUSH Q4H PRN Seizures Magnesium Sulfate 0 dose 03/01/17 21:00 Pharmacy To Dose - Magnesium Replacement .XX ASDIRECTED PRN RX TO WATCH MAG LEVELS Metoprolol Tartrate 5 mg 03/01/17 20:56 Lopressor IVPUSH Q4H PRN Tachycardia Miscellaneous Information 1 ea 03/04/17 17:00 Remove Patch TRDERM Q72H [facility] Ondansetron HCl 4 mg 03/01/17 16:33 Zofran IV Q6H PRN Nausea/Vomiting Jevity 1.5 Slava 0 each 03/01/17 21:00 Liquid 316 Ml GTUBE TID [facility] Polyethylene Glycol 17 gm 03/01/17 16:33 Miralax PO DAILY PRN Constipation Potassium Chloride 0 dose 03/01/17 21:00 Pharmacy To Dose - Potassium Replacement .XX ASDIRECTED PRN RX TO WATCH K LEVELS Senna/Docusate Sodium 1 tab 03/01/17 16:33 Senna Plus PO BID PRN Constipation Warfarin Sodium 1.25 mg 03/02/17 18:00 Coumadin PO [email or web address] [facility] Warfarin Sodium 2.5 mg 03/01/17 18:00 Coumadin PO [email or web address] [facility] Zolpidem Tartrate 5 - 10 mg 03/01/17 15:53 03/01/17 21:08 Ambien PO 10 mg ASDIRECTED PRN Administration Sleep Discontinued Medications Generic Name Dose Route Start Last Admin Trade Name Freq PRN Reason Stop Dose Admin Acetaminophen 650 mg 03/01/17 14:59 03/01/17 15:05 Tylenol Solution GTUBE 03/01/17 15:00 650 mg ONETIME ONE Administration Fentanyl 125 mcg 03/01/17 16:00 03/01/17 20:02 Duragesic TRDERM Not Given Q72H [facility] Fentanyl 150 mcg 03/01/17 17:00 03/01/17 20:02 Duragesic TRDERM Not Given Q72H [facility] Fentanyl 150 mcg 03/01/17 17:56 03/01/17 20:03 Duragesic TRDERM Not Given Q72H [facility] Hydromorphone HCl 2 mg 03/01/17 15:10 03/01/17 15:23 Dilaudid IVPUSH 03/01/17 15:11 2 mg ONETIME ONE Administration Dextrose/Sodium Chloride 1,000 mls @ 150 mls/hr 03/01/17 12:45 03/01/17 13:35 Dextrose 5%-Normal Saline IV 150 mls/hr ASDIRECTED [facility] Administration Ceftriaxone Sodium 1 gm/ 100 mls @ 200 mls/hr 03/01/17 14:03 03/01/17 14:25 Sodium Chloride IV 03/01/17 14:32 200 mls/hr ONETIME ONE Administration Levofloxacin/Dextrose 500 mg/ 100 mls @ 100 mls/hr 03/01/17 16:32 03/01/17 17 :57 Premix IV 03/01/17 17:31 100 mls/hr ONETIME ONE Administration Piperacillin Sod/Tazobactam 100 mls @ 200 mls/hr 03/01/17 17:00 03/01/17 19: 00 Sod 4.5 gm/ Sodium Chloride IV 03/01/17 17:29 200 mls/hr ONETIME ONE Administration Potassium Chloride 20 meq 03/01/17 22:00 03/01/17 21:08 Klor-Con M20 PO 03/02/17 01:01 20 meq Q3H [facility] Administration Potassium Chloride 20 meq 03/01/17 22:00 03/02/17 00:05 Potassium Chloride Solution GTUBE 03/02/17 01:01 Not Given Q3H [facility] - Radiology Interpretation Free Text/Narrative:: 56-year-old female presents to the ED for evaluation of acute onset of fever and chills reported at home over the last 2-3 days. Patient is immunocompromise due to metastatic bone cancer from cancer of the breast. She also has had previous laryngeal cancer with radiotherapy to the neck from amounts of radiation. She's had previous kyphoplasty to the thoracic spine due to metastatic bone disease and right total hip replacement due to pathological fracture. She is prone to urinary tract infections due to poor oral intake as when she tries to drink now there is evidence that there is a connection between the esophagus and trachea as water will come out the tracheostomy site. She is therefore prone to aspiration pneumonitis. She complains of pain in her throat at this time. The floor of her mouth is indurated and swollen likely from metastatic cancer but possibly from radiation as well. Source of infection will either be in her chest or urinary tract. Plan septic workup will be commenced. - Re-Assessments/Exams Free Text/Narrative Re-Assessment/Exam: 03/01/17 13:30 chest x-ray done portably is within normal limits. It is overpenetrated is a lack of breast tissue. However there is no infective process evident. 03/01/17 15:03 Labs are back. Total white count was 9.81 today with 58% neutrophils and 1% band cells. Hemoglobin is 10.8 hematocrit is 33.5 platelets low at 83,000. MCV is 89.3. PT is 21.4 with an INR 1.89. Sodium 142 potassium slightly low at 3.3. Chloride 99 bicarbonate 31. Anion gap is 15.3 be when his 17. Creatinine is 0.7. EGFR is greater than 60. BUN/creatinine ratio slightly elevated at 24.3 glucose is 82 lactic acid 1.7 calcium 10.3 orally elevated total bilirubin is 1.0 AST is 102 ELT is 22 phosphatase elevated at 222 compatible with her bone metastatic cancer. C-reactive protein is 35.3. Total protein is 6.9 albumin fraction is low at 2.0. TSH is 1.098. Urinalysis collected by catheter is completely normal. 03/01/17 15:17 after discussion with family decision made to place her in the hospital least overnight until the cultures come back. She did spike a temperature of 100.3 while in the ED and I just gave her Tylenol 650 mg via her G-tube. She is requesting Dilaudid for pain management and given 2 mg of Dilaudid IV at her request. Jevity --she has missed 2 feedings thus far today and therefore will receive Jevity 316 mils 3 times a day and I ordered this as well. She also gets 200 mils of water twice daily as well. Tentatively [facility] floor under the care of Dr. Wang -- hospitalist. 03/01/17 15:20 sedimentation rate came back at greater than 120. This is not surprising in light of metastatic bone cancer. CODE STATUS is still listed as full code Departure - Departure Time of Disposition: 16:30 Disposition: Admitted As Inpatient 65 Condition: Fair Clinical Impression: Fever of unknown origin, Metastatic breast cancer, Laryngeal cancer, Tracheo- esophageal fistula - Discharge Information - My Orders Last 24 Hours: My Active Orders 03/01/17 12:44 Blood Culture x2 Reflex Set [OM.PC] Stat 03/01/17 13:10 CULTURE BLOOD [BC] Stat 03/01/17 13:28 CULTURE BLOOD [BC] Stat 03/01/17 14:10 Insert Roper Catheter [Insert Urinary Catheter] [OM.PC] Stat 03/01/17 Dinner Tube Feeding Adult Diet [DIET] - Assessment/Plan Last 24 Hours: My Active Orders 03/01/17 12:44 Blood Culture x2 Reflex Set [OM.PC] Stat 03/01/17 13:10 CULTURE BLOOD [BC] Stat 03/01/17 13:28 CULTURE BLOOD [BC] Stat 03/01/17 14:10 Insert Roper Catheter [Insert Urinary Catheter] [OM.PC] Stat 03/01/17 Dinner Tube Feeding Adult Diet [DIET]
[2017-03-01] MEDS ORDERED: Dextrose 5%-0.9% NaCl 1,000 ML IV SCH (12:45)
--- NOTE | 2017-03-01 13:12 | PCM.SN ---
- Free Text/Narrative Note: 1251 in room for IV start/ lab draw mask glove #[id number]. right wrist good blood draw good flush secured report to RN out room at 1304.
[2017-03-01] MEDS ORDERED: cefTRIAXone 1 GM in Sodium Chloride 0.9% 100 ML IV ONE (14:03)
--- NOTE | 2017-03-01 14:44 | CR ---
Chest: Portable view of the chest was obtained. Comparison: Previous chest x-ray of 02/15/17. Heart size is within normal limits. Tortuous thoracic aorta is seen. Sternotomy wires are seen. Surgical clips are noted from prior axillary lymph node dissection on the left side. Lungs are clear. Previous vertebroplasty is noted within the upper lumbar spine. Scoliosis is noted within the spine. Bony structures are osteopenic. Impression: 1. Incidental findings. Nothing acute is appreciated on portable chest x-ray. Diagnostic code #2
[2017-03-01] MEDS ORDERED: Acetaminophen Susp 325 MG/10.15 ML UD Cup GTUBE ONE (14:59)
[2017-03-01] MEDS ORDERED: HYDROmorphone 1 MG/ML Syringe IVPUSH ONE (15:10)
[2017-03-01] MEDS ORDERED: Zolpidem 10 MG Tab PO PRN (15:53)
[2017-03-01] MEDS ORDERED: Acetaminophen Soln 160 MG/5 ML UD Cup PO PRN (15:53)
--- NOTE | 2017-03-01 15:53 | PCM.HP ---
H&P History of Present Illness - General Date of Service: 03/01/17 Admit Problem/Dx: Admission Diagnosis/Problem Admission Diagnosis/Problem Fever of unknown origin Source of Information: Patient, EMS Notes Reviewed, Family, Old Records, Provider, RN Notes Reviewed History Limitations: Reports: Physical Impairment - History of Present Illness Initial Comments - Free Text/Narative: This is a 56 yo white female with past medical hx/o HTN, SOB, AVR on Warfarin, Anemia of Malignancy Requiring Blood Transfusions in the Past, Hx/o Necrotic Tumor Mass w/ fistula S/p Radiation, Osteoporosis, Hypothyroidism, Hx/o Pneumothorax, Hx/o Breast Cancer 2014 S/p Bilateral Mastectomy with Metastatic Bone Disease, S/p Gastrostomy With Tube Feed Placement who comes in for evaluation of fever. Patient carries a hx/o throat cancer s/p laryngectomy and tracheostomy tube placement. She comes with a temperature of as high as 103.6 F. Her chief complaint is associated with chills, generalized weakness, decreased appetite, fatigue, malaise and weight loss. Patient was recently discharged here not too long ago. End of life care was offered but hospice/palliative care has not been involved with her since then. She is however agreeable to it. Her initial workup in the emergency department shows a CBC remarkable for RBC of 3.75, hemoglobin of 10.8, hematocrit of 33.5, platelet of 83, and ESR of 120. Her INR is 1.9 and PT is 21.4. Her chemistry is remarkable for potassium 3.3, anion gap of 15.3, calcium of 10.3, AST of 102, alkaline phosphatase of 222 , CRP of 35.8, albumin of 2. Her UA is negative for urinary tract infection. Chest x-ray shows no acute abnormal findings. Patient is being admitted for fever of unknown etiology and end-of-life care. She is DNR/DNI. Throat Pain Score (Numeric/FACES): 7 Generalized Pain Score (Numeric/FACES): 7 - Related Data Allergies/Adverse Reactions: Allergies Allergy/AdvReac Type Severity Reaction Status Date / Time No Known Allergies Allergy Verified 03/01/17 12:08 Home Medications: Home Meds Levothyroxine 75 mcg PO DAILY 07/25/14 [History] ALPRAZolam [Xanax] 0.5 - 1 mg PO Q12H PRN 08/14/14 [History] Warfarin [Coumadin] 2.5 mg PO SUMOWEFR 05/19/16 [History] HYDROmorphone [Dilaudid 1 MG/ML Soln] 6 mg PO Q2H PRN 01/19/17 [History] Zolpidem [Ambien] 5 - 10 mg PO ASDIRECTED PRN 01/19/17 [History] fentaNYL [Duragesic] 125 mcg TD Q72H 01/19/17 [History] Warfarin [Coumadin] 1.25 mg PO TUTHSA 02/02/17 [History] Acetaminophen [Tylenol Solution] 325 - 650 mg PO Q6H PRN 03/01/17 [History] Lactose-Reduced Food/Fiber [Jevity 1.5 Slava Liquid] 316 ml FTUBE TID 03/01/17 [ History] Past Medical History Cardiovascular History: Reports: Heart Valve Replacement, Hypertension, SOB on Exertion Respiratory History: Reports: Pneumothorax, SOB Other Respiratory History: Secondary to chest compressions Gastrointestinal History: Reports: Other (See Below) Other Gastrointestinal History: Feeding tube placed 13 days ago Genitourinary History: Reports: Pyelonephritis, UTI, Recurrent PROGRESSIVE CARE UNIT REGISTERED NURSE History: Reports: Musculoskeletal History: Reports: Osteoporosis, Other (See Below) Other Musculoskeletal History: left knee fx Psychiatric History: Reports: Anxiety, Depression Endocrine/Metabolic History: Reports: Hypothyroidism Hematologic History: Reports: Blood Transfusion(s) Oncologic (Cancer) History: Reports: Breast, Other (See Below) Other Oncologic History: throat Bones - Infectious Disease History Infectious Disease History: Reports: Chicken Pox, Shingles - Past Surgical History Other HEENT Surgeries/Procedures: radical neck Cardiovascular Surgical History: Reports: Valve Replacement Female Surgical History: Reports: Section, Mastectomy Endocrine Surgical History: Reports: Thyroidectomy Musculoskeletal Surgical History: Reports: Hip Replacement Oncologic Surgical History: Reports: Mastectomy, Other (See Below) Other Oncologic Surgeries/Procedures: Rad neck Social & Family History - Family History Family Medical History: Noncontributory - Tobacco Use Smoking Status *Q: Never Smoker Years of Tobacco use: 30 Used Tobacco, but Quit: Yes Month Tobacco Last Used: 05/2006 Second Hand Smoke Exposure: No - Caffeine Use Caffeine Use: Reports: None Other Caffeine Use: 1 per/day - Alcohol Use Days Per Week of Alcohol Use: 1 Number of Drinks Per Day: 2 Total Drinks Per Week: 2 - Recreational Drug Use Recreational Drug Use: No - Living Situation & Occupation Living situation: Reports: Occupation: Disabled H&P Review of Systems - Review of Systems: Review Of Systems: See Below General: Reports: Fever, Chills, Malaise, Weakness, Fatigue, Decreased Appetite , Weight Loss, Other (Diffuse Pain) HEENT: Reports: Sore Throat Pulmonary: Reports: Shortness of Breath, Cough Cardiovascular: Reports: Dyspnea on Exertion, Lightheadedness Gastrointestinal: Reports: Constipation, Other (gastric tube). Denies: Abdominal Pain Genitourinary: Reports: No Symptoms Musculoskeletal: Reports: Neck Pain, Shoulder Pain, Back Pain, Other (Bone Pain) Skin: Reports: Bruising. Denies: Cyanosis, Jaundice, Pallor, Diaphoresis, Rash , Erythema, Change in Color Psychiatric: Reports: Depression. Denies: Confusion, Anxiety, Agitation, Hallucinations, Suicidal Ideation Neurological: Reports: Difficulty Walking, Weakness, Gait Disturbance. Denies: Confusion Hematologic/Lymphatic: Reports: Anemia, Easy Bruising Immunologic: Reports: No Symptoms Exam - Exam Exam: See Below - Vital Signs Vital Signs: Last Vital Signs Temp 37.8 C 03/01/17 15:05 Pulse 90 03/01/17 14:32 Resp 24 H 03/01/17 14:32 BP 145/77 H 03/01/17 14:32 Pulse Ox 95 03/01/17 14:32 Weight: 43.998 kg - Exam General: Alert, Oriented, Cooperative, Other (severe cachexia) HEENT: Conjunctiva Clear, EACs Clear, EOMI, Hearing Intact, Mucosa Moist & [place] , Nares Patent, Normal Nasal Septum, Posterior Pharynx Clear, Pupils Equal, Pupils Reactive, Other (eyes sunken) Neck: Supple, Trachea Midline, +2 Carotid Pulse wo Bruit, Full Range of Motion, Other (tracheostomy tube) Cardiovascular: Regular Rate, Regular Rhythm, Systolic Murmur GI/Abdominal Exam: Normal Bowel Sounds, Soft, Non-Tender, No Organomegaly, No Distention, No Abnormal Bruit, Other (flat badomne with gastric feeding tube) (Female) Exam: Deferred Rectal (Female) Exam: Deferred Back Exam: Normal Inspection, Decreased Range of Motion Extremities: Normal Inspection, Normal Range of Motion, Non-Tender, No Pedal Edema, Normal Capillary Refill Peripheral Pulses: 1+: Posterior Tibial (L), Posterior Tibial (R), Dorsalis Pedis (L), Dorsalis Pedis (R) Skin: Warm, Dry, Intact, Ecchymosis Neuro Extensive - Mental Status: Oriented x3, Normal Cognition, Memory Intact Neuro Extensive - Motor, Sensory, Reflexes: CN II-XII Intact (limited due to generalized weakness but otherwise grossly intact), Abnormal Gait Psychiatric: Alert, Normal Affect, Depressed - Patient Data Lab Results Last 24 hrs: Laboratory Results - last 24 hr 03/01/17 03/01/17 03/01/17 Range/Units 13:01 13:01 13:01 WBC 9.81 (3.98-10.04) K/mm3 RBC 3.75 L (3.98-5.22) M/mm3 Hgb 10.8 L (11.2-15.7) gm/L Hct 33.5 L (34.1-44.9) % MCV 89.3 (79.4-94.8) fl MCH 28.8 (25.6-32.2) pg MCHC 32.2 (32.2-35.5) g/dl RDW Std Deviation 53.0 H (36.4-46.3) fL Plt Count 83 L (182-369) K/mm3 MPV 11.2 (9.4-12.3) fl Neutrophils % (Manual) 58 (40-60) % Band Neutrophils % 1 (0-10) % Lymphocytes % (Manual) 32 (20-40) % Atypical Lymphs % 0 % Monocytes % (Manual) 5 (2-10) % Eosinophils % (Manual) 3 (0.7-5.8) % Basophils % (Manual) 1 (0.1-1.2) Platelet Estimate Decreased Plt Morphology Comment Normal Anisocytosis 2+ moderate RBC Morph Comment Not Reportable ESR (0-20) mm/hr PT 21.4 H (8.0-13.0) SECONDS INR 1.89 Sodium 142 (136-145) mEq/L Potassium 3.3 L (3.5-5.1) mEq/L Chloride 99 (98-107) mEq/L Carbon Dioxide 31 (21-32) mEq/L Anion Gap 15.3 H (5-15) BUN 17 (7-18) mg/dL Creatinine 0.7 (0.55-1.02) mg/dL Est Cr Clr Drug Dosing 61.59 mL/min Estimated GFR (MDRD) > 60 (>60) mL/min BUN/Creatinine Ratio 24.3 H (14-18) Glucose 82 (74-106) mg/dL Lactic Acid (0.4-2.0) mmol/L Calcium 10.3 H (8.5-10.1) mg/dL Magnesium (1.8-2.4) mg/dl Total Bilirubin 1.0 (0.2-1.0) mg/dL AST 102 H (15-37) U/L ALT 22 (14-59) U/L Alkaline Phosphatase 222 H (46-116) U/L C-Reactive Protein 35.3 H* (<1.0) mg/dL Total Protein 6.9 (6.4-8.2) g/dl Albumin 2.0 L (3.4-5.0) g/dl Globulin 4.9 gm/dL Albumin/Globulin Ratio 0.4 L (1-2) TSH 3rd Generation 1.098 (0.358-3.74) uIU/mL Urine Color (Yellow) Urine Appearance (Clear) Urine pH (5.0-8.0) Ur Specific [place] (1.005-1.030) Urine Protein (Negative) Urine Glucose (UA) (Negative) Urine Ketones (Negative) Urine Occult Blood (Negative) Urine Nitrite (Negative) Urine Bilirubin (Negative) Urine Urobilinogen (0.2-1.0) Ur Leukocyte Esterase (Negative) Urine RBC (0-5) /hpf Urine WBC (0-5) /hpf Ur Epithelial Cells (0-5) /hpf Urine Bacteria (FEW) /hpf Urine Mucus (FEW) /hpf 03/01/17 03/01/17 03/01/17 Range/Units 13:01 13:01 13:10 WBC (3.98-10.04) K/mm3 RBC (3.98-5.22) M/mm3 Hgb (11.2-15.7) gm/L Hct (34.1-44.9) % MCV (79.4-94.8) fl MCH (25.6-32.2) pg MCHC (32.2-35.5) g/dl RDW Std Deviation (36.4-46.3) fL Plt Count (182-369) K/mm3 MPV (9.4-12.3) fl Neutrophils % (Manual) (40-60) % Band Neutrophils % (0-10) % Lymphocytes % (Manual) (20-40) % Atypical Lymphs % % Monocytes % (Manual) (2-10) % Eosinophils % (Manual) (0.7-5.8) % Basophils % (Manual) (0.1-1.2) Platelet Estimate Plt Morphology Comment Anisocytosis RBC Morph Comment ESR > 120 H (0-20) mm/hr PT (8.0-13.0) SECONDS INR Sodium (136-145) mEq/L Potassium (3.5-5.1) mEq/L Chloride (98-107) mEq/L Carbon Dioxide (21-32) mEq/L Anion Gap (5-15) BUN (7-18) mg/dL Creatinine (0.55-1.02) mg/dL Est Cr Clr Drug Dosing mL/min Estimated GFR (MDRD) (>60) mL/min BUN/Creatinine Ratio (14-18) Glucose (74-106) mg/dL Lactic Acid 1.7 (0.4-2.0) mmol/L Calcium (8.5-10.1) mg/dL Magnesium 2.0 (1.8-2.4) mg/dl Total Bilirubin (0.2-1.0) mg/dL AST (15-37) U/L ALT (14-59) U/L Alkaline Phosphatase (46-116) U/L C-Reactive Protein (<1.0) mg/dL Total Protein (6.4-8.2) g/dl Albumin (3.4-5.0) g/dl Globulin gm/dL Albumin/Globulin Ratio (1-2) TSH 3rd Generation (0.358-3.74) uIU/mL Urine Color (Yellow) Urine Appearance (Clear) Urine pH (5.0-8.0) Ur Specific [place] (1.005-1.030) Urine Protein (Negative) Urine Glucose (UA) (Negative) Urine Ketones (Negative) Urine Occult Blood (Negative) Urine Nitrite (Negative) Urine Bilirubin (Negative) Urine Urobilinogen (0.2-1.0) Ur Leukocyte Esterase (Negative) Urine RBC (0-5) /hpf Urine WBC (0-5) /hpf Ur Epithelial Cells (0-5) /hpf Urine Bacteria (FEW) /hpf Urine Mucus (FEW) /hpf 03/01/17 Range/Units 14:15 WBC (3.98-10.04) K/mm3 RBC (3.98-5.22) M/mm3 Hgb (11.2-15.7) gm/L Hct (34.1-44.9) % MCV (79.4-94.8) fl MCH (25.6-32.2) pg MCHC (32.2-35.5) g/dl RDW Std Deviation (36.4-46.3) fL Plt Count (182-369) K/mm3 MPV (9.4-12.3) fl Neutrophils % (Manual) (40-60) % Band Neutrophils % (0-10) % Lymphocytes % (Manual) (20-40) % Atypical Lymphs % % Monocytes % (Manual) (2-10) % Eosinophils % (Manual) (0.7-5.8) % Basophils % (Manual) (0.1-1.2) Platelet Estimate Plt Morphology Comment Anisocytosis RBC Morph Comment ESR (0-20) mm/hr PT (8.0-13.0) SECONDS INR Sodium (136-145) mEq/L Potassium (3.5-5.1) mEq/L Chloride (98-107) mEq/L Carbon Dioxide (21-32) mEq/L Anion Gap (5-15) BUN (7-18) mg/dL Creatinine (0.55-1.02) mg/dL Est Cr Clr Drug Dosing mL/min Estimated GFR (MDRD) (>60) mL/min BUN/Creatinine Ratio (14-18) Glucose (74-106) mg/dL Lactic Acid (0.4-2.0) mmol/L Calcium (8.5-10.1) mg/dL Magnesium (1.8-2.4) mg/dl Total Bilirubin (0.2-1.0) mg/dL AST (15-37) U/L ALT (14-59) U/L Alkaline Phosphatase (46-116) U/L C-Reactive Protein (<1.0) mg/dL Total Protein (6.4-8.2) g/dl Albumin (3.4-5.0) g/dl Globulin gm/dL Albumin/Globulin Ratio (1-2) TSH 3rd Generation (0.358-3.74) uIU/mL Urine Color Yellow (Yellow) Urine Appearance Clear (Clear) Urine pH 7.0 (5.0-8.0) Ur Specific [place] 1.015 (1.005-1.030) Urine Protein 1+ H (Negative) Urine Glucose (UA) Negative (Negative) Urine Ketones Negative (Negative) Urine Occult Blood Negative (Negative) Urine Nitrite Negative (Negative) Urine Bilirubin Negative (Negative) Urine Urobilinogen 0.2 (0.2-1.0) Ur Leukocyte Esterase Negative (Negative) Urine RBC 0-5 (0-5) /hpf Urine WBC 0-5 (0-5) /hpf Ur Epithelial Cells 0-5 (0-5) /hpf Urine Bacteria Few (FEW) /hpf Urine Mucus Not seen (FEW) /hpf Result Diagrams: 03/01/17 13:01 03/01/17 13:01 EKG INTERPRETATION EKG Date: 03/01/17 Time: 13:40 Rhythm: NSR Rate (Beats/Min): 83 [place]: LAD-Left [place] Deviation P-Wave: Present QRS: Normal QT: Prolonged *Q Meaningful Use (ADM) - VTE *Q VTE Criteria *Q: - Stroke *Q Stroke Criteria *Q: - AMI *Q AMI Criteria *Q: Problem List Initiated/Reviewed/Updated: Yes Orders Last 24hrs: Active Orders 24 hr Category Date Time Status Admission Status [Patient Status] [ADT] Routine ADT 03/01/17 15:18 Active EKG Documentation Completion [RC] STAT Care 03/01/17 12:44 Active Insert Roper Catheter [Insert Urinary Catheter] [OM.PC] Care 03/01/17 14:10 Ordered Stat Urinary Catheter Assessment [RC] ASDIRECTED Care 03/01/17 14:10 Active Tube Feeding Adult Diet [DIET] Diet 03/01/17 Dinner Active CULTURE BLOOD [BC] Stat Lab 03/01/17 13:10 Received CULTURE BLOOD [BC] Stat Lab 03/01/17 13:28 Received Dextrose 5%-0.9% NaCl [Dextrose 5%-Normal Saline] 1,000 Med 03/01/17 12:45 Active ml IV ASDIRECTED Blood Culture x2 Reflex Set [OM.PC] Stat Oth 03/01/17 12:44 Ordered Medication Orders Dextrose/Sodium Chloride (Dextrose 5%-Normal Saline) 1,000 mls @ 150 mls/hr IV ASDIRECTED [facility] Last Admin: 03/01/17 13:35 Dose: 150 mls/hr Assessment/Plan Comment:: Assessment/Plan: Acute: Fever of Unknown Etiology - CXR and UA both negative - Blood Cx pending - This is likely related to her diffuse metastatic disease - Would like to come in for antibiotic therapy and agreed to discharge tomorrow with Hospice/Palliative Care Subtherapeutic INR - INR 1.8 - Resume warfarin dose - Pharmacy to monitor Hypokalemia - K 3.3 - 2/2 inadequate intake - Pharmacy to monitor Hx/o Throat Cancer - S/p Tracheostomy and Laryngectomy - Pain management - Recommend Hospice/Palliative Care End of Life Care - Patient carries a diffuse metastatic bone disease - Her overall prognosis is dismal and very poor - Consult Hospice/Palliative Care - She is agreeable to it in AM Chronic: HTN SOB Aortic Valve Replacement on Warfarin Anemia of Malignancy, Hgb 10.8, Requiring Blood Transfusion, Stable Hx/o Necrotic Tumor Mass with Fistula S/p Radiation Osteoporosis Hypothyroidism Thrombocytopenia Hx/o Pneumothorax Hx/o Breast Cancer S/p Bilateral Mastectomy with Diffuse Metastatic Bone Disease S/p Gastrostomy Tube Feed Placement Plan: Admit to OBS with Telemetry Management should be conservative at this point Routine AM Labs Increased Fentanyl from 125 to 150 mcg Q72H x 1 now Diet as usual via tube feeds DVT/GI PPx: Warfarin and H2B Resume Home Meds SW/CM for d/c planning Consult Hospice/Palliative Care Code status: DNR/DNI Discharge in AM
[2017-03-01] MEDS ORDERED: fentaNYL 25 MCG/HR Transdermal Patch TRDERM SCH (16:00)
[2017-03-01] MEDS ORDERED: Levofloxacin/Dextrose 5%-Water 500 MG in Premix Bag 1 BAG IV ONE (16:32)
[2017-03-01] MEDS ORDERED: Ondansetron 4 MG/2 ML SDV IV PRN (16:33)
[2017-03-01] MEDS ORDERED: Polyethylene Glycol 3350 Powder 17 GM Packet PO PRN (16:33)
[2017-03-01] MEDS ORDERED: Acetaminophen 325 MG Tab PO PRN (16:33)
[2017-03-01] MEDS ORDERED: Bisacodyl 5 MG Tab PO PRN (16:33)
[2017-03-01] MEDS ORDERED: Albuterol/Ipratropium 3.0-0.5 MG/3 ML Neb Soln NEB PRN (16:33)
[2017-03-01] MEDS ORDERED: Docusate Sodium 100 MG Cap PO PRN (16:33)
[2017-03-01] MEDS ORDERED: Promethazine 12.5 MG in Sodium Chloride 0.9% 50 ML IV PRN (16:33)
[2017-03-01] MEDS ORDERED: LORazepam 2 MG/ML MDV IV PRN (16:33)
[2017-03-01] MEDS ORDERED: fentaNYL 100 MCG/HR Transdermal Patch TRDERM SCH ×2 (17:00→18:00)
[2017-03-01] MEDS ORDERED: Piperacillin/Tazobactam 4.5 GM in Sodium Chloride 0.9% 100 ML IV ONE (17:00)
[2017-03-01] MEDS: Sodium Chloride 0.9% 1,000 ML IV SCH (17:54)
[2017-03-01] MEDS ORDERED: fentaNYL 50 MCG/HR Transdermal Patch TRDERM SCH ×2 (17:56→17:58)
[2017-03-01] MEDS ORDERED: Warfarin 2.5 MG Tab PO SCH (18:00)
[2017-03-01] MEDS: HYDROMORPHONE 1 MG/ML PO PRN ×3 (18:02→23:36)
[2017-03-01] MEDS: ALPRAZolam 0.5 MG Tab PO PRN (18:03)
[2017-03-01] MEDS ORDERED: hydrALAZINE 20 MG/ML SDV IVPUSH PRN (20:56)
[2017-03-01] MEDS ORDERED: Metoprolol Tartrate 5 MG/5 ML SDV IVPUSH PRN (20:56)
[2017-03-01] MEDS ORDERED: LORazepam 2 MG/ML MDV IVPUSH PRN (20:56)
[2017-03-01] MEDS ORDERED: ENTERAL NUTRITION FORMULA GTUBE SCH (21:00)
[2017-03-01] MEDS ORDERED: Potassium Chloride 20 MEQ Tab.ER PO SCH (22:00)
[2017-03-01] MEDS: Potassium Chloride 10% 20 MEQ/15 ML Soln 15 ML UD Cup GTUBE SCH (23:12)
[2017-03-02] MEDS: Potassium Chloride 10% 20 MEQ/15 ML Soln 15 ML UD Cup GTUBE SCH (00:05)
[2017-03-02] MEDS: Piperacillin/Tazobactam 4.5 GM in Sodium Chloride 0.9% 100 ML IV SCH ×2 (01:18→08:54)
[2017-03-02] MEDS: Sodium Chloride 0.9% 1,000 ML IV SCH ×2 (01:20→11:15)
[2017-03-02] MEDS: HYDROMORPHONE 1 MG/ML PO PRN ×2 (03:56→12:55)
[2017-03-02 05:06] VITALS: BP 129/62
[2017-03-02] MEDS: ALPRAZolam 0.5 MG Tab PO PRN (05:24)
--- NOTE | 2017-03-02 07:12 | PCM.DCSUM1 ---
Discharge Summary - Hospital Course Brief History: This is a 56 yo white female with past medical hx/o HTN, SOB, AVR on Warfarin, Anemia of Malignancy Requiring Blood Transfusions in the Past, Hx/o Necrotic Tumor Mass w/ fistula S/p Radiation, Osteoporosis, Hypothyroidism , Hx/o Pneumothorax, Hx/o Breast Cancer 2015 S/p Bilateral Mastectomy with Metastatic Bone Disease, S/p Gastrostomy With Tube Feed Placement who comes in for evaluation of fever. She was admitted for end of life care. - Discharge Data Discharge Date: 03/02/17 Discharge Disposition: DC/Tfer to Hospice-[facility] Condition: Good - Discharge Diagnosis/Problem(s) (1) Admission for end of life care SNOMED Code(s): 836672365 ICD Code: Z51.5 - ENCOUNTER FOR PALLIATIVE CARE Status: Acute (2) Fever of unknown origin SNOMED Code(s): 9868446 ICD Code: R50.9 - FEVER, UNSPECIFIED Status: Resolved Problem Details: - Likely 2/2 Metastatic Disease from Bone Breakdown - UA and CXR Negative - Has not had fever since admission and WBC remains normal (3) Hypokalemia due to inadequate potassium intake SNOMED Code(s): 19951509 ICD Code: E87.6 - HYPOKALEMIA Status: Acute (4) Metastatic breast cancer SNOMED Code(s): 654096063 ICD Code: C50.919 - MALIGNANT NEOPLASM OF UNSP SITE OF UNSPECIFIED FEMALE BREAST Status: Chronic (5) Laryngeal cancer Status: Chronic (6) Tracheo-esophageal fistula SNOMED Code(s): 62226638 ICD Code: J86.0 - PYOTHORAX WITH FISTULA Status: Chronic (7) Subtherapeutic international normalized ratio (INR) SNOMED Code(s): 931041694 ICD Code: R79.1 - ABNORMAL COAGULATION PROFILE Status: Resolved - Patient Summary/Data Operative Procedure(s) Performed: None Complications: None Consults: Consultations 03/01/17 16:33 Consult to Case Management [CONS] Routine Consult to Drywall Finisher [CONS] Routine Consult to Spiritual Care [CONS] Routine 03/01/17 16:49 Consult to Hospice [CONS] Routine Consult to Palliative Care [CONS] Routine 03/01/17 22:26 Consult to Dietary [Consult to Mail Distribution Clerk] [CONS] Routine Labs Pending at D/C: None Recommended Follow-up Testing/Procedures: None Planned Operative Procedure(s) after DC: None Hospital Course: Patient was primarily admitted for end of life care. After offering hospice/ palliative care here in the hospital, patient agreed to be discharged and continue her medical management at home. Her hospital was fairly uncomplicated with the exception of electrolyte abnormalities due to poor nutritional status. However she received supplementation and her warfarin was continued due to slightly sub-therapeutic INR level. On this admission, she had a drop in her hemoglobin level to 8.9 but she understood this was related to her metastatic bone disease. Her overall prognosis remains very poor. She understood at this point palliation /hospice is the best way to treat her symptomatic metastatic disease. Her pain regimen has been adjustment. We expect hospice provider will follow up with her for further changes if needed on her current treatment plan. - Patient Instructions Diet: Usual Diet as Tolerated Activity: As Tolerated Driving: Do Not Drive Showering/Bathing: May Shower Notify Provider of: Fever, Increased Pain, Swelling and Redness, Nausea and/or Vomiting Other/Special Instructions: - You will now be under end of life care. - Hospice /palliative care staff will meet up with you to discuss your care plan. - Follow up with your hospice doctor as needed - Discharge Plan Prescriptions/Med Rec: fentaNYL [Duragesic] 150 mcg TD Q72H #5 [id number] Home Medications: Home Meds Levothyroxine 75 mcg PO DAILY 07/25/14 [History] ALPRAZolam [Xanax] 0.5 - 1 mg PO Q12H PRN 08/14/14 [History] Warfarin [Coumadin] 2.5 mg PO SUMOWEFR 05/19/16 [History] Zolpidem [Ambien] 5 - 10 mg PO ASDIRECTED PRN 01/19/17 [History] Warfarin [Coumadin] 1.25 mg PO TUTHSA 02/02/17 [History] Acetaminophen [Tylenol Solution] 325 - 650 mg PO Q6H PRN 03/01/17 [History] Lactose-Reduced Food/Fiber [Jevity 1.5 Slava Liquid] 316 ml FTUBE TID 03/01/17 [ History] HYDROmorphone [Dilaudid 1 MG/ML Soln] 10 mg PO Q4HR PRN #0 03/02/17 [Rx] fentaNYL [Duragesic] 150 mcg TD Q72H #5 patch.[id number] 03/02/17 [Rx] Patient Handouts: PEG Tube Home Guide, [id number], Care of a Feeding Tube, [id number], Hospice, About Your Loved One's Last Days - Discharge Summary/Plan Comment DC Time >30 min.: Yes (45 mins) Discharge Summary/Plan Comment: Discharge to Home Hospice Care - General Info Date of Service: 03/02/17 Admission Dx/Problem (Free Text: Admission Diagnosis/Problem Admission Diagnosis/Problem Fever of unknown origin Subjective Update: Follow Up Functional Status: Reports: Pain Controlled, Tolerating Diet, Urinating. Denies : Ambulating, New Symptoms - Review of Systems General: Reports: Weakness, Fatigue, Malaise. Denies: Fever, Chills HEENT: Reports: No Symptoms Pulmonary: Reports: Shortness of Breath, Cough Cardiovascular: Denies: Chest Pain Gastrointestinal: Reports: Diarrhea, Flatus. Denies: Abdominal Pain, Nausea, Vomiting Genitourinary: Reports: No Symptoms Musculoskeletal: Reports: Neck Pain, Shoulder Pain, Back Pain, Other (Diffuse Bone Pain) Neurological: Reports: Weakness, Gait Disturbance. Denies: Confusion, Difficulty Walking Psychiatric: Reports: Depression. Denies: Anxiety, Agitation, Hallucinations Systems Review Comment: No significant overnight or acute issues. - Patient Data Vitals - Most Recent: Last Vital Signs Temp 36.9 C 03/02/17 04:14 Pulse 91 03/02/17 04:14 Resp 24 H 03/02/17 04:14 BP 129/62 03/02/17 04:14 Pulse Ox 92 L 03/02/17 04:14 Weight - Most Recent: 46.266 kg I&O - Last 24 hours: Intake & Output 03/01/17 03/02/17 03/02/17 22:59 06:59 14:59 Intake Total 2019 Balance 2019 Lab Results - Last 24 hrs: Laboratory Results - last 24 hr 03/02/17 03/02/17 03/02/17 Range/Units 06:05 06:05 06:05 WBC 7.12 (3.98-10.04) K/mm3 RBC 2.85 L (3.98-5.22) M/mm3 Hgb 8.2 L (11.2-15.7) gm/L Hct 26.0 L (34.1-44.9) % MCV 91.2 (79.4-94.8) fl MCH 28.8 (25.6-32.2) pg MCHC 31.5 L (32.2-35.5) g/dl RDW Std Deviation 52.7 H (36.4-46.3) fL Plt Count 63 L (182-369) K/mm3 MPV 10.6 (9.4-12.3) fl Neut % (Auto) 60.4 (34.0-71.1) % Lymph % (Auto) 11.5 L (19.3-51.7) % Thayer % (Auto) 14.7 H (4.7-12.5) % Eos % (Auto) 1.1 (0.7-5.8) Baso % (Auto) 0.6 (0.1-1.2) % Neut # (Auto) 4.30 (1.56-6.13) K/mm3 Lymph # (Auto) 0.82 L (1.18-3.74) K/mm3 Thayer # (Auto) 1.05 H (0.24-0.36) K/mm3 Eos # (Auto) 0.08 (0.04-0.36) K/mm3 Baso # (Auto) 0.04 (0.01-0.08) K/mm3 PT 31.9 H (8.0-13.0) SECONDS INR 2.74 Sodium 145 (136-145) mEq/L Potassium 2.9 L (3.5-5.1) mEq/L Chloride 106 (98-107) mEq/L Carbon Dioxide 26 (21-32) mEq/L Anion Gap 15.9 H (5-15) BUN 15 (7-18) mg/dL Creatinine 0.7 (0.55-1.02) mg/dL Est Cr Clr Drug Dosing 64.76 mL/min Estimated GFR (MDRD) > 60 (>60) mL/min BUN/Creatinine Ratio 21.4 H (14-18) Glucose 174 H (74-106) mg/dL Calcium 8.8 (8.5-10.1) mg/dL Magnesium 1.6 L (1.8-2.4) mg/dl Med Orders - Current: Current Medications Acetaminophen (Tylenol Solution) 325 - 650 mg PO Q4H PRN PRN Reason: Pain/Fever Acetaminophen (Tylenol) 650 mg PO Q4H PRN PRN Reason: Pain (Mild 1-3)/fever Albuterol/Ipratropium (Duoneb 3.0-0.5 Mg/3 Ml) 3 ml NEB Q4H PRN PRN Reason: Shortness Of Breath/wheezing Alprazolam (Xanax) 0.5 - 1 mg PO Q12H PRN PRN Reason: Anxiety Last Admin: 03/02/17 05:24 Dose: 0.5 mg Bisacodyl (Dulcolax) 5 mg PO DAILY PRN PRN Reason: Constipation Docusate Sodium (Colace) 100 mg PO BID PRN PRN Reason: Constipation Famotidine (Pepcid) 20 mg IVPUSH BID [facility] Fentanyl (Duragesic) 100 mcg TRDERM Q72H [facility] Last Admin: 03/01/17 19:45 Dose: 100 mcg Fentanyl (Duragesic) 50 mcg TRDERM Q72H [facility] Last Admin: 03/01/17 19:45 Dose: 50 mcg Hydralazine HCl (Apresoline) 20 mg IVPUSH Q4H PRN PRN Reason: Hypertension Hydromorphone HCl (Dilaudid) 6 mg PO Q2H PRN PRN Reason: Breakthrough Pain Last Admin: 03/02/17 03:56 Dose: 5 mg Promethazine HCl 12.5 mg/ (Sodium Chloride) 50.5 mls @ 100 mls/hr IV Q6H PRN PRN Reason: Nausea/Vomiting Sodium Chloride (Normal Saline) 1,000 mls @ 125 mls/hr IV ASDIRECTED [facility] Last Admin: 03/02/17 01:20 Dose: 125 mls/hr Levofloxacin/Dextrose 500 mg/ (Premix) 100 mls @ 100 mls/hr IV Q24H [facility] Piperacillin Sod/Tazobactam (Sod 4.5 gm/ Sodium Chloride) 100 mls @ 25 mls/hr IV Q8H [facility] Last Admin: 03/02/17 01:18 Dose: 25 mls/hr Levothyroxine Sodium (Levothyroxine) 75 mcg PO DAILY [facility] Lorazepam (Ativan) 1 mg IV Q6H PRN PRN Reason: Anxiety Lorazepam (Ativan) 2 mg IVPUSH Q4H PRN PRN Reason: Seizures Magnesium Sulfate (Pharmacy To Dose - Magnesium Replacement) 1 dose .XX ASDIRECTED [facility] Metoprolol Tartrate (Lopressor) 5 mg IVPUSH Q4H PRN PRN Reason: Tachycardia Miscellaneous Information (Remove Patch) 1 ea TRDERM Q72H [facility] Non-Formulary Medication (Lactose-Reduced Food/Fiber [Jevity 1.5 Slava Liquid]) 316 ml FTUBE TID [facility] Ondansetron HCl (Zofran) 4 mg IV Q6H PRN PRN Reason: Nausea/Vomiting Polyethylene Glycol (Miralax) 17 gm PO DAILY PRN PRN Reason: Constipation Potassium Chloride (Pharmacy To Dose - Potassium Replacement) 1 dose .XX ASDIRECTED [facility] Senna/Docusate Sodium (Senna Plus) 1 tab PO BID PRN PRN Reason: Constipation Warfarin Sodium (Coumadin) 1.25 mg PO TuThSa@1800 [facility] Warfarin Sodium (Coumadin) 2.5 mg PO SUMOWEFR [facility] Zolpidem Tartrate (Ambien) 5 - 10 mg PO ASDIRECTED PRN PRN Reason: Sleep Last Admin: 03/01/17 21:08 Dose: 10 mg Discontinued Medications Acetaminophen (Tylenol Solution) 650 mg GTUBE ONETIME ONE Stop: 03/01/17 15:00 Last Admin: 03/01/17 15:05 Dose: 650 mg Fentanyl (Duragesic) 125 mcg TRDERM Q72H [facility] Last Admin: 03/01/17 20:02 Dose: Not Given Fentanyl (Duragesic) 150 mcg TRDERM Q72H [facility] Last Admin: 03/01/17 20:02 Dose: Not Given Fentanyl (Duragesic) 150 mcg TRDERM Q72H [facility] Last Admin: 03/01/17 20:03 Dose: Not Given Hydromorphone HCl (Dilaudid) 2 mg IVPUSH ONETIME ONE Stop: 03/01/17 15:11 Last Admin: 03/01/17 15:23 Dose: 2 mg Dextrose/Sodium Chloride (Dextrose 5%-Normal Saline) 1,000 mls @ 150 mls/hr IV ASDIRECTED [facility] Last Admin: 03/01/17 13:35 Dose: 150 mls/hr Ceftriaxone Sodium 1 gm/ (Sodium Chloride) 100 mls @ 200 mls/hr IV ONETIME ONE Stop: 03/01/17 14:32 Last Admin: 03/01/17 14:25 Dose: 200 mls/hr Levofloxacin/Dextrose 500 mg/ (Premix) 100 mls @ 100 mls/hr IV ONETIME ONE Stop: 03/01/17 17:31 Last Admin: 03/01/17 17:57 Dose: 100 mls/hr Piperacillin Sod/Tazobactam (Sod 4.5 gm/ Sodium Chloride) 100 mls @ 200 mls/hr IV ONETIME ONE Stop: 03/01/17 17:29 Last Admin: 03/01/17 19:00 Dose: 200 mls/hr Potassium Chloride (Klor-Con M20) 20 meq PO Q3H [facility] Stop: 03/02/17 01:01 Last Admin: 03/01/17 21:08 Dose: 20 meq Potassium Chloride (Potassium Chloride Solution) 20 meq GTUBE Q3H [facility] Stop: 03/02/17 01:01 Last Admin: 03/02/17 00:05 Dose: Not Given - Exam Quality Assessment: Reports: Supplemental Oxygen General: Reports: Alert, Oriented, Cooperative, Other (severe cachexia) HEENT: Reports: Pupils Equal, Pupils Reactive, EOMI, Mucous Membr. Moist/[place], Other (eyes are sunken) Neck: Reports: Supple, Trachea Midline, No JVD, Other (tracheostomy without tube this am) Lungs: Reports: Normal Respiratory Effort, Decreased Breath Sounds Cardiovascular: Reports: Regular Rate, Regular Rhythm, Murmurs GI/Abdominal Exam: Normal Bowel Sounds, Soft, Non-Tender, No Organomegaly, No Distention, No Abnormal Bruit, No Mass, Other (gastric feeding tube) Rectal (Female) Exam: Deferred Back Exam: Reports: Normal Inspection, Decreased Range of Motion Extremities: Normal Inspection, Normal Range of Motion, Non-Tender, No Pedal Edema, Normal Capillary Refill Skin: Reports: Warm, Dry, Intact Neurological: Reports: No New Focal Deficit Psy/Mental Status: Reports: Alert, Depressed. Denies: Normal Affect, Suicidal Ideation, Homicidal Ideation, Hallucinations, Withdrawal Symptoms *Q Meaningful Use (DIS) - VTE *Q VTE Criteria *Q: - Stroke *Q Stroke Criteria *Q: - AMI *Q AMI Criteria *Q:
[2017-03-02] MEDS ORDERED: Magnesium Sulfate/Water 2 GM in Premix Bag 1 BAG IV ONE (08:00)
[2017-03-02] MEDS ORDERED: Piperacillin/Tazobactam 4.5 GM in Dextrose 5% in Water 100 ML IV SCH ×4 (09:00→17:00)
[2017-03-02] MEDS ORDERED: Levothyroxine 75 MCG Tab PO SCH (09:00)
[2017-03-02] MEDS ORDERED: Famotidine 20 MG/2 ML SDV IVPUSH SCH (09:00)
[2017-03-02] MEDS: Potassium Chloride 10 MEQ in Premix Bag 1 BAG IV SCH ×2 (10:47→12:10)
[2017-03-02] MEDS ORDERED: Levofloxacin/Dextrose 5%-Water 500 MG in Premix Bag 1 BAG IV SCH (17:00)
[2017-03-02] MEDS ORDERED: Warfarin 2.5 MG Tab PO SCH (18:00)
[2017-03-04] MEDS ORDERED: REMOVE FENTANYL TRDERM SCH (17:00)
== END 2017-03-02 14:05 | disposition hospice, inpatient (51) ==
LOC: JD.ED 11:46 → JD.MS 15:18 → INTOOBSV 15:18
PROVIDERS: ADMIT Emergency Medicine; ATTEND Internal Medicine
DX: Z51.5 Encounter for palliative care (principal); R50.9 Fever, unspecified; C79.51 Secondary malignant neoplasm of bone; E87.6 Hypokalemia; D63.0 Anemia in neoplastic disease; I10 Essential (primary) hypertension; M81.0 Age-related osteoporosis without current pathological fracture; F41.9 Anxiety disorder, unspecified; F32.9 Major depressive disorder, single episode, unspecified; E89.0 Postprocedural hypothyroidism; Z85.3 Personal history of malignant neoplasm of breast; Z85.21 Personal history of malignant neoplasm of larynx; Z87.440 Personal history of urinary (tract) infections; Z92.3 Personal history of irradiation; Z93.0 Tracheostomy status; Z95.2 Presence of prosthetic heart valve; Z96.649 Presence of unspecified artificial hip joint; Z90.13 Acquired absence of bilateral breasts and nipples; Z90.02 Acquired absence of larynx; Z98.890 Other specified postprocedural states; Z79.01 Long term (current) use of anticoagulants; Z79.899 Other long term (current) drug therapy
CPT/HCPCS: 36415; 71010; 80048; 80053; 81001; 83605; 83735; 84443; 85025; 85610; 85652; 86140; 87040; 93005; 96361; 96365; 96375; 99285; A9270; J0696; J1170; J1956; J2543; J3480; J7030; J7040; J7042; P9612; 96366; 96367; 96368; 96376; G0378; J3475